=== PATIENT | female | born 1930 | race Caucasian/White ===

== ENCOUNTER 2016-06-11 10:33 | Inpatient (IN) | payer MEDICARE, BC ==
[2016-06-11] MEDS ORDERED: SODIUM CHLORIDE 0.9% 1,000 ML IV STA ×2 (10:57)
--- NOTE | 2016-06-11 11:00 | ED ---
Weakness HPI - General Chief complaint: Weakness Stated complaint: Vomiting Time Seen by Provider: 06/11/16 10:44 Source: patient, family, RN notes reviewed Mode of arrival: wheelchair Limitations: no limitations - History of Present Illness Initial comments: This is a 86-year-old female who presents with complaints of the onset of nausea vomiting yesterday morning he has persisted throughout the night though she was able to get some sleep until about 4 AM this morning but she still has persistent nausea vomiting she has generalized weakness she feels lightheaded and dizzy when she tries to walk. She's had some sweats but no fevers or chills some none description chest discomfort she relates to vomiting. She denies any at this time overt abdominal pain dysuria hematuria constipation diarrhea. MD Complaint: generalized weakness - Related Data Home Medications Medication Instructions Recorded Confirmed ALPRAZolam [Xanax] 0.5 mg PO TID PRN 06/11/16 06/11/16 Aspirin EC [Ecotrin Low Dose] 81 mg PO HS 06/11/16 06/11/16 Atorvastatin [Lipitor] 20 mg PO DAILY 06/11/16 06/11/16 Cetirizine HCl [Zyrtec] 10 mg PO DAILY 06/11/16 06/11/16 Famotidine [Pepcid] 20 mg PO BID 06/11/16 06/11/16 HYDROcodone/APAP 5-325MG [[place] 1 tab PO Q6HR PRN 06/11/16 06/11/16 5-325] Meclizine [Antivert] 25 mg PO TID 06/11/16 06/11/16 Metoprolol Tartrate [Lopressor] 25 mg PO BID 06/11/16 06/11/16 Promethazine [Phenergan] 12.5 mg PO BID@1200,2100 06/11/16 06/11/16 Allergies Allergy/AdvReac Type Severity Reaction Status Date / Time Penicillins Allergy Unknown Verified 06/11/16 11:58 Childhood Review of Systems ROS Statement: Those systems with pertinent positive or pertinent negative responses have been documented in the HPI. ROS Other: All systems not noted in ROS Statement are negative. Past Medical History Past Medical History: GERD/Reflux, Hyperlipidemia, Hypertension Additional Past Medical History / Comment(s): ulcers History of Any Multi-Drug Resistant Organisms: None Reported Past Surgical History: Orthopedic Surgery Past Psychological History: Anxiety Smoking Status: Current every day smoker Past Alcohol Use History: None Reported Past Drug Use History: None Reported General Exam - General Exam Comments Initial Comments: This is a well-developed well-nourished awake alert oriented 3 female Limitations: no limitations General appearance: alert, in no apparent distress Head exam: Present: atraumatic, normocephalic, normal inspection Eye exam: Present: normal appearance, PERRL, EOMI. Absent: scleral icterus, conjunctival injection, periorbital swelling ENT exam: Present: mucous membranes dry Neck exam: Present: normal inspection. Absent: tenderness, meningismus, lymphadenopathy Respiratory exam: Present: normal lung sounds bilaterally. Absent: respiratory distress, wheezes, rales, rhonchi, stridor Cardiovascular Exam: Present: regular rate, normal rhythm, normal heart sounds. Absent: systolic murmur, diastolic murmur, rubs, gallop, clicks GI/Abdominal exam: Present: soft, tenderness (Mild epigastric right upper quadrant tenderness palpation no guarding rebound masses or bruits), normal bowel sounds. Absent: distended, guarding, rebound, rigid Extremities exam: Present: normal inspection, full ROM, normal capillary refill. Absent: tenderness, pedal edema, joint swelling, calf tenderness Back exam: Present: normal inspection Neurological exam: Present: alert, oriented X3, CN II-XII intact Psychiatric exam: Present: normal affect, normal mood Skin exam: Present: warm, dry, intact, normal color. Absent: rash Course Vital Signs 06/11/16 06/11/16 06/11/16 10:35 11:04 11:49 Temperature 97.0 F L Pulse Rate 95 81 80 Respiratory 20 18 16 Rate Blood Pressure 137/73 149/83 168/80 O2 Sat by Pulse 97 94 L 98 Oximetry Medical Decision Making - Lab Data Result diagrams: 06/11/16 10:55 06/11/16 10:55 Lab Results 06/11/16 06/11/16 06/11/16 Range/Units 10:55 10:55 10:55 WBC 9.0 (3.8-10.6) k/uL RBC 4.92 (3.80-5.40) m/uL Hgb 15.9 (11.4-16.0) gm/dL Hct 46.5 H (34.0-46.0) % MCV 94.4 (80.0-100.0) fL MCH 32.3 (25.0-35.0) pg MCHC 34.2 (31.0-37.0) g/dL RDW 14.2 (11.5-15.5) % Plt Count 262 (150-450) k/uL Neutrophils % 80 % Lymphocytes % 12 % Monocytes % 4 % Eosinophils % 1 % Basophils % 1 % Neutrophils # 7.3 (1.3-7.7) k/uL Lymphocytes # 1.1 (1.0-4.8) k/uL Monocytes # 0.4 (0-1.0) k/uL Eosinophils # 0.1 (0-0.7) k/uL Basophils # 0.1 (0-0.2) k/uL Sodium 140 (137-145) mmol/L Potassium 4.1 (3.5-5.1) mmol/L Chloride 104 (98-107) mmol/L Carbon Dioxide 26 (22-30) mmol/L Anion Gap 10 mmol/L BUN 15 (7-17) mg/dL Creatinine 0.80 (0.52-1.04) mg/dL Est GFR (MDRD) Af Amer >60 (>60 ml/min/1.73 sqM) Est GFR (MDRD) Non-Af >60 (>60 ml/min/1.73 sqM) Glucose 115 H (74-99) mg/dL Calcium 9.9 (8.4-10.2) mg/dL Magnesium (1.6-2.3) mg/dL Total Bilirubin 1.1 (0.2-1.3) mg/dL AST 27 (14-36) U/L ALT 28 (9-52) U/L Alkaline Phosphatase 71 (38-126) U/L Total Creatine Kinase 48 (30-135) U/L CK-MB (CK-2) 1.3 (0.0-2.4) ng/mL CK-MB (CK-2) Rel Index 2.7 Troponin I <0.012 (0.000-0.034) ng/mL Total Protein 7.4 (6.3-8.2) g/dL Albumin 4.4 (3.5-5.0) g/dL Amylase 36 (30-110) U/L Lipase 63 (23-300) U/L Urine Color Urine Appearance (Clear) Urine pH (5.0-8.0) Ur Specific [place] (1.001-1.035) Urine Protein (Negative) Urine Glucose (UA) (Negative) Urine Ketones (Negative) Urine Blood (Negative) Urine Nitrite (Negative) Urine Bilirubin (Negative) Urine Urobilinogen (<2.0) mg/dL Ur Leukocyte Esterase (Negative) Urine RBC (0-5) /hpf Urine WBC (0-5) /hpf Ur Squamous Epith Cells (0-4) /hpf Urine Bacteria (None) /hpf Urine Mucus (None) /hpf 06/11/16 06/11/16 Range/Units 10:55 12:10 WBC (3.8-10.6) k/uL RBC (3.80-5.40) m/uL Hgb (11.4-16.0) gm/dL Hct (34.0-46.0) % MCV (80.0-100.0) fL MCH (25.0-35.0) pg MCHC (31.0-37.0) g/dL RDW (11.5-15.5) % Plt Count (150-450) k/uL Neutrophils % % Lymphocytes % % Monocytes % % Eosinophils % % Basophils % % Neutrophils # (1.3-7.7) k/uL Lymphocytes # (1.0-4.8) k/uL Monocytes # (0-1.0) k/uL Eosinophils # (0-0.7) k/uL Basophils # (0-0.2) k/uL Sodium (137-145) mmol/L Potassium (3.5-5.1) mmol/L Chloride (98-107) mmol/L Carbon Dioxide (22-30) mmol/L Anion Gap mmol/L BUN (7-17) mg/dL Creatinine (0.52-1.04) mg/dL Est GFR (MDRD) Af Amer (>60 ml/min/1.73 sqM) Est GFR (MDRD) Non-Af (>60 ml/min/1.73 sqM) Glucose (74-99) mg/dL Calcium (8.4-10.2) mg/dL Magnesium 2.0 (1.6-2.3) mg/dL Total Bilirubin (0.2-1.3) mg/dL AST (14-36) U/L ALT (9-52) U/L Alkaline Phosphatase (38-126) U/L Total Creatine Kinase (30-135) U/L CK-MB (CK-2) (0.0-2.4) ng/mL CK-MB (CK-2) Rel Index Troponin I (0.000-0.034) ng/mL Total Protein (6.3-8.2) g/dL Albumin (3.5-5.0) g/dL Amylase (30-110) U/L Lipase (23-300) U/L Urine Color Yellow Urine Appearance Cloudy H (Clear) Urine pH 8.0 (5.0-8.0) Ur Specific [place] 1.009 (1.001-1.035) Urine Protein Trace H (Negative) Urine Glucose (UA) Negative (Negative) Urine Ketones 1+ H (Negative) Urine Blood Negative (Negative) Urine Nitrite Negative (Negative) Urine Bilirubin Negative (Negative) Urine Urobilinogen <2.0 (<2.0) mg/dL Ur Leukocyte Esterase Large H (Negative) Urine RBC <1 (0-5) /hpf Urine WBC 2 (0-5) /hpf Ur Squamous Epith Cells <1 (0-4) /hpf Urine Bacteria Rare H (None) /hpf Urine Mucus Rare H (None) /hpf - EKG Data -: EKG Interpreted by Me (Sinus with sinus arrhythmia rate was 74. Interval 154 QRS duration 126 QT/) - Radiology Data Radiology results: report reviewed (I did review the imaging and reports no acute findings.), image reviewed Disposition Clinical Impression: Intermittent complete heart block, Acute gastritis, Dehydration, Weakness Disposition: ADMITTED IP TO THIS [facility] Condition: Stable
[2016-06-11 11:06] LABS: Basophils # (A) 0.1 k/uL (0-0.2); Basophils % (A) 1 %; CH 33.4; CHCM 35.5; Eosinophils # (A) 0.1 k/uL (0-0.7); Eosinophils % (A) 1 %; HCT 46.5 % (34.0-46.0); HDW 2.48; HGB 15.9 gm/dL (11.4-16.0); Luc # (Auto) 0.16; Luc % (Auto) 2; Lymphocytes # (A) 1.1 k/uL (1.0-4.8); Lymphocytes % (A) 12 %; MCH 32.3 pg (25.0-35.0); MCHC 34.2 g/dL (31.0-37.0); MCV 94.4 fL (80.0-100.0); Mean Platelet Volume 6.9; Monocytes # (A) 0.4 k/uL (0-1.0); Monocytes % (A) 4 %; Neutrophils # (A) 7.3 k/uL (1.3-7.7); Neutrophils % (A) 80 %; RBC 4.92 m/uL (3.80-5.40); RDW 14.2 % (11.5-15.5); WBC (Perox) 9.17
[2016-06-11 11:20] LABS: ALT 28 U/L (9-52); AST 27 U/L (14-36); Alkaline Phosphatase 71 U/L (38-126); Amylase 36 U/L (30-110); Anion Gap 10 mmol/L; Blood Urea Nitrogen 15 mg/dL (7-17); Calcium 9.9 mg/dL (8.4-10.2); Carbon Dioxide 26 mmol/L (22-30); Chloride 104 mmol/L (98-107); Glucose 115 mg/dL (74-99); Non-African American GFR(MDRD) >60 (>60 ml/min/1.73 sqM); Potassium 4.1 mmol/L (3.5-5.1); Sodium 140 mmol/L (137-145); Total Bilirubin 1.1 mg/dL (0.2-1.3); Total Protein 7.4 g/dL (6.3-8.2)
--- NOTE | 2016-06-11 11:26 | XR ---
EXAMINATION TYPE: XR chest 2V DATE OF EXAM: 06/11/2016 11:21 AM COMPARISON: 05/05/2012 INDICATION: Abdominal pain and nausea TECHNIQUE: Single frontal view of the chest is obtained. FINDINGS: The heart size is normal. The pulmonary vasculature is normal. There is blunting left costophrenic angle. Small pleural effusion and/or atelectasis may be present. Spondylosis is within the thoracic spine. IMPRESSION: 1. Minimal effusion or atelectasis within the lateral left costophrenic angle. 2. Acute pulmonary process is not otherwise identified.
--- NOTE | 2016-06-11 11:27 | XR ---
EXAMINATION TYPE: XR KUB DATE OF EXAM: 06/11/2016 11:21 AM COMPARISON: NONE INDICATION: Abdomen pain nausea vomiting TECHNIQUE: Single view abdomen upright view FINDINGS: There is a normal bowel gas pattern. Psoas margins are normal. No organomegaly is present. No free air is evident. No differential air-fluid levels are present. Stent is within the right iliac region. Degenerative changes are within the lumbar spine. IMPRESSION: 1. No acute abnormality
[2016-06-11 11:34] LABS: Creatine Kinase 48 U/L (30-135)
[2016-06-11 11:47] LABS: Creatine Kinase MB 1.3 ng/mL (0.0-2.4); Troponin I <0.012 ng/mL (0.000-0.034)
[2016-06-11 12:27] LABS: Appearance,Urine Cloudy (Clear); Bacteria,Urine Rare /hpf; Bilirubin,Urine Negative (Negative); Glucose,Urine (UA) Negative (Negative); Ketones,Urine 1+ (Negative); Leukocyte Esterase,Urine Large (Negative); Mucus,Urine Rare /hpf; Nitrite,Urine Negative (Negative); Particle Count 1115; Protein,Urine Trace (Negative); RBC,Urine <1 /hpf (0-5); Specific Gravity,Urine 1.009 (1.001-1.035); Squamous Epithelial Cell,Urine <1 /hpf (0-4); UA Billing (MACRO vs. MICRO) MICRO; Urobilinogen,Urine <2.0 mg/dL (<2.0); WBC,Urine 2 /hpf (0-5)
[2016-06-11] MEDS ORDERED: NALOXONE 0.4 MG/ML 1 ML VIAL IV PRN (13:18)
--- NOTE | 2016-06-11 13:23 | ED ---
Medical Decision Making - Lab Data Result diagrams: 06/11/16 10:55 06/11/16 10:55 Lab Results 06/11/16 06/11/16 06/11/16 Range/Units 10:55 10:55 10:55 WBC 9.0 (3.8-10.6) k/uL RBC 4.92 (3.80-5.40) m/uL Hgb 15.9 (11.4-16.0) gm/dL Hct 46.5 H (34.0-46.0) % MCV 94.4 (80.0-100.0) fL MCH 32.3 (25.0-35.0) pg MCHC 34.2 (31.0-37.0) g/dL RDW 14.2 (11.5-15.5) % Plt Count 262 (150-450) k/uL Neutrophils % 80 % Lymphocytes % 12 % Monocytes % 4 % Eosinophils % 1 % Basophils % 1 % Neutrophils # 7.3 (1.3-7.7) k/uL Lymphocytes # 1.1 (1.0-4.8) k/uL Monocytes # 0.4 (0-1.0) k/uL Eosinophils # 0.1 (0-0.7) k/uL Basophils # 0.1 (0-0.2) k/uL Sodium 140 (137-145) mmol/L Potassium 4.1 (3.5-5.1) mmol/L Chloride 104 (98-107) mmol/L Carbon Dioxide 26 (22-30) mmol/L Anion Gap 10 mmol/L BUN 15 (7-17) mg/dL Creatinine 0.80 (0.52-1.04) mg/dL Est GFR (MDRD) Af Amer >60 (>60 ml/min/1.73 sqM) Est GFR (MDRD) Non-Af >60 (>60 ml/min/1.73 sqM) Glucose 115 H (74-99) mg/dL Calcium 9.9 (8.4-10.2) mg/dL Magnesium (1.6-2.3) mg/dL Total Bilirubin 1.1 (0.2-1.3) mg/dL AST 27 (14-36) U/L ALT 28 (9-52) U/L Alkaline Phosphatase 71 (38-126) U/L Total Creatine Kinase 48 (30-135) U/L CK-MB (CK-2) 1.3 (0.0-2.4) ng/mL CK-MB (CK-2) Rel Index 2.7 Troponin I <0.012 (0.000-0.034) ng/mL Total Protein 7.4 (6.3-8.2) g/dL Albumin 4.4 (3.5-5.0) g/dL Amylase 36 (30-110) U/L Lipase 63 (23-300) U/L Urine Color Urine Appearance (Clear) Urine pH (5.0-8.0) Ur Specific [place] (1.001-1.035) Urine Protein (Negative) Urine Glucose (UA) (Negative) Urine Ketones (Negative) Urine Blood (Negative) Urine Nitrite (Negative) Urine Bilirubin (Negative) Urine Urobilinogen (<2.0) mg/dL Ur Leukocyte Esterase (Negative) Urine RBC (0-5) /hpf Urine WBC (0-5) /hpf Ur Squamous Epith Cells (0-4) /hpf Urine Bacteria (None) /hpf Urine Mucus (None) /hpf 06/11/16 06/11/16 Range/Units 10:55 12:10 WBC (3.8-10.6) k/uL RBC (3.80-5.40) m/uL Hgb (11.4-16.0) gm/dL Hct (34.0-46.0) % MCV (80.0-100.0) fL MCH (25.0-35.0) pg MCHC (31.0-37.0) g/dL RDW (11.5-15.5) % Plt Count (150-450) k/uL Neutrophils % % Lymphocytes % % Monocytes % % Eosinophils % % Basophils % % Neutrophils # (1.3-7.7) k/uL Lymphocytes # (1.0-4.8) k/uL Monocytes # (0-1.0) k/uL Eosinophils # (0-0.7) k/uL Basophils # (0-0.2) k/uL Sodium (137-145) mmol/L Potassium (3.5-5.1) mmol/L Chloride (98-107) mmol/L Carbon Dioxide (22-30) mmol/L Anion Gap mmol/L BUN (7-17) mg/dL Creatinine (0.52-1.04) mg/dL Est GFR (MDRD) Af Amer (>60 ml/min/1.73 sqM) Est GFR (MDRD) Non-Af (>60 ml/min/1.73 sqM) Glucose (74-99) mg/dL Calcium (8.4-10.2) mg/dL Magnesium 2.0 (1.6-2.3) mg/dL Total Bilirubin (0.2-1.3) mg/dL AST (14-36) U/L ALT (9-52) U/L Alkaline Phosphatase (38-126) U/L Total Creatine Kinase (30-135) U/L CK-MB (CK-2) (0.0-2.4) ng/mL CK-MB (CK-2) Rel Index Troponin I (0.000-0.034) ng/mL Total Protein (6.3-8.2) g/dL Albumin (3.5-5.0) g/dL Amylase (30-110) U/L Lipase (23-300) U/L Urine Color Yellow Urine Appearance Cloudy H (Clear) Urine pH 8.0 (5.0-8.0) Ur Specific [place] 1.009 (1.001-1.035) Urine Protein Trace H (Negative) Urine Glucose (UA) Negative (Negative) Urine Ketones 1+ H (Negative) Urine Blood Negative (Negative) Urine Nitrite Negative (Negative) Urine Bilirubin Negative (Negative) Urine Urobilinogen <2.0 (<2.0) mg/dL Ur Leukocyte Esterase Large H (Negative) Urine RBC <1 (0-5) /hpf Urine WBC 2 (0-5) /hpf Ur Squamous Epith Cells <1 (0-4) /hpf Urine Bacteria Rare H (None) /hpf Urine Mucus Rare H (None) /hpf Disposition Clinical Impression: Intermittent complete heart block, Acute gastritis, Dehydration, Weakness, Bradycardia Disposition: ADMITTED IP TO THIS [facility] Condition: Stable Referrals: Van Syed MD [Primary Care Provider] - 1-2 days
[2016-06-11] MEDS: SODIUM CHLORIDE 0.9% 1,000 ML IV SCH (15:19)
[2016-06-11 16:04] VITALS: BMI 29.5
[2016-06-11] MEDS ORDERED: HYDROmorphone 1 MG/ML 1 ML SYRINGE IVP PRN (16:43)
[2016-06-11] MEDS: MECLIZINE 25 MG TAB PO SCH ×2 (17:20→22:08)
[2016-06-11] MEDS: ONDANSETRON 4 MG/2 ML VIAL IVP PRN (17:21)
[2016-06-11] MEDS ORDERED: ENALAPRILAT 1.25 MG/ML 1 ML VIAL IVP STA (20:34)
[2016-06-11] MEDS ORDERED: ASPIRIN 81 MG CHEW PO SCH (21:00)
[2016-06-11] MEDS ORDERED: FAMOTIDINE 20 MG TAB PO SCH (21:00)
[2016-06-11] MEDS: PROMETHAZINE 25 MG TAB PO SCH (22:10)
[2016-06-12] MEDS: SODIUM CHLORIDE 0.9% 1,000 ML IV SCH ×2 (03:56→17:20)
[2016-06-12] MEDS: ONDANSETRON 4 MG/2 ML VIAL IVP PRN (04:01)
--- NOTE | 2016-06-12 08:02 | HP ---
DATE OF ADMISSION: 06/11/2016 CHIEF COMPLAINTS: Nausea, vomiting, dizziness, and general weakness. This is an 86-year-old white female who was brought to the emergency room because of severe nausea, vomiting, dizziness, and weakness. The patient's symptoms started yesterday and this was progressively getting worse and she became extremely weak and she also had some generalized pain in the abdomen and denied any chest pain and there was no cough. In the emergency room, CBC showed a WBC count of 9.0, hemoglobin 15.9, platelet count 262,000; sodium 140, potassium 4.1 and creatinine 0.8, BUN 15, platelet count 262,000. Liver enzymes within normal limits. Cardiac enzymes also within normal limits with troponin less than 0.012, CK-MB normal. Urinalysis negative, chest x-ray did not show any acute changes. EKG showed intermittent blocked beats. The patient was admitted to the hospital for further evaluation and treatment. Her past medical history reveals that she has history of: Gastroesophageal reflux disease, history of possibly perforated peptic ulcer disease several years ago and she also has hyperlipidemia and hypertensive cardiovascular disease and according to patient's [id number], she has had a stent placement in the past in the coronary artery. Her. Current medications include: 1. Metoprolol 25 mg p.o. b.i.d. 2. Antivert 25 mg t.i.d. 3. Famotidine 20 mg p.o. b.i.d. 4. Phenergan 12.5 mg b.i.d. p.r.n. 5. Zyrtec 10 mg p.o. daily. 6. Xanax 0.5 mg t.i.d. p.r.n. 7. Lipitor 20 mg p.o. daily. She has no known drug allergies. SOCIAL HISTORY: She does not smoke and she does not drink alcohol. FAMILY HISTORY: Noncontributory. History of heart disease and hypertension in the family. REVIEW OF SYSTEMS: Patient denies any headache. Appetite has been poor lately. She has severe nausea and vomiting and also some generalized abdominal pain and she has no chest pain. She has no cough. She has no polyuria or dysuria. She has no neurological symptoms. Physical examination reveals an 86-year-old white female extremely weak and still having severe dizziness and nausea and vomiting. She is alert and oriented. There is no jaundice. There is no generalized lymphadenopathy. There are no petechiae or bruises. She is afebrile. Temperature 97.6, pulse 78 per minute, respirations 20 per minute, blood pressure 168/80. Examination of the ENT negative. Neck is supple. There is no jugular venous distention. There is no goiter. There is no carotid bruit noted. Heart is in sinus rhythm with frequent missed beats. LUNGS: Clear to auscultation and percussion. Abdomen soft, but there is some tenderness in the upper abdomen. Examination of the lower extremities reveal no pitting edema. Neurologic examination does not reveal any localizing signs. IMPRESSION: 1. Severe nausea and vomiting and dizziness. 2. Intermittent bradycardia with blocked heart beats. 3. Hypertensive cardiovascular disease. 4. History of coronary artery disease. 5. Rule out acute labyrinthitis. 6. Hyperlipidemia. 7. Gastroesophageal reflux disease. 8. History of perforated peptic ulcer disease. PLAN: The patient we will be transferred to telemetry and we will get cardiology consultation. We will also get an ultrasound of the upper abdomen. Her nausea will be controlled with Zofran and given IV p.r.n. Prognosis is guarded. The diagnosis, prognosis, and therapeutic plans were discussed in detail with the patient and also with family. This patient's primary care physician is Dr. Syed and the patient was seen by me today for Dr. Syed as I am covering him for the weekend. Dr. Syed will resume care of this patient starting tomorrow morning.
[2016-06-12 09:33] LABS: Anion Gap 8 mmol/L; Blood Urea Nitrogen 13 mg/dL (7-17); Calcium 8.4 mg/dL (8.4-10.2); Carbon Dioxide 24 mmol/L (22-30); Chloride 109 mmol/L (98-107); Glucose 89 mg/dL (74-99); Non-African American GFR(MDRD) >60 (>60 ml/min/1.73 sqM); Potassium 3.9 mmol/L (3.5-5.1); Sodium 141 mmol/L (137-145)
--- NOTE | 2016-06-12 11:33 | P.CRDCN ---
History of Present Illness Consult date: 06/12/16 History of present illness: This is a 86-year-old female with history of ischemic heart disease with previous stent placement and episodes of dizziness. Came to the hospital with complaints of nausea vomiting, weakness, and also diarrhea. Patient apparently also had some abdominal discomfort. Upon admission patient was noted to have evidence of a high degree AV block with 3 to one conduction. This appears to be type II AV block. Patient also has underlying left bundle-branch block with a left occiput deviation. Patient also has history of intermittent dizziness in the past and had tilt table test done. She is also noted. Patient was conducting 221 with a sinus tachycardia. Given the high degree of AV block and history of a dizziness, patient would become a candidate for permanent pacemaker implantation. Patient is currently being treated and investigative for diarrhea. Once that is controlled, we'll consider permanent pacemaker implantation. However, the patient COMPLETE heart block, and did may become an emergency. Review of Systems REVIEW OF SYSTEMS: CONSTITUTIONAL:. Alert and oriented EYES: Denies diplopia, blurring of vision EARS, NOSE, MOUTH, THROAT: Denies headaches, denies sore throat. CARDIOVASCULAR: Denies chest pain, denies shortness of breath, denies palpitations RESPIRATORY: Denies shortness of breath, denies cough. GASTROINTESTINAL: Nausea vomiting and diarrhea GENITOURINARY: Denies hematuria, denies infections. MUSKULOSKELETAL: Denies pain, denies swelling. Denies any cramps or claudication INTEGUMENTARY: Denies rash, denies eczema. NEUROLOGICAL: Denies focal weakness, or visual disturbance. Denies any dizziness or syncope PSYCHIATRIC: Denies anxiety, denies depression. HEMATOLOGIC/LYMPHATIC: Denies any bleeding, denies enlarged lymph nodes. Past Medical History Past Medical History: Coronary Artery Disease (CAD), GERD/Reflux, Hyperlipidemia , Hypertension Additional Past Medical History / Comment(s): ulcers History of Any Multi-Drug Resistant Organisms: None Reported Past Surgical History: Heart Catheterization With Stent Additional Past Surgical History / Comment(s): sx for ruptered ulcer in 2012 Past Anesthesia/Blood Transfusion Reactions: No Reported Reaction Date of Last Stent Placement:: 1991 (?) Past Psychological History: Anxiety Smoking Status: Current every day smoker Past Alcohol Use History: None Reported Past Drug Use History: None Reported Medications and Allergies Home Medications Medication Instructions Recorded Confirmed Type ALPRAZolam [Xanax] 0.5 mg PO TID PRN 06/11/16 06/11/16 History Aspirin EC [Ecotrin Low Dose] 81 mg PO HS 06/11/16 06/11/16 History Atorvastatin [Lipitor] 20 mg PO DAILY 06/11/16 06/11/16 History Cetirizine HCl [Zyrtec] 10 mg PO DAILY 06/11/16 06/11/16 History Famotidine [Pepcid] 20 mg PO BID 06/11/16 06/11/16 History HYDROcodone/APAP 5-325MG [[place] 1 tab PO Q6HR PRN 06/11/16 06/11/16 History 5-325] Meclizine [Antivert] 25 mg PO TID 06/11/16 06/11/16 History Metoprolol Tartrate [Lopressor] 25 mg PO BID 06/11/16 06/11/16 History Promethazine [Phenergan] 12.5 mg PO BID@1200,2100 06/11/16 06/11/16 History Allergies Allergy/AdvReac Type Severity Reaction Status Date / Time Penicillins Allergy Unknown Verified 06/11/16 11:58 Childhood Physical Exam Vitals: Vital Signs Temp Pulse Pulse Pulse Resp BP BP 06/12/16 08:34 97.4 F L 68 75 16 146/68 06/12/16 04:00 75 16 172/73 06/12/16 00:00 98.0 F 45 L 16 144/65 06/11/16 20:00 97.8 F 46 L 16 200/78 06/11/16 16:00 98.3 F 49 L 16 139/79 06/11/16 14:55 98.7 F 54 L 18 186/89 06/11/16 14:12 98.5 F 71 18 148/79 Pulse Ox 06/12/16 08:34 94 L 06/12/16 04:00 93 L 06/12/16 00:00 96 06/11/16 20:00 95 06/11/16 16:00 97 06/11/16 14:55 95 06/11/16 14:12 95 Intake and Output 06/11/16 06/12/16 06/12/16 22:59 06:59 14:59 Intake Total 260 640 Output Total 2 4 Balance 258 636 Intake: Intake, IV Titration 160 640 Amount Sodium Chloride 0.9% 1, 160 640 000 ml @ 80 mls/hr IV . [id number] DANISHA Rx#:[id number] Oral 100 Output: Urine 2 4 Other: Voiding Method Toilet Toilet Toilet # Bowel Movements 2 1 Weight 73.4 kg 73.1 kg GENERAL EXAM: Patient is alert and oriented and doesn't appear to be in any acute distress HEENT: Normocephalic. Normal reaction of pupils, equal size, normal range of extraocular motion. No erythema or exudates in the throat. NECK: No masses, no nuchal rigidity. CHEST: No chest wall deformity. LUNGS: Equal air entry with no crackles or wheeze. HEART: S1 and S2 normal , short systolic murmur ABDOMEN: No hepatosplenomegaly, normal bowel sounds, no guarding or rigidity. SKIN: No rashes CENTRAL NERVOUS SYSTEM: No focal deficits. EXTREMITIES: No cyanosis, clubbing or edema. Results 06/11/16 10:55 06/12/16 08:49 Comprehensive Metabolic Panel 06/12/16 Range/Units 08:49 Sodium 141 (137-145) mmol/L Potassium 3.9 (3.5-5.1) mmol/L Chloride 109 H (98-107) mmol/L Carbon Dioxide 24 (22-30) mmol/L BUN 13 (7-17) mg/dL Creatinine 0.70 (0.52-1.04) mg/dL Glucose 89 (74-99) mg/dL Calcium 8.4 (8.4-10.2) mg/dL Current Medications Generic Name Dose Route Start Last Admin Trade Name Freq PRN Reason Stop Dose Admin Hydrocodone Bitart/Acetaminophen 1 each 06/11/16 13:21 [place] 5-325 PO Q6HR PRN Pain Alprazolam 0.5 mg 06/11/16 13:21 Xanax PO TID PRN Anxiety Atorvastatin Calcium 20 mg 06/12/16 09:00 Lipitor PO DAILY DANISHA Famotidine 20 mg 06/12/16 09:00 Pepcid IV DAILY DANISHA Hydromorphone HCl 1 mg 06/11/16 16:43 Dilaudid IVP Q6HR PRN Pain Sodium Chloride 1,000 mls @ 80 mls/hr 06/11/16 13:30 06/12/16 03:56 Saline 0.9% IV 80 mls/hr .[id number] DANISHA Administration Lisinopril 5 mg 06/12/16 09:00 Zestril PO DAILY DANISHA Loratadine 10 mg 06/12/16 09:00 Claritin PO DAILY DANISHA Meclizine HCl 25 mg 06/11/16 16:00 06/11/16 22:08 Antivert PO 25 mg TID DANISHA Administration Naloxone HCl 0.2 mg 06/11/16 13:18 Narcan IV Q2M PRN Opioid Reversal Ondansetron HCl 4 mg 06/11/16 16:43 06/12/16 04:01 Zofran IVP 4 mg Q6HR PRN Administration Nausea And Vomiting Promethazine HCl 12.5 mg 06/11/16 21:00 06/11/16 22:10 Phenergan PO 12.5 mg BID@1200,2100 DANISHA Administration Intake and Output 06/11/16 06/12/16 06/12/16 22:59 06:59 14:59 Intake Total 260 640 Output Total 2 4 Balance 258 636 Intake: Intake, IV Titration 160 640 Amount Sodium Chloride 0.9% 1, 160 640 000 ml @ 80 mls/hr IV . [id number] DANISHA Rx#:[id number] Oral 100 Output: Urine 2 4 Other: Voiding Method Toilet Toilet Toilet # Bowel Movements 2 1 Weight 73.4 kg 73.1 kg 06/12/16 08:49 EKG Interpretations (text) Sinus rhythm with a left bundle branch block pattern with intermittent high degree AV block with the periods of 2 to 1 conduction and 3 to 1 conduction Assessment and Plan (1) Acute gastroenteritis Status: Acute (2) Second degree AV block Status: Acute (3) Left bundle branch block Status: Acute (4) CAD (coronary artery disease) Status: Acute Plan: We will continue to monitor her. If she develops complete heart block, pacemaker insertion becomes an emergency. If not, we'll wait until patient recovers from acute gastroenteritis. We'll also get an echocardiogram with Doppler. Further recommendations depend upon the clinical course
[2016-06-12] MEDS: FAMOTIDINE 20 MG/2 ML VIAL IV SCH (11:45)
[2016-06-12] MEDS: LORATADINE 10 MG TAB PO SCH (11:45)
[2016-06-12] MEDS: MECLIZINE 25 MG TAB PO SCH ×3 (11:45→20:40)
[2016-06-12] MEDS: PROMETHAZINE 25 MG TAB PO SCH ×2 (11:45→20:39)
[2016-06-12] MEDS: ATORVASTATIN 20 MG TAB PO SCH (11:45)
[2016-06-12] MEDS: LISINOPRIL 5 MG TAB PO SCH (11:45)
[2016-06-12] MEDS: ALPRAZolam 0.5 MG TAB PO PRN (23:10)
[2016-06-13 07:43] LABS: Anion Gap 7 mmol/L; Blood Urea Nitrogen 8 mg/dL (7-17); Calcium 8.5 mg/dL (8.4-10.2); Carbon Dioxide 24 mmol/L (22-30); Chloride 110 mmol/L (98-107); Glucose 88 mg/dL (74-99); Non-African American GFR(MDRD) >60 (>60 ml/min/1.73 sqM); Potassium 3.9 mmol/L (3.5-5.1); Sodium 141 mmol/L (137-145)
[2016-06-13] MEDS: HYDROcodone/APAP 5-325MG 1 EACH TAB PO PRN ×2 (07:56→16:16)
[2016-06-13 08:12] LABS: CH 33.2; CHCM 35.6; HCT 38.3 % (34.0-46.0); HDW 2.68; HGB 13.5 gm/dL (11.4-16.0); MCH 33.1 pg (25.0-35.0); MCHC 35.3 g/dL (31.0-37.0); MCV 93.9 fL (80.0-100.0); Mean Platelet Volume 6.7; RBC 4.08 m/uL (3.80-5.40); RDW 13.7 % (11.5-15.5); WBC 7.9 k/uL (3.8-10.6)
--- NOTE | 2016-06-13 09:01 | P.PN ---
Subjective Principal diagnosis: Gastroenteritis, high degree AV block and episodes of dizziness This 86-year-old female was admitted to the hospital with complaints of nausea vomiting and dizziness. She was found to have episodes of high degree AV block with a 3 to 1 conduction, and also 2 to1 conduction. The patient also has underlying left bundle branch block pattern. Patient is recommended to have permanent pacemaker implantation. Patient is contemplating about it. Her nausea and diarrhea has improved. She is complaining of back pain. She wants to talk to the family before deciding about the pacemaker. If she decides to have it done, We'll scheduled for tomorrow. Otherwise, patient could be discharged home Objective - Vital Signs Vital signs: Vital Signs Temp 98.5 F 06/13/16 04:00 Pulse 67 06/13/16 08:00 Resp 16 06/13/16 08:00 BP 130/78 06/13/16 08:00 Pulse Ox 94 L 06/13/16 04:00 - Exam GENERAL EXAM: Patient is alert and oriented and appears to be in mild distress from her back pain HEENT: Normocephalic. Normal reaction of pupils, equal size, normal range of extraocular motion. No erythema or exudates in the throat. NECK: No masses, no nuchal rigidity. CHEST: No chest wall deformity. LUNGS: Equal air entry with no crackles or wheeze. HEART: S1 and S2 normal with no audible mumurs or gallops. Regular rhythm, femorals equal on both sides.. ABDOMEN: No hepatosplenomegaly, normal bowel sounds, no guarding or rigidity. SKIN: No rashes CENTRAL NERVOUS SYSTEM: No focal deficits. EXTREMITIES: No cyanosis, clubbing or edema. - Labs CBC & Chem 7: 06/13/16 06:48 06/13/16 06:48 Assessment and Plan (1) Acute gastroenteritis Status: Acute (2) Second degree AV block Status: Acute (3) Left bundle branch block Status: Acute (4) CAD (coronary artery disease) Status: Acute Plan: Patient has been stable since yesterday. Hasn't shown evidence of high degree AV block. Her nausea and diarrhea have improved. Patient is still thinking about the pacemaker. She wants to talk with the family before making a duration. If she decides to have the pacemaker, we'll schedule it for tomorrow. If she doesn't want to have it done, patient could be discharged home.
--- NOTE | 2016-06-13 09:36 | PN ---
CHIEF COMPLAINT: Nausea, vomiting. HISTORY OF PRESENT ILLNESS: This lady was admitted to the hospital after presenting to the emergency room with complaints of generalized weakness. The patient had been having significant nausea, vomiting over the past 24 hours prior to coming to the emergency room. At the time of evaluation this morning the patient complains of some lower abdominal cramping and subsequently has had episodes of diarrhea. Has had no further nausea, vomiting. The patient was noted to have a second degree AV block. The patient has been seen by Cardiology and recommending pacemaker; however, the patient at present has stable vital signs and thus until her gastroenteritis resolves the patient will not have a pacemaker. REVIEW OF SYSTEMS: NEURO: Denies any headaches, dizziness. PSYCH: Chronic dizziness. CARDIAC: No chest pain, angina, palpitation. RESPIRATORY: No shortness of breath, cough, hemoptysis. GI: Present complaint of some nausea. No vomiting. Some lower abdominal cramping and then diarrhea. No blood in the stool. : No symptoms of dysuria, hematuria. EXTREMITIES: Denies pain. Does complain of generalized weakness. CONSTITUTIONAL: No fever or chills. PHYSICAL EXAMINATION: A pleasant female in no distress at present. Vital signs reveal temperature 97.4, pulse 68, respirations 16, blood pressure 146/68, pulse 94%. Earlier patient's pulse rate was 49. HEENT: Normocephalic. NECK: No JVD. Chest is clear to auscultation with mild generalized decreased air flow. CARDIAC: Distant heart sounds. S1, S2 with no gallops. Systolic murmur left sternal border. Rhythm is regular with some irregular beats. ABDOMEN: Mildly tender lower abdomen without any rebound tenderness. Bowel sounds are active. EXTREMITIES: Reveal no edema. Good pulses upper extremities. Mild decreased pedal pulses. NEUROLOGIC: Awake, alert, oriented with well coordinated movements. Laboratory assessment was electrolytes which are pretty much normal. ASSESSMENT: 1. Gastroenteritis. 2. Second degree AV block. 3. Known coronary artery disease. 4. History of mild chronic obstructive pulmonary disease. 5. History of tobacco dependency. PLAN: Patient at present will be continued on IV hydration. Patient has been seen by Cardiology. As mentioned above recommending a pacemaker. Meanwhile patient's condition was discussed with the patient. Prognosis guarded.
[2016-06-13] MEDS: FAMOTIDINE 20 MG/2 ML VIAL IV SCH (09:40)
[2016-06-13] MEDS: LISINOPRIL 5 MG TAB PO SCH (09:40)
[2016-06-13] MEDS: LORATADINE 10 MG TAB PO SCH (09:40)
[2016-06-13] MEDS: ATORVASTATIN 20 MG TAB PO SCH (09:40)
[2016-06-13] MEDS: MECLIZINE 25 MG TAB PO SCH ×3 (09:41→21:48)
[2016-06-13] MEDS ORDERED: ceFAZolin 1,000 MG in SODIUM CHLORIDE 0.9% IRRIGATIO 250 ML IRRIGATION ONE (11:06)
[2016-06-13] MEDS ORDERED: ceFAZolin 2 GM in SODIUM CHLORIDE 0.9% 100 ML IVPB ONE (11:06)
[2016-06-13] MEDS: SODIUM CHLORIDE 0.9% 1,000 ML IV SCH ×3 (11:08→20:00)
[2016-06-13] MEDS: PROMETHAZINE 25 MG TAB PO SCH ×2 (13:34→21:48)
[2016-06-14] MEDS: SODIUM CHLORIDE 0.9% 1,000 ML IV SCH ×2 (03:29→19:23)
[2016-06-14] MEDS: LISINOPRIL 5 MG TAB PO SCH (06:23)
[2016-06-14] MEDS: MECLIZINE 25 MG TAB PO SCH ×3 (06:23→21:49)
[2016-06-14] MEDS: FAMOTIDINE 20 MG/2 ML VIAL IV SCH (06:23)
[2016-06-14] MEDS: LORATADINE 10 MG TAB PO SCH (06:23)
[2016-06-14] MEDS: ATORVASTATIN 20 MG TAB PO SCH (06:23)
[2016-06-14] MEDS: HYDROcodone/APAP 5-325MG 1 EACH TAB PO PRN ×2 (08:18→17:50)
[2016-06-14] MEDS ORDERED: IV FLUID CONTINUATION 1,000 ML IV ONE (09:48)
--- NOTE | 2016-06-14 10:01 | PN ---
DATE OF SERVICE: 06/13/2016 CHIEF COMPLAINT: Re-evaluation. HISTORY OF PRESENT ILLNESS: An 86-year-old female was admitted to the hospital with persistent nausea and vomiting at home. Subsequently, she has developed some diarrhea, which is better. The patient feels better today. She has a second degree AV block. The patient has been followed by cardiology. Discussions with the patient regarding a permanent pacemaker placement. She does have an underlying history of coronary artery disease, which is stable. REVIEW OF SYSTEMS: NEURO: Denies any headaches. Some dizziness. No double vision or blurred vision. No symptoms of TIA, syncope, seizures. PSYCH: No anxiety, depression. CARDIAC: No chest pain, angina, palpitation. RESPIRATORY: Denies shortness of breath, cough, hemoptysis. GI: No nausea, vomiting. Has been eating some full liquids, though appetite is not great. No nausea or vomiting. No abdominal pain. No diarrhea since yesterday. : No symptoms of dysuria or hematuria. EXTREMITIES: Denies pain or edema. MUSCULOSKELETAL: Back pain. CONSTITUTIONAL: No fevers or chills. Back pain is lower lumbar pain. PHYSICAL EXAMINATION: Pleasant female in no distress. Vital signs reveal temperature 98.5, pulse 70, respirations 18, blood pressure was 138/90. Repeat blood pressure 130/78, pulse 67, respirations 16. HEENT: Normocephalic. NECK: No JVD. CHEST: Clear to auscultation and percussion. CARDIAC: Normal S1, S2, no gallops. Systolic murmur 2/6 left sternal border. ABDOMEN: Soft. Bowel sounds present. Extremities reveal no edema. No tenderness. NEUROLOGIC: Awake, alert, oriented with well-coordinated movements. LABORATORY ASSESSMENT: CBC which is normal. Electrolytes are normal. BUN is 8, creatinine 0.66. ASSESSMENT: 1. Acute gastroenteritis resolving. 2. Second degree AV block. 3. Coronary artery disease, stable. 4. Chronic obstructive pulmonary disease. PLAN: The patient is stable. Continue present medical regimen. The patient's condition discussed with the patient. Prognosis guarded. Patient's diet will be advanced. The patient is being followed by cardiology. Pacemaker recommended. Reviewed with the patient reasoning for pacemaker explained to her including cardiac tracings. The patient does understand this. She is to decide whether she wants a pacemaker or not. Patient's condition otherwise stable.
[2016-06-14] MEDS ORDERED: CLINDAMYCIN 600 MG in DEXTROSE 5% IN WATER 50 ML IVPB STA ×2 (10:19)
[2016-06-14] MEDS ORDERED: fentaNYL (PF) 50 MCG/ML 2 ML AMP ONE (10:27)
[2016-06-14] MEDS ORDERED: fentaNYL (PF) 50 MCG/ML 2 ML AMP IV ONE (10:28)
[2016-06-14] MEDS ORDERED: CLINDAMYCIN 600 MG in SODIUM CHLORIDE 0.9% IRRIGATIO 250 ML IRRIGATION ONE (10:30)
[2016-06-14] MEDS ORDERED: LIDOCAINE 1% INJ 10MG/ML (20 ML MDV) SQ ONE ×2 (10:39→10:43)
[2016-06-14] MEDS ORDERED: IODIXANOL 320 MG/ML 100 ML IV ONE (11:24)
[2016-06-14] MEDS ORDERED: ACETAMINOPHEN TAB 325 MG TAB PO PRN (11:28)
--- NOTE | 2016-06-14 11:36 | P.CRDCN ---
History of Present Illness Consult date: 06/14/16 History of present illness: HISTORY: This is a 86-year-old female with a history of different bouts of dizziness and lightheadedness who was admitted to the hospital with nausea vomiting and also some diarrhea. Patient was found to have evidence of high degree AV block with a 3 to 1 conduction and also occasionally 2 to 1 conduction with heart rates of over 90. Patient also had underlying left bundle and left axis deviation. Patient is advised to have permanent pacemaker implantation. CONSENT:I have discussed the risks, benefits and alternative therapies for the above-mentioned procedure and for both sedation/analgesia as well as necessary blood product administration, if indicated, as they pertain to this patient. The patient has indicated understanding and acceptance of the risks and procedures discussed. PROCEDURE: Patient was brought to the lab in a fasting state. Patient was prepped and draped in the usual fashion. Patient was given IV sedation with fentanyl and Versed. The skin below the left clavicle was infiltrated with lidocaine. An incision was made parallel to deltopectoral groove was deepened until the pectoral fascia was exposed. A pocket was created by blunt dissection and cautery. Axillary venography was performed to delineate the course of the axillary vein. 2 sticks were performed into extrathoracic portion of the axillary vein and 2 sheaths were advanced over the guidewires and left in subclavian vein. LEADS: ATRIAL: This is manufactured by [email or web address]. Model number is 7741. Serial number is [id number]. VENTRICULAR: This is manufactured by [email or web address]. Model number is 7735. Serial number is [id number]. THE DEVICE: This is manufactured by [email or web address]. Model number is L301. Serial number is [id number]. The ventricular lead is maneuvered l with help of a straight and curved stylets into the left ventricle apical region. Satisfactory position was obtained and threshold measurements were made. The atrial lead was then maneuvered into the right atrial appendage. And thresholds were obtained. THRESHOLDS: ATRIUM: The minimum patient threshold was 0.7 V at pulse width of 0.4 ms with impedance of 582 ohms. The P-wave is 2.4 mV VENTRICLE: The minimum patient threshold was 0.4 at a pulse width of 0.4 ms. Impedance is 901 ohms. R-wave is 25 mV. The leads and pulse generator remained in the pocket after it was washed with antibiotics. Pocket was closed in the usual fashion. The fascia was closed with 2-0 Prolene ,the subcutaneous tissue was closed with 3-0 Prolene and the skin was closed with 4-0 Prolene. PROGRAMMING: MODE: DDD RATE: 60-120 OUTPUT: [facility] : 3.5 V at pulse width of 0.4 ms ventricle date: 3.5 V at a pulse width of 0.4 ms FINAL IMPRESSION: #1. Axillary venography #2. Dual-chamber pacemaker implantation COMPLICATIONS: none PLAN: Patient will be monitored on the telemetry unit for next 24 hours. Prophylactic antibiotics will be continued. The patient is stable she'll be discharged home after chest x-ray in the morning. Past Medical History Past Medical History: Coronary Artery Disease (CAD), GERD/Reflux, Hyperlipidemia , Hypertension Additional Past Medical History / Comment(s): ulcers History of Any Multi-Drug Resistant Organisms: None Reported Past Surgical History: Heart Catheterization With Stent Additional Past Surgical History / Comment(s): sx for ruptered ulcer in 2012 Past Anesthesia/Blood Transfusion Reactions: No Reported Reaction Date of Last Stent Placement:: 1991 (?) Past Psychological History: Anxiety Smoking Status: Current every day smoker Past Alcohol Use History: None Reported Past Drug Use History: None Reported Medications and Allergies Home Medications Medication Instructions Recorded Confirmed Type ALPRAZolam [Xanax] 0.5 mg PO TID PRN 06/11/16 06/11/16 History Aspirin EC [Ecotrin Low Dose] 81 mg PO HS 06/11/16 06/11/16 History Atorvastatin [Lipitor] 20 mg PO DAILY 06/11/16 06/11/16 History Cetirizine HCl [Zyrtec] 10 mg PO DAILY 06/11/16 06/11/16 History Famotidine [Pepcid] 20 mg PO BID 06/11/16 06/11/16 History HYDROcodone/APAP 5-325MG [[place] 1 tab PO Q6HR PRN 06/11/16 06/11/16 History 5-325] Meclizine [Antivert] 25 mg PO TID 06/11/16 06/11/16 History Metoprolol Tartrate [Lopressor] 25 mg PO BID 06/11/16 06/11/16 History Promethazine [Phenergan] 12.5 mg PO BID@1200,2100 06/11/16 06/11/16 History Allergies Allergy/AdvReac Type Severity Reaction Status Date / Time Penicillins Allergy Unknown Verified 06/11/16 11:58 Childhood Physical Exam Vitals: Vital Signs Temp Pulse Resp BP BP Pulse Ox 06/14/16 08:16 98.6 F 65 16 167/73 96 06/14/16 04:00 76 18 116/61 96 06/14/16 00:00 64 18 121/68 95 06/13/16 20:00 98.6 F 60 18 118/72 95 06/13/16 16:29 99.2 F 52 L 96 06/13/16 16:00 126/80 06/13/16 14:22 96.7 F L 63 16 06/13/16 12:00 122/62 Intake and Output 06/13/16 06/14/16 06/14/16 22:59 06:59 14:59 Intake Total 154 Balance 154 Intake: IV 154 Other: Voiding Method Toilet # Voids 1 Weight 73 kg Results 06/13/16 06:48 06/13/16 06:48 Current Medications Generic Name Dose Route Start Last Admin Trade Name Freq PRN Reason Stop Dose Admin Acetaminophen 650 mg 06/14/16 11:28 Tylenol Tab PO Q6HR PRN Mild Pain Hydrocodone Bitart/Acetaminophen 1 each 06/11/16 13:21 06/14/16 08:18 [place] 5-325 PO 1 each Q6HR PRN Administration Pain Alprazolam 0.5 mg 06/11/16 13:21 06/12/16 23:10 Xanax PO 0.5 mg TID PRN Administration Anxiety Atorvastatin Calcium 20 mg 06/12/16 09:00 06/14/16 06:23 Lipitor PO 20 mg DAILY DANISHA Administration Famotidine 20 mg 06/12/16 09:00 06/14/16 06:23 Pepcid IV 20 mg DAILY DANISHA Administration Hydromorphone HCl 1 mg 06/11/16 16:43 Dilaudid IVP Q6HR PRN Pain Sodium Chloride 1,000 mls @ 80 mls/hr 06/11/16 13:30 06/14/16 03:29 Saline 0.9% IV Not Given .[id number] DANISHA Sodium Chloride 1,000 mls @ 20 mls/hr 06/13/16 11:15 06/13/16 13:36 Saline 0.9% IV 20 mls/hr .Q24H DANISHA Administration Clindamycin Phosphate 900 mg/ 56 mls @ 100 mls/hr 06/14/16 11:30 Dextrose/Water IVPB 06/15/16 06:04 Q6H DANISHA Lisinopril 5 mg 06/12/16 09:00 06/14/16 06:23 Zestril PO 5 mg DAILY DANISHA Administration Loratadine 10 mg 06/12/16 09:00 06/14/16 06:23 Claritin PO 10 mg DAILY DANISHA Administration Meclizine HCl 25 mg 06/11/16 16:00 06/14/16 06:23 Antivert PO 25 mg TID DANISHA Administration Naloxone HCl 0.2 mg 06/11/16 13:18 Narcan IV Q2M PRN Opioid Reversal Ondansetron HCl 4 mg 06/11/16 16:43 06/12/16 04:01 Zofran IVP 4 mg Q6HR PRN Administration Nausea And Vomiting Promethazine HCl 12.5 mg 06/11/16 21:00 06/13/16 21:48 Phenergan PO 12.5 mg BID@1200,2100 DANISHA Administration Sodium Chloride 10 ml 06/14/16 21:00 Saline Flush IV Q12HR DANISHA Intake and Output 06/13/16 06/14/16 06/14/16 22:59 06:59 14:59 Intake Total 154 Balance 154 Intake: IV 154 Other: Voiding Method Toilet # Voids 1 Weight 73 kg Assessment and Plan (1) Acute gastroenteritis Status: Acute (2) Second degree AV block Status: Acute (3) Left bundle branch block Status: Acute (4) CAD (coronary artery disease) Status: Acute
[2016-06-14] MEDS: PROMETHAZINE 25 MG TAB PO SCH ×2 (13:17→21:29)
[2016-06-14] MEDS: CLINDAMYCIN 900 MG in DEXTROSE 5% IN WATER 50 ML IVPB SCH ×4 (18:02→21:49)
[2016-06-14 21:16] LABS: Glucose,Whole Blood 107 mg/dL (75-99)
--- NOTE | 2016-06-14 22:49 | PN ---
CHIEF COMPLAINT: Re-evaluation. HISTORY OF PRESENT ILLNESS: This 86-year-old female was admitted to the hospital with gastroenteritis resulting in nausea, vomiting, diarrhea with some dehydration. This was corrected. Patient was also noted to be in second-degree AV block. The patient had some dizziness associated. The patient was evaluated by Cardiology and subsequently recommended pacemaker. The patient this morning is agreeable to the pacemaker. Yesterday she was not so sure. REVIEW OF SYSTEMS: NEURO: Denies any headaches. Some dizziness. No double vision, blurred vision. No symptoms of TIA, syncope, seizures. PSYCH: No anxiety, depression. CARDIAC: No chest pain, angina, palpitation. RESPIRATORY: Denies shortness breath, cough, hemoptysis. GI: Mild nausea. No vomiting. No abdominal pain. No diarrhea. : No symptoms of dysuria, hematuria. EXTREMITIES: Denies pain, edema. MUSCULOSKELETAL: Some lower back pain. CONSTITUTIONAL: No fever or chills. PHYSICAL EXAMINATION: Pleasant female in no distress. Vital signs revealed temperature 98.6, pulse 65, respirations 16, blood pressure 167/73. HEENT: Normocephalic. NECK: No JVD. CHEST: Clear to auscultation and percussion. CARDIAC: Normal S1, S2 with no gallops. Systolic murmur 2/6, at the apex. ABDOMEN: Soft. Bowel sounds present. Extremities reveal no edema. No tenderness. NEUROLOGIC: Awake, alert, oriented with well-coordinated movements. LABORATORY ASSESSMENT: CBC yesterday was normal. Electrolytes yesterday were normal except for a chloride of 110. Blood sugar this morning is 107. Renal function yesterday was normal. ASSESSMENT: 1. Second-degree AV block. 2. Gastroenteritis, resolved. 3. Known coronary artery disease. 4. Chronic obstructive pulmonary disease. 5. Chronic dizziness. PLAN: The patient is stable. Continue present medical regimen. Patient is ready to undergo pacemaker placement. All of her questions have been answered to her satisfaction and she is now agreeable. The patient did undergo pacemaker placement. Dr. Balbuena called me regarding that. Patient tolerated the procedure well. PLAN: Possible discharge home tomorrow.
[2016-06-15] MEDS: CLINDAMYCIN 900 MG in DEXTROSE 5% IN WATER 50 ML IVPB SCH ×4 (03:57→10:14)
[2016-06-15] MEDS: ONDANSETRON 4 MG/2 ML VIAL IVP PRN ×3 (05:57→17:34)
[2016-06-15 06:47] LABS: Glucose,Whole Blood 106 mg/dL (75-99)
[2016-06-15] MEDS: MECLIZINE 25 MG TAB PO SCH ×3 (08:53→19:50)
[2016-06-15] MEDS: PANTOPRAZOLE 40 MG/10 ML VIAL IVP SCH ×2 (08:53→19:50)
[2016-06-15] MEDS: ATORVASTATIN 20 MG TAB PO SCH (08:54)
[2016-06-15] MEDS: LISINOPRIL 5 MG TAB PO SCH (08:54)
[2016-06-15] MEDS: LORATADINE 10 MG TAB PO SCH (08:54)
--- NOTE | 2016-06-15 10:05 | XR ---
EXAMINATION TYPE: XR chest 2V DATE OF EXAM: 06/15/2016 6:29 AM COMPARISON: 06/11/2016 TECHNIQUE: PA and lateral views submitted. HISTORY: Pain FINDINGS: Pacemaker is seen. Arthropathy of the shoulders. No pneumothorax. Subsegmental changes left lung base most typical of atelectasis or scar. No overt failure. Hypertrophic and degenerative change of the s [place]. IMPRESSION: 1. Basilar linear changes most typical atelectasis.
[2016-06-15] MEDS ORDERED: BISACODYL 10 MG SUPP RECTAL STA (11:03)
[2016-06-15 11:24] LABS: Glucose,Whole Blood 101 mg/dL (75-99)
[2016-06-15] MEDS: SODIUM CHLORIDE 0.9% 1,000 ML IV SCH (11:38)
--- NOTE | 2016-06-15 12:31 | P.PN ---
Subjective Principal diagnosis: Lightheadedness with associated nausea and vomiting HISTORY: This is a 86-year-old female with a history of different bouts of dizziness and lightheadedness who was admitted to the hospital with nausea vomiting and also some diarrhea. Patient was found to have evidence of high degree AV block with a 3 to 1 conduction and also occasionally 2 to 1 conduction with heart rates of over 90. Patient also had underlying left bundle and left axis deviation. Patient is advised to have permanent pacemaker implantation, this was performed yesterday by Dr. Balbuena. The device was interrogated this morning and is functioning appropriately. Chest x-ray revealed no evidence of a pneumothorax. Patient was quite nauseated this morning. Was initiated on Protonix by Dr. Syed Objective - Vital Signs Vital signs: Vital Signs Temp 97 F L 06/15/16 08:00 Pulse 62 06/15/16 12:00 Resp 18 06/15/16 12:00 BP 135/58 06/15/16 12:00 Pulse Ox 96 06/15/16 12:00 Intake & Output 06/14/16 06/15/16 06/15/16 18:59 06:59 18:59 Intake Total 354 118 50 Output Total 800 Balance -446 118 50 Weight 72.5 kg Intake: IV 154 50 ceFAZolin 2 gm In Sodium 50 Chloride 0.9% 100 ml @ 100 mls/hr IVPB ONCE ONE Rx#:[id number] Oral 200 118 Output: Urine 800 Other: Voiding Method Bedside Commode # Voids 1 - Exam PHYSICAL EXAMINATION: HEENT: Head is atraumatic, normocephalic. Pupils equal, round. Neck is supple. There is no elevated jugular venous pressure. HEART EXAMINATION: S1 S2 1 systolic murmur is heard. CHEST EXAMINATION: Lungs are clear to auscultation and precussion. No chest wall tenderness is noted on palpation or with deep breathing. Site of pacemaker implantation clean and dry. ABDOMEN: Soft, nontender. Bowel sounds are heard. No organomegaly noted. Positive nausea EXTREMITIES: 2+ peripheral pulses with no evidence of peripheral edema and no calf tenderness noted. NEUROLOGIC patient is awake, alert and oriented -3. . - Labs CBC & Chem 7: 06/13/16 06:48 06/13/16 06:48 Labs: Abnormal Lab Results - Last 24 Hours (Table) 06/14/16 06/15/16 06/15/16 Range/Units 21:15 06:46 11:23 POC Glucose (mg/dL) 107 H 106 H 101 H (75-99) mg/dL Assessment and Plan (1) Nausea Status: Acute (2) Pacemaker Status: Acute (3) Acute gastroenteritis Status: Acute (4) Bradycardia Status: Acute (5) CAD (coronary artery disease) Status: Acute (6) Intermittent complete heart block Status: Acute (7) Left bundle branch block Status: Acute (8) Second degree AV block Status: Acute Plan: Cardiology's perspective, we will continue the patient on her current medications. Plan for possible discharge home in the morning if stable. DNP note has been reviewed, I agree with a documented findings and plan of care. Patient was seen and examined.
[2016-06-16] MEDS: ALPRAZolam 0.5 MG TAB PO PRN (00:09)
[2016-06-16 05:47] VITALS: RESP 16
[2016-06-16] MEDS: HYDROcodone/APAP 5-325MG 1 EACH TAB PO PRN (05:49)
--- NOTE | 2016-06-16 08:20 | P.DS ---
Providers Date of admission: 06/13/16 08:11 Attending physician: Van Syed Primary care physician: Van Syed Hospital Course: hospital course: This 86-year-old female was admitted to the hospital after presenting to the emergency room with complaints of nausea and vomiting associated with significant weakness some dizziness. Patient is noted to be in second-degree AV block type II. She had been on beta susan which was discontinued. She has underlying history of coronary artery disease but denied any chest pain. The patient's nausea vomiting improved with medications. She next day had significant diarrhea. This was also controlled subsequently patient underwent a pacemaker placement. She does have intermittent nausea. Patient is feeling better today. She has a previous history of peptic ulcer disease. No suggestion of any abdominal pain. The patient also complains of back pain which was prior to coming to the hospital. She's been on [place] to help the pain. Patient is the time of transfer is in stable condition. She did have a pacemaker. Has restrictions with left upper extremity. She is not able to manipulate take care of herself. Patient to be sent to rehab. Final diagnosis to include 1. Gastroenteritis 2. Dehydration 3. Second-degree AV block type II 4. Coronary artery disease 5. COPD 6. Tobacco dependency numbers 7. Degenerative joint disease affecting lumbosacral spine Patient Condition at Discharge: Stable Plan - Discharge Summary New Discharge Prescriptions: ALPRAZolam [Xanax] 0.5 mg PO TID PRN #100 tab PRN Reason: Anxiety HYDROcodone/APAP 5-325MG [[place] 5-325] 1 each PO Q6HR PRN #100 tab PRN Reason: Pain Pantoprazole Sodium [Protonix] 40 mg PO AC-BID #30 tablet.dr Discharge Medication List Aspirin EC [Ecotrin Low Dose] 81 mg PO HS 06/11/16 [History] Atorvastatin [Lipitor] 20 mg PO DAILY 06/11/16 [History] Cetirizine HCl [Zyrtec] 10 mg PO DAILY 06/11/16 [History] Meclizine [Antivert] 25 mg PO TID 06/11/16 [History] Metoprolol Tartrate [Lopressor] 25 mg PO BID 06/11/16 [History] ALPRAZolam [Xanax] 0.5 mg PO TID PRN #100 tab 06/16/16 [Rx] Acetaminophen Tab [Tylenol] 650 mg PO Q6HR PRN #0 tab 06/16/16 [Rx] HYDROcodone/APAP 5-325MG [[place] 5-325] 1 each PO Q6HR PRN #100 tab 06/16/16 [Rx] Lisinopril [Zestril] 5 mg PO DAILY #0 tab 06/16/16 [Rx] Pantoprazole Sodium [Protonix] 40 mg PO AC-BID #30 tablet. 06/16/16 [Rx] Follow up Appointment(s)/Referral(s): Van Syed MD [Primary Care Provider] - 1-2 days Discharge Disposition: TRANSFER TO SNF/ECF
[2016-06-16] MEDS: PANTOPRAZOLE 40 MG/10 ML VIAL IVP SCH (08:50)
[2016-06-16] MEDS: LISINOPRIL 5 MG TAB PO SCH (08:50)
[2016-06-16] MEDS: ATORVASTATIN 20 MG TAB PO SCH (08:51)
[2016-06-16] MEDS: LORATADINE 10 MG TAB PO SCH (08:51)
[2016-06-16] MEDS: MECLIZINE 25 MG TAB PO SCH (08:51)
--- NOTE | 2016-06-16 11:05 | PN ---
DATE OF SERVICE: 06/15/2016 CHIEF COMPLAINT: Reevaluation. HISTORY OF PRESENT ILLNESS: This 86-year-old female was admitted to the hospital with complaints of nausea, vomiting, and subsequently diarrhea. The patient also was noted to be in second-degree AV block. No further vomiting or diarrhea. The patient underwent a pacemaker placement yesterday, however, today she says she feels bad again. She feels nauseous. Denies any abdominal pain. NO bowel movements. The patient has had no fever or chills. REVIEW OF SYSTEMS: NEURO: Denies any headaches. Some chronic dizziness. No double vision, blurred vision. PSYCH: Some apprehension. CARDIAC: No chest pain, angina, palpitations. PSYCH: Some apprehension regarding going home. CARDIAC: No chest pain, angina, palpitations. Minimal soreness at the left infraclavicular region CARDIAC: No angina or palpitations. RESPIRATORY: No shortness of breath, cough, hemoptysis. GI: Nausea. No vomiting or abdominal pain. No diarrhea. No bowel movement. : No symptoms of dysuria or hematuria. EXTREMITIES: Denies pain. CONSTITUTIONAL: No fever or chills. PHYSICAL EXAMINATION: Pleasant female, at present in no distress. Vital signs reveal temperature 97, pulse is 66, respirations 18, blood pressure is 153/61, pulse ox 97% on room air. HEENT: Normocephalic. NECK: No JVD. CHEST: Clear to auscultation. CARDIAC: Normal S1, S2 with no gallops. Systolic murmur 2/6 left sternal border. ABDOMEN: Soft. Bowel sounds are present. Extremities reveal no edema. No tenderness. NEUROLOGIC: Awake, alert, oriented with well-coordinated movements. LABORATORY ASSESSMENT: Accu-Cheks which are normal range. ASSESSMENT: 1. Nausea with no clear reason. 2. Status post pacemaker placement. 3. Nausea, vomiting, diarrhea, resolved. 4. History of chronic obstructive pulmonary disease. 5. History of coronary artery disease. PLAN: Patient at present is stable. Continue present medical regimen. The patient's has antiemetics on board. We will place the patient on Protonix. She has had a previous history of peptic ulcer. The patient has been on Pepcid, which will be discontinued. Patient's condition discussed with the patient. Prognosis remains guarded. We will hold the discharge today and see how she does. The patient cannot go home,. Would recommend that she consider going to a nursing facility for transient. The patient's condition was discussed with the patient. Prognosis guarded.
[2016-06-16 11:40] VITALS: TEMP 96.9
[2016-06-16 12:34] VITALS: BP 132/70; PULSE 72
--- NOTE | 2016-06-16 14:33 | P.PN ---
Subjective Principal diagnosis: Lightheadedness with associated nausea and vomiting HISTORY: This is a 86-year-old female with a history of different bouts of dizziness and lightheadedness who was admitted to the hospital with nausea vomiting and also some diarrhea. Patient was found to have evidence of high degree AV block with a 3 to 1 conduction and also occasionally 2 to 1 conduction with heart rates of over 90. Patient also had underlying left bundle and left axis deviation. Underwent implantation of a permanent pacemaker by Dr. Balbuena. She was seen and examined this morning, feeling much better today overall. She denies any nausea. Objective - Vital Signs Vital signs: Vital Signs Temp 96.9 F L 06/16/16 08:00 Pulse 72 06/16/16 12:00 Resp 16 06/16/16 12:00 BP 132/70 06/16/16 12:00 Pulse Ox 97 06/16/16 08:00 Intake & Output 06/15/16 06/16/16 06/16/16 18:59 06:59 18:59 Intake Total 500 800 416 Output Total 300 Balance 500 500 416 Weight 72.3 kg Intake: IV 50 ceFAZolin 2 gm In Sodium 50 Chloride 0.9% 100 ml @ 100 mls/hr IVPB ONCE ONE Rx#:[id number] Intake, IV Titration 210 120 Amount Clindamycin 900 mg In 50 Dextrose 5% in Water 50 ml @ 100 mls/hr IVPB Q6H [facility] Rx#:[id number] Sodium Chloride 0.9% 1, 160 120 000 ml @ 20 mls/hr IV . Q24H [facility] Rx#:[id number] Oral 240 680 416 Output: Urine 300 Other: Voiding Method Bedside Commode Bedside Commode # Voids 1 2 2 # Bowel Movements 1 - Exam PHYSICAL EXAMINATION: HEENT: Head is atraumatic, normocephalic. Pupils equal, round. Neck is supple. There is no elevated jugular venous pressure. HEART EXAMINATION: S1 S2 1 systolic murmur is heard. CHEST EXAMINATION: Lungs are clear to auscultation and precussion. No chest wall tenderness is noted on palpation or with deep breathing. Site of pacemaker implantation clean and dry. ABDOMEN: Soft, nontender. Bowel sounds are heard. No organomegaly noted. Positive nausea EXTREMITIES: 2+ peripheral pulses with no evidence of peripheral edema and no calf tenderness noted. NEUROLOGIC patient is awake, alert and oriented -3. . - Labs CBC & Chem 7: 06/13/16 06:48 06/13/16 06:48 Assessment and Plan (1) Nausea Status: Acute (2) Pacemaker Status: Acute (3) Acute gastroenteritis Status: Acute (4) Bradycardia Status: Acute (5) CAD (coronary artery disease) Status: Acute (6) Intermittent complete heart block Status: Acute (7) Left bundle branch block Status: Acute (8) Second degree AV block Status: Acute Plan: Cardiology's perspective, we will continue the patient on her current medications. Being transfered to [facility] today. We'll make her a follow-up appointment to see Dr. Balbuena in the office in one week. DNP note has been reviewed, I agree with a documented findings and plan of care. Patient was seen and examined.
== END 2016-06-16 16:44 | DRG 244 ==
LOC: EC 10:33 → 3OBS 13:18 → 6SEL 17:42 → 3OBS 06-12 20:33 → OBSVTOIN 06-13 08:11 → 6SEL 06-13 18:49
PROVIDERS: ADMIT Internal Medicine; ATTEND Internal Medicine
PROC: 0JH606Z Insertion of Pacemaker, Dual Chamber into Chest Subcutaneous Tissue and Fascia, Open Approach (ICD-10-PCS; principal; 2016-06-14 10:00)
PROC: 02H63JZ Insertion of Pacemaker Lead into Right Atrium, Percutaneous Approach (ICD-10-PCS; principal; 2016-06-14 10:00)
PROC: 02HL3JZ Insertion of Pacemaker Lead into Left Ventricle, Percutaneous Approach (ICD-10-PCS; principal; 2016-06-14 10:00)
DX: I44.2 Atrioventricular block, complete (principal); J44.9 Chronic obstructive pulmonary disease, unspecified; I11.9 Hypertensive heart disease without heart failure; E86.0 Dehydration; I44.7 Left bundle-branch block, unspecified; E78.5 Hyperlipidemia, unspecified; F17.200 Nicotine dependence, unspecified, uncomplicated; I25.10 Atherosclerotic heart disease of native coronary artery without angina pectoris; K21.9 Gastro-esophageal reflux disease without esophagitis; K52.9 Noninfective gastroenteritis and colitis, unspecified; M47.9 Spondylosis, unspecified; Z79.899 Other long term (current) drug therapy; Z82.49 Family history of ischemic heart disease and other diseases of the circulatory system; Z87.11 Personal history of peptic ulcer disease; Z95.5 Presence of coronary angioplasty implant and graft
CPT/HCPCS: 33208; 36415; 71020; 74000; 80048; 80053; 81001; 82150; 82550; 82553; 83690; 83735; 84439; 84443; 84484; 85025; 85027; 93005; 96360; 96361; 96374; 96375; 99285

== ENCOUNTER → 2016-08-31 | Outpatient (CLI) | payer MEDICARE, BC ==
--- NOTE | 2016-09-01 08:04 | XR ---
EXAMINATION TYPE: XR chest 2V DATE OF EXAM: 08/31/2016 COMPARISON: Prior chest x-ray 06/15/2016 HISTORY: Paroxysmal atrial fibrillation, I 48.0 TECHNIQUE: Frontal and lateral views of the chest are obtained. FINDINGS: Pacemaker leads are stable in the right atrium and ventricle. Generator in the left pector al region. Interstitium mildly prominent as on prior exam. No evident pneumothorax or pleural effusio n. Cardiomediastinal silhouette, pulmonary vascularity and bárbara are stable. Some minimal basilar scar ring suspected. IMPRESSION: No acute cardiopulmonary process.
--- NOTE | 2016-09-01 11:21 | P.PCN ---
Date of Procedure: 09/01/16 Preoperative Diagnosis: Pacemaker malfunction Postoperative Diagnosis: The same Procedure(s) Performed: Fluoroscopy of the pacemaker leads and the can. Implants: Indications for Procedure: Operative Findings: Description of Procedure: This patient was brought in as an outpatient for fluoroscopy evaluation of the pacemaker leads and the can and the pacemaker was malfunctioning with high thresholds and impedance in the atrial lead. Fluoroscopy is suggestive that the atrial lead may be pulled out of the can because of loose screw. Patient is being scheduled to have revision of the pacemaker on Sunday. Interrogation of the device showed that the views are about 5.3 mV in the bipolar mode and 4.6 mV in the unipolar mode. The impedance is more than 3000 in the bipolar mode and 6 and 88 in the unipolar mode. In the bipolar mode. The patient threshold was 3.4 V at pulse width of 1 ms. Today it is a 0.4 V at pulse width of 1 ms. Be at the ventricular threshold remains stable. The R waves are more than 25 with the patient threshold of 1.1 at pulse width of 0.4 ms. FINAL IMPRESSION #1. Pacemaker malfunction. 2. Possible mol connection of the atrial lead to the can #3. No evidence of lead fracture. PLAN: patient will be discharged home later today. Patient to be scheduled for revision of the pacemaker on Sunday
== END | disposition home or self-care (01) ==
LOC: RADXRMAIN 15:57
PROVIDERS: ATTEND Internal Medicine Cardiovascular Disease
DX: I48.0 Paroxysmal atrial fibrillation (principal); T82.118A Breakdown (mechanical) of other cardiac electronic device, initial encounter
CPT/HCPCS: 71020

== ENCOUNTER → 2016-09-01 | Day surgery (SDC) | payer MEDICARE, BC ==
[2016-09-01 11:04] VITALS: BP 169/73; PULSE 66; RESP 18; TEMP 98.2
--- NOTE | 2016-10-24 10:03 | P.PCN ---
Date of Procedure: 11/02/16 Preoperative Diagnosis: Lead malfunction Postoperative Diagnosis: Probable loose screw Procedure(s) Performed: Implants: Indications for Procedure: Operative Findings: Description of Procedure: This patient was brought in for fluoroscopy evaluation of the lead because of malfunction. There doesn't seem to be any lead fracture. It appears that there may be lose screw. Plan: Exploration and possible generator change
== END | disposition home or self-care (01) ==
LOC: CATHEP 10:42
PROVIDERS: ATTEND Internal Medicine Cardiovascular Disease
DX: T82.120A Displacement of cardiac electrode, initial encounter (principal)
CPT/HCPCS: 76000

== ENCOUNTER 2016-09-04 06:41 | Day surgery (SDC) | payer MEDICARE, BC ==
[~2016-09-04 06:41] MED LIST: SODIUM CHLORIDE 0.9% 1,000 ML IV SCH
[2016-09-04 07:03] VITALS: TEMP 98.1
[2016-09-04 07:16] LABS: Basophils # (A) 0.1 k/uL (0-0.2); Basophils % (A) 1 %; CHCM 34.9; Eosinophils # (A) 0.6 k/uL (0-0.7); Eosinophils % (A) 8 %; HCT 41.4 % (34.0-46.0); HDW 2.61; HGB 13.8 gm/dL (11.4-16.0); Luc # (Auto) 0.16; Luc % (Auto) 2; Lymphocytes # (A) 1.6 k/uL (1.0-4.8); Lymphocytes % (A) 20 %; MCH 31.8 pg (25.0-35.0); MCHC 33.5 g/dL (31.0-37.0); Mean Platelet Volume 7.1; Monocytes # (A) 0.5 k/uL (0-1.0); Monocytes % (A) 7 %; Neutrophils # (A) 4.8 k/uL (1.3-7.7); Neutrophils % (A) 62 %; RBC 4.35 m/uL (3.80-5.40); RDW 14.4 % (11.5-15.5); WBC 7.7 k/uL (3.8-10.6); WBC (Perox) 7.36
[2016-09-04 07:27] LABS: INR 1.2 (<1.2); Prothrombin Time 11.6 sec (9.0-12.0)
[2016-09-04 07:30] LABS: Anion Gap 7 mmol/L; Blood Urea Nitrogen 12 mg/dL (7-17); Calcium 8.9 mg/dL (8.4-10.2); Carbon Dioxide 26 mmol/L (22-30); Chloride 105 mmol/L (98-107); Glucose 100 mg/dL (74-99); Non-African American GFR(MDRD) >60 (>60 ml/min/1.73 sqM); Potassium 4.2 mmol/L (3.5-5.1); Sodium 138 mmol/L (137-145)
[2016-09-04] MEDS: CLINDAMYCIN 900 MG in DEXTROSE 5% IN WATER 50 ML IVPB ONE ×4 (07:59→08:00)
[2016-09-04] MEDS ORDERED: LIDOCAINE 1% INJ 10MG/ML (20 ML MDV) SQ ONE (08:05)
[2016-09-04] MEDS: CLINDAMYCIN 600 MG in SODIUM CHLORIDE 0.9% IRRIGATIO 250 ML IRRIGATION ONE ×2 (08:11→08:24)
[2016-09-04] MEDS ORDERED: ACETAMINOPHEN TAB 325 MG TAB PO PRN (08:45)
--- NOTE | 2016-09-04 08:57 | P.PCN ---
Date of Procedure: 09/04/16 Preoperative Diagnosis: Atrial lead malfunction Postoperative Diagnosis: Atrial lead malfunction related to possibly loose screw. Procedure(s) Performed: Revision of the atrial lead. Replacement of generator because of loose screw Implants: Indications for Procedure: Operative Findings: Description of Procedure: HISTORY: This 86-year-old female had a permanent pacemaker implantation in May. On recent evaluation it was found that there were issues with atrial lead with intermittent high thresholds and also impedance. Fluoroscopy and clinical evaluation was suggestive of possible loose screw. CONSENT: I have discussed the risks and benefits as related to the above mentioned procedure and both sedation/analgesia as well as necessary blood product administration. The patient has indicated understanding and acceptance of the risks of the procedure discussed. PROCEDURE: Patient was brought to the lab in a fasting state. Patient was given IV sedation by department of anesthesia. The skin over the existing pulse generator was infiltrated with lidocaine. An incision was made in the skin and was deepened until the pectoral fascia was exposed. Hemostasis was obtained. The existing pulse generator was pulled out of the pocket. The leads were disconnected and were checked for thresholds. There appeared to be loose screw involving the atrial lead, which appear to be defective. At this point we decided to replace the pulse generator. The leads were connected to a new pulse generator and repeat checking showed stable thresholds and impedance. THRESHOLDS: ATRIAL: . 0.7 V at pulse width of 0.4 ms. Impedance is 588 ohms. The intrinsic P-wave is 2.4 mV VENTRICULAR: The minimal patient threshold was 0.4 V at pulse width of 0.4 ms. Impedance is 911 ohms. The intrinsic R-wave is 25 mV. THE LEADS: ATRIAL: This is manufactured by [employer]. Model number is 7735. Serial number is [id number] VENTRICULAR: This is manufactured by [employer]. Model number is 7741. Serial number is [id number] THE EXPLANTED DEVICE: . This is manufactured by [employer]. Model number is L301. Serial number is [id number] THE NEW DEVICE: . This is manufactured by [employer]. Model name is sent. She'll. Model number is L101 and the serial number is [id number] . The leads were then connected to a new pulse generator . Pacemaker seems to function normally. The pocket was irrigated with antibiotics. The pocket was closed in the usual fashion. Pectoral fascia was closed with 2-0 Prolene, the subcutaneous tissue was closed with 3-0 Prolene and the skin was closed with 4-0 Prolene. Patient tolerated the procedure well . Patient will be monitored on the telemetry unit for 2-3 hours. If stable patient be discharged home later today. PLAN: Continue prophylactic antibiotics. Possible discharge later today in 4- 6 hours. FALLOW UP: In the office in one week.
[2016-09-04 09:18] VITALS: PULSE 60; RESP 16
--- NOTE | 2016-09-04 10:28 | XR ---
EXAMINATION TYPE: XR chest 1V portable DATE OF EXAM: 09/04/2016 HISTORY: Shortness of breath. COMPARISON: 08/31/2016 TECHNIQUE: Single view of the chest is submitted. FINDINGS: Pacer device is in place with distal leads within the right atrium and right ventricle respectively. No evidence for pneumothorax. Demonstrated are scattered senescent parenchymal change. There is no evidence for focal infiltrate. The heart is stable. Hilar and mediastinal structures are within normal limits. Degenerative changes are seen of the dorsal spine. IMPRESSION: 1. Chronic changes without evidence for acute pulmonary disease.
[2016-09-04 11:34] VITALS: BP 113/55
[2016-09-04] MEDS ORDERED: CLINDAMYCIN 900 MG in DEXTROSE 5% IN WATER 50 ML IVPB SCH ×2 (14:00)
== END 2016-09-04 12:55 | disposition home or self-care (01) ==
LOC: CATHEP 06:41
PROVIDERS: ATTEND Internal Medicine Cardiovascular Disease
DX: T82.191A Other mechanical complication of cardiac pulse generator (battery), initial encounter (principal); I48.0 Paroxysmal atrial fibrillation; I25.10 Atherosclerotic heart disease of native coronary artery without angina pectoris; E78.00 Pure hypercholesterolemia, unspecified; I10 Essential (primary) hypertension; I49.5 Sick sinus syndrome; E78.5 Hyperlipidemia, unspecified; I44.30 Unspecified atrioventricular block; K21.9 Gastro-esophageal reflux disease without esophagitis; Z95.5 Presence of coronary angioplasty implant and graft; F17.210 Nicotine dependence, cigarettes, uncomplicated; Z79.01 Long term (current) use of anticoagulants; Z79.899 Other long term (current) drug therapy; Z88.0 Allergy status to penicillin
CPT/HCPCS: 33215; 33228; 80048; 85025; 85610; 71010; C1785; J2001

== ENCOUNTER 2016-10-12 18:08 | Observation (INO) | payer MEDICARE, BC ==
[2016-10-12] MEDS ORDERED: SODIUM CHLORIDE 0.9% 1,000 ML IV STA (18:29)
--- NOTE | 2016-10-12 18:37 | ED ---
General Adult HPI - General Chief complaint: Chest Pain Stated complaint: NAUSEA, VOMITING, DIARRHEA Time Seen by Provider: 10/12/16 18:28 Source: patient, RN notes reviewed, old records reviewed Mode of arrival: wheelchair Limitations: no limitations - History of Present Illness Initial comments: This is an 86-year-old female here for evaluation of multiple complaints. Patient's complaints center around chest pain and shortness of breath heaviness on her chest, also similar symptoms she experienced while when she had a pacemaker placed. 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 Patient feels increasingly weak and shortness of breath. Denies fever. - Related Data Home Medications Medication Instructions Recorded Confirmed Aspirin EC [Ecotrin Low Dose] 81 mg PO HS 06/11/16 10/12/16 Atorvastatin [Lipitor] 20 mg PO HS 06/11/16 10/12/16 Meclizine [Antivert] 25 mg PO TID PRN 06/11/16 10/12/16 Metoprolol Tartrate [Lopressor] 25 mg PO BID 06/11/16 10/12/16 ALPRAZolam [Xanax] 0.5 mg PO BID PRN 09/01/16 10/12/16 Cetirizine HCl [Zyrtec] 10 mg PO DAILY 09/01/16 10/12/16 DULoxetine HCL [Cymbalta] 30 mg PO DAILY 09/01/16 10/12/16 Famotidine [Pepcid] 20 mg PO DAILY 09/01/16 10/12/16 Flecainide [Tambocor] 50 mg PO Q12HR 09/01/16 10/12/16 Nitroglycerin Sl Tabs [Nitrostat] 0.4 mg SUBLINGUAL Q5M PRN 09/01/16 10/12/16 Warfarin [Coumadin] 2.5 mg PO HS 09/01/16 10/12/16 HYDROcodone/APAP 5-325MG [Chrisman 1 tab PO Q6HR PRN 10/12/16 10/12/16 5-325] Multivit-Min/FA/Lycopen/Lutein 1 tab PO DAILY 10/12/16 10/12/16 [Centrum Silver Tablet] Promethazine HCl 12.5 - 25 mg PO Q8H PRN 10/12/16 10/12/16 Allergies Allergy/AdvReac Type Severity Reaction Status Date / Time Penicillins Allergy Unknown Verified 10/12/16 19:32 Childhood Review of Systems ROS Statement: Those systems with pertinent positive or pertinent negative responses have been documented in the HPI. ROS Other: All systems not noted in ROS Statement are negative. Past Medical History Past Medical History: Coronary Artery Disease (CAD), GERD/Reflux, Hyperlipidemia , Hypertension Additional Past Medical History / Comment(s): ulcers History of Any Multi-Drug Resistant Organisms: None Reported Past Surgical History: Heart Catheterization With Stent, Pacemaker Additional Past Surgical History / Comment(s): sx for ruptered ulcer in 2012 Past Anesthesia/Blood Transfusion Reactions: No Reported Reaction Date of Last Stent Placement:: 1991 (?) Past Psychological History: Anxiety Smoking Status: Current every day smoker Past Alcohol Use History: Occasional Past Drug Use History: None Reported General Exam Limitations: no limitations General appearance: alert, in no apparent distress Head exam: Present: atraumatic, normocephalic, normal inspection Eye exam: Present: normal appearance, PERRL, EOMI. Absent: scleral icterus, conjunctival injection, periorbital swelling ENT exam: Present: normal exam, mucous membranes moist Neck exam: Present: normal inspection. Absent: tenderness, meningismus, lymphadenopathy Respiratory exam: Present: normal lung sounds bilaterally. Absent: respiratory distress, wheezes, rales, rhonchi, stridor Cardiovascular Exam: Present: regular rate, normal rhythm, normal heart sounds. Absent: systolic murmur, diastolic murmur, rubs, gallop, clicks GI/Abdominal exam: Present: soft, normal bowel sounds. Absent: distended, tenderness, guarding, rebound, rigid Extremities exam: Present: normal inspection, full ROM, normal capillary refill. Absent: tenderness, pedal edema, joint swelling, calf tenderness Back exam: Present: normal inspection Neurological exam: Present: alert, oriented X3, CN II-XII intact Psychiatric exam: Present: normal affect, normal mood Skin exam: Present: warm, dry, intact, normal color. Absent: rash Course Vital Signs 10/12/16 10/12/16 10/12/16 18:18 19:13 21:10 Temperature 98.6 F Pulse Rate 71 70 70 Respiratory 18 22 17 Rate Blood Pressure 114/58 165/68 148/70 O2 Sat by Pulse 96 99 97 Oximetry - Reevaluation(s) Reevaluation #1: 10/12/16 21:42 Patient is adequately anticoagulated, we'll admit for cardiac observation EKG Findings - EKG Comments: EKG Findings:: EKG shows patient rate of 71, QRS 162, QTC 534 Medical Decision Making - Medical Decision Making 86 female with multiple medical issues and complaints. Nausea vomiting diarrhea prion symptom control. Patient also having chest pain and heaviness with shortness of breath, will admit for cardiac observation - Lab Data Result diagrams: 10/12/16 18:50 10/12/16 18:50 Lab Results 10/12/16 10/12/16 10/12/16 Range/Units 18:50 18:50 18:50 WBC 9.7 (3.8-10.6) k/uL RBC 4.36 (3.80-5.40) m/uL Hgb 14.1 (11.4-16.0) gm/dL Hct 41.3 (34.0-46.0) % MCV 94.8 (80.0-100.0) fL MCH 32.2 (25.0-35.0) pg MCHC 34.0 (31.0-37.0) g/dL RDW 15.0 (11.5-15.5) % Plt Count 309 (150-450) k/uL Neutrophils % 76 % Lymphocytes % 16 % Monocytes % 5 % Eosinophils % 1 % Basophils % 0 % Neutrophils # 7.4 (1.3-7.7) k/uL Lymphocytes # 1.6 (1.0-4.8) k/uL Monocytes # 0.5 (0-1.0) k/uL Eosinophils # 0.1 (0-0.7) k/uL Basophils # 0.0 (0-0.2) k/uL PT (9.0-12.0) sec INR (<1.2) APTT (22.0-30.0) sec Sodium 132 L (137-145) mmol/L Potassium 4.0 (3.5-5.1) mmol/L Chloride 100 (98-107) mmol/L Carbon Dioxide 23 (22-30) mmol/L Anion Gap 9 mmol/L BUN 12 (7-17) mg/dL Creatinine 0.66 (0.52-1.04) mg/dL Est GFR (MDRD) Af Amer >60 (>60 ml/min/1.73 sqM) Est GFR (MDRD) Non-Af >60 (>60 ml/min/1.73 sqM) Glucose 110 H (74-99) mg/dL Calcium 9.0 (8.4-10.2) mg/dL Phosphorus 2.3 L (2.5-4.5) mg/dL Magnesium 1.9 (1.6-2.3) mg/dL Total Bilirubin 0.8 (0.2-1.3) mg/dL AST 24 (14-36) U/L ALT 32 (9-52) U/L Alkaline Phosphatase 77 (38-126) U/L Total Creatine Kinase 52 (30-135) U/L CK-MB (CK-2) 1.5 (0.0-2.4) ng/mL CK-MB (CK-2) Rel Index 2.9 Troponin I <0.012 (0.000-0.034) ng/mL Total Protein 6.7 (6.3-8.2) g/dL Albumin 4.0 (3.5-5.0) g/dL Lipase 52 (23-300) U/L Urine Color Urine Appearance (Clear) Urine pH (5.0-8.0) Ur Specific Crosby (1.001-1.035) Urine Protein (Negative) Urine Glucose (UA) (Negative) Urine Ketones (Negative) Urine Blood (Negative) Urine Nitrite (Negative) Urine Bilirubin (Negative) Urine Urobilinogen (<2.0) mg/dL Ur Leukocyte Esterase (Negative) Urine RBC (0-5) /hpf Urine WBC (0-5) /hpf Ur Squamous Epith Cells (0-4) /hpf Amorphous Sediment (None) /hpf Urine Mucus (None) /hpf 10/12/16 10/12/16 Range/Units 18:50 20:34 WBC (3.8-10.6) k/uL RBC (3.80-5.40) m/uL Hgb (11.4-16.0) gm/dL Hct (34.0-46.0) % MCV (80.0-100.0) fL MCH (25.0-35.0) pg MCHC (31.0-37.0) g/dL RDW (11.5-15.5) % Plt Count (150-450) k/uL Neutrophils % % Lymphocytes % % Monocytes % % Eosinophils % % Basophils % % Neutrophils # (1.3-7.7) k/uL Lymphocytes # (1.0-4.8) k/uL Monocytes # (0-1.0) k/uL Eosinophils # (0-0.7) k/uL Basophils # (0-0.2) k/uL PT 21.7 H (9.0-12.0) sec INR 2.3 H (<1.2) APTT 32.0 H (22.0-30.0) sec Sodium (137-145) mmol/L Potassium (3.5-5.1) mmol/L Chloride (98-107) mmol/L Carbon Dioxide (22-30) mmol/L Anion Gap mmol/L BUN (7-17) mg/dL Creatinine (0.52-1.04) mg/dL Est GFR (MDRD) Af Amer (>60 ml/min/1.73 sqM) Est GFR (MDRD) Non-Af (>60 ml/min/1.73 sqM) Glucose (74-99) mg/dL Calcium (8.4-10.2) mg/dL Phosphorus (2.5-4.5) mg/dL Magnesium (1.6-2.3) mg/dL Total Bilirubin (0.2-1.3) mg/dL AST (14-36) U/L ALT (9-52) U/L Alkaline Phosphatase (38-126) U/L Total Creatine Kinase (30-135) U/L CK-MB (CK-2) (0.0-2.4) ng/mL CK-MB (CK-2) Rel Index Troponin I (0.000-0.034) ng/mL Total Protein (6.3-8.2) g/dL Albumin (3.5-5.0) g/dL Lipase (23-300) U/L Urine Color Yellow Urine Appearance Clear (Clear) Urine pH 7.0 (5.0-8.0) Ur Specific Crosby 1.009 (1.001-1.035) Urine Protein Negative (Negative) Urine Glucose (UA) Negative (Negative) Urine Ketones Trace H (Negative) Urine Blood Negative (Negative) Urine Nitrite Negative (Negative) Urine Bilirubin Negative (Negative) Urine Urobilinogen <2.0 (<2.0) mg/dL Ur Leukocyte Esterase Small H (Negative) Urine RBC 4 (0-5) /hpf Urine WBC 2 (0-5) /hpf Ur Squamous Epith Cells 1 (0-4) /hpf Amorphous Sediment Rare H (None) /hpf Urine Mucus Rare H (None) /hpf - Radiology Data Radiology results: report reviewed (Chest x-ray is negative for acute disease), image reviewed Critical Care Time Critical Care Time: Yes Total Critical Care Time: 31 Disposition Clinical Impression: Weakness, Chest pain, Acute gastritis, Nausea, Acute gastroenteritis Disposition: ADMITTED IP TO THIS [facility] Condition: Fair Referrals: Van Syed MD [Primary Care Provider] - 1-2 days
[2016-10-12 19:01] LABS: Basophils % (A) 0 %; CH 33.5; CHCM 35.6; Eosinophils # (A) 0.1 k/uL (0-0.7); Eosinophils % (A) 1 %; HCT 41.3 % (34.0-46.0); HDW 2.57; HGB 14.1 gm/dL (11.4-16.0); Luc # (Auto) 0.16; Luc % (Auto) 2; Lymphocytes # (A) 1.6 k/uL (1.0-4.8); Lymphocytes % (A) 16 %; MCH 32.2 pg (25.0-35.0); MCV 94.8 fL (80.0-100.0); Mean Platelet Volume 6.9; Monocytes # (A) 0.5 k/uL (0-1.0); Monocytes % (A) 5 %; Neutrophils # (A) 7.4 k/uL (1.3-7.7); Neutrophils % (A) 76 %; RBC 4.36 m/uL (3.80-5.40); WBC 9.7 k/uL (3.8-10.6); WBC (Perox) 8.86
[2016-10-12] MEDS ORDERED: ONDANSETRON 4 MG/2 ML VIAL IVP STA (19:15)
[2016-10-12 19:16] LABS: ALT 32 U/L (9-52); AST 24 U/L (14-36); Alkaline Phosphatase 77 U/L (38-126); Anion Gap 9 mmol/L; Blood Urea Nitrogen 12 mg/dL (7-17); Carbon Dioxide 23 mmol/L (22-30); Chloride 100 mmol/L (98-107); Glucose 110 mg/dL (74-99); Magnesium 1.9 mg/dL (1.6-2.3); Non-African American GFR(MDRD) >60 (>60 ml/min/1.73 sqM); Phosphorous 2.3 mg/dL (2.5-4.5); Sodium 132 mmol/L (137-145); Total Bilirubin 0.8 mg/dL (0.2-1.3); Total Protein 6.7 g/dL (6.3-8.2)
--- NOTE | 2016-10-12 19:20 | XR ---
EXAMINATION TYPE: XR chest 2V DATE OF EXAM: 10/12/2016 COMPARISON: 09/04/2016 HISTORY: Shortness of breath TECHNIQUE: Frontal and lateral views of the chest are obtained. FINDINGS: Scattered senescent parenchymal changes noted. Hyperinflation compatible with COPD. No evidence for infiltrate. No evidence for atelectasis. Heart size is stable. Mediastinal structures are stable and grossly unremarkable. No evidence for hilar prominence. Degenerative changes dorsal spine. IMPRESSION: 1. No evidence for acute pulmonary disease.
[2016-10-12 19:22] LABS: Creatine Kinase 52 U/L (30-135)
[2016-10-12 19:28] LABS: INR 2.3 (<1.2); Prothrombin Time 21.7 sec (9.0-12.0)
[2016-10-12 19:35] LABS: Creatine Kinase MB 1.5 ng/mL (0.0-2.4); Troponin I <0.012 ng/mL (0.000-0.034)
[2016-10-12 20:59] LABS: Amorphous Sediment,Urine Rare /hpf; Appearance,Urine Clear (Clear); Bilirubin,Urine Negative (Negative); Glucose,Urine (UA) Negative (Negative); Ketones,Urine Trace (Negative); Leukocyte Esterase,Urine Small (Negative); Mucus,Urine Rare /hpf; Nitrite,Urine Negative (Negative); Particle Count 1771; Protein,Urine Negative (Negative); RBC,Urine 4 /hpf (0-5); Specific Gravity,Urine 1.009 (1.001-1.035); Squamous Epithelial Cell,Urine 1 /hpf (0-4); UA Billing (MACRO vs. MICRO) MICRO; Urobilinogen,Urine <2.0 mg/dL (<2.0); WBC,Urine 2 /hpf (0-5)
[2016-10-12] MEDS ORDERED: ASPIRIN 81 MG PO STA (21:42)
[2016-10-12] MEDS ORDERED: MORPHINE SULFATE 4 MG/ML SYRINGE IV PRN (21:42)
[2016-10-12] MEDS ORDERED: NITROGLYCERIN SL TABS 0.4 MG TAB SUBLINGUAL PRN (21:42)
[2016-10-12] MEDS ORDERED: ALPRAZolam 0.5 MG TAB PO PRN (22:27)
[2016-10-12 22:44] VITALS: BMI 30.2
[2016-10-12] MEDS ORDERED: HYDROcodone/APAP 5-325MG 1 EACH TAB PO PRN (23:32)
[2016-10-13 01:59] LABS: Creatine Kinase 37 U/L (30-135)
[2016-10-13 02:12] LABS: Troponin I <0.012 ng/mL (0.000-0.034)
[2016-10-13 07:24] LABS: Cholesterol 97 mg/dL (<200); HDL Cholesterol 40 mg/dL (40-60)
[2016-10-13 07:28] LABS: Creatine Kinase 28 U/L (30-135)
[2016-10-13 07:41] LABS: Creatine Kinase MB 1.1 ng/mL (0.0-2.4); Troponin I <0.012 ng/mL (0.000-0.034)
[2016-10-13] MEDS: ASPIRIN 325 MG TAB PO SCH (08:07)
[2016-10-13] MEDS: PANTOPRAZOLE 40 MG/10 ML VIAL IVP SCH (08:11)
[2016-10-13] MEDS: DULoxetine HCL 30 MG CAPSULE.DR PO SCH (08:11)
[2016-10-13] MEDS: FLECAINIDE 50 MG TAB PO SCH ×2 (08:11→21:10)
[2016-10-13] MEDS ORDERED: MECLIZINE 25 MG TAB PO PRN (08:12)
[2016-10-13] MEDS: SODIUM CHLORIDE 0.9% 1,000 ML IV SCH (08:20)
[2016-10-13] MEDS: ONDANSETRON 4 MG/2 ML VIAL IVP PRN ×2 (08:32→15:14)
[2016-10-13] MEDS: METOPROLOL TARTRATE 25 MG TAB PO SCH ×2 (09:42→21:10)
[2016-10-13 17:00] LABS: Basophils % (A) 0 %; CH 32.2; Eosinophils # (A) 0.3 k/uL (0-0.7); Eosinophils % (A) 4 %; HCT 40.2 % (34.0-46.0); HDW 2.59; HGB 13.2 gm/dL (11.4-16.0); Luc % (Auto) 3; Lymphocytes # (A) 1.6 k/uL (1.0-4.8); Lymphocytes % (A) 21 %; MCH 32.3 pg (25.0-35.0); MCHC 32.8 g/dL (31.0-37.0); MCV 98.2 fL (80.0-100.0); Mean Platelet Volume 7.2; Monocytes # (A) 0.6 k/uL (0-1.0); Monocytes % (A) 8 %; Neutrophils # (A) 4.8 k/uL (1.3-7.7); Neutrophils % (A) 65 %; RBC 4.09 m/uL (3.80-5.40); RDW 14.7 % (11.5-15.5); WBC 7.4 k/uL (3.8-10.6)
[2016-10-13 17:16] LABS: ALT 25 U/L (9-52); AST 22 U/L (14-36); Alkaline Phosphatase 61 U/L (38-126); Anion Gap 6 mmol/L; Blood Urea Nitrogen 11 mg/dL (7-17); Calcium 8.4 mg/dL (8.4-10.2); Carbon Dioxide 26 mmol/L (22-30); Chloride 106 mmol/L (98-107); Glucose 100 mg/dL (74-99); Non-African American GFR(MDRD) >60 (>60 ml/min/1.73 sqM); Potassium 4.2 mmol/L (3.5-5.1); Sodium 138 mmol/L (137-145); Total Bilirubin 0.6 mg/dL (0.2-1.3); Total Protein 5.6 g/dL (6.3-8.2)
[2016-10-13 18:24] LABS: Manual Review Performed; RBC Morphology Normal
[2016-10-13] MEDS ORDERED: WARFARIN 2.5 MG TAB PO SCH (21:00)
[2016-10-13] MEDS ORDERED: NON-FORMULARY DRUG (Aspirin Ec 81 MG) PO SCH (21:00)
[2016-10-14] MEDS: SODIUM CHLORIDE 0.9% 1,000 ML IV SCH (05:54)
[2016-10-14] MEDS: ASPIRIN 325 MG TAB PO SCH (08:36)
[2016-10-14] MEDS: FLECAINIDE 50 MG TAB PO SCH (08:36)
[2016-10-14] MEDS: METOPROLOL TARTRATE 25 MG TAB PO SCH (08:36)
[2016-10-14] MEDS: PANTOPRAZOLE 40 MG/10 ML VIAL IVP SCH (08:36)
[2016-10-14] MEDS: DULoxetine HCL 30 MG CAPSULE.DR PO SCH (08:36)
[2016-10-14 08:42] VITALS: BP 144/59; PULSE 60; RESP 18; TEMP 97.4
--- NOTE | 2016-10-14 10:11 | HP ---
DATE OF ADMISSION: 10/12/16 CHIEF COMPLAINT: Nausea and vomiting and diarrhea. HISTORY OF PRESENT ILLNESS: This is an 86 year old female who presented to the emergency room with vomiting and diarrhea. She says this is exactly what happened when she had the pacemaker placed. In view of this, she presented to the hospital emergency room. Historically she was vague in the emergency room. At times, she said she had chest pain, at times she said she was short of breath. However, this morning, she is fairly clear and she tells me that she had this vomiting and diarrhea, multiple episodes but she felt this is how she felt when she had the pacemaker placed and thus she presented to the hospital. The patient probably has some vasovagal symptoms and that is why she correlated with the previous bradycardia and present symptoms of feeling weak and poor with this vomiting and diarrhea. She denied any chest pain. No change in the breathing. The patient has not had any fever or chills. She does not recall having eaten any bad food or left over food or any recent exposure to anybody else with similar symptoms. The patient has had no fever. 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 Does have history of degenerative arthritis, chronic dizziness. PAST SURGICAL HISTORY: Exploratory laparotomy and correction of perforated peptic ulcer. She also has had a pacemaker placement. PERSONAL HISTORY: The patient is a current smoker. Alcohol none. ALLERGIES: PENICILLIN. Medications include: 1. Xanax 0.5 mg b.i.d. 2. Celexa 30 mg daily. 3. Pepcid 20 mg b.i.d. 4. Meclizine prn. 5. Atorvastatin 20 mg daily. 6. Metoprolol tartrate 25 mg b.i.d. 7. [place] 5/325 q.i.d. 8. ( ) eye drops. 9. Flonase nasal spray. 10. Restasis eye drops. 11. Aspirin 81 mg daily. SOCIAL HISTORY: The patient is . Lives alone. FAMILY MEDICAL HISTORY: History of hypertension in the family. REVIEW OF SYSTEMS: NEURO: Denies any headaches. Has some chronic dizziness. No double vision, blurred vision, symptoms of TIA/syncope or seizures. PSYCH: Some mild chronic anxiety. CARDIAC: Denies chest pain, angina or palpitations. RESPIRATORY: Denies shortness of breath, cough. No hemoptysis. GI: Present complaint of nausea, vomiting, diarrhea. : No symptoms of dysuria or hematuria, urgency, frequency. EXTREMITIES: Denies pain or edema. CONSTITUTIONAL: No fever or chills. HEMATOLOGICAL: No anemia or bleeding disorder. ENDOCRINE: No history of diabetes mellitus, hypothyroidism. SKIN: No rashes. ENT: Adequate vision and hearing. PHYSICAL EXAMINATION: Pleasant female at present in no distress. Vital signs revealed temperature 98.3, pulse 61, respirations 16, blood pressure 149/ 61. Pulse ox 95% on room air. HEENT: Normocephalic. NECK: Supple. Pupils are reactive. Nostrils clear. Oral cavity is moist. Ears reveal no drainage. Neck reveals no JVD, carotid bruit or thyromegaly. CHEST: Clear to auscultation and percussion with mild generalized decreased air flow. CARDIAC: Distant heart sounds S1, S2 with no gallops. Systolic murmur 2/6 left sterna border. Abdomen is soft. No palpable masses. Bowel sounds normal. Neurologically awake, alert and oriented with well coordinated movements. Laboratory assessment: EKG reveals pacemaker rhythm. Underlying possible atrial fib flutter pattern. CBC normal. INR 2.3. Sodium 132. Electrolytes normal. BUN and creatinine normal. Troponins are negative. ASSESSMENT: 1. Nausea and vomiting, diarrhea suspect gastroenteritis. 2. Vague symptoms of shortness of breath, chest pain, and symptoms similar to when she needed pacemaker. Rule out coronary insufficiency. 3. History of coronary artery disease. 4. Pacemaker status. 5. Chronic dizziness. PLAN: The patient will be admitted to the hospital. The patient will be on IV hydration. At the time of my evaluation this morning, she has not had any further nausea and vomiting or diarrhea. We will start the patient on some oral feedings. So far the pacemaker seems to be working appropriately. We will continue to monitor the patient today. If remains stable, will be discharged home tomorrow. The patients condition discussed with the patient and reassured. Prognosis remains guarded. The patients serial enzymes are negative so far. In view of that, aspirin will be held today. She will be continued on IV Protonix. Prognosis remains guarded. MTDD
--- NOTE | 2016-11-04 13:45 | P.DS ---
Providers Date of admission: 10/12/16 21:45 Attending physician: Van Syed Primary care physician: Van Syed [facility] Course: This 86-year-old female presented to the emergency room with feeling poorly. The patient said her symptoms were similar to when she had a pacemaker requirement. The patient had some vague discomforts of the chest abdomen. She does associated nausea vomiting and diarrhea. Patient also had some increased dizziness. It is felt the patient was having gastroenteritis with some associated dehydration. There was no clear evidence of any coronary insufficiency on the initial EKG. Cardiac enzymes remain negative. The patient following admission was hydrated. Her symptoms did improve she was able to eat. She had no further diarrhea. She was stable enough to be discharged home. Patient has a previous spontaneous peptic ulcer perforation. She is on prophylactic medications for the same. She might have some gastroesophageal hesitation causing some of her chest discomfort when she presented. Patient does have a history of chronic dizziness. The patient was able to ambulate in the room without any difficulty. At this point the patient is discharged home. On telemetry was noted patient's pacemaker is working fairly well with no evidence of any malfunction Final diagnoses include : 1. Acute gastroenteritis 2 dehydration 3. Gastroesophageal reflux 4. Stable coronary artery disease 5. Pacemaker status functioning adequately 6. Chronic dizziness 7. COPD 8. Hypertension essential controlled Patient Condition at Discharge: Fair Plan - Discharge Summary New Discharge Prescriptions: Continue Atorvastatin [Lipitor] 20 mg PO HS Metoprolol Tartrate [Lopressor] 25 mg PO BID Meclizine [Antivert] 25 mg PO TID PRN PRN Reason: DIZZINESS Aspirin EC [Ecotrin Low Dose] 81 mg PO HS Warfarin [Coumadin] 2.5 mg PO HS Cetirizine HCl [Zyrtec] 10 mg PO DAILY Famotidine [Pepcid] 20 mg PO DAILY Nitroglycerin Sl Tabs [Nitrostat] 0.4 mg SUBLINGUAL Q5M PRN PRN Reason: Chest Pain Flecainide [Tambocor] 50 mg PO Q12HR DULoxetine HCL [Cymbalta] 30 mg PO DAILY ALPRAZolam [Xanax] 0.5 mg PO BID PRN PRN Reason: Anxiety HYDROcodone/APAP 5-325MG [[place] 5-325] 1 tab PO Q6HR PRN PRN Reason: Pain Multivit-Min/FA/Lycopen/Lutein [Centrum Silver Tablet] 1 tab PO DAILY Promethazine HCl 12.5 - 25 mg PO Q8H PRN PRN Reason: Nausea Discharge Medication List Aspirin EC [Ecotrin Low Dose] 81 mg PO HS 06/11/16 [History] Atorvastatin [Lipitor] 20 mg PO HS 06/11/16 [History] Meclizine [Antivert] 25 mg PO TID PRN 06/11/16 [History] Metoprolol Tartrate [Lopressor] 25 mg PO BID 06/11/16 [History] ALPRAZolam [Xanax] 0.5 mg PO BID PRN 09/01/16 [History] Cetirizine HCl [Zyrtec] 10 mg PO DAILY 09/01/16 [History] DULoxetine HCL [Cymbalta] 30 mg PO DAILY 09/01/16 [History] Famotidine [Pepcid] 20 mg PO DAILY 09/01/16 [History] Flecainide [Tambocor] 50 mg PO Q12HR 09/01/16 [History] Nitroglycerin Sl Tabs [Nitrostat] 0.4 mg SUBLINGUAL Q5M PRN 09/01/16 [History] Warfarin [Coumadin] 2.5 mg PO HS 09/01/16 [History] HYDROcodone/APAP 5-325MG [[place] 5-325] 1 tab PO Q6HR PRN 10/12/16 [History] Multivit-Min/FA/Lycopen/Lutein [Centrum Silver Tablet] 1 tab PO DAILY 10/12/16 [ History] Promethazine HCl 12.5 - 25 mg PO Q8H PRN 10/12/16 [History] Follow up Appointment(s)/Referral(s): Van Syed MD [Primary Care Provider] - 1-2 days (Please call during normal business hours to make an appointment) Patient Instructions/Handouts: Chest Pain (DC), Acute Nausea and Vomiting (DC) Discharge Disposition: HOME SELF-CARE
== END 2016-10-14 11:55 | disposition home or self-care (01) ==
LOC: EC 18:08 → 6SEL 21:45
PROVIDERS: ADMIT Internal Medicine; ATTEND Internal Medicine
DX: K52.9 Noninfective gastroenteritis and colitis, unspecified (principal); K21.9 Gastro-esophageal reflux disease without esophagitis; J44.9 Chronic obstructive pulmonary disease, unspecified; K29.00 Acute gastritis without bleeding; I25.10 Atherosclerotic heart disease of native coronary artery without angina pectoris; I10 Essential (primary) hypertension; E78.5 Hyperlipidemia, unspecified; F41.9 Anxiety disorder, unspecified; F17.200 Nicotine dependence, unspecified, uncomplicated; E86.0 Dehydration; M19.90 Unspecified osteoarthritis, unspecified site; Z79.899 Other long term (current) drug therapy; Z95.0 Presence of cardiac pacemaker; Z79.82 Long term (current) use of aspirin; Z79.01 Long term (current) use of anticoagulants; Z88.0 Allergy status to penicillin; Z95.5 Presence of coronary angioplasty implant and graft; Z87.11 Personal history of peptic ulcer disease; Z82.49 Family history of ischemic heart disease and other diseases of the circulatory system
CPT/HCPCS: 96376 ×2; 96361 ×3; 96375; 96374; 99291; 36415; 93005; 80061; 80053 ×2; 82550 ×2; 82553 ×2; 83690; 83735; 84100; 84484 ×2; 85025 ×2; 85610; 85730; 81001; 87086; 71020; G0378 ×3; J2405 ×2; C9113 ×2

== ENCOUNTER → 2017-05-15 | Outpatient (CLI) | payer MEDICARE, BC ==
[2017-05-15 10:48] LABS: INR 3.4 (<1.2); Prothrombin Time 30.5 sec (9.0-12.0)
== END | disposition home or self-care (01) ==
LOC: LABWHC1 10:20
PROVIDERS: ATTEND Dentist Oral and Maxillofacial Surgery
DX: D68.9 Coagulation defect, unspecified (principal)
CPT/HCPCS: 36415; 85610

== ENCOUNTER → 2017-05-29 | Outpatient (CLI) | payer MEDICARE, BC ==
[2017-05-29 13:45] LABS: INR 1.4 (<1.2); Prothrombin Time 12.9 sec (9.0-12.0)
== END | disposition home or self-care (01) ==
LOC: LABWHC1 13:22
PROVIDERS: ATTEND Dentist Oral and Maxillofacial Surgery
DX: D68.9 Coagulation defect, unspecified (principal)
CPT/HCPCS: 36415; 85610

== ENCOUNTER 2017-06-13 17:05 | Emergency (ER) | payer MEDICARE, BC ==
[2017-06-13 17:30] VITALS: RESP 18
[2017-06-13] MEDS ORDERED: KETOROLAC 60 MG/2 ML VIAL IM STA (18:52)
--- NOTE | 2017-06-13 18:52 | ED ---
General Adult HPI - General Chief complaint: Fall Stated complaint: Fell injury shoulder/poss dislocated Time Seen by Provider: 06/13/17 18:00 Source: patient, RN notes reviewed Mode of arrival: wheelchair Limitations: no limitations - History of Present Illness Initial comments: This is an 87-year-old female presents emergency Department complaining of left shoulder pain. Patient states she was going outside to dispose of a bird nest when she missed a step and fell onto her left shoulder hitting the side of the house on her way down. Patient complains of left shoulder and left clavicle pain. Patient denies any elbow wrist pain. Patient denies any chest pain. Patient denies any neck or head injury. Patient did not hit her head in any way. Patient denies any lower extremity pain at all. Patient denies any sites of bleeding or abrasions. - Related Data Home Medications Medication Instructions Recorded Confirmed Aspirin EC [Ecotrin Low Dose] 81 mg PO HS 06/11/16 06/13/17 Atorvastatin [Lipitor] 20 mg PO HS 06/11/16 06/13/17 Meclizine [Antivert] 25 mg PO TID PRN 06/11/16 06/13/17 Metoprolol Tartrate [Lopressor] 25 mg PO BID 06/11/16 06/13/17 ALPRAZolam [Xanax] 0.5 mg PO BID PRN 09/01/16 06/13/17 Cetirizine HCl [Zyrtec] 10 mg PO DAILY 09/01/16 06/13/17 DULoxetine HCL [Cymbalta] 30 mg PO DAILY 09/01/16 06/13/17 Famotidine [Pepcid] 20 mg PO DAILY 09/01/16 06/13/17 Flecainide [Tambocor] 50 mg PO Q12HR 09/01/16 06/13/17 Warfarin [Coumadin] 2.5 mg PO HS 09/01/16 06/13/17 HYDROcodone/APAP 5-325MG [[place] 1 tab PO Q6HR PRN 10/12/16 06/13/17 5-325] Multivit-Min/FA/Lycopen/Lutein 1 tab PO DAILY 10/12/16 06/13/17 [Centrum Silver Tablet] Promethazine HCl 12.5 - 25 mg PO Q8H PRN 10/12/16 06/13/17 Allergies Allergy/AdvReac Type Severity Reaction Status Date / Time Penicillins Allergy Rash/Hives Verified 06/13/17 18:19 Review of Systems ROS Statement: Those systems with pertinent positive or pertinent negative responses have been documented in the HPI. ROS Other: All systems not noted in ROS Statement are negative. Past Medical History Past Medical History: Coronary Artery Disease (CAD), GERD/Reflux, Hyperlipidemia , Hypertension Additional Past Medical History / Comment(s): ulcers, pt stated she had hx of diverticulitis. History of Any Multi-Drug Resistant Organisms: None Reported Past Surgical History: Heart Catheterization With Stent, Pacemaker Additional Past Surgical History / Comment(s): sx for ruptered ulcer in 2012, pacer maker placement in May 2016 and changed generator on 09-04-16. Past Anesthesia/Blood Transfusion Reactions: No Reported Reaction Date of Last Stent Placement:: 1991 (?) Type of Cardiac Device: Permanent Pacemaker Device Placement Date:: Past Psychological History: Anxiety Smoking Status: Current every day smoker Past Alcohol Use History: Occasional Past Drug Use History: None Reported - Past Family History Father Family Medical History: No Reported History Mother Family Medical History: No Reported History General Exam - General Exam Comments Initial Comments: GENERAL: Patient is well-developed and well-nourished. Patient is nontoxic and well- hydrated and is in mild distress. ENT: Neck is soft and supple. EYES: The sclera were anicteric and conjunctiva were pink and moist. Extraocular movements were intact and pupils were equal round and reactive to light. Eyelids were unremarkable. PULMONARY: Unlabored respirations. Good breath sounds bilaterally. No audible rales rhonchi or wheezing was noted. CARDIOVASCULAR: There is a regular rate and rhythm ABDOMEN: Soft and nontender with normal bowel sounds. SKIN: Skin is clear with no lesions or rashes and otherwise unremarkable. NEUROLOGIC: Patient is alert and oriented x3. Cranial nerves II through XII are grossly intact. Motor and sensory are also intact. Normal speech, volume and content. Symmetrical smile. MUSCULOSKELETAL: Lateral aspect of the left shoulder is tender to palpation left clavicle is tender to palpation as well. LYMPHATICS: No significant lymphadenopathy is noted PSYCHIATRIC: Normal psychiatric evaluation. Limitations: no limitations Course Vital Signs 06/13/17 17:27 Temperature 97.7 F Pulse Rate 70 Respiratory 18 Rate Blood Pressure 96/51 O2 Sat by Pulse 95 Oximetry Medical Decision Making - Medical Decision Making Proximal left humeral neck impacted fracture Disposition Clinical Impression: Humerus fracture Disposition: HOME SELF-CARE Condition: Good Instructions: Fall Prevention for Older Adults (ED), Arm Fracture in Adults (ED ) Is patient prescribed a controlled substance at d/c from ED?: No Referrals: Van Syed MD [Primary Care Provider] - 1-2 days Parviz Velasquez MD [STAFF PHYSICIAN] - 1-2 days Time of Disposition: 19:48
--- NOTE | 2017-06-13 19:24 | XR ---
EXAMINATION TYPE: XR clavicle LT DATE OF EXAM: 06/13/2017 COMPARISON: NONE HISTORY: Pain TECHNIQUE: 2 views FINDINGS: The clavicle is intact. I see no fracture of the clavicle. There is impacted humeral neck f racture with comminution. IMPRESSION: No clavicle fracture seen.
--- NOTE | 2017-06-13 19:25 | XR ---
EXAMINATION TYPE: XR shoulder complete LT DATE OF EXAM: 06/13/2017 COMPARISON: NONE HISTORY: Fall and shoulder pain TECHNIQUE: 4 views FINDINGS: There is impacted comminuted humeral neck fracture. There is a large fragment of the greate r tuberosity of the humerus. There is no dislocation. There is narrowing of the shoulder joint space. There is some atelectasis at the left lung base. IMPRESSION: Impacted comminuted humeral neck fracture.
[2017-06-13 20:26] VITALS: BP 134/60; PULSE 71; TEMP 97.9
== END 2017-06-13 20:34 | disposition home or self-care (01) ==
LOC: EC 17:05
DX: S42.292A Other displaced fracture of upper end of left humerus, initial encounter for closed fracture (principal); I25.10 Atherosclerotic heart disease of native coronary artery without angina pectoris; K21.9 Gastro-esophageal reflux disease without esophagitis; E78.5 Hyperlipidemia, unspecified; I10 Essential (primary) hypertension; F41.9 Anxiety disorder, unspecified; F17.200 Nicotine dependence, unspecified, uncomplicated; Z95.0 Presence of cardiac pacemaker; Z88.0 Allergy status to penicillin; Z79.01 Long term (current) use of anticoagulants; Z79.82 Long term (current) use of aspirin; Z79.899 Other long term (current) drug therapy; W10.9XXA Fall (on) (from) unspecified stairs and steps, initial encounter; Y92.008 Other place in unspecified non-institutional (private) residence as the place of occurrence of the external cause
CPT/HCPCS: 99283; 96372; 73030; 73000; J1885

== ENCOUNTER → 2017-07-11 | Outpatient (CLI) | payer MEDICARE, BC ==
--- NOTE | 2017-07-11 19:06 | CT ---
EXAMINATION TYPE: CT shoulder LT wo con DATE OF EXAM: 07/11/2017 COMPARISON: NONE HISTORY: Left shoulder fx CT DLP: 377 mGycm Automated exposure control for dose reduction was used. FINDINGS: Multiple axial sections were obtained from the top of the shoulder joint to the mid shaft of the francia micaela with no contrast. There is impacted comminuted fracture of the humeral neck. There is up to 14 mm lateral displacement of the humeral head. There is no dislocation. There is left axillary pacemaker. The acromioclavicular joint is intact. Scapula appears intact. There is some callus formation at the fracture site. IMPRESSION: IMPACTED DISPLACED COMMINUTED HUMERAL NECK FRACTURE. THERE IS SOME HEALING. NO CHANGE IN POSITION TO ANY EXTENT COMPARED TO THE SHOULDER X-RAY OF 06/13/2017.
== END | disposition home or self-care (01) ==
LOC: RADCTMAIN 16:42
PROVIDERS: ATTEND Orthopaedic Surgery
DX: S42.292A Other displaced fracture of upper end of left humerus, initial encounter for closed fracture (principal)

== ENCOUNTER 2017-08-23 12:50 | Inpatient (IN) | payer MEDICARE, BC ==
[2017-08-23] MEDS ORDERED: SODIUM CHLORIDE 0.9% 1,000 ML IV STA (13:17)
[2017-08-23 13:51] LABS: Albumin 3.2 g/dL (3.5-5.0); Calcium 8.4 mg/dL (8.4-10.2); Magnesium 1.9 mg/dL (1.6-2.3); Potassium 4.9 mmol/L (3.5-5.1); Total Bilirubin 0.9 mg/dL (0.2-1.3); Total Protein 5.6 g/dL (6.3-8.2)
--- NOTE | 2017-08-23 13:51 | ED ---
General Adult HPI - General Source: patient, family, RN notes reviewed Mode of arrival: wheelchair Limitations: altered mental status <Dimitrios Singh - Last Filed: 08/23/17 16:15> <Edgar Vernon - Last Filed: 08/23/17 16:24> - General Chief complaint: Dizziness Stated complaint: altered mental status Time Seen by Provider: 08/23/17 13:10 - History of Present Illness Initial comments: This is an 87-year-old female presents emergency department with family for concerns of confusion, dizziness. Patient has had progressive confusion last 2 weeks recent saw primary care physician who changed her [place] dose to twice a day. Patient states that she has not fallen recently though there was reports that she fell approximately one week ago and she does have some noted bruising her right scapular region and chin region. Patient denies headache, neck pain, back pain, chest pain, shortness breath, nausea vomiting. Patient does when she has a cough which is nonproductive. No reported fever. Patient has had no complaints of ear pain or sore throat. (Dimitrios Singh) - Related Data Home Medications Medication Instructions Recorded Confirmed Atorvastatin [Lipitor] 20 mg PO HS 06/11/16 08/23/17 Meclizine [Antivert] 12.5 mg PO TID PRN 06/11/16 08/23/17 Metoprolol Tartrate [Lopressor] 25 mg PO BID 06/11/16 08/23/17 ALPRAZolam [Xanax] 0.5 mg PO BID 09/01/16 08/23/17 DULoxetine HCL [Cymbalta] 30 mg PO DAILY 09/01/16 08/23/17 Famotidine [Pepcid] 20 mg PO DAILY 09/01/16 08/23/17 Flecainide [Tambocor] 50 mg PO Q12HR 09/01/16 08/23/17 HYDROcodone/APAP 5-325MG [[place] 1 tab PO Q6HR PRN 10/12/16 08/23/17 5-325] Multivit-Min/FA/Lycopen/Lutein 1 tab PO DAILY 10/12/16 08/23/17 [Centrum Silver Tablet] Promethazine HCl 12.5 - 25 mg PO Q8H PRN 10/12/16 08/23/17 Cholecalciferol [Vitamin D3] 1,000 unit PO DAILY 08/23/17 08/23/17 Allergies Allergy/AdvReac Type Severity Reaction Status Date / Time Penicillins Allergy Rash/Hives Verified 08/23/17 14:05 Review of Systems ROS Other: All systems not noted in ROS Statement are negative. <Dimitrios Singh - Last Filed: 08/23/17 16:15> ROS Other: All systems not noted in ROS Statement are negative. <Edgar Vernon - Last Filed: 08/23/17 16:24> ROS Statement: Those systems with pertinent positive or pertinent negative responses have been documented in the HPI. Past Medical History Past Medical History: Coronary Artery Disease (CAD), GERD/Reflux, Hyperlipidemia , Hypertension Additional Past Medical History / Comment(s): ulcers, pt stated she had hx of diverticulitis. History of Any Multi-Drug Resistant Organisms: None Reported Past Surgical History: Heart Catheterization With Stent, Pacemaker Additional Past Surgical History / Comment(s): sx for ruptered ulcer in 2012, pacer maker placement in May 2016 and changed generator on 09-04-16. Past Anesthesia/Blood Transfusion Reactions: No Reported Reaction Date of Last Stent Placement:: 1991 (?) Type of Cardiac Device: Permanent Pacemaker Device Placement Date:: Past Psychological History: Anxiety Smoking Status: Current every day smoker Past Alcohol Use History: Occasional Past Drug Use History: None Reported - Past Family History Father Family Medical History: No Reported History Mother Family Medical History: No Reported History <Dimitrios Singh - Last Filed: 08/23/17 16:15> General Exam Limitations: altered mental status General appearance: alert, in no apparent distress Head exam: Present: atraumatic, normocephalic, normal inspection Eye exam: Present: normal appearance, PERRL, EOMI. Absent: scleral icterus, conjunctival injection, periorbital swelling ENT exam: Present: mucous membranes dry, TM's normal bilaterally, normal external ear exam Neck exam: Present: normal inspection, full ROM. Absent: tenderness, meningismus, lymphadenopathy Respiratory exam: Present: normal lung sounds bilaterally. Absent: respiratory distress, wheezes, rales, rhonchi, stridor, chest wall tenderness Cardiovascular Exam: Present: regular rate, normal rhythm, normal heart sounds. Absent: systolic murmur, diastolic murmur, rubs, gallop, clicks GI/Abdominal exam: Present: soft, normal bowel sounds. Absent: distended, tenderness, guarding, rebound, rigid Extremities exam: Present: other (Ecchymosis noted in the right scapular region) Neurological exam: Present: alert, CN II-XII intact, reflexes normal. Absent: oriented X3, motor sensory deficit Skin exam: Present: warm, dry, intact, normal color. Absent: rash <Dimitrios Singh - Last Filed: 08/23/17 16:15> Course <Dimitrios Singh - Last Filed: 08/23/17 16:15> <Edgar Vernon - Last Filed: 08/23/17 16:24> Vital Signs 08/23/17 13:05 Temperature 98.0 F Pulse Rate 70 Respiratory 20 Rate Blood Pressure 111/66 O2 Sat by Pulse 97 Oximetry - Reevaluation(s) Reevaluation #1: 08/23/17 16:23 I personally saw the patient examine the patient. She did demonstrate evidence of decreased breath sounds with rales bilaterally. Reviewed and agree with the PA findings including about diagnostic interpretations and treatment plans. This is homeless otherwise stated that. I did discuss case Dr. Syed. Patient will be admitted with diuresis and fluid restrictions. (Edgar Vernon) EKG Findings - EKG Comments: EKG Findings:: EKG performed at 13:55 ventricular paced rate of 78 QRS 216 QT/ QTC 536/478 <Dimitrios Singh - Last Filed: 08/23/17 16:15> Medical Decision Making - Lab Data Result diagrams: 08/23/17 13:25 08/23/17 13:25 <Dimitrios Singh - Last Filed: 08/23/17 16:15> - Lab Data Result diagrams: 08/23/17 13:25 08/23/17 13:25 <Edgar Vernon - Last Filed: 08/23/17 16:24> - Lab Data Lab Results 08/23/17 08/23/17 08/23/17 Range/Units 13:25 13:25 13:25 WBC 9.1 (3.8-10.6) k/uL RBC 3.72 L (3.80-5.40) m/uL Hgb 11.2 L (11.4-16.0) gm/dL Hct 35.1 (34.0-46.0) % MCV 94.3 (80.0-100.0) fL MCH 30.0 (25.0-35.0) pg MCHC 31.8 (31.0-37.0) g/dL RDW 16.6 H (11.5-15.5) % Plt Count 358 (150-450) k/uL Neutrophils % 81 % Lymphocytes % 11 % Monocytes % 6 % Eosinophils % 1 % Basophils % 0 % Neutrophils # 7.3 (1.3-7.7) k/uL Lymphocytes # 1.0 (1.0-4.8) k/uL Monocytes # 0.6 (0-1.0) k/uL Eosinophils # 0.1 (0-0.7) k/uL Basophils # 0.0 (0-0.2) k/uL Hypochromasia Slight Poikilocytosis Slight Anisocytosis Slight PT (9.0-12.0) sec INR (<1.2) Sodium 125 L (137-145) mmol/L Potassium 4.9 (3.5-5.1) mmol/L Chloride 87 L (98-107) mmol/L Carbon Dioxide 29 (22-30) mmol/L Anion Gap 9 mmol/L BUN 22 H (7-17) mg/dL Creatinine 0.73 (0.52-1.04) mg/dL Est GFR (CKD-EPI)AfAm 85 (>60 ml/min/1.73 sqM) Est GFR (CKD-EPI)NonAf 74 (>60 ml/min/1.73 sqM) Glucose 97 (74-99) mg/dL Plasma Lactic Acid [place] 1.2 (0.7-2.0) mmol/L Calcium 8.4 (8.4-10.2) mg/dL Magnesium 1.9 (1.6-2.3) mg/dL Total Bilirubin 0.9 (0.2-1.3) mg/dL AST 24 (14-36) U/L ALT 33 (9-52) U/L Alkaline Phosphatase 85 (38-126) U/L Troponin I (0.000-0.034) ng/mL NT-Pro-B Natriuret Pep pg/mL Total Protein 5.6 L (6.3-8.2) g/dL Albumin 3.2 L (3.5-5.0) g/dL TSH 1.430 (0.465-4.680) mIU/L 08/23/17 08/23/17 08/23/17 Range/Units 13:25 13:25 13:35 WBC (3.8-10.6) k/uL RBC (3.80-5.40) m/uL Hgb (11.4-16.0) gm/dL Hct (34.0-46.0) % MCV (80.0-100.0) fL MCH (25.0-35.0) pg MCHC (31.0-37.0) g/dL RDW (11.5-15.5) % Plt Count (150-450) k/uL Neutrophils % % Lymphocytes % % Monocytes % % Eosinophils % % Basophils % % Neutrophils # (1.3-7.7) k/uL Lymphocytes # (1.0-4.8) k/uL Monocytes # (0-1.0) k/uL Eosinophils # (0-0.7) k/uL Basophils # (0-0.2) k/uL Hypochromasia Poikilocytosis Anisocytosis PT 38.2 H (9.0-12.0) sec INR 4.2 H (<1.2) Sodium (137-145) mmol/L Potassium (3.5-5.1) mmol/L Chloride (98-107) mmol/L Carbon Dioxide (22-30) mmol/L Anion Gap mmol/L BUN (7-17) mg/dL Creatinine (0.52-1.04) mg/dL Est GFR (CKD-EPI)AfAm (>60 ml/min/1.73 sqM) Est GFR (CKD-EPI)NonAf (>60 ml/min/1.73 sqM) Glucose (74-99) mg/dL Plasma Lactic Acid [place] (0.7-2.0) mmol/L Calcium (8.4-10.2) mg/dL Magnesium (1.6-2.3) mg/dL Total Bilirubin (0.2-1.3) mg/dL AST (14-36) U/L ALT (9-52) U/L Alkaline Phosphatase (38-126) U/L Troponin I <0.012 (0.000-0.034) ng/mL NT-Pro-B Natriuret Pep 9340 pg/mL Total Protein (6.3-8.2) g/dL Albumin (3.5-5.0) g/dL TSH (0.465-4.680) mIU/L Disposition <Dimitrios Singh - Last Filed: 08/23/17 16:15> <Edgar Vernon - Last Filed: 08/23/17 16:24> Clinical Impression: Acute CHF (congestive heart failure), Weakness Disposition: ADMITTED IP TO THIS HOSP Condition: Stable Referrals: Van Syed MD [Primary Care Provider] - 1-2 days
[2017-08-23 14:04] LABS: INR 4.2 (<1.2); Prothrombin Time 38.2 sec (9.0-12.0)
[2017-08-23 14:05] LABS: Anisocytosis Slight; Basophils % (A) 0 %; Eosinophils # (A) 0.1 k/uL (0-0.7); Eosinophils % (A) 1 %; HCT 35.1 % (34.0-46.0); HGB 11.2 gm/dL (11.4-16.0); Hypochromasia Slight; Lymphocytes % (A) 11 %; MCHC 31.8 g/dL (31.0-37.0); MCV 94.3 fL (80.0-100.0); Mean Platelet Volume 7.2; Monocytes # (A) 0.6 k/uL (0-1.0); Monocytes % (A) 6 %; Neutrophils # (A) 7.3 k/uL (1.3-7.7); Neutrophils % (A) 81 %; Platelet Count 358 k/uL (150-450); Poikilocytosis Slight; RBC 3.72 m/uL (3.80-5.40); RDW 16.6 % (11.5-15.5); WBC 9.1 k/uL (3.8-10.6)
--- NOTE | 2017-08-23 14:46 | CT ---
EXAMINATION TYPE: CT brain wo con DATE OF EXAM: 08/23/2017 COMPARISON: 02/02/2012 HISTORY: Weakness, altered mental status CT DLP: 1100 mGycm Automated exposure control for dose reduction was used. TECHNIQUE: CT scan of the head is performed without contrast. FINDINGS: There is no acute intracranial hemorrhage or midline shift identified. There is diffuse v entricular and sulcal prominence consistent with diffuse age-related cerebral atrophy. There is low- attenuation in the periventricular white matter consistent with chronic small vessel ischemic change. Minimal mucosal thickening within the ethmoid sinuses otherwise the visualized paranasal sinuses and mastoid air cells are well aerated. Globes are unremarkable. IMPRESSION: No acute intracranial process. Diffuse age-related cerebral atrophy and chronic small ve ssel ischemic change, similar in degree to the prior 2011.
--- NOTE | 2017-08-23 14:52 | XR ---
EXAMINATION TYPE: XR chest 2V DATE OF EXAM: 08/23/2017 COMPARISON: Prior chest 10/12/2016 HISTORY: Cough, altered mental status TECHNIQUE: Frontal and lateral views of the chest are obtained. FINDINGS: The heart is enlarged. Interstitium is increased. Bibasilar increased density is present. No evident pneumothorax. Pacemaker is stable. Prominent lung volume may be indicative of underlying C OPD. There are overlying cardiac leads. IMPRESSION: Correlate for congestive heart failure, there are likely basilar effusions and associate d atelectasis, pneumonia is not excluded.
[2017-08-23] MEDS ORDERED: FUROSEMIDE 10 MG/ML 4 ML VIAL IV STA (16:19)
[2017-08-23 16:56] LABS: Appearance,Urine Clear (Clear); Bilirubin,Urine Negative (Negative); Blood,Urine Negative (Negative); Color,Urine Yellow; Glucose,Urine (UA) Negative (Negative); Hyaline Casts,Urine 3 /lpf (0-2); Ketones,Urine Negative (Negative); Leukocyte Esterase,Urine Negative (Negative); Mucus,Urine Rare /hpf; Nitrite,Urine Negative (Negative); Protein,Urine 1+ (Negative); RBC,Urine 7 /hpf (0-5); Specific Gravity,Urine 1.021 (1.001-1.035); WBC,Urine <1 /hpf (0-5)
[2017-08-23] MEDS: METOPROLOL TARTRATE 25 MG TAB PO SCH (22:12)
[2017-08-23] MEDS: FLECAINIDE 50 MG TAB PO SCH (22:48)
[2017-08-24] MEDS: HYDROcodone/APAP 5-325MG 1 EACH TAB PO PRN (04:36)
[2017-08-24 06:17] LABS: Anion Gap 11 mmol/L; Blood Urea Nitrogen 19 mg/dL (7-17); Calcium 8.3 mg/dL (8.4-10.2); Carbon Dioxide 25 mmol/L (22-30); Chloride 90 mmol/L (98-107); Glucose 107 mg/dL (74-99); Potassium 4.6 mmol/L (3.5-5.1); Sodium 126 mmol/L (137-145)
[2017-08-24] MEDS: FUROSEMIDE 10 MG/ML 4 ML VIAL IV SCH ×2 (08:07→18:24)
[2017-08-24] MEDS ORDERED: ASPIRIN 325 MG TAB PO SCH (09:00)
[2017-08-24] MEDS: METOPROLOL TARTRATE 25 MG TAB PO SCH ×2 (11:56→20:39)
[2017-08-24] MEDS: DULoxetine HCL 30 MG CAPSULE.DR PO SCH (11:57)
[2017-08-24] MEDS: FLECAINIDE 50 MG TAB PO SCH ×2 (11:57→20:39)
[2017-08-24] MEDS: FAMOTIDINE 20 MG TAB PO SCH (11:57)
[2017-08-24] MEDS: MULTIVITAMINS, THERA 1 EACH TAB PO SCH (11:57)
--- NOTE | 2017-08-24 12:46 | ECHOF ---
Referral Reason:chf MEASUREMENTS -------- HEIGHT: 152.4 cm WEIGHT: 74.8 kg BP: IVSd: 1.3 cm (0.6 - 1.1) LVIDd: 4.5 cm (3.9 - 5.3) LVPWd: 1.2 cm (0.6 - 1.1) IVSs: 1.7 cm LVIDs: 3.1 cm LVPWs: 1.3 cm LA Diam: 5.1 cm (2.7 - 3.8) LAESV Index (A-L): 61.35 ml/m Ao Diam: 3.0 cm (2.0 - 3.7) AV Cusp: 1.9 cm (1.5 - 2.6) LA Diam: 3.9 cm (2.7 - 3.8) MV EXCURSION: 17.007 mm (> 18.000) MV EF SLOPE: 98 mm/s (70 - 150) EPSS: 0.0 cm MV E Narendra: 1.29 m/s MV DecT: 159 ms MV A Narendra: 0.75 m/s MV E/A Ratio: 1.71 RAP: 5.00 mmHg RVSP: 64.39 mmHg FINDINGS -------- Paced rhythm. This was a technically adequate study. The left ventricular size is normal. There is mild concentric left ventricular hypertrophy. Overa ll left ventricular systolic function is mildly impaired with, an EF between 45 - 50 %. The right ventricle is normal in size. The left atrium is markedly dilated. LA is severely dilated >40 ml/m2 The right atrial size is normal. There is mild aortic valve sclerosis. There is no evidence of aortic regurgitation. Mild mitral annular calcification present. Pvakgsrq-of-prrdat mitral regurgitation is present. Mild tricuspid regurgitation present. There is moderate pulmonary hypertension. The right ventric ular systolic pressure, as measured by Doppler, is 64.39mmHg. Trace/mild (physiologic) pulmonic regurgitation. The aortic root size is normal. There is no pericardial effusion. CONCLUSIONS -------- 1. The left ventricular size is normal. 2. There is mild concentric left ventricular hypertrophy. 3. Overall left ventricular systolic function is mildly impaired with, an EF between 45 - 50 %. 4. The right ventricle is normal in size. 5. The left atrium is markedly dilated. 6. LA is severely dilated >40 ml/m2 7. The right atrial size is normal. 8. There is mild aortic valve sclerosis. 9. Mild mitral annular calcification present. 10. Hbtjqeby-oi-onadxj mitral regurgitation is present. 11. Mild tricuspid regurgitation present. 12. There is moderate pulmonary hypertension. 13. The right ventricular systolic pressure, as measured by Doppler, is 64.39mmHg. 14. Trace/mild (physiologic) pulmonic regurgitation. 15. The aortic root size is normal. 16. There is no pericardial effusion. FILM EDITOR SUPERVISOR: Kellie Banuelos RDCS
[2017-08-24] MEDS: ONDANSETRON 4 MG/2 ML VIAL IVP PRN (22:13)
--- NOTE | 2017-08-24 23:33 | HP ---
HISTORY AND PHYSICAL ATTENDING PHYSICIAN: Dr. Avi Syed. DATE OF SERVICE: 08/23/2017 CHIEF COMPLAINT: Weakness. HISTORY OF PRESENT ILLNESS: This is an 88-year-old female who was admitted to the hospital after being brought into the emergency room with complaints of weakness. The patient was seen by the emergency room and referred for admission. The patient recently has had a couple of falls. The patient noted to have a sodium of 125. She does have some myoclonic jerking. The patient, though awake, alert, oriented, seems to be forgetful at times. For example, she mentioned to the nurse that she lives with her . Her has been for about 8 years. The patient denied any fever, chills, but the appetite has been fair. The patient's has been monitoring her medications. She does take some tranquilizers and narcotics; however, the patient's medications have been adequately controlled all along. The patient denies any other symptoms of chest pain. Some shortness of breath and increased edema of the lower extremities. She does have a history of hypertensive cardiovascular disease and has a pacemaker. She also has had a previous history of coronary artery disease and peripheral arterial disease. The patient denies any symptoms of orthopnea, PND. She had a pacemaker placed because of significant bradycardia. 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 She does have a history of chronic dizziness of unclear etiology, history of degenerative arthritis, especially affecting the lumbosacral spine. She recently had a fracture of the, I believe, left shoulder. Ever since then, the patient's general condition has been downhill. PAST SURGICAL HISTORY: Significant for perforated peptic ulcer repair, pacemaker placement. PERSONAL HISTORY: The patient is a smoker. Alcohol: None. ALLERGIES: Include PENICILLIN. MEDICATIONS: Include: 1. Xanax 0.25 b.i.d. 2. Cymbalta 30 mg daily. 3. Pepcid 20 mg daily. 4. Flecainide 50 mg q.12 hours. 5. [place]omb 5/325 b.i.d. 6. Antivert p.r.n. 7. Metoprolol tartrate 25 mg b.i.d. 8. Multivitamin daily. 9. Phenergan 12.5-25 mg q.8h p.r.n. 10.Vitamin D 3000 units daily. 11.Lipitor 20 mg daily. SOCIAL HISTORY: Patient lives alone. FAMILY MEDICAL HISTORY: 2 sons, 1 with history of hypertension. REVIEW OF SYSTEMS: NEURO: Denies any headaches, some dizziness. No double vision or blurred vision. No symptoms of TIA, syncope or seizures. She has had a couple of falls. Some bruising, right scapular area, lower chin. Myoclonic jerking. PSYCH: No anxiety, depression. CARDIAC: Denies chest pain, angina, palpitation. RESPIRATORY: Denies shortness of breath. Some cough. No hemoptysis. GI: Occasional nausea, vomiting. No abdominal pain, diarrhea, constipation, hematochezia, melena. : No symptoms of dysuria, hematuria. Does have urgency and frequency. EXTREMITIES: Some pain and noticed increased edema lower legs. CONSTITUTIONAL: No fever, chills. HEMATOLOGICAL: No anemia or bleeding disorders. ENDOCRINE: No history of diabetes mellitus, hypothyroidism. SKIN: No rashes. ENT: Adequate vision, hearing. PHYSICAL EXAMINATION: Pleasant female at present in no distress. Vital signs reveal temperature 98, pulse 70, respirations 18, blood pressure 155/63, pulse ox of 93% on 2L. HEENT: Normocephalic. NECK: Supple. 1+ JVD. No thyromegaly. No supraclavicular lymphadenopathy. Chest is clear to percussion. A few crackles at the right base and left base. CARDIAC: Distant heart sounds. S1, S2 with no gallop. Systolic murmur 2/6 left sternal border. ABDOMEN: Soft. No palpable masses. Bowel sounds normal. No organomegaly. No abdominal bruits. Extremities reveal 1 to 2+ edema, both lower extremities. Neurologically, awake, alert, oriented, but appears mildly lethargic and has reported occasionally mild confusion. Has equal strength bilateral arms and legs. Station is unsteady. LABORATORY ASSESSMENT: CBC which revealed a hemoglobin of 11.2, INR 4.2. Sodium 125, potassium 4.9, chloride 87, BUN 22, creatinine 0.73. Normal hepatic. Troponins negative. BNP 9340. TSH 1.43. Albumin 5.6. Urinalysis unremarkable. Specific gravity probe 1.021. Brain CT did not reveal any evidence of intracranial hemorrhage. Chest x-ray suggests congestive cardiac failure. ASSESSMENT: 1. Acute congestive cardiac failure secondary to systolic dysfunction and mitral regurgitation. 2. Mitral regurgitation. 3. Sick sinus syndrome. 4. Anticoagulated status. 5. Fall with ecchymosis, right scapula. 6. Myoclonic jerking. 7. Hyponatremia. PLAN: The patient will continue on diuresis and fluid restriction. The patient's condition is discussed with the patient. Prognosis guarded. Patient is going to require placement for rehab and then subsequently will have to move out of the house and live in some semi assisted living place. The patient's condition discussed with the patient, was discussed with the son. Prognosis guarded. MMODL / IJN: [id number] /
--- NOTE | 2017-08-24 23:57 | PN ---
PROGRESS NOTE DATE OF SERVICE: 08/24/2017. ATTENDING PHYSICIAN: Dr. Pablito Syed. CHIEF COMPLAINT: Re-evaluation. HISTORY OF PRESENT ILLNESS: This 87-year-old female was admitted to the hospital with some complaints of fatigue, evidence of congestive cardiac failure, hyponatremia and some myoclonic chest pain. The patient is feeling some better today. She has been on IV diuresis. The patient also has been on fluid restriction. Sodium is up to 126 from 125. The patient otherwise denies any other associated symptoms. REVIEW OF SYSTEMS: NEURO: Denies any headaches or dizziness. PSYCH: No anxiety. CARDIAC: No chest pain, angina, or palpitation. RESPIRATORY: Denies shortness of breath. Does have some cough. No hemoptysis. GI: No nausea or vomiting or abdominal pain. The patient did have small emesis yesterday but no further nausea or vomiting today. No abdominal pain. No diarrhea or constipation. No hematochezia or melena. : No symptoms of dysuria or hematuria. Does have some frequency. EXTREMITIES: Denies pain. Does have edema. CONSTITUTIONAL: No fevers or chills. PHYSICAL EXAMINATION: Elderly female at present in no distress. Vital signs reveals temperature 96.7, pulse 70, respirations 16, blood pressure 133/65, pulse ox 97% on 2 L. HEENT: Normocephalic. NECK: No JVD. CHEST: Clear to auscultation with few crackles at the right base. CARDIAC: S1, S2 with no gallop. Systolic murmur at the apex and right second intercostal space, 2/6. ABDOMEN: Soft, bowel sounds normal. No organomegaly. No abdominal bruits. EXTREMITIES: 1+ edema. NEUROLOGIC: Awake, alert, oriented, well-coordinated movements. The patient does have significant myoclonic tonic jerking still. LAB ASSESSMENT: Sodium 126, potassium 4.6, chloride 90, CO2 content 25, BUN 19, creatinine 0.65. Calcium of 8.3. ASSESSMENT: 1. Acute congestive cardiac failure secondary to systolic dysfunction. 2. Mitral regurgitation. 3. Sick sinus syndrome. 4. Anticoagulated status. 5. Myoclonic jerking. 6. Hyponatremia. PLAN: The patient is stable continue present medical regimen. Patient's condition discussed with the patient and her best friend with the patient's permission. The patient's condition is expected to improve with subsequent transfer to nursing facility for rehab. MMWYATT / CHELEN: [id number] /
[2017-08-25 06:40] LABS: INR 2.4 (<1.2); Prothrombin Time 21.9 sec (9.0-12.0)
[2017-08-25 06:43] LABS: Anion Gap 10 mmol/L; Blood Urea Nitrogen 20 mg/dL (7-17); Calcium 8.2 mg/dL (8.4-10.2); Carbon Dioxide 32 mmol/L (22-30); Chloride 87 mmol/L (98-107); Glucose 96 mg/dL (74-99); Potassium 4.6 mmol/L (3.5-5.1); Sodium 129 mmol/L (137-145)
[2017-08-25] MEDS: FUROSEMIDE 10 MG/ML 4 ML VIAL IV SCH ×2 (06:43→17:15)
[2017-08-25] MEDS: MULTIVITAMINS, THERA 1 EACH TAB PO SCH (08:03)
[2017-08-25] MEDS: FAMOTIDINE 20 MG TAB PO SCH (08:03)
[2017-08-25] MEDS: DULoxetine HCL 30 MG CAPSULE.DR PO SCH (08:03)
[2017-08-25] MEDS: METOPROLOL TARTRATE 25 MG TAB PO SCH ×2 (08:03→20:48)
[2017-08-25] MEDS: FLECAINIDE 50 MG TAB PO SCH ×2 (08:03→20:48)
[2017-08-25 10:59] VITALS: BMI 31.1
[2017-08-25] MEDS: ONDANSETRON 4 MG/2 ML VIAL IVP PRN (15:55)
--- NOTE | 2017-08-25 21:04 | PN ---
PROGRESS NOTE ATTENDING PHYSICIAN: Dr. Pablito Syed. CHIEF COMPLAINT: Re-evaluation. HISTORY OF PRESENT ILLNESS: 87-year-old male was admitted to the hospital with some increasing confusion, weakness. The patient is noted to have evidence of congestive cardiac failure secondary to left ventricular systolic dysfunction and valvular heart disease. The patient also had a sodium of 129. She has had some myoclonic jerking, which seems to have improve today. The patient appears better, the edema in the lower extremities is practically resolved. REVIEW OF SYSTEMS: Neuro: Denies any headaches or dizziness. Psych no anxiety. Some forgetfulness. Cardiac: No chest pain, angina or palpitations. Respiratory: Mild cough. GI no nausea, vomiting, abdominal pain, diarrhea. no symptoms of dysuria or hematuria. Some frequency and some urge incontinence. EXTREMITIES: Edema minimal, trace left. Neurologically awake, alert, oriented, to place and person. Moves upper and lower extremities fairly well. Occasional myoclonic jerking, but much improved. LABORATORY DATA: Sodium up to 129, INR 2.4, if pain continued wound off the bed. ASSESSMENT: 1. Acute congestive cardiac failure secondary to systolic dysfunction improved. 2. Mitral regurgitation. 3. Sick sinus syndrome. 4. Hyponatremia. 5. Myoclonic jerking secondary to hyponatremia. PLAN: Continue present medical regimen. Patient is awaiting placement for rehab. MMODL / CHELEN: [id number] /
[2017-08-26] MEDS: HYDROcodone/APAP 5-325MG 1 EACH TAB PO PRN (03:16)
[2017-08-26] MEDS: FUROSEMIDE 10 MG/ML 4 ML VIAL IV SCH ×2 (06:10→17:52)
[2017-08-26] MEDS: FAMOTIDINE 20 MG TAB PO SCH (09:11)
[2017-08-26] MEDS: FLECAINIDE 50 MG TAB PO SCH ×2 (09:12→21:04)
[2017-08-26] MEDS: DULoxetine HCL 30 MG CAPSULE.DR PO SCH (09:13)
[2017-08-26] MEDS: METOPROLOL TARTRATE 25 MG TAB PO SCH ×2 (09:13→21:04)
[2017-08-26] MEDS: MULTIVITAMINS, THERA 1 EACH TAB PO SCH (09:13)
[2017-08-26 11:02] LABS: Calcium 8.4 mg/dL (8.4-10.2); Potassium 3.5 mmol/L (3.5-5.1)
[2017-08-26] MEDS ORDERED: WARFARIN 2.5 MG TAB PO SCH (18:00)
--- NOTE | 2017-08-26 20:32 | PN ---
PROGRESS NOTE ATTENDING PHYSICIAN: Dr. Pablito Syed. CHIEF COMPLAINT: Re-evaluation. HISTORY OF PRESENT ILLNESS: This 87-year-old female was admitted to the hospital for generalized weakness. She is noted to have evidence of congestive cardiac failure secondary to systolic dysfunction as well as hyponatremia. The patient has had a couple of falls at home. She is somewhat weak. Unfortunately, she has not still been walked here. The patient feels stronger. Her myoclonic jerking has subsided. The patient herself feels that she is feeling better. The sodium is up to 130 from 125. REVIEW OF SYSTEMS: Neuro: Denies any headaches or dizziness. Psych: No anxiety. Cardiac: No chest pain, angina, palpitations. Respiratory: Denies shortness of breath, cough, hemoptysis. GI no nausea, vomiting, abdominal pain, diarrhea. no symptoms of dysuria, hematuria. Extremities: No pain. Constitutional: No fever or chills. PHYSICAL EXAMINATION: Pleasant female in no distress. Vital signs reveals temperature 97, pulse 70, respirations 16, blood pressure was 89/54, repeat was 109/51. HEENT: Normocephalic. Neck no JVD. CHEST: Clear to auscultation. Cardiac normal S1, S2 with no gallop. Systolic murmur 2/6 left sternal border and apex. ABDOMEN: Soft. Bowel sounds present. Extremities reveal trace edema. Neurological: Awake, alert, oriented with well-coordinated movements. LABORATORY ASSESSMENT: Sodium 130, potassium 3.5, CO2 content 39, BUN 20, creatinine 0.80. ASSESSMENT: 1. Acute congestive cardiac failure secondary to systolic dysfunction. 2. Mitral regurgitation. 3. Sick sinus syndrome. 4. Anticoagulated status. 5. Myoclonic jerking, improved. PLAN: The patient is stable. Continue present medical regimen. Patient's condition discussed with the patient. Prognosis remains guarded. Potential discharge home tomorrow. Patient's condition is stable at present. MMODL / IJN: [id number] /
--- NOTE | 2017-08-26 23:08 | DS ---
DISCHARGE SUMMARY DATE OF ADMISSION: 08/23/2017. DATE OF TRANSFER: 08/27/2017. PRINCIPLE DIAGNOSES: 1. Acute congestive cardiac failure secondary to systolic dysfunction. 2. Moderate to severe mitral regurgitation. 3. Sick sinus syndrome. 4. Paroxysmal atrial fibrillation. 5. Coronary artery disease. 6. Multiple falls at home. 7. Anticoagulated status. 8. Hyponatremia. 9. Debility. HOSPITAL COURSE: The patient at present was admitted to the hospital because of generalized weakness and multiple falls at home. The patient had no evidence of any internal injury. She was hyperanticoagulated status, which is improved with holding back on Coumadin. Patient has no evidence of acute bleeding. The patient has evidence of congestive cardiac failure, for which she was treated. Echocardiogram does reveal a mildly decreased left ventricular function. She does have underlying history of coronary artery disease, paroxysmal atrial fibrillation and sick sinus syndrome. Patient has a pacemaker. The patient's general condition is improved at this time. She did have significant myoclonic jerking secondary to hyponatremia with sodium 125. Sodium is up to 130. However, the CO2 is up with diuresis. Diuretics will be held back. The patient will be discharged to nursing facility for rehabilitation. She does exhibit mild confusion at times, which is somewhat new and expected to improve. DISCHARGE MEDICATIONS: 1. Losartan 25 mg daily. 2. Lasix 20 mg daily. 3. Aldactone 12.5 mg daily. 4. Cymbalta 30 mg daily. 5. Pepcid 20 mg daily. 6. Tambocor 50 mg every 12 hours. 7. [place] 5/32 every 12 hours. 8. Metoprolol tartrate 25 mg b.i.d. 9. Multivitamins 1 daily. 10.Zofran 4 mg p.r.n. every 8 hours. 11.Coumadin 2.5 mg daily. Protimes to be checked Sunday and . ACTIVITIES: As tolerated with physical therapy. DIET: Fluid restriction of 2 L. Diet will be cardiac. MMODL / IJN: [id number] /
[2017-08-27 04:04] VITALS: RESP 17
[2017-08-27 06:28] LABS: INR 1.5 (<1.2); Prothrombin Time 13.6 sec (9.0-12.0)
[2017-08-27 06:32] LABS: Anion Gap 9 mmol/L; Blood Urea Nitrogen 18 mg/dL (7-17); Calcium 8.2 mg/dL (8.4-10.2); Carbon Dioxide 37 mmol/L (22-30); Chloride 84 mmol/L (98-107); Glucose 137 mg/dL (74-99); Potassium 3.5 mmol/L (3.5-5.1); Sodium 130 mmol/L (137-145)
[2017-08-27] MEDS: FLECAINIDE 50 MG TAB PO SCH (08:45)
[2017-08-27] MEDS: MULTIVITAMINS, THERA 1 EACH TAB PO SCH (08:46)
[2017-08-27] MEDS: METOPROLOL TARTRATE 25 MG TAB PO SCH (08:46)
[2017-08-27] MEDS: FAMOTIDINE 20 MG TAB PO SCH (08:46)
[2017-08-27] MEDS: DULoxetine HCL 30 MG CAPSULE.DR PO SCH (08:46)
[2017-08-27 08:57] VITALS: TEMP 97.6
[2017-08-27] MEDS ORDERED: FUROSEMIDE 20 MG TAB PO SCH (09:00)
[2017-08-27] MEDS ORDERED: LOSARTAN 25 MG TAB PO SCH (09:00)
[2017-08-27] MEDS ORDERED: SPIRONOLACTONE 25 MG TAB PO SCH (09:00)
[2017-08-27 12:25] VITALS: BP 122/65; PULSE 83
== END 2017-08-27 15:07 | DRG 292 ==
LOC: EC 12:50 → 6SEL 16:18
PROVIDERS: ADMIT Internal Medicine; ATTEND Internal Medicine
DX: I11.0 Hypertensive heart disease with heart failure (principal); E87.1 Hypo-osmolality and hyponatremia; E78.5 Hyperlipidemia, unspecified; F17.200 Nicotine dependence, unspecified, uncomplicated; G25.3 Myoclonus; I25.10 Atherosclerotic heart disease of native coronary artery without angina pectoris; I34.0 Nonrheumatic mitral (valve) insufficiency; I48.0 Paroxysmal atrial fibrillation; I50.23 Acute on chronic systolic (congestive) heart failure; I73.9 Peripheral vascular disease, unspecified; K21.9 Gastro-esophageal reflux disease without esophagitis; R29.6 Repeated falls; Z79.01 Long term (current) use of anticoagulants; Z82.49 Family history of ischemic heart disease and other diseases of the circulatory system; Z87.11 Personal history of peptic ulcer disease; Z95.0 Presence of cardiac pacemaker; Z79.899 Other long term (current) drug therapy; Z79.891 Long term (current) use of opiate analgesic; Z88.0 Allergy status to penicillin; Z87.81 Personal history of (healed) traumatic fracture; Z60.2 Problems related to living alone; S40.011A Contusion of right shoulder, initial encounter; S00.83XA Contusion of other part of head, initial encounter
CPT/HCPCS: 36415; 70450; 71046; 80048; 80053; 81001; 83605; 83735; 83880; 84443; 84484; 85025; 85610; 87040; 93005; 93306; 94760; 96360; 96361; 99285

== ENCOUNTER 2017-10-19 00:33 | Emergency (ER) | payer MEDICARE, BC ==
[2017-10-19 01:12] LABS: Anisocytosis Slight; Basophils % (A) 0 %; Eosinophils # (A) 0.2 k/uL (0-0.7); Eosinophils % (A) 2 %; HCT 35.3 % (34.0-46.0); HGB 11.5 gm/dL (11.4-16.0); Lymphocytes # (A) 2.1 k/uL (1.0-4.8); Lymphocytes % (A) 22 %; MCH 29.6 pg (25.0-35.0); MCHC 32.5 g/dL (31.0-37.0); MCV 91.3 fL (80.0-100.0); Mean Platelet Volume 6.9; Monocytes # (A) 0.3 k/uL (0-1.0); Monocytes % (A) 4 %; Neutrophils # (A) 6.8 k/uL (1.3-7.7); Neutrophils % (A) 70 %; Platelet Count 217 k/uL (150-450); RBC 3.87 m/uL (3.80-5.40); RDW 18.9 % (11.5-15.5); WBC 9.7 k/uL (3.8-10.6)
[2017-10-19 01:21] LABS: INR 1.1 (<1.2); Partial Thromboplastin Time 23.2 sec (22.0-30.0)
[2017-10-19 01:23] LABS: Albumin 3.6 g/dL (3.5-5.0); Potassium 4.4 mmol/L (3.5-5.1); Total Bilirubin 1.1 mg/dL (0.2-1.3); Total Protein 6.1 g/dL (6.3-8.2)
[2017-10-19 01:35] LABS: Creatine Kinase <20 U/L (30-135)
[2017-10-19 01:47] LABS: Troponin I <0.012 ng/mL (0.000-0.034)
--- NOTE | 2017-10-19 02:18 | XR ---
EXAMINATION TYPE: XR chest 1V portable DATE OF EXAM: 10/19/2017 COMPARISON: 08/23/2017 HISTORY: Short of breath TECHNIQUE: Single frontal view of the chest is obtained. FINDINGS: There is no heart failure. There is mild blunting of the costophrenic angles. There is lef t axillary pacemaker with the lead tips in the right ventricle. There are chest leads. IMPRESSION: Small pleural effusions are improved compared to last exam. There is clearing of pulmona ry vascular congestion. There is no gross heart failure. Old left humerus fracture noted.
[2017-10-19] MEDS ORDERED: FUROSEMIDE 10 MG/ML 4 ML VIAL IV STA (02:26)
--- NOTE | 2017-10-19 05:39 | ED ---
SOB HPI - General Chief Complaint: Shortness of Breath Stated Complaint: SOB Time Seen by Provider: 10/19/17 00:49 Source: patient Mode of arrival: EMS Limitations: no limitations - History of Present Illness Initial Comments: This patient is an 87-year-old woman who presents to be evaluated for shortness of breath. The patient states that she had noted tonight she was sitting watching television. She also had noticed that there was a little bit of swelling at her ankles bilaterally. She denied fever or chills, cough, chest pain, change in urination or bowel movements. MD Complaint: shortness of breath -: hour(s) Consistency: constant Improves With: upright position Worsens With: lying flat Known History Of: congestive heart failure Associated Symptoms: denies other symptoms Treatments Prior to Arrival: none - Related Data Home Medications Medication Instructions Recorded Confirmed Atorvastatin [Lipitor] 20 mg PO HS 06/11/16 10/19/17 Metoprolol Tartrate [Lopressor] 25 mg PO BID 06/11/16 10/19/17 DULoxetine HCL [Cymbalta] 30 mg PO DAILY 09/01/16 10/19/17 Famotidine [Pepcid] 20 mg PO DAILY 09/01/16 10/19/17 Flecainide [Tambocor] 50 mg PO Q12HR 09/01/16 10/19/17 Multivit-Min/FA/Lycopen/Lutein 1 tab PO DAILY 10/12/16 10/19/17 [Centrum Silver Tablet] Cholecalciferol [Vitamin D3] 1,000 unit PO DAILY 08/23/17 10/19/17 Previous Rx's Medication Instructions Recorded ALPRAZolam [Xanax] 0.25 mg PO BID #60 tab 08/27/17 Furosemide [Lasix] 20 mg PO DAILY tab 08/27/17 HYDROcodone/APAP 5-325MG [[place] 1 tab PO Q12HR PRN #60 tab 08/27/17 5-325] Losartan [Cozaar] 25 mg PO DAILY tab 08/27/17 Ondansetron [Zofran] 4 mg PO Q12HR PRN #20 tab 08/27/17 Spironolactone [Aldactone] 12.5 mg PO DAILY tab 08/27/17 Warfarin [Coumadin] 2.5 mg PO DAILY@1800 tab 08/27/17 Allergies Allergy/AdvReac Type Severity Reaction Status Date / Time Penicillins Allergy Rash/Hives Verified 08/23/17 14:05 Review of Systems ROS Statement: Those systems with pertinent positive or pertinent negative responses have been documented in the HPI. ROS Other: All systems not noted in ROS Statement are negative. Constitutional: Denies: fever, chills, weakness Respiratory: Reports: dyspnea. Denies: cough, wheezes, hemoptysis Cardiovascular: Reports: orthopnea, edema. Denies: chest pain, palpitations, syncope Gastrointestinal: Denies: abdominal pain, vomiting, diarrhea Genitourinary: Denies: dysuria Musculoskeletal: Denies: back pain Skin: Denies: rash Neurological: Denies: headache, weakness, numbness Past Medical History Past Medical History: Coronary Artery Disease (CAD), GERD/Reflux, Hyperlipidemia , Hypertension Additional Past Medical History / Comment(s): ulcers, pt stated she had hx of diverticulitis. History of Any Multi-Drug Resistant Organisms: None Reported Past Surgical History: Heart Catheterization With Stent, Pacemaker Additional Past Surgical History / Comment(s): sx for ruptered ulcer in 2012, pacer maker placement in May 2016 and changed generator on 09-04-16. Past Anesthesia/Blood Transfusion Reactions: No Reported Reaction Date of Last Stent Placement:: 1991 (?) Type of Cardiac Device: Permanent Pacemaker Device Placement Date:: Past Psychological History: Anxiety Smoking Status: Current every day smoker Past Alcohol Use History: Occasional Past Drug Use History: None Reported - Past Family History Father Family Medical History: No Reported History Mother Family Medical History: No Reported History General Exam Limitations: no limitations General appearance: alert, in no apparent distress Head exam: Present: atraumatic, normocephalic Eye exam: Present: normal appearance ENT exam: Present: normal oropharynx Respiratory exam: Present: rales. Absent: respiratory distress, wheezes ( Bilateral bases), rhonchi, stridor, accessory muscle use, decreased breath sounds, prolonged expiratory Cardiovascular Exam: Present: regular rate, normal rhythm, normal heart sounds. Absent: systolic murmur, diastolic murmur, rubs, gallop GI/Abdominal exam: Present: soft. Absent: distended, tenderness, guarding, rebound, rigid Extremities exam: Present: normal inspection, normal capillary refill. Absent: pedal edema, calf tenderness Back exam: Present: normal inspection. Absent: CVA tenderness (R), CVA tenderness (L) Neurological exam: Present: alert Skin exam: Present: warm, dry, intact, normal color. Absent: rash Course Vital Signs 10/19/17 10/19/17 10/19/17 00:37 02:14 02:19 Temperature 97.8 F Pulse Rate 67 78 Respiratory 24 24 22 Rate Blood Pressure 144/63 133/61 O2 Sat by Pulse 95 95 Oximetry 10/19/17 05:49 Temperature 98.4 F Pulse Rate 76 Respiratory 19 Rate Blood Pressure 112/56 O2 Sat by Pulse 99 Oximetry Medical Decision Making - Medical Decision Making Patient is an 87-year-old woman presenting with dyspnea. The history and physical exam as well as workup show some mild congestive heart failure, and the patient is given additional Lasix here. Case discussed with her physician Dr. Syed, and he states that as long as she is feeling touch better he would like to see her in clinic this morning. He states that he man up admitting her from there but would like to see her in clinic. The patient is given additional Lasix and is feeling a bit better. - Lab Data Result diagrams: 10/19/17 01:00 10/19/17 01:00 Lab Results 10/19/17 10/19/17 10/19/17 Range/Units 01:00 01:00 01:00 WBC 9.7 (3.8-10.6) k/uL RBC 3.87 (3.80-5.40) m/uL Hgb 11.5 (11.4-16.0) gm/dL Hct 35.3 (34.0-46.0) % MCV 91.3 (80.0-100.0) fL MCH 29.6 (25.0-35.0) pg MCHC 32.5 (31.0-37.0) g/dL RDW 18.9 H (11.5-15.5) % Plt Count 217 (150-450) k/uL Neutrophils % 70 % Lymphocytes % 22 % Monocytes % 4 % Eosinophils % 2 % Basophils % 0 % Neutrophils # 6.8 (1.3-7.7) k/uL Lymphocytes # 2.1 (1.0-4.8) k/uL Monocytes # 0.3 (0-1.0) k/uL Eosinophils # 0.2 (0-0.7) k/uL Basophils # 0.0 (0-0.2) k/uL Anisocytosis Slight PT (9.0-12.0) sec INR (<1.2) APTT (22.0-30.0) sec Sodium 132 L (137-145) mmol/L Potassium 4.4 (3.5-5.1) mmol/L Chloride 100 (98-107) mmol/L Carbon Dioxide 23 (22-30) mmol/L Anion Gap 9 mmol/L BUN 19 H (7-17) mg/dL Creatinine 0.70 (0.52-1.04) mg/dL Est GFR (CKD-EPI)AfAm 89 (>60 ml/min/1.73 sqM) Est GFR (CKD-EPI)NonAf 78 (>60 ml/min/1.73 sqM) Glucose 136 H (74-99) mg/dL Calcium 9.0 (8.4-10.2) mg/dL Total Bilirubin 1.1 (0.2-1.3) mg/dL AST 21 (14-36) U/L ALT 30 (9-52) U/L Alkaline Phosphatase 64 (38-126) U/L Total Creatine Kinase <20 L (30-135) U/L CK-MB (CK-2) 1.0 (0.0-2.4) ng/mL CK-MB (CK-2) Rel Index Troponin I <0.012 (0.000-0.034) ng/mL NT-Pro-B Natriuret Pep pg/mL Total Protein 6.1 L (6.3-8.2) g/dL Albumin 3.6 (3.5-5.0) g/dL 10/19/17 10/19/17 Range/Units 01:00 01:00 WBC (3.8-10.6) k/uL RBC (3.80-5.40) m/uL Hgb (11.4-16.0) gm/dL Hct (34.0-46.0) % MCV (80.0-100.0) fL MCH (25.0-35.0) pg MCHC (31.0-37.0) g/dL RDW (11.5-15.5) % Plt Count (150-450) k/uL Neutrophils % % Lymphocytes % % Monocytes % % Eosinophils % % Basophils % % Neutrophils # (1.3-7.7) k/uL Lymphocytes # (1.0-4.8) k/uL Monocytes # (0-1.0) k/uL Eosinophils # (0-0.7) k/uL Basophils # (0-0.2) k/uL Anisocytosis PT 11.0 (9.0-12.0) sec INR 1.1 (<1.2) APTT 23.2 (22.0-30.0) sec Sodium (137-145) mmol/L Potassium (3.5-5.1) mmol/L Chloride (98-107) mmol/L Carbon Dioxide (22-30) mmol/L Anion Gap mmol/L BUN (7-17) mg/dL Creatinine (0.52-1.04) mg/dL Est GFR (CKD-EPI)AfAm (>60 ml/min/1.73 sqM) Est GFR (CKD-EPI)NonAf (>60 ml/min/1.73 sqM) Glucose (74-99) mg/dL Calcium (8.4-10.2) mg/dL Total Bilirubin (0.2-1.3) mg/dL AST (14-36) U/L ALT (9-52) U/L Alkaline Phosphatase (38-126) U/L Total Creatine Kinase (30-135) U/L CK-MB (CK-2) (0.0-2.4) ng/mL CK-MB (CK-2) Rel Index Troponin I (0.000-0.034) ng/mL NT-Pro-B Natriuret Pep 3150 pg/mL Total Protein (6.3-8.2) g/dL Albumin (3.5-5.0) g/dL - EKG Data -: EKG Interpreted by Me Interpretation: other (Twelve-lead ECG does show a paced rhythm with a rate of 88 bpm.) Disposition Clinical Impression: Congestive heart failure, Dyspnea Disposition: HOME SELF-CARE Condition: Fair Instructions: Heart Failure (DC) Is patient prescribed a controlled substance at d/c from ED?: No Referrals: Van Syed MD [Primary Care Provider] - 1-2 days
[2017-10-19 05:49] VITALS: BP 112/56; PULSE 76; RESP 19; TEMP 98.4
== END 2017-10-19 06:20 | disposition home or self-care (01) ==
LOC: EC 00:33
DX: I50.9 Heart failure, unspecified (principal); I11.0 Hypertensive heart disease with heart failure; E78.5 Hyperlipidemia, unspecified; I25.10 Atherosclerotic heart disease of native coronary artery without angina pectoris; K21.9 Gastro-esophageal reflux disease without esophagitis; F17.200 Nicotine dependence, unspecified, uncomplicated; Z79.899 Other long term (current) drug therapy; Z88.0 Allergy status to penicillin; Z95.0 Presence of cardiac pacemaker
CPT/HCPCS: 36415; 93005; 83880; 80053; 82550; 82553; 84484; 85025; 85610; 85730; 71045; 99285; 96374; J1940

== ENCOUNTER 2018-07-01 04:41 | Inpatient (IN) | payer MEDICARE, BC ==
--- NOTE | 2018-07-01 04:44 | ED ---
General Adult HPI - General Stated complaint: Vertigo, Weakness Time Seen by Provider: 07/01/18 04:44 - History of Present Illness Initial comments: Head he is an 88-year-old female with extensive past medical history most significant for congestive heart failure. She presents the emergency department this morning with the complaint that she can't sleep she is restless and her legs are swollen. Patient states that for the past 2 nights she's been unable to sleep because she gets very short of breath when she lays down. She reports that she's tried to lay down she becomes very short of breath becomes very restless and has to get up and walk around. She reports that she's been doing this for 2 nights without more the next couple minutes of sleep at a time. She states that she is also noted that her legs feel very swollen. Patient states he's been compliant with all of her home medications including her water pill for her legs persistent the have become more and more swollen. Patient reports that this morning after being up all night she began to feel very fatigued very lightheaded and short of breath which prompted her come to the ER. Patient denies any recent fevers, chills, chest pain, nausea or vomiting. She does state that she hasn't been eating or drinking well but she's been trying to make herself eat. - Related Data Home Medications Medication Instructions Recorded Confirmed Atorvastatin [Lipitor] 20 mg PO HS 06/11/16 10/19/17 Metoprolol Tartrate [Lopressor] 25 mg PO BID 06/11/16 10/19/17 DULoxetine HCL [Cymbalta] 30 mg PO DAILY 09/01/16 10/19/17 Famotidine [Pepcid] 20 mg PO DAILY 09/01/16 10/19/17 Flecainide [Tambocor] 50 mg PO Q12HR 09/01/16 10/19/17 Multivit-Min/FA/Lycopen/Lutein 1 tab PO DAILY 10/12/16 10/19/17 [Centrum Silver Tablet] Cholecalciferol [Vitamin D3 (25 1,000 unit PO DAILY 08/23/17 10/19/17 Mcg = 1000 Iu)] Previous Rx's Medication Instructions Recorded ALPRAZolam [Xanax] 0.25 mg PO BID #60 tab 08/27/17 Furosemide [Lasix] 20 mg PO DAILY tab 08/27/17 HYDROcodone/APAP 5-325MG [[place] 1 tab PO Q12HR PRN #60 tab 08/27/17 5-325] Losartan [Cozaar] 25 mg PO DAILY tab 08/27/17 Ondansetron [Zofran] 4 mg PO Q12HR PRN #20 tab 08/27/17 Spironolactone [Aldactone] 12.5 mg PO DAILY tab 08/27/17 Warfarin [Coumadin] 2.5 mg PO DAILY@1800 tab 08/27/17 Allergies Allergy/AdvReac Type Severity Reaction Status Date / Time Penicillins Allergy Rash/Hives Verified 08/23/17 14:05 Review of Systems ROS Statement: Those systems with pertinent positive or pertinent negative responses have been documented in the HPI. ROS Other: All systems not noted in ROS Statement are negative. Constitutional: Reports: weight change (Weight gain). Denies: fever, chills Eyes: Denies: vision change ENT: Denies: ear pain, throat pain Respiratory: Reports: dyspnea (With exertion). Denies: cough Cardiovascular: Reports: orthopnea, edema, paroxysmal nocturnal dyspnea. Denies: chest pain, palpitations Endocrine: Reports: fatigue Gastrointestinal: Denies: abdominal pain, nausea, vomiting Genitourinary: Reports: frequency (When using Lasix). Denies: urgency, dysuria Skin: Reports: rash (Discoloration of left lower extremity) Neurological: Reports: weakness (Generalized) Past Medical History Past Medical History: Coronary Artery Disease (CAD), GERD/Reflux, Hyperlipidemia, Hypertension Additional Past Medical History / Comment(s): ulcers, pt stated she had hx of diverticulitis. History of Any Multi-Drug Resistant Organisms: None Reported Past Surgical History: Heart Catheterization With Stent, Pacemaker Additional Past Surgical History / Comment(s): sx for ruptered ulcer in 2012, pacer maker placement in May 2016 and changed generator on 09-04-16. Past Anesthesia/Blood Transfusion Reactions: No Reported Reaction Date of Last Stent Placement:: 1991 (?) Type of Cardiac Device: Permanent Pacemaker Device Placement Date:: Past Psychological History: Anxiety Smoking Status: Current every day smoker Past Alcohol Use History: Occasional Past Drug Use History: None Reported - Past Family History Father Family Medical History: No Reported History Mother Family Medical History: No Reported History General Exam - General Exam Comments Initial Comments: Physical Exam GENERAL: Chronically ill-appearing elderly female HENT: Normocephalic, Atraumatic. EYES: PERRL, EOMI PULMONARY: Crackles at bilateral bases CARDIOVASCULAR: Heart rate is 70, regular Systolic murmur 2+ pitting edema to the knees bilaterally ABDOMEN: Soft and nontender with normal bowel sounds. No pulsatile masses SKIN: Darkening of the skin on the left leg, no erythema : Deferred NEUROLOGIC: Patient is alert and oriented x3. Moving all extremities spontaneously MUSCULOSKELETAL: Normal extremities with adequate strength and full range of motion. No lower extremity swelling or edema. No calf tenderness. PSYCHIATRIC: Normal psychiatric evaluation. Course Vital Signs 07/01/18 07/01/18 04:46 06:39 Temperature 98.1 F Pulse Rate 70 70 Respiratory 20 20 Rate Blood Pressure 106/59 97/62 O2 Sat by Pulse 98 Oximetry EKG Findings - EKG Comments: EKG Findings:: EKG was obtained at 5:08 AM, rate is 80 rhythm is ventricularly paced there is QRS of 200 QTC is 550 there are no acute ST elevations or depressions no evidence of acute ischemia or infarction. Medical Decision Making - Medical Decision Making Patient was seen and evaluated upon arrival Patient reports she hasn't been able to sleep for 2 days due to shortness of breath, physical exam is consistent with a CHF exacerbation patient has not had any shortness of breath she does believe she's been compliant with her home medications though she does have a Post-it note that it is not dated the states she should take 2 Lasix a day for one week and then only take half a Lasix a day uncertain what her doses been recently labs consistent with CHF exacerbation with a significantly elevated BNP and also elevation of the creatinine likely cardiorenal syndrome Patient care was discussed with Dr. Morfin who accepts admission for CHF exacerbation. - Lab Data Result diagrams: 07/01/18 05:05 07/01/18 05:05 Lab Results 07/01/18 07/01/18 07/01/18 Range/Units 05:05 05:05 05:05 WBC 8.7 (3.8-10.6) k/uL RBC 3.61 L (3.80-5.40) m/uL Hgb 12.1 (11.4-16.0) gm/dL Hct 36.8 (34.0-46.0) % MCV 102.0 H (80.0-100.0) fL MCH 33.6 (25.0-35.0) pg MCHC 33.0 (31.0-37.0) g/dL RDW 22.1 H (11.5-15.5) % Plt Count 231 (150-450) k/uL Neutrophils % 69 % Lymphocytes % 20 % Monocytes % 5 % Eosinophils % 5 % Basophils % 1 % Neutrophils # 6.0 (1.3-7.7) k/uL Lymphocytes # 1.7 (1.0-4.8) k/uL Monocytes # 0.4 (0-1.0) k/uL Eosinophils # 0.4 (0-0.7) k/uL Basophils # 0.1 (0-0.2) k/uL Hypochromasia Slight Poikilocytosis Slight Anisocytosis Moderate Macrocytosis Moderate PT (9.0-12.0) sec INR (<1.2) APTT (22.0-30.0) sec Sodium 136 L (137-145) mmol/L Potassium 4.9 (3.5-5.1) mmol/L Chloride 101 (98-107) mmol/L Carbon Dioxide 26 (22-30) mmol/L Anion Gap 9 mmol/L BUN 34 H (7-17) mg/dL Creatinine 1.51 H (0.52-1.04) mg/dL Est GFR (CKD-EPI)AfAm 35 (>60 ml/min/1.73 sqM) Est GFR (CKD-EPI)NonAf 31 (>60 ml/min/1.73 sqM) Glucose 146 H (74-99) mg/dL Calcium 8.9 (8.4-10.2) mg/dL Magnesium 1.9 (1.6-2.3) mg/dL Total Bilirubin 1.3 (0.2-1.3) mg/dL AST 27 (14-36) U/L ALT 29 (9-52) U/L Alkaline Phosphatase 82 (38-126) U/L Troponin I (0.000-0.034) ng/mL NT-Pro-B Natriuret Pep 7000 pg/mL Total Protein 5.9 L (6.3-8.2) g/dL Albumin 3.3 L (3.5-5.0) g/dL 07/01/18 07/01/18 Range/Units 05:05 05:05 WBC (3.8-10.6) k/uL RBC (3.80-5.40) m/uL Hgb (11.4-16.0) gm/dL Hct (34.0-46.0) % MCV (80.0-100.0) fL MCH (25.0-35.0) pg MCHC (31.0-37.0) g/dL RDW (11.5-15.5) % Plt Count (150-450) k/uL Neutrophils % % Lymphocytes % % Monocytes % % Eosinophils % % Basophils % % Neutrophils # (1.3-7.7) k/uL Lymphocytes # (1.0-4.8) k/uL Monocytes # (0-1.0) k/uL Eosinophils # (0-0.7) k/uL Basophils # (0-0.2) k/uL Hypochromasia Poikilocytosis Anisocytosis Macrocytosis PT 17.0 H (9.0-12.0) sec INR 1.7 H (<1.2) APTT 25.6 (22.0-30.0) sec Sodium (137-145) mmol/L Potassium (3.5-5.1) mmol/L Chloride (98-107) mmol/L Carbon Dioxide (22-30) mmol/L Anion Gap mmol/L BUN (7-17) mg/dL Creatinine (0.52-1.04) mg/dL Est GFR (CKD-EPI)AfAm (>60 ml/min/1.73 sqM) Est GFR (CKD-EPI)NonAf (>60 ml/min/1.73 sqM) Glucose (74-99) mg/dL Calcium (8.4-10.2) mg/dL Magnesium (1.6-2.3) mg/dL Total Bilirubin (0.2-1.3) mg/dL AST (14-36) U/L ALT (9-52) U/L Alkaline Phosphatase (38-126) U/L Troponin I <0.012 (0.000-0.034) ng/mL NT-Pro-B Natriuret Pep pg/mL Total Protein (6.3-8.2) g/dL Albumin (3.5-5.0) g/dL Disposition Clinical Impression: Acute CHF (congestive heart failure), Weakness, Acute kidney injury Disposition: ADMITTED IP TO THIS [facility] Condition: Stable Is patient prescribed a controlled substance at d/c from ED?: No Referrals: Van Syed MD [Primary Care Provider] - 1-2 days
[2018-07-01 05:33] LABS: Albumin 3.3 g/dL (3.5-5.0); Calcium 8.9 mg/dL (8.4-10.2); Magnesium 1.9 mg/dL (1.6-2.3); Potassium 4.9 mmol/L (3.5-5.1); Total Bilirubin 1.3 mg/dL (0.2-1.3); Total Protein 5.9 g/dL (6.3-8.2)
[2018-07-01 05:35] LABS: INR 1.7 (<1.2); Partial Thromboplastin Time 25.6 sec (22.0-30.0)
[2018-07-01 05:38] LABS: Anisocytosis Moderate; Basophils # (A) 0.1 k/uL (0-0.2); Basophils % (A) 1 %; Eosinophils # (A) 0.4 k/uL (0-0.7); Eosinophils % (A) 5 %; HCT 36.8 % (34.0-46.0); HGB 12.1 gm/dL (11.4-16.0); Hypochromasia Slight; Lymphocytes # (A) 1.7 k/uL (1.0-4.8); Lymphocytes % (A) 20 %; MCH 33.6 pg (25.0-35.0); Macrocytosis Moderate; Mean Platelet Volume 7.8; Monocytes # (A) 0.4 k/uL (0-1.0); Monocytes % (A) 5 %; Neutrophils % (A) 69 %; Platelet Count 231 k/uL (150-450); Poikilocytosis Slight; RBC 3.61 m/uL (3.80-5.40); RDW 22.1 % (11.5-15.5); WBC 8.7 k/uL (3.8-10.6)
--- NOTE | 2018-07-01 05:41 | XR ---
EXAM: XR Chest, 2 Views CLINICAL HISTORY: ITS.REASON XR Reason: SOB, CHF TECHNIQUE: Frontal and lateral views of the chest. COMPARISON: 10/19/17 x-ray IMPRESSION: Cardiomegaly. Mild vascular congestion. Left greater than right pleural effusions. Compressive atelectasis.
[2018-07-01] MEDS ORDERED: FUROSEMIDE 10 MG/ML 4 ML VIAL IV ONE (07:00)
[2018-07-01] MEDS ORDERED: ALPRAZolam 0.5 MG TAB PO PRN (09:28)
[2018-07-01] MEDS ORDERED: HYDROcodone/APAP 5-325MG 1 EACH TAB PO PRN (09:28)
[2018-07-01] MEDS ORDERED: FLECAINIDE 50 MG TAB PO SCH (09:30)
[2018-07-01] MEDS ORDERED: SODIUM CHLORIDE 0.9% 500 ML 500 ML IV ONE (09:34)
[2018-07-01] MEDS ORDERED: ACETAMINOPHEN TAB 325 MG TAB PO PRN (10:42)
[2018-07-01] MEDS ORDERED: NALOXONE 0.4 MG/ML 1 ML VIAL IV PRN (10:42)
[2018-07-01 14:27] VITALS: BMI 29.2
--- NOTE | 2018-07-01 15:21 | P.CRDCN ---
History of Present Illness History of present illness: This is a pleasant 88-year-old female history of atrial fibrillation, hypertension, dyslipidemia, coronary artery disease status post stent placement to the mid LAD in 2004 and permanent pacemaker implantation secondary to symptomatic bradycardia with a [employer] Accolade device. She follows in the office with Dr. Balbuena. We have been assisting her in consultation secondary to exacerbation of CHF. She presented to the hospital around 5:00 this morning with complaints of lower extremity edema, shortness of breath, orthopnea, nausea, dizziness and generalized fatigue. This morning in the emergency department after receiving one dose of IV Lasix she became hypotensive in the 70s systolic. She was then given a 500 mL normal saline bolus. EKG reveals ventricular paced rhythm with a heart rate of 70. Currently her blood pressure is 100/60. She is seen and examined sitting up on the bedside commode in no acute distress. She seems somewhat forgetful at baseline. Her son however is present. He states that she has been more short of breath, seems forgetful and overall weak. She apparently suffered a fall at some point last week striking her right leg. He states she cannot remember if she passed out or not. She currently denies symptoms of chest discomfort, shortness of breath, dizziness or palpitations. Chest x-ray reveals mild vascular congestion, left greater than right pleural effusions and compressive atelectasis. Laboratory data reviewed, WBC 8.7, hemoglobin 12.1, platelets 231, INR 1.7, sodium 136, potassium 4.9, creatinine 1.51 with a GFR of 31, magnesium 1.9, cardiac enzymes negative 1 and NT proBNP 7000. Current cardiac medications include Lasix 20 mg daily, Aldactone 12.5 mg daily, Coumadin 2 mg daily, atorvastatin 20 mg daily, losartan 25 mg daily, Lopressor 25 mg twice a day and flecainide 50 mg twice a day. Most recent echocardiogram obtained in the office November 2017 reveals preserved LV systolic function with ejection fraction 55%, mild concentric left ventricular hypertrophy, grade 3 diastolic dysfunction, severely dilated left atrium,, slightly dilated right atrium, moderate to severe mitral regurgitation, mitral valve calcified, moderate tricuspid regurgitation and moderate pulmonary hypertension with an RVSP of 46 mmHg. At the time of my exam: CONSTITUTIONAL: Denies fever. Denies chills. EYES: Denies blurred vision. Denies vision changes. Denies eye pain. EARS, NOSE, MOUTH & THROAT: Denies headache. Denies sore throat. Denies ear pain. CARDIOVASCULAR: Denies chest pain. Denies shortness of breath. Denies orthopnea. Denies PND. Denies palpitations. RESPIRATORY: Denies cough. GASTROINTESTINAL: Denies abdominal pain. Denies diarrhea. Denies constipation. Denies nausea. Denies vomiting. MUSCULOSKELETAL: Denies myalgias. INTEGUMENTARY: Denies pruitis. Denies rash. NEUROLOGIC: Denies numbness. Denies tingling. Denies weakness. PSYCHIATRIC: Denies anxiety. Denies depression. ENDOCRINE: Denies fatigue. Denies weight change. Denies polydipsia. Denies polyurina. GENITOURINARY: Denies burning, hematuria or urgency with micturation. HEMATOLOGIC: Denies history of anemia. Denies bleeding. Blood pressure 100/60 heart rate 66 afebrile maintaining oxygen saturation on room air GENERAL: This is a 88-year-old female in no apparent distress at the time of my examination. HEENT: Head is atraumatic, normocephalic. Pupils are equal, round. Sclerae anicteric. Conjunctivae are clear. Mucous membranes of the mouth are moist. Neck is supple. There is no jugular venous distention. No carotid bruit is heard. LUNGS: Clear to auscultation no wheezes, rales or rhonchi. No chest wall tenderness is noted on palpation or with deep breathing. HEART: IRegular rate and rhythm without murmurs, rubs or gallops. S1 and S2 heard. ABDOMEN: Soft, nontender. Bowel sounds are heard. No organomegaly noted. EXTREMITIES: 2-3+ bilateral lower extremity edema. Left lower extremity erythema. No calf tenderness noted. VASCULAR: Radial and dorsalis pedis pulses palpated, no evidence of clubbing. NEUROLOGIC: Patient is awake, alert and oriented x3. Episodes of confusion about current events. ASSESSMENT Acute on chronic diastolic heart failure Acute kidney injury, possibly secondary to dehydration. Hypertension Dyslipidemia Coronary artery disease status post stent placement to the mid LAD in 2004 Paroxysmal atrial fibrillation on long-term anticoagulation with Coumadin. Maintained on flecainide. 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 PLAN Echocardiogram has been ordered and will be reviewed. Resume flecanide 50 mg BID. Interrogate pacemaker. Check for orthostatic changes. Document accurate intake and output along with daily weights. Repeat electrolytes and kidney function in the morning. Obtain left lower extremity venous doppler. Continue with IV lasix as her blood pressure tolerates, hold for systolic pressure less than 100. We will continue to follow and make recommendations accordingly. Thank you kindly for this consultation. Nurse Practitioner note has been reviewed, I agree with a documented findings and plan of care. Patient was seen and examined. Past Medical History Past Medical History: Atrial Fibrillation, Coronary Artery Disease (CAD), Cancer, Chest Pain / Angina, Heart Failure, GERD/Reflux, Hyperlipidemia, Hypertension, Memory Impairment, Osteoarthritis (OA), Vascular Disorder Additional Past Medical History / Comment(s): Moderate to severe mitral valve regurgitation, SSS with pacemaker, bleeding duodenal ulcer with surgery in 2012, diverticular disease, paroxysmal Afib, hyponatremia, allergic rhinitis, skin cancer removed. History of Any Multi-Drug Resistant Organisms: None Reported Past Surgical History: Breast Surgery, Heart Catheterization With Stent, Pacemaker Additional Past Surgical History / Comment(s): PCI with stents, 05/2016 pacema ker, 09/04/16 pacer gen change and lead revision, aortagram, R leg stent, tear duct surgery d/t blockage, bilateral cataract removals, colonoscopy, L breast bx, bilateral breast cystectomies, skin cancer removed from face. Past Anesthesia/Blood Transfusion Reactions: No Reported Reaction Date of Last Stent Placement:: 08/29/04 Type of Cardiac Device: Permanent Pacemaker Device Placement Date:: Smoking Status: Current every day smoker - Past Family History Father Family Medical History: Myocardial Infarction ([place]) Mother Family Medical History: No Reported History Medications and Allergies Home Medications Medication Instructions Recorded Confirmed Type Atorvastatin [Lipitor] 20 mg PO HS 06/11/16 07/01/18 History Metoprolol Tartrate [Lopressor] 25 mg PO BID 06/11/16 07/01/18 History DULoxetine HCL [Cymbalta] 30 mg PO DAILY 09/01/16 07/01/18 History Famotidine [Pepcid] 20 mg PO BID 09/01/16 07/01/18 History Flecainide [Tambocor] 50 mg PO Q12HR 09/01/16 07/01/18 History Cholecalciferol [Vitamin D3 (25 1,000 unit PO DAILY 08/23/17 07/01/18 History Mcg = 1000 Iu)] Furosemide [Lasix] 20 mg PO DAILY tab 08/27/17 07/01/18 Rx Losartan [Cozaar] 25 mg PO DAILY tab 08/27/17 07/01/18 Rx Spironolactone [Aldactone] 12.5 mg PO DAILY tab 08/27/17 07/01/18 Rx ALPRAZolam [Xanax] 0.25 mg PO BID PRN 07/01/18 07/01/18 History HYDROcodone/APAP 5-325MG [Walker 1 tab PO TID PRN 07/01/18 07/01/18 History 5-325] Meclizine [Antivert] 12.5 mg PO TID PRN 07/01/18 07/01/18 History Promethazine HCl 12.5 mg PO TID PRN 07/01/18 07/01/18 History Warfarin [Coumadin] 2 mg PO HS 07/01/18 07/01/18 History Allergies Allergy/AdvReac Type Severity Reaction Status Date / Time Penicillins Allergy Rash/Hives Verified 07/01/18 09:13 Physical Exam Vitals: Vital Signs Temp Pulse Pulse Resp BP BP BP 07/01/18 12:06 100/60 07/01/18 12:03 66 07/01/18 12:02 70 83/58 07/01/18 10:32 71 07/01/18 09:30 07/01/18 09:25 97.5 F L 71 20 07/01/18 08:55 70 18 100/51 07/01/18 08:01 97.5 F L 70 18 103/57 07/01/18 07:30 70 12 98/49 07/01/18 06:39 70 20 97/62 07/01/18 04:53 106/59 07/01/18 04:46 98.1 F 70 20 106/59 BP Pulse Ox 07/01/18 12:06 07/01/18 12:03 78/53 07/01/18 12:02 07/01/18 10:32 110/77 97 07/01/18 09:30 70/50 07/01/18 09:25 78/60 97 07/01/18 08:55 96 07/01/18 08:01 97 07/01/18 07:30 97 07/01/18 06:39 98 07/01/18 04:53 84 L 07/01/18 04:46 Intake and Output 06/30/18 07/01/18 07/01/18 22:59 06:59 14:59 Output Total 740 Balance -740 Output: Urine 740 Other: # Voids 1 Weight 72.575 kg Results 07/01/18 05:05 07/01/18 05:05 Cardiac Enzymes 07/01/18 07/01/18 Range/Units 05:05 05:05 AST 27 (14-36) U/L Troponin I <0.012 (0.000-0.034) ng/mL Coagulation 07/01/18 Range/Units 05:05 PT 17.0 H (9.0-12.0) sec APTT 25.6 (22.0-30.0) sec CBC 07/01/18 Range/Units 05:05 WBC 8.7 (3.8-10.6) k/uL RBC 3.61 L (3.80-5.40) m/uL Hgb 12.1 (11.4-16.0) gm/dL Hct 36.8 (34.0-46.0) % Plt Count 231 (150-450) k/uL Comprehensive Metabolic Panel 07/01/18 Range/Units 05:05 Sodium 136 L (137-145) mmol/L Potassium 4.9 (3.5-5.1) mmol/L Chloride 101 (98-107) mmol/L Carbon Dioxide 26 (22-30) mmol/L BUN 34 H (7-17) mg/dL Creatinine 1.51 H (0.52-1.04) mg/dL Glucose 146 H (74-99) mg/dL Calcium 8.9 (8.4-10.2) mg/dL AST 27 (14-36) U/L ALT 29 (9-52) U/L Alkaline Phosphatase 82 (38-126) U/L Total Protein 5.9 L (6.3-8.2) g/dL Albumin 3.3 L (3.5-5.0) g/dL Current Medications Generic Name Dose Route Start Last Admin Trade Name Freq PRN Reason Stop Dose Admin Acetaminophen 650 mg 07/01/18 10:42 Tylenol Tab PO Q6HR PRN Mild Pain or Fever > 100.5 Hydrocodone Bitart/Acetaminophen 1 each 07/01/18 09:28 Walker 5-325 PO TID PRN Pain Alprazolam 0.25 mg 07/01/18 09:28 Xanax PO BID PRN Anxiety Atorvastatin Calcium 20 mg 07/01/18 21:00 Lipitor PO HS [facility] Duloxetine HCl 30 mg 07/02/18 09:00 Cymbalta PO DAILY [facility] Famotidine 20 mg 07/02/18 09:00 Pepcid PO DAILY [facility] Furosemide 40 mg 07/01/18 18:00 Lasix IV Q12H [facility] Miscellaneous Information 0 each 07/01/18 09:42 Coumadin Per Pharmacy MISCELLANE DIRECTED PRN . Naloxone HCl 0.2 mg 07/01/18 10:42 Narcan IV Q2M PRN Opioid Reversal Warfarin Sodium 2 mg 07/01/18 21:00 Coumadin PO HS [facility] Intake and Output 06/30/18 07/01/18 07/01/18 22:59 06:59 14:59 Output Total 740 Balance -740 Output: Urine 740 Other: # Voids 1 Weight 72.575 kg 07/01/18 05:05 07/01/18 05:05
--- NOTE | 2018-07-01 17:12 | US ---
EXAMINATION TYPE: US venous doppler duplex LE LT DATE OF EXAM: 07/01/2018 4:32 PM COMPARISON: NONE CLINICAL HISTORY: swelling and redness. swelling, no h.o dvt SIDE PERFORMED: Left TECHNIQUE: The lower extremity deep venous system is examined utilizing real time linear array sonog nick with graded compression, doppler sonography and color-flow sonography. VESSELS IMAGED: External Iliac Vein (EIV) Common Femoral Vein Deep Femoral Vein Greater Saphenous Vein * Femoral Vein Popliteal Vein Small Saphenous Vein * Proximal Calf Veins (* superficial vessels) Left Leg: Appears negative for DVT IMPRESSION: No evidence of deep venous thrombosis in the left leg.
[2018-07-01] MEDS: FUROSEMIDE 10 MG/ML 4 ML VIAL IV SCH (17:53)
--- NOTE | 2018-07-01 19:52 | P.HPIM ---
History of Present Illness H&P Date: 07/01/18 Chief Complaint: Dizziness, Shortness of breath 88 year old female with PMH of atrial fibrillation, COPD, hypertension, hyperlipidemia, systolic heart failure presents to the ED for shortness of breath and dizziness. Patient appears sleepy, states that she has not slept in the last few days, responding to questions with one or 2 word answers. Majority of history is taken from chart. Patient reports swelling and redness in her lower extremities has been getting worse for the past couple of days. Patient reports that she is unable to sleep over the last couple of days she gets short of breath while laying flat. Patient reports that she had felt very fatigued and dizzy this morning, described as lightheadedness which prompted her to come to the ED. As per ED report, patient has not been eating or drinking well. In the ED, she was found to have an O2 saturation of 84%. CBC showed a macrocytosis. Coagulation panel showed a subtherapeutic INR 1.7. CMP showed a creatinine of 1.51, glucose of 146. Troponin was less than 0.012, with EKG showing ventricular paced rhythm. BNP was 7000, chest x-ray showed mild vascular congestion with left greater than right pleural effusion. Patient is admitted for CHF exacerbation, cardiology consulted. Review of Systems Pertinent positives and negatives as discussed in HPI, a complete review of systems was performed and all other systems are negative. Past Medical History Past Medical History: Coronary Artery Disease (CAD), GERD/Reflux, Hyperlipidemia, Hypertension Additional Past Medical History / Comment(s): ulcers, pt stated she had hx of diverticulitis. History of Any Multi-Drug Resistant Organisms: None Reported Past Surgical History: Heart Catheterization With Stent, Pacemaker Additional Past Surgical History / Comment(s): sx for ruptered ulcer in 2012, pacer maker placement in May 2016 and changed generator on 09-04-16. Past Anesthesia/Blood Transfusion Reactions: No Reported Reaction Date of Last Stent Placement:: 1991 (?) Type of Cardiac Device: Permanent Pacemaker Device Placement Date:: Past Psychological History: Anxiety Smoking Status: Current every day smoker Past Alcohol Use History: Occasional Past Drug Use History: None Reported - Past Family History Father Family Medical History: No Reported History Mother Family Medical History: No Reported History Medications and Allergies Home Medications Medication Instructions Recorded Confirmed Type Atorvastatin [Lipitor] 20 mg PO HS 06/11/16 07/01/18 History Metoprolol Tartrate [Lopressor] 25 mg PO BID 06/11/16 07/01/18 History DULoxetine HCL [Cymbalta] 30 mg PO DAILY 09/01/16 07/01/18 History Famotidine [Pepcid] 20 mg PO BID 09/01/16 07/01/18 History Flecainide [Tambocor] 50 mg PO Q12HR 09/01/16 07/01/18 History Cholecalciferol [Vitamin D3 (25 1,000 unit PO DAILY 08/23/17 07/01/18 History Mcg = 1000 Iu)] Furosemide [Lasix] 20 mg PO DAILY tab 08/27/17 07/01/18 Rx Losartan [Cozaar] 25 mg PO DAILY tab 08/27/17 07/01/18 Rx Spironolactone [Aldactone] 12.5 mg PO DAILY tab 08/27/17 07/01/18 Rx ALPRAZolam [Xanax] 0.25 mg PO BID PRN 07/01/18 07/01/18 History HYDROcodone/APAP 5-325MG [[place] 1 tab PO TID PRN 07/01/18 07/01/18 History 5-325] Meclizine [Antivert] 12.5 mg PO TID PRN 07/01/18 07/01/18 History Promethazine HCl 12.5 mg PO TID PRN 07/01/18 07/01/18 History Warfarin [Coumadin] 2 mg PO HS 07/01/18 07/01/18 History Allergies Allergy/AdvReac Type Severity Reaction Status Date / Time Penicillins Allergy Rash/Hives Verified 07/01/18 09:13 Physical Exam Vitals: Vital Signs Temp Pulse Pulse Resp BP BP Pulse Ox 07/01/18 09:30 70/50 07/01/18 09:25 97.5 F L 71 20 78/60 97 07/01/18 08:55 70 18 100/51 96 07/01/18 08:01 97.5 F L 70 18 103/57 97 07/01/18 07:30 70 12 98/49 97 07/01/18 06:39 70 20 97/62 98 07/01/18 04:53 106/59 84 L 07/01/18 04:46 98.1 F 70 20 106/59 Intake and Output 06/30/18 07/01/18 07/01/18 22:59 06:59 14:59 Other: Weight 72.575 kg General: [non toxic], [no distress, appears sleepy], [appears at stated age] Derm: [warm], [dry] Head: [atraumatic], [normocephalic], [symmetric] Eyes: [EOMI], [no lid lag], [anicteric sclera] Mouth: [no lip lesion], [mucus membranes moist] Cardiovascular: [S1S2 reg], [no murmur], [positive DP pulse bilateral] Lungs: [Decreased breath sounds bilateral], [crackles at the bases] , [no accessory muscle use] Abdominal: [soft], [ nontender to palpation], [no guarding], [no appreciable organomegaly] Ext: [no gross muscle atrophy], [2+ pitting edema bilaterally with erythema], [no contractures] Neuro: [no focal neuro deficits] Psych: [Alert], [oriented], [appropriate affect] Results CBC & Chem 7: 07/01/18 05:05 07/01/18 05:05 Labs: Abnormal Lab Results - Last 24 Hours (Table) 07/01/18 07/01/18 07/01/18 Range/Units 05:05 05:05 05:05 RBC 3.61 L (3.80-5.40) m/uL MCV 102.0 H (80.0-100.0) fL RDW 22.1 H (11.5-15.5) % PT 17.0 H (9.0-12.0) sec INR 1.7 H (<1.2) Sodium 136 L (137-145) mmol/L BUN 34 H (7-17) mg/dL Creatinine 1.51 H (0.52-1.04) mg/dL Glucose 146 H (74-99) mg/dL Total Protein 5.9 L (6.3-8.2) g/dL Albumin 3.3 L (3.5-5.0) g/dL Thrombosis Risk Factor Assmnt - Choose All That Apply Any of the Below Risk Factors Present?: Yes Each Factor Represents 1 point: Obesity (BMI >25) Each Risk Factor Represents 3 Points: Age 75 years or older Thrombosis Risk Factor Assessment Total Risk Factor Score: 4 Thrombosis Risk Factor Assessment Level: Moderate Risk Assessment and Plan Assessment: Assessment and Plan Hypotension CHF exacerbation Acute kidney injury Hyperlipidemia Atrial fibrillation, paroxysmal CAD with stent placement and pacemaker Obesity BP 70/50. Possible cellulitis of the LE. Given 1 dose of Lasix in the ED. Patient is afebrile with no leukocytosis. Chest X ray shows cardiomegaly, mild vascular congesion, L > R pleural effusion, atelectasis. Plan: Plans for 500 ml bolus and BP re-check. Discontinue all antihypertensives and Flecanide at this time. Follow lactic acid. Follow blood cultures. Plans for MICU if no improvement. Fall precautions. BNP 7000, August 2017 echocardiogram shows EF 45-50% with mild LVH. Plan: Start Lasix 40 mg IV twice daily. Strict intake and output. Daily weights. Telemetry monitoring. K >4 and Mg >2. Follow cardiology consultation. Creatinine 1.51. Likely dehydration from Lasix. Plan: Given 500 mL bolus of normal saline. Avoid nephrotoxins. Daily BMP. Lipid panel from September 2016 shows total cholesterol of 97, LDL 41. Plan: Continue Lipitor. Stable. Subtherapeutic INR 1.7. Plan: DC metoprolol and flecainide due to hypotension. Coumadin for anticoagulation, pharmacy to dose. Daily INR. Follow cardiology consultation. Stable. Plan: Continue Lipitor. Hold beta susan. Will need to discus with Cardiology about starting aspirin. Follow Cardiology consultation. BMI 29.3. Plan: Structured weight loss program. Patient admitted for CHF exacerbation. Cardiology consulted. Found to be hypotensive with BP 70/50, responding to fluid bolus. Follow septic workup, though unlikely. Patient states that she would like to be a NO CODE. DVT prophylaxis: [Coumadin] Discussed with: [Patient and nurse] Anticipated discharge: [1-2 days] Anticipated discharge place: [Home with home health] A total of [45] minutes was spent on the care of this complex patient more than 50% of the time was spent in counseling and care coordination.
[2018-07-01] MEDS: ATORVASTATIN 20 MG TAB PO SCH (20:34)
[2018-07-01] MEDS: FLECAINIDE 50 MG TAB PO SCH (20:34)
[2018-07-01] MEDS ORDERED: WARFARIN 2 MG TAB PO SCH (21:00)
[2018-07-01] MEDS ORDERED: METOPROLOL TARTRATE 25 MG TAB PO SCH (21:00)
[2018-07-01] MEDS ORDERED: FAMOTIDINE 20 MG TAB PO SCH (21:00)
[2018-07-02] MEDS: FUROSEMIDE 10 MG/ML 4 ML VIAL IV SCH ×3 (05:19→18:05)
[2018-07-02 08:24] LABS: Albumin 3.5 g/dL (3.5-5.0); Total Bilirubin 1.7 mg/dL (0.2-1.3); Total Protein 6.4 g/dL (6.3-8.2)
[2018-07-02 08:26] LABS: Potassium 4.3 mmol/L (3.5-5.1)
[2018-07-02] MEDS ORDERED: LOSARTAN 25 MG TAB PO SCH (09:00)
[2018-07-02] MEDS ORDERED: SPIRONOLACTONE 25 MG TAB PO SCH (09:00)
[2018-07-02 09:05] LABS: Anisocytosis Moderate; Basophils % (A) 0 %; Eosinophils # (A) 0.3 k/uL (0-0.7); Eosinophils % (A) 4 %; HCT 40.3 % (34.0-46.0); HGB 12.7 gm/dL (11.4-16.0); Hypochromasia Slight; Lymphocytes # (A) 1.2 k/uL (1.0-4.8); Lymphocytes % (A) 14 %; MCH 32.7 pg (25.0-35.0); MCHC 31.5 g/dL (31.0-37.0); MCV 103.8 fL (80.0-100.0); Macrocytosis Marked; Mean Platelet Volume 8.1; Monocytes # (A) 0.4 k/uL (0-1.0); Monocytes % (A) 5 %; Neutrophils # (A) 6.2 k/uL (1.3-7.7); Neutrophils % (A) 75 %; Platelet Count 208 k/uL (150-450); Poikilocytosis Slight; RBC 3.88 m/uL (3.80-5.40); RDW 20.4 % (11.5-15.5); WBC 8.3 k/uL (3.8-10.6)
[2018-07-02 09:46] LABS: INR 1.2 (<1.2); Prothrombin Time 12.8 sec (9.0-12.0)
[2018-07-02] MEDS: FLECAINIDE 50 MG TAB PO SCH ×2 (10:15→20:27)
[2018-07-02] MEDS: FAMOTIDINE 20 MG TAB PO SCH (10:15)
[2018-07-02] MEDS: DULoxetine HCL 30 MG CAPSULE.DR PO SCH (10:15)
--- NOTE | 2018-07-02 11:43 | ECHOF ---
Referral Reason:SOB MEASUREMENTS -------- HEIGHT: 157.5 cm WEIGHT: 72.6 kg BP: RVIDd: 2.4 cm (< 3.3) IVSd: 1.1 cm (0.6 - 1.1) LVIDd: 5.1 cm (3.9 - 5.3) LVPWd: 1.3 cm (0.6 - 1.1) IVSs: 1.7 cm LVIDs: 2.2 cm LVPWs: 2.0 cm LAESV Index (A-L): 56.29 ml/m Ao Diam: 3.1 cm (2.0 - 3.7) AV Cusp: 1.7 cm (1.5 - 2.6) LA Diam: 4.2 cm (2.7 - 3.8) MV E Narendra: 1.50 m/s MV DecT: 333 ms MV A Narendra: 0.37 m/s MV E/A Ratio: 4.10 RAP: 5.00 mmHg RVSP: 58.60 mmHg FINDINGS -------- Sinus rhythm. This was a technically difficult study with suboptimal views. The left ventricular size is normal. There is mild concentric left ventricular hypertrophy. Overa ll left ventricular systolic function is normal with, an EF between 55 - 60 %. Heart appears dyskin etic. The right ventricle is normal in size. LA is severely dilated >40 ml/m2 The right atrial size is normal. xx ml of Lumason was utilized for enhancement of images. Interatrial and interventricular septum intact. Aortic valve is trileaflet and is mildly thickened. The mitral valve leaflets are moderately thickened. Moderate mitral annular calcification present. Severe mitral regurgitation is present. The peak and mean MV gradients are 14.76mmHg 5.31mmHg as measured by doppler. [id number] mitral stenosis. Moderate tricuspid regurgitation present. There is moderate pulmonary hypertension. The right zoe tricular systolic pressure, as measured by Doppler, is 58.60mmHg. There is no pulmonic regurgitation present. The aortic root size is normal. IVC Not well visulized. There is no pericardial effusion. CONCLUSIONS -------- 1. Sinus rhythm. 2. This was a technically difficult study with suboptimal views. 3. The left ventricular size is normal. 4. There is mild concentric left ventricular hypertrophy. 5. Overall left ventricular systolic function is normal with, an EF between 55 - 60 %. 6. Heart appears dyskinetic. 7. The right ventricle is normal in size. 8. LA is severely dilated >40 ml/m2 9. The right atrial size is normal. 10. xx ml of Lumason was utilized for enhancement of images. 11. Interatrial and interventricular septum intact. 12. Aortic valve is trileaflet and is mildly thickened. 13. The mitral valve leaflets are moderately thickened. 14. Moderate mitral annular calcification present. 15. Severe mitral regurgitation is present. 16. The peak and mean MV gradients are 14.76mmHg 5.31mmHg as measured by doppler. 17. [id number] mitral stenosis. 18. Moderate tricuspid regurgitation present. 19. There is moderate pulmonary hypertension. 20. The right ventricular systolic pressure, as measured by Doppler, is 58.60mmHg. 21. There is no pulmonic regurgitation present. 22. The aortic root size is normal. 23. IVC Not well visulized. 24. There is no pericardial effusion. TEXTILE COLORIST FORMULATOR: Jeanette Pedersen RDCS
--- NOTE | 2018-07-02 14:33 | P.PN ---
Subjective This is a pleasant 88-year-old female history of atrial fibrillation, hypertension, dyslipidemia, coronary artery disease status post stent placement to the mid LAD in 2004 and permanent pacemaker implantation secondary to symptomatic bradycardia with a [employer] Accolade device. She follows in the office with Dr. Balbuena. We have been assisting her in consultation secondary to exacerbation of CHF. She presented to the hospital around 5:00 this morning with complaints of lower extremity edema, shortness of breath, ort hopnea, nausea, dizziness and generalized fatigue. This morning in the emergency department after receiving one dose of IV Lasix she became hypotensive in the 70s systolic. She was then given a 500 mL normal saline bolus. EKG reveals ventricular paced rhythm with a heart rate of 70. Currently her blood pressure is 100/60. She is seen and examined sitting up on the bedside commode in no acute distress. She seems somewhat forgetful at baseline. Her son however is present. He states that she has been more short of breath, seems forgetful and overall weak. She apparently suffered a fall at some point last week striking her right leg. He states she cannot remember if she passed out or not. She currently denies symptoms of chest discomfort, shortness of breath, dizziness or palpitations. 07/02/2018 Blood pressure 106/62 standing, no significant orthostatic changes noted. Laboratory data reviewed, WBC 8.3, hemoglobin 12.7, platelets 208, INR 1.2, sodium 139, potassium 4.3, creatinine 1.43. Aldactone has been discontinued by the primary care team. Ongoing lower extremity edema with little improvement appreciated. Venous doppler of left lower extremity is negative for DVT. Echoc ardiogram obtained reveals preserved left ventricular systolic function with ejection fraction 55-60%, overall dyskinesia noted, severely dilated left atrium, severe mitral regurgitation with a mean gradient of 5 mmHg, mild to moderate mitral stenosis, moderate tricuspid regurgitation and moderate p ulmonary hypertension with an RVSP of 58 mmHg. GENERAL: This is a 88-year-old female in no apparent distress at the time of my examination. HEENT: Head is atraumatic, normocephalic. Pupils are equal, round. Sclerae anicteric. Conjunctivae are clear. Mucous membranes of the mouth are moist. Neck is supple. There is no jugular venous distention. No carotid bruit is heard. LUNGS: Clear to auscultation no wheezes, rales or rhonchi. No chest wall tenderness is noted on palpation or with deep breathing. HEART: IRegular rate and rhythm with systolic ejection murmur at the left sternal border, no rubs or gallops. S1 and S2 heard. EXTREMITIES: 2-3+ bilateral lower extremity edema. Left lower extremity erythema. No calf tenderness noted. ASSESSMENT Acute on chronic diastolic heart failure Acute kidney injury, possibly secondary to dehydration. Hypertension Dyslipidemia Coronary artery disease status post stent placement to the mid LAD in 2004 Paroxysmal atrial fibrillation on long-term anticoagulation with Coumadin. Maintained on flecainide. 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 PLAN Resume aldactone 12.5 mg daily, this has been communicated to the primary care team. Document accurate intake and output along with daily weights. Repeat electrolytes and kidney function in the morning. Continue with IV lasix as her blood pressure tolerates, hold for systolic pressure less than 100. If her blood pressure tolerates we will resume her losartan tomorrow. We will continue to follow and make recommendations accordingly. Nurse Practitioner note has been reviewed, I agree with a documented findings and plan of care. Patient was seen and examined. Objective - Vital Signs Vital signs: Vital Signs Temp 98.1 F 07/02/18 07:00 Pulse 61 07/02/18 07:00 Resp 20 07/02/18 07:00 BP 99/53 07/02/18 10:11 Pulse Ox 91 L 07/02/18 07:00 Intake & Output 07/01/18 07/02/18 07/02/18 18:59 06:59 18:59 Output Total 1080 Balance -1080 Weight 72.575 kg Output: Urine 1080 Other: # Voids 1 - Labs CBC & Chem 7: 07/02/18 06:30 07/02/18 06:30 Labs: Abnormal Lab Results - Last 24 Hours (Table) 07/02/18 07/02/18 07/02/18 Range/Units 06:30 06:30 08:30 MCV 103.8 H (80.0-100.0) fL RDW 20.4 H (11.5-15.5) % Macrocytosis Marked A PT 12.8 H (9.0-12.0) sec INR 1.2 H (<1.2) BUN 33 H (7-17) mg/dL Creatinine 1.43 H (0.52-1.04) mg/dL Glucose 105 H (74-99) mg/dL Total Bilirubin 1.7 H (0.2-1.3) mg/dL Microbiology - Last 24 Hours (Table) 07/01/18 10:18 Blood Culture - Preliminary Blood No Growth after 24 hours
[2018-07-02] MEDS: SPIRONOLACTONE 25 MG TAB PO SCH (15:04)
--- NOTE | 2018-07-02 17:56 | P.PN ---
Subjective Progress Note Date: 07/02/18 Principal diagnosis: Lower extremity swelling Patient was seen and examined. No acute events overnight. Patient reports significant improvement in her lower extremity swelling since admission. She denies any shortness of breath, chest pain or palpitations. She is requesting to go home. No nausea or vomiting. No fever or chills. No joint dinner at this time. Her weight is remain the same since admission. Urine output has not increased. Objective - Vital Signs Vital signs: Vital Signs Temp 98.4 F 07/02/18 15:00 Pulse 74 07/02/18 15:00 Resp 20 07/02/18 07:00 BP 130/97 07/02/18 15:06 Pulse Ox 94 L 07/02/18 15:00 Intake & Output 07/01/18 07/02/18 07/02/18 18:59 06:59 18:59 Output Total 1080 Balance -1080 Weight 72.575 kg Output: Urine 1080 Other: # Voids 1 - Exam General: [non toxic], [no distress, appears sleepy], [appears at stated age] Derm: [warm], [dry] Head: [atraumatic], [normocephalic], [symmetric] Eyes: [EOMI], [no lid lag], [anicteric sclera] Mouth: [no lip lesion], [mucus membranes moist] Cardiovascular: [S1S2 reg], [no murmur], [positive DP pulse bilateral] Lungs: [Decreased breath sounds bilateral], [crackles at the bases] , [no accessory muscle use] Abdominal: [soft], [ nontender to palpation], [no guarding], [no appreciable organomegaly] Ext: [no gross muscle atrophy], [2+ pitting edema bilaterally with erythema], [no contractures] Neuro: [no focal neuro deficits] Psych: [Alert], [oriented], [appropriate affect] - Labs CBC & Chem 7: 07/02/18 06:30 07/02/18 06:30 Labs: Abnormal Lab Results - Last 24 Hours (Table) 07/02/18 07/02/18 07/02/18 Range/Units 06:30 06:30 08:30 MCV 103.8 H (80.0-100.0) fL RDW 20.4 H (11.5-15.5) % Macrocytosis Marked A PT 12.8 H (9.0-12.0) sec INR 1.2 H (<1.2) BUN 33 H (7-17) mg/dL Creatinine 1.43 H (0.52-1.04) mg/dL Glucose 105 H (74-99) mg/dL Total Bilirubin 1.7 H (0.2-1.3) mg/dL Microbiology - Last 24 Hours (Table) 07/01/18 10:18 Blood Culture - Preliminary Blood No Growth after 24 hours Assessment and Plan Assessment: Assessment and Plan Hypotension CHF exacerbation Acute kidney injury Hyperlipidemia Atrial fibrillation, paroxysmal CAD with stent placement and pacemaker Obesity Resolved. BP 130/97. Possible cellulitis of the LE, Patient is afebrile with no leukocytosis, lactic acid negative with low concerns for sepsis. Chest X ray shows cardiomegaly, mild vascular congesion, L > R pleural effusion, atelectasis. Plan: Stepwise addition of antihypertensives. Fall precautions. BNP 7000, August 2017 echocardiogram shows EF 45-50% with mild LVH. Plan: Continue Lasix 40 mg IV twice daily. Aldactone added to medication regimen. Strict intake and output. Daily weights. Telemetry monitoring. K >4 and Mg >2. Follow cardiology consultation. Creatinine 1.51 to 1.43. Likely dehydration from Lasix. Plan: Encourage hydration by mouth. Avoid nephrotoxins. Daily BMP. Lipid panel from September 2016 shows total cholesterol of 97, LDL 41. Plan: Continue Lipitor. Stable. Subtherapeutic INR 1.2. Plan: Restart flecainide acetate 50 mg by mouth twice a day. DC metoprolol due to hypotensive nature. Coumadin for anticoagulation, pharmacy to dose. Daily INR. Follow cardiology consultation. Stable. Plan: Continue Lipitor. Hold beta susan. Will need to discus with Cardiology about starting aspirin. Follow Cardiology consultation. BMI 29.3. Plan: Structured weight loss program. Patient admitted for CHF exacerbation. Blood pressure improved. Continuing IV di uresis as per Cardiology recommendations and step ferguson addition of antihypertensive medications. Likely DC in 1-2 days. Patient states that she would like to be a NO CODE.
[2018-07-02] MEDS ORDERED: WARFARIN 5 MG TAB PO ONE (18:00)
[2018-07-02] MEDS: ATORVASTATIN 20 MG TAB PO SCH (20:27)
[2018-07-03] MEDS: FUROSEMIDE 10 MG/ML 4 ML VIAL IV SCH ×2 (05:45→17:19)
[2018-07-03 08:53] LABS: INR 1.3 (<1.2); Prothrombin Time 13.4 sec (9.0-12.0)
[2018-07-03 09:06] LABS: Calcium 8.9 mg/dL (8.4-10.2); Potassium 3.8 mmol/L (3.5-5.1)
[2018-07-03] MEDS: FLECAINIDE 50 MG TAB PO SCH ×2 (09:14→21:04)
[2018-07-03] MEDS: DULoxetine HCL 30 MG CAPSULE.DR PO SCH (09:14)
[2018-07-03] MEDS: FAMOTIDINE 20 MG TAB PO SCH (09:14)
[2018-07-03] MEDS: SPIRONOLACTONE 25 MG TAB PO SCH (09:14)
--- NOTE | 2018-07-03 14:39 | P.PN ---
Subjective This is a pleasant 88-year-old female history of atrial fibrillation, hypertension, dyslipidemia, coronary artery disease status post stent placement to the mid LAD in 2004 and permanent pacemaker implantation secondary to symptomatic bradycardia with a [employer] Accolade device. She follows in the office with Dr. Balbuena. We have been assisting her in consultation secondary to exacerbation of CHF. She presented to the hospital around 5:00 this morning with complaints of lower extremity edema, shortness of breath, ort hopnea, nausea, dizziness and generalized fatigue. This morning in the emergency department after receiving one dose of IV Lasix she became hypotensive in the 70s systolic. She was then given a 500 mL normal saline bolus. EKG reveals ventricular paced rhythm with a heart rate of 70. Currently her blood pressure is 100/60. She is seen and examined sitting up on the bedside commode in no acute distress. She seems somewhat forgetful at baseline. Her son however is present. He states that she has been more short of breath, seems forgetful and overall weak. She apparently suffered a fall at some point last week striking her right leg. He states she cannot remember if she passed out or not. She currently denies symptoms of chest discomfort, shortness of breath, dizziness or palpitations. 07/02/2018 Blood pressure 106/62 standing, no significant orthostatic changes noted. Laboratory data reviewed, WBC 8.3, hemoglobin 12.7, platelets 208, INR 1.2, sodium 139, potassium 4.3, creatinine 1.43. Aldactone has been discontinued by the primary care team. Ongoing lower extremity edema with little improvement appreciated. Venous doppler of left lower extremity is negative for DVT. Echoc ardiogram obtained reveals preserved left ventricular systolic function with ejection fraction 55-60%, overall dyskinesia noted, severely dilated left atrium, severe mitral regurgitation with a mean gradient of 5 mmHg, mild to moderate mitral stenosis, moderate tricuspid regurgitation and moderate p ulmonary hypertension with an RVSP of 58 mmHg. 07/03/2108 Pt seen and examined sitting up on the edge of the bed. She continues to have some mild shortness of breath even at rest. Ongoing lower extremity swelling that seems to be slightly improved. She denies chest pain, dizziness or palpitations. Inaccurate intake and output documented, pt states she is getting up to the bathroom very frequently. Pacemaker interrogation reveals she converted to atrial fibrillation with controlled ventricular response on 07/02. No rapid ventricular responses. Blood pressure 112/80 heart rate 70 afebrile maintaining oxygen saturation on nasal cannula. GENERAL: This is a 88-year-old female in no apparent distress at the time of my examination. HEENT: Head is atraumatic, normocephalic. Pupils are equal, round. Sclerae anicteric. Conjunctivae are clear. Mucous membranes of the mouth are moist. Neck is supple. There is no jugular venous distention. No carotid bruit is heard. LUNGS: Clear to auscultation no wheezes, rales or rhonchi. No chest wall tenderness is noted on palpation or with deep breathing. HEART: IRegular rate and rhythm with systolic ejection murmur at the left sternal border, no rubs or gallops. S1 and S2 heard. EXTREMITIES: 2+ pitting bilateral lower extremity edema. Left lower extremity erythema ongoing. No calf tenderness noted. ASSESSMENT Acute on chronic diastolic heart failure Acute kidney injury, possibly secondary to dehydration. Hypertension Dyslipidemia Coronary artery disease status post stent placement to the mid LAD in 2004 Paroxysmal atrial fibrillation on long-term anticoagulation with Coumadin. Maintained on flecainide. 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 Pulmonary hypertension Mitral regurgitations with stenosis PLAN Continue with IV lasix as her blood pressure tolerates, hold for systolic pressure less than 100. Repeat chest xray in the morning. Repeat EKG. Document accurate intake and output along with daily weights. Repeat electrolytes and kidney function in the morning. Resume losartan 25 mg daily. Further recommendations to follow. Nurse Practitioner note has been reviewed, I agree with a documented findings and plan of care. Patient was seen and examined. Objective - Vital Signs Vital signs: Vital Signs Temp 97.8 F 07/03/18 07:00 Pulse 70 07/03/18 07:00 Resp 20 07/03/18 07:00 BP 112/80 07/03/18 07:00 Pulse Ox 93 L 07/03/18 07:00 - Labs CBC & Chem 7: 07/02/18 06:30 07/03/18 07:10 Labs: Abnormal Lab Results - Last 24 Hours (Table) 07/03/18 07/03/18 Range/Units 07:10 07:10 PT 13.4 H (9.0-12.0) sec INR 1.3 H (<1.2) Chloride 97 L (98-107) mmol/L Carbon Dioxide 31 H (22-30) mmol/L BUN 32 H (7-17) mg/dL Creatinine 1.39 H (0.52-1.04) mg/dL Glucose 114 H (74-99) mg/dL Microbiology - Last 24 Hours (Table) 07/01/18 10:18 Blood Culture - Preliminary Blood No Growth after 48 hours
[2018-07-03] MEDS: LOSARTAN 25 MG TAB PO SCH (15:37)
--- NOTE | 2018-07-03 16:04 | P.PN ---
Subjective Progress Note Date: 07/03/18 Principal diagnosis: Lower extremity swelling Patient was seen and examined. No acute events overnight. Patient reports improvement in her breathing and lower extremity swelling since admission. Patient does request some shortness of breath with ambulation. She denies any chest pain or palpitations. Patient is requesting to go home. Agreeable for rehab. She denies any nausea or vomiting. No fever or chills. Objective - Vital Signs Vital signs: Vital Signs Temp 97.9 F 07/03/18 14:35 Pulse 72 07/03/18 14:35 Resp 18 07/03/18 14:35 BP 112/68 07/03/18 15:38 Pulse Ox 94 L 07/03/18 14:35 - Exam General: [non toxic], [no distress, sitting up in bed], [appears at stated age] Derm: [warm], [dry] Head: [atraumatic], [normocephalic], [symmetric] Eyes: [EOMI], [no lid lag], [anicteric sclera] Mouth: [no lip lesion], [mucus membranes moist] Cardiovascular: [S1S2 reg], [no murmur], [positive DP pulse bilateral] Lungs: [Decreased breath sounds bilateral], [no rales or rhonchi] , [no accessory muscle use] Abdominal: [soft], [ nontender to palpation], [no guarding], [no appreciable organomegaly] Ext: [no gross muscle atrophy], [2+ pitting edema bilaterally with erythema, slightly improved], [no contractures] Neuro: [no focal neuro deficits] Psych: [Alert], [oriented], [appropriate affect] - Labs CBC & Chem 7: 07/02/18 06:30 07/03/18 07:10 Labs: Abnormal Lab Results - Last 24 Hours (Table) 07/03/18 07/03/18 Range/Units 07:10 07:10 PT 13.4 H (9.0-12.0) sec INR 1.3 H (<1.2) Chloride 97 L (98-107) mmol/L Carbon Dioxide 31 H (22-30) mmol/L BUN 32 H (7-17) mg/dL Creatinine 1.39 H (0.52-1.04) mg/dL Glucose 114 H (74-99) mg/dL Microbiology - Last 24 Hours (Table) 07/01/18 10:18 Blood Culture - Preliminary Blood No Growth after 48 hours Assessment and Plan Assessment: Assessment and Plan Acute diastolic CHF exacerbation Acute kidney injury Hyperlipidemia Atrial fibrillation, paroxysmal CAD with stent placement and pacemaker Obesity Hypotension, resolved BNP 7000, August 2017 echocardiogram shows EF 45-50% with mild LVH. Repeat echocardiogram shows EF 55-60% with mild concentric LVH. Plan: Continue Lasix 40 mg IV twice daily. Aldactone and losartan added to medication regimen. Strict intake and output. Daily weights. Telemetry monitoring. K >4 and Mg >2. Follow cardiology consultation. Creatinine 1.51 to 1.43 to 1.39. Likely dehydration from Lasix. Plan: Encourage hydration by mouth. Avoid nephrotoxins. Daily BMP. Lipid panel from September 2016 shows total cholesterol of 97, LDL 41. Plan: Continue Lipitor. Stable. Subtherapeutic INR 1.3. Plan: Restart flecainide acetate 50 mg by mouth twice a day. DC metoprolol due to hypotensive nature. Coumadin for anticoagulation, pharmacy to dose. Daily INR. Follow cardiology consultation. Stable. Plan: Continue Lipitor. Hold beta susan. Will need to discus with Cardiology about starting aspirin. Follow Cardiology consultation. BMI 29.3. Plan: Structured weight loss program. Resolved. BP 112/68. Possible cellulitis of the LE, Patient is afebrile with no leukocytosis, lactic acid negative with low concerns for sepsis. Chest X ray shows cardiomegaly, mild vascular congesion, L > R pleural effusion, atelectasis. Plan: Stepwise addition of antihypertensives. Fall precautions. Plans for rehab. Patient admitted for CHF exacerbation. Blood pressure improved. Continuing IV diuresis as per Cardiology recommendations and step ferguson addition of antihypertensive medications. Patient states that she would like to be a NO CODE. Agreeable for rehab.
[2018-07-03] MEDS ORDERED: WARFARIN 5 MG TAB PO ONE (18:00)
[2018-07-03] MEDS: ATORVASTATIN 20 MG TAB PO SCH (21:04)
[2018-07-03] MEDS ORDERED: ACETAMINOPHEN TAB 325 MG TAB ONE (23:26)
[2018-07-04] MEDS: FUROSEMIDE 10 MG/ML 4 ML VIAL IV SCH (05:01)
[2018-07-04 07:16] LABS: INR 2.6 (<1.2); Prothrombin Time 24.9 sec (9.0-12.0)
[2018-07-04 08:07] VITALS: RESP 16
[2018-07-04] MEDS: SPIRONOLACTONE 25 MG TAB PO SCH (08:10)
[2018-07-04] MEDS: FAMOTIDINE 20 MG TAB PO SCH (08:11)
[2018-07-04] MEDS: LOSARTAN 25 MG TAB PO SCH (08:11)
[2018-07-04] MEDS: DULoxetine HCL 30 MG CAPSULE.DR PO SCH (08:11)
[2018-07-04] MEDS: FLECAINIDE 50 MG TAB PO SCH (08:11)
--- NOTE | 2018-07-04 09:27 | XR ---
EXAMINATION TYPE: XR chest 2V DATE OF EXAM: 07/04/2018 COMPARISON: Prior chest x-ray 07/01/2018 HISTORY: Follow-up, congestive heart failure, abnormal chest x-ray TECHNIQUE: Frontal and lateral views of the chest are obtained. FINDINGS: 5 basilar increased density, blunting the costophrenic angles persists. Heart is enlarged. Patient is rotated. Pacemaker is stable. No evident pneumothorax. Interstitium is possibly improved. Central vascularity shows a similar appearance. Prominent lung volumes suggest underlying COPD. Ther e are overlying cardiac leads. IMPRESSION: Bibasilar effusions and associated atelectasis. Suspect improvement in patient's volume status.
[2018-07-04] MEDS ORDERED: CLINDAMYCIN 150 MG CAP PO SCH (11:00)
--- NOTE | 2018-07-04 11:02 | P.PN ---
Subjective Progress Note Date: 07/04/18 Principal diagnosis: CHF exacerbation Patient seen and examined. No acute events overnight. Patient reports slight to no improvement in her lower extremity swelling. Still looks erythematous. She denies any shortness of breath, chest pain or palpitations. No nausea or vomiting. No fever or chills. Son is at bedside. Agreeable to [facility]. Objective - Vital Signs Vital signs: Vital Signs Temp 98.6 F 07/04/18 08:05 Pulse 70 07/04/18 08:05 Resp 16 07/04/18 08:05 BP 106/57 07/04/18 08:05 Pulse Ox 98 07/04/18 08:05 Intake & Output 07/03/18 07/04/18 07/04/18 18:59 06:59 18:59 Weight 74.8 kg Other: Voiding Method Toilet Bedside Commode # Voids 1 - Exam General: [non toxic], [no distress, sitting up in bed], [appears at stated age] Derm: [warm], [dry] Head: [atraumatic], [normocephalic], [symmetric] Eyes: [EOMI], [no lid lag], [anicteric sclera] Mouth: [no lip lesion], [mucus membranes moist] Cardiovascular: [S1S2 reg], [no murmur], [positive DP pulse bilateral] Lungs: [Clear to auscultation bilateral], [no rales or rhonchi] , [no accessory muscle use] Abdominal: [soft], [ nontender to palpation], [no guarding], [no appreciable organomegaly] Ext: [no gross muscle atrophy], [2+ pitting edema bilaterally with erythema, slightly improved], [no contractures] Neuro: [no focal neuro deficits] Psych: [Alert], [oriented], [appropriate affect] - Labs CBC & Chem 7: 07/02/18 06:30 07/04/18 06:29 Labs: Abnormal Lab Results - Last 24 Hours (Table) 07/04/18 07/04/18 Range/Units 06:29 06:29 PT 24.9 H (9.0-12.0) sec INR 2.6 H (<1.2) Sodium 136 L (137-145) mmol/L Chloride 95 L (98-107) mmol/L Carbon Dioxide 33 H (22-30) mmol/L BUN 27 H (7-17) mg/dL Creatinine 1.33 H (0.52-1.04) mg/dL Glucose 112 H (74-99) mg/dL Microbiology - Last 24 Hours (Table) 07/01/18 10:18 Blood Culture - Preliminary Blood No Growth after 48 hours Assessment and Plan Assessment: Assessment and Plan Cellulitis Acute diastolic CHF exacerbation Acute kidney injury Hyperlipidemia Atrial fibrillation, paroxysmal CAD with stent placement and pacemaker Obesity Hypotension, resolved Of the lower extremity as per physical exam. Patient is afebrile with no leukocytosis. Duplex ruled out DVT. Plan: Clindamycin by mouth for a total 7 days. BNP 7000, August 2017 echocardiogram shows EF 45-50% with mild LVH. Repeat echocardiogram shows EF 55-60% with mild concentric LVH. Plan: Continue Lasix 40 mg IV twice daily. Aldactone and losartan added to medication regimen. Add metoprolol as per cardiology recommendations. Strict intake and output. Daily weights. Telemetry monitoring. K >4 and Mg >2. Follow cardiology consultation. Creatinine 1.51 to 1.43 to 1.39 to 1.33. Likely dehydration from Lasix. Plan: Encourage hydration by mouth. Avoid nephrotoxins. Daily BMP. Lipid panel from September 2016 shows total cholesterol of 97, LDL 41. Plan: Continue Lipitor. Stable. Therapeutic INR of 2.6. Plan: Restart flecainide acetate 50 mg by mouth twice a day. Restart metoprolol when appropriate as per cardiology. Coumadin for anticoagulation, pharmacy to dose. Daily INR. Follow cardiology consultation. Stable. Plan: Continue Lipitor. Restart beta susan when appropriate. Follow Cardiology consultation. BMI 30.2. Plan: Structured weight loss program. Resolved. BP 106/57. Possible cellulitis of the LE, Patient is afebrile with no leukocytosis, lactic acid negative with low concerns for sepsis. Chest X ray shows cardiomegaly, mild vascular congesion, L > R pleural effusion, atelectasis. Plan: Stepwise addition of antihypertensives. Fall precautions. Plans for rehab. Patient admitted for CHF exacerbation. Blood pressure improved. Continuing IV diuresis as per Cardiology recommendations and step ferguson addition of antihypertensive medications. Patient states that she would like to be a NO CODE. Agreeable for rehab. DC planning as per cardiology recommendations.
--- NOTE | 2018-07-04 14:06 | CDI ---
Documentation Clarification Form Date: 07/04/2018 CDS: aCitlin Trotter, CCS, CCDS Admit Date: 07/01/2018 Patient Name: Nicolette Mendiola Discharge Date: ATTENTION: The Clinical Documentation Specialists (CDI) and [facility] Coding Staff appreciate your assistance in clarifying documentation. Please respond to the clarification below the line at the bottom and electronically sign. The CDI & [facility] Coding staff will review the response and follow-up if needed. Please note: Queries are made part of the Legal Health Record. If you have any questions, please contact the author of this message via ITS. Dear Dr. Austin: Per the ED note on 07/01: "labs consistent with CHF exacerbation with a significantly elevated BNP and also elevation of the creatinine likely cardiorenal syndrome." History/Risk Factors: Atrial fibrillation, COPD, Hypertension, Hyperlipidemia, systolic heart failure, CAD, GERD, LHC w/stent, Pacemaker. Clinical Indicators: Presented with dizziness, SOB, swelling & redness in lower extremities, not eating or drinking. Admitted with acute on chronic systolic CHF with hypertension possible cardiorenal syndrome & dehydration. Current BUN: 34 - 33 - 32 - 27 Current Creatinine: 1.51^, 1.43^, 1.39^, 1.33^ Current GFR: 31 - 33 - 34 - 35 Patients Baseline BUN/CR/GFR: Unknown or not documented Treatment: IV Lasix x2 07/01, IV fluid bolus 07/01, po Coumadin, Lopressor, Aldactone, Cozaar. I&O, daily weights, monitoring kidney function. Cardiology consult. Pacemaker interrogated, converted. In order to capture the severity of condition, please clarify if the condition signifies: CKD Stage 1 (GFR > 90) CKD Stage 2 (GFR 60-89) CKD Stage 3 (GFR 30-59) CKD Stage 4 (GFR 15-29) CKD ruled out Cardiorenal syndrome ruled out Other, please specify Unable to determine (Last Revision: May 2017) stage 3 MTDD
--- NOTE | 2018-07-04 14:07 | P.PN ---
Subjective This is a pleasant 88-year-old female history of atrial fibrillation, hypertension, dyslipidemia, coronary artery disease status post stent placement to the mid LAD in 2004 and permanent pacemaker implantation secondary to symptomatic bradycardia with a [employer] Accolade device. She follows in the office with Dr. Balbuena. We have been assisting her in consultation secondary to exacerbation of CHF. She presented to the hospital around 5:00 this morning with complaints of lower extremity edema, shortness of breath, ort hopnea, nausea, dizziness and generalized fatigue. This morning in the emergency department after receiving one dose of IV Lasix she became hypotensive in the 70s systolic. She was then given a 500 mL normal saline bolus. EKG reveals ventricular paced rhythm with a heart rate of 70. Currently her blood pressure is 100/60. She is seen and examined sitting up on the bedside commode in no acute distress. She seems somewhat forgetful at baseline. Her son however is present. He states that she has been more short of breath, seems forgetful and overall weak. She apparently suffered a fall at some point last week striking her right leg. He states she cannot remember if she passed out or not. She currently denies symptoms of chest discomfort, shortness of breath, dizziness or palpitations. 07/02/2018 Blood pressure 106/62 standing, no significant orthostatic changes noted. Laboratory data reviewed, WBC 8.3, hemoglobin 12.7, platelets 208, INR 1.2, sodium 139, potassium 4.3, creatinine 1.43. Aldactone has been discontinued by the primary care team. Ongoing lower extremity edema with little improvement appreciated. Venous doppler of left lower extremity is negative for DVT. Echoc ardiogram obtained reveals preserved left ventricular systolic function with ejection fraction 55-60%, overall dyskinesia noted, severely dilated left atrium, severe mitral regurgitation with a mean gradient of 5 mmHg, mild to moderate mitral stenosis, moderate tricuspid regurgitation and moderate p ulmonary hypertension with an RVSP of 58 mmHg. 07/03/2108 Pt seen and examined sitting up on the edge of the bed. She continues to have some mild shortness of breath even at rest. Ongoing lower extremity swelling that seems to be slightly improved. She denies chest pain, dizziness or palpitations. Inaccurate intake and output documented, pt states she is getting up to the bathroom very frequently. Pacemaker interrogation reveals she converted to atrial fibrillation with controlled ventricular response on 07/02. No rapid ventricular responses. Blood pressure 112/80 heart rate 70 afebrile maintaining oxygen saturation on nasal cannula. 07/04/2018 Pt seen and examined laying flat in bed in no acute distress. She states she continues to feel overall tired, but her shortness of breath has improved. She denies chest pain, dizziness, nausea, vomiting or palpitations. Blood pressure 106/57 heart rate 70 afebrile maintaining oxygen saturation on room air. Laboratory data reviewed, INR 2.6, sodium 136, potassium 4.0, creatinine 1.33 with a GFR of 35, magnesium 1.7. Lower extremity edema slightly improved from yesterday's exam. Ongoing erythema of the left lower extremity. Repeat chest x-ray shows ongoing bibasilar effusions with improvement in volume status. GENERAL: This is a 88-year-old female in no apparent distress at the time of my examination. HEENT: Head is atraumatic, normocephalic. Pupils are equal, round. Sclerae anicteric. Conjunctivae are clear. Mucous membranes of the mouth are moist. Neck is supple. There is no jugular venous distention. No carotid bruit is heard. LUNGS: Clear to auscultation no wheezes, rales or rhonchi. No chest wall tenderness is noted on palpation or with deep breathing. HEART: IRegular rate and rhythm with systolic ejection murmur at the left sternal border, no rubs or gallops. S1 and S2 heard. EXTREMITIES: 1+ pitting bilateral lower extremity edema. Left lower extremity erythema ongoing. No calf tenderness noted. ASSESSMENT Acute on chronic diastolic heart failure Acute kidney injury, possibly secondary to dehydration. Hypertension Dyslipidemia Coronary artery disease status post stent placement to the mid LAD in 2004 Paroxysmal atrial fibrillation on long-term anticoagulation with Coumadin. Maintained on flecainide. 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 Pulmonary hypertension Mitral regurgitations with stenosis PLAN Resume Lopressor 12.5 mg twice a day. Transition to oral diuretics, Lasix 20 mg twice a day. Continue coumadin, aldactone, losartan, flecanide and atorvastatin as previously ordered. Follow up in the office with Dr. Balbuena upon discharge. Nurse Practitioner note has been reviewed, I agree with a documented findings and plan of care. Patient was seen and examined. Objective - Vital Signs Vital signs: Vital Signs Temp 98.6 F 07/04/18 08:05 Pulse 70 07/04/18 08:05 Resp 16 07/04/18 08:05 BP 106/57 07/04/18 08:05 Pulse Ox 95 07/04/18 12:52 Intake & Output 07/03/18 07/04/18 07/04/18 18:59 06:59 18:59 Weight 74.8 kg Other: Voiding Method Toilet Bedside Commode # Voids 1 - Labs CBC & Chem 7: 07/02/18 06:30 07/04/18 06:29 Labs: Abnormal Lab Results - Last 24 Hours (Table) 07/04/18 07/04/18 Range/Units 06:29 06:29 PT 24.9 H (9.0-12.0) sec INR 2.6 H (<1.2) Sodium 136 L (137-145) mmol/L Chloride 95 L (98-107) mmol/L Carbon Dioxide 33 H (22-30) mmol/L BUN 27 H (7-17) mg/dL Creatinine 1.33 H (0.52-1.04) mg/dL Glucose 112 H (74-99) mg/dL Microbiology - Last 24 Hours (Table) 07/01/18 10:18 Blood Culture - Preliminary Blood No Growth after 72 hours
[2018-07-04 15:14] VITALS: BP 82/44; PULSE 69; TEMP 98.5
[2018-07-04] MEDS ORDERED: FUROSEMIDE 40 MG TAB PO SCH (16:00)
[2018-07-04] MEDS ORDERED: WARFARIN 3 MG TAB PO ONE (18:00)
[2018-07-04] MEDS ORDERED: METOPROLOL TARTRATE 12.5 MG TAB PO SCH (21:00)
--- NOTE | 2018-07-08 21:12 | P.DS ---
Providers Date of admission: 07/01/18 06:33 Expected date of discharge: 07/04/18 Attending physician: Alek Morfin MD Consults: 07/01/18 06:32 Consult Physician Routine Consulting Provider: [facility] Consult Reason/Comments: CHF exacerbation Do you want consulting provider notified?: Yes, Notify in am Primary care physician: [facility] Course: 88 year old female with PMH of atrial fibrillation, COPD, hypertension, hyperlipidemia, systolic heart failure presents to the ED for shortness of breath and dizziness. Patient appears sleepy, states that she has not slept in the last few days, responding to questions with one or 2 word answers. Majority of history is taken from chart. Patient reports swelling and redness in her lower extremities has been getting worse for the past couple of days. Patient reports that she is unable to sleep over the last couple of days she gets short of breath while laying flat. Patient reports that she had felt very fatigued and dizzy this morning, described as lightheadedness which prompted her to come to the ED. As per ED report, patient has not been eating or drinking well. In the ED, she was found to have an O2 saturation of 84%. CBC showed a macrocytosis. Coagulation panel showed a subtherapeutic INR 1.7. CMP showed a creatinine of 1.51, glucose of 146. Troponin was less than 0.012, with EKG showing ventricular paced rhythm. BNP was 7000, chest x-ray showed mild vascular congestion with left greater than right pleural effusion. Patient is admitted for CHF exacerbation, cardiology consulted. Her shortness of breath was thought to be secondary to CHF exacerbation. Echocardiogram August 2017 shows 45-50% with mild LVH. Echocardiogram was repeated which showed EF 55-60% with mild concentric LVH. Patient started on diuresis with Lasix 40 mg IV twice a day. Dr. rodriguez was added to her medication regimen. Patient initially had a creatinine of 1.51 on admission. This is likely secondary to dehydration and 60s. She was encourage hydration by mouth. Her creatinine on discharge was 1.23. Her home medication of flecanide and metoprolol was restarted the treatment of atrial fibrillation. Her Coumadin dosing was restarted to maintain an INR between 2 and 3. Patient was noted to have redness of the bilateral lower extremities, possible cellulitis. Patient was afebrile with a leukocytosis. Lactic acid was negative. There is no concerns sepsis. Patient was given clindamycin for a total of 7 days. Assessment and Plan Cellulitis Acute diastolic CHF exacerbation Acute kidney injury Hyperlipidemia Atrial fibrillation, paroxysmal CAD with stent placement and pacemaker Obesity Hypotension, resolved This complex discharge took greater than 30 minutes. Pertinent Studies: Chest x-ray, venous duplex, echocardiogram Patient Condition at Discharge: Stable Plan - Discharge Summary Discharge Rx Participant: No New Discharge Prescriptions: New Spironolactone [Aldactone] 12.5 mg PO DAILY tab Clindamycin [Cleocin] 300 mg PO TID #30 cap Losartan [Cozaar] 25 mg PO DAILY tab Metoprolol Tartrate [Lopressor] 12.5 mg PO BID #60 tab Flecainide [Tambocor] 50 mg PO Q12HR tab Continue Atorvastatin [Lipitor] 20 mg PO HS Famotidine [Pepcid] 20 mg PO BID Flecainide [Tambocor] 50 mg PO Q12HR DULoxetine HCL [Cymbalta] 30 mg PO DAILY Cholecalciferol [Vitamin D3 (25 Mcg = 1000 Iu)] 1,000 unit PO DAILY Losartan [Cozaar] 25 mg PO DAILY tab Spironolactone [Aldactone] 12.5 mg PO DAILY tab Warfarin [Coumadin] 2 mg PO HS ALPRAZolam [Xanax] 0.25 mg PO BID PRN PRN Reason: Anxiety Meclizine [Antivert] 12.5 mg PO TID PRN PRN Reason: Vertigo HYDROcodone/APAP 5-325MG [[place] 5-325] 1 tab PO TID PRN PRN Reason: Pain Furosemide [Lasix] 20 mg PO DAILY #30 tab Discontinued Metoprolol Tartrate [Lopressor] 25 mg PO BID Promethazine HCl 12.5 mg PO TID PRN PRN Reason: Nausea Discharge Medication List Atorvastatin [Lipitor] 20 mg PO HS 06/11/16 [History] DULoxetine HCL [Cymbalta] 30 mg PO DAILY 09/01/16 [History] Famotidine [Pepcid] 20 mg PO BID 09/01/16 [History] Flecainide [Tambocor] 50 mg PO Q12HR 09/01/16 [History] Cholecalciferol [Vitamin D3 (25 Mcg = 1000 Iu)] 1,000 unit PO DAILY 08/23/17 [History] Losartan [Cozaar] 25 mg PO DAILY tab 08/27/17 [Rx] Spironolactone [Aldactone] 12.5 mg PO DAILY tab 08/27/17 [Rx] ALPRAZolam [Xanax] 0.25 mg PO BID PRN 07/01/18 [History] HYDROcodone/APAP 5-325MG [[place] 5-325] 1 tab PO TID PRN 07/01/18 [History] Meclizine [Antivert] 12.5 mg PO TID PRN 07/01/18 [History] Warfarin [Coumadin] 2 mg PO HS 07/01/18 [History] Clindamycin [Cleocin] 300 mg PO TID #30 cap 07/04/18 [Rx] Flecainide [Tambocor] 50 mg PO Q12HR tab 07/04/18 [Rx] Furosemide [Lasix] 20 mg PO DAILY #30 tab 07/04/18 [Rx] Losartan [Cozaar] 25 mg PO DAILY tab 07/04/18 [Rx] Metoprolol Tartrate [Lopressor] 12.5 mg PO BID #60 tab 07/04/18 [Rx] Spironolactone [Aldactone] 12.5 mg PO DAILY tab 07/04/18 [Rx] Follow up Appointment(s)/Referral(s): Van Syed MD [Primary Care Provider] - 1-2 days Rachel Balbuena MD [STAFF PHYSICIAN] - 07/22/18 8:45 am Ambulatory/Diagnostic Orders: Basic Metabolic Panel [LAB.AMB] Time Frame: 3 Days, Location: None Selected Patient Instructions/Handouts: Heart Failure (DC) Activity/Diet/Wound Care/Special Instructions: Diet: Heart healthy Follow-up with PCP within 1-2 days of discharge. Follow-up with cardiology within 1 week of discharge. Take all medications as advised. Discharge Disposition: TRANSFER TO SNF/ECF
== END 2018-07-04 16:46 | DRG 291 ==
LOC: EC 04:41 → 4SSUR 06:33
PROVIDERS: ADMIT Internal Medicine; ATTEND Internal Medicine
DX: I13.0 Hypertensive heart and chronic kidney disease with heart failure and stage 1 through stage 4 chronic kidney disease, or unspecified chronic kidney disease (principal); I50.43 Acute on chronic combined systolic (congestive) and diastolic (congestive) heart failure; N17.9 Acute kidney failure, unspecified; L03.116 Cellulitis of left lower limb; K21.9 Gastro-esophageal reflux disease without esophagitis; N18.3 Chronic kidney disease, stage 3 (moderate); I25.10 Atherosclerotic heart disease of native coronary artery without angina pectoris; E86.0 Dehydration; R00.1 Bradycardia, unspecified; N18.9 Chronic kidney disease, unspecified; E78.5 Hyperlipidemia, unspecified; I48.0 Paroxysmal atrial fibrillation; I95.9 Hypotension, unspecified; J44.9 Chronic obstructive pulmonary disease, unspecified; I27.20 Pulmonary hypertension, unspecified; T50.1X5A Adverse effect of loop [high-ceiling] diuretics, initial encounter; E66.9 Obesity, unspecified; F17.200 Nicotine dependence, unspecified, uncomplicated; G24.9 Dystonia, unspecified; I44.7 Left bundle-branch block, unspecified; I05.2 Rheumatic mitral stenosis with insufficiency; R79.1 Abnormal coagulation profile; F41.9 Anxiety disorder, unspecified; F17.210 Nicotine dependence, cigarettes, uncomplicated; Z68.30 Body mass index [BMI] 30.0-30.9, adult; Z95.5 Presence of coronary angioplasty implant and graft; Z95.0 Presence of cardiac pacemaker; Z79.899 Other long term (current) drug therapy; Z79.01 Long term (current) use of anticoagulants; Z82.49 Family history of ischemic heart disease and other diseases of the circulatory system; Z87.11 Personal history of peptic ulcer disease; Z85.828 Personal history of other malignant neoplasm of skin; Z91.81 History of falling; Z88.0 Allergy status to penicillin
CPT/HCPCS: 36415; 71046; 80048; 80053; 83605; 83735; 83880; 84484; 85025; 85610; 85730; 87040; 93005; 93306; 96374; 99285

== ENCOUNTER 2018-07-13 01:34 | Observation (INO) | payer MEDICARE, BC ==
--- NOTE | 2018-07-13 02:10 | XR ---
EXAM: XR Chest, 2 Views CLINICAL HISTORY: ITS.REASON XR Reason: difficulty breathing TECHNIQUE: Frontal and lateral views of the chest. COMPARISON: Chest x-ray 07/04/18 IMPRESSION: Cardiomegaly. Trace bilateral pleural effusions. Mild vascular congestion.
[2018-07-13 02:14] LABS: Albumin 3.7 g/dL (3.5-5.0); Calcium 9.2 mg/dL (8.4-10.2); Magnesium 2.4 mg/dL (1.6-2.3); Total Bilirubin 2.1 mg/dL (0.2-1.3); Total Protein 6.4 g/dL (6.3-8.2)
[2018-07-13 02:17] LABS: Partial Thromboplastin Time 36.7 sec (22.0-30.0); Prothrombin Time 68.7 sec (9.0-12.0)
[2018-07-13 02:28] LABS: Anisocytosis Moderate; Basophils % (A) 0 %; Eosinophils # (A) 0.2 k/uL (0-0.7); Eosinophils % (A) 3 %; HCT 39.3 % (34.0-46.0); HGB 12.4 gm/dL (11.4-16.0); Lymphocytes # (A) 1.2 k/uL (1.0-4.8); Lymphocytes % (A) 13 %; MCH 32.1 pg (25.0-35.0); MCHC 31.6 g/dL (31.0-37.0); MCV 101.4 fL (80.0-100.0); Macrocytosis Moderate; Mean Platelet Volume 8.5; Monocytes # (A) 0.5 k/uL (0-1.0); Monocytes % (A) 5 %; Neutrophils # (A) 6.8 k/uL (1.3-7.7); Neutrophils % (A) 77 %; Platelet Count 266 k/uL (150-450); Poikilocytosis Slight; RBC 3.87 m/uL (3.80-5.40); RDW 20.4 % (11.5-15.5); WBC 8.9 k/uL (3.8-10.6)
[2018-07-13 02:37] LABS: INR 7.1 (<1.2)
[2018-07-13 03:11] LABS: Appearance,Urine Clear (Clear); Bilirubin,Urine Negative (Negative); Blood,Urine Negative (Negative); Color,Urine Yellow; Glucose,Urine (UA) Negative (Negative); Ketones,Urine Negative (Negative); Leukocyte Esterase,Urine Negative (Negative); Nitrite,Urine Negative (Negative); Protein,Urine Negative (Negative); Specific Gravity,Urine 1.019 (1.001-1.035); Urobilinogen,Urine <2.0 mg/dL (<2.0)
[2018-07-13] MEDS ORDERED: SODIUM CHLORIDE 0.9% 1,000 ML IV ONE (04:32)
--- NOTE | 2018-07-13 05:00 | ED ---
SOB HPI - General Chief Complaint: Shortness of Breath Stated Complaint: weakness Time Seen by Provider: 07/13/18 01:41 Source: EMS Mode of arrival: EMS Limitations: altered mental status (Hard of hearing) - History of Present Illness Initial Comments: This patient is an 88-year-old woman sent from longterm to have evaluation for reportedly having respiratory distress and low pulse oximetry readings. It is reported that over the course of tonight, the patient appeared to be having more difficulty with breathing than is her baseline. At the longterm her pulse oximetry readings were checked and they were found to be in the 70s despite being on cannula oxygen. The patient on arrival here does state that she is short of breath. She is denying pains. History is somewhat limited however due to what appears to be underlying dementia and hard of hearing. MD Complaint: shortness of breath -: hour(s) Consistency: constant Improves With: oxygen Worsens With: lying flat Known History Of: congestive heart failure - Related Data Home Medications Medication Instructions Recorded Confirmed Atorvastatin [Lipitor] 20 mg PO HS 06/11/16 07/13/18 DULoxetine HCL [Cymbalta] 30 mg PO DAILY 09/01/16 07/13/18 Famotidine [Pepcid] 20 mg PO BID 09/01/16 07/13/18 Cholecalciferol [Vitamin D3 (25 1,000 unit PO DAILY 08/23/17 07/13/18 Mcg = 1000 Iu)] ALPRAZolam [Xanax] 0.25 mg PO BID PRN 07/01/18 07/13/18 Previous Rx's Medication Instructions Recorded Flecainide [Tambocor] 50 mg PO Q12HR tab 07/04/18 Furosemide [Lasix] 40 mg PO BID@0900,1600 tab 07/16/18 Potassium Chloride ER [K-Dur 10] 10 meq PO DAILY #10 tab 07/16/18 Warfarin [Coumadin] 1 mg PO HS #10 tablet 07/16/18 Allergies Allergy/AdvReac Type Severity Reaction Status Date / Time Penicillins Allergy Rash/Hives Verified 07/13/18 07:19 Review of Systems ROS Statement: Those systems with pertinent positive or pertinent negative responses have been documented in the HPI. ROS Other: All systems not noted in ROS Statement are negative. Limitations: ROS unobtainable due to patients medical condition Constitutional: Denies: fever Respiratory: Reports: dyspnea Cardiovascular: Denies: chest pain Gastrointestinal: Denies: abdominal pain, vomiting Neurological: Denies: headache Past Medical History Past Medical History: Coronary Artery Disease (CAD), GERD/Reflux, Hyperlipidemia, Hypertension Additional Past Medical History / Comment(s): ulcers, pt stated she had hx of diverticulitis. History of Any Multi-Drug Resistant Organisms: None Reported Past Surgical History: Heart Catheterization With Stent, Pacemaker Additional Past Surgical History / Comment(s): sx for ruptered ulcer in 2012, pacer maker placement in May 2016 and changed generator on 09-04-16. Past Anesthesia/Blood Transfusion Reactions: No Reported Reaction Date of Last Stent Placement:: 1991 (?) Type of Cardiac Device: Permanent Pacemaker Device Placement Date:: Past Psychological History: Anxiety Smoking Status: Current every day smoker Past Alcohol Use History: Occasional Past Drug Use History: None Reported - Past Family History Father Family Medical History: No Reported History Mother Family Medical History: No Reported History General Exam Limitations: no limitations General appearance: alert, in no apparent distress Head exam: Present: atraumatic, normocephalic Eye exam: Present: normal appearance. Absent: scleral icterus, conjunctival injection ENT exam: Present: normal oropharynx Respiratory exam: Present: normal lung sounds bilaterally, rales (Bilateral bases). Absent: respiratory distress, wheezes, rhonchi, stridor, accessory muscle use, decreased breath sounds Cardiovascular Exam: Present: regular rate, normal rhythm, normal heart sounds. Absent: systolic murmur, diastolic murmur, rubs, gallop GI/Abdominal exam: Present: soft. Absent: distended, tenderness, guarding, rebound, rigid, mass Extremities exam: Present: normal capillary refill, pedal edema (Mild edema at the ankles bilaterally). Absent: calf tenderness Neurological exam: Present: alert. Absent: motor sensory deficit Skin exam: Present: warm, dry, intact, normal color. Absent: rash Course Vital Signs 07/13/18 07/13/18 07/13/18 01:35 02:30 03:00 Temperature 97.9 F Pulse Rate 64 70 70 Respiratory 20 25 H 24 Rate Blood Pressure 92/42 99/52 101/57 O2 Sat by Pulse 98 97 94 L Oximetry 07/13/18 07/13/18 07/13/18 03:31 04:00 04:30 Temperature Pulse Rate 70 70 70 Respiratory 18 16 18 Rate Blood Pressure 104/62 99/62 97/53 O2 Sat by Pulse 97 98 98 Oximetry Medical Decision Making - Medical Decision Making Patient is an 88-year-old woman sent from her long-term care facility to be evaluated for dyspnea. The patient here does have a degree of vascular congestion on the chest x-ray. In addition the BNP is elevated in comparison with previous labs. - Lab Data Result diagrams: 07/15/18 05:42 07/15/18 05:42 Lab Results 07/13/18 07/13/18 07/13/18 Range/Units 01:47 01:47 01:47 WBC 8.9 (3.8-10.6) k/uL RBC 3.87 (3.80-5.40) m/uL Hgb 12.4 (11.4-16.0) gm/dL Hct 39.3 (34.0-46.0) % MCV 101.4 H (80.0-100.0) fL MCH 32.1 (25.0-35.0) pg MCHC 31.6 (31.0-37.0) g/dL RDW 20.4 H (11.5-15.5) % Plt Count 266 (150-450) k/uL Neutrophils % 77 % Lymphocytes % 13 % Monocytes % 5 % Eosinophils % 3 % Basophils % 0 % Neutrophils # 6.8 (1.3-7.7) k/uL Lymphocytes # 1.2 (1.0-4.8) k/uL Monocytes # 0.5 (0-1.0) k/uL Eosinophils # 0.2 (0-0.7) k/uL Basophils # 0.0 (0-0.2) k/uL Poikilocytosis Slight Anisocytosis Moderate Macrocytosis Moderate PT (9.0-12.0) sec INR (<1.2) APTT (22.0-30.0) sec Sodium 129 L (137-145) mmol/L Potassium 5.0 (3.5-5.1) mmol/L Chloride 93 L (98-107) mmol/L Carbon Dioxide 26 (22-30) mmol/L Anion Gap 10 mmol/L BUN 55 H (7-17) mg/dL Creatinine 1.66 H (0.52-1.04) mg/dL Est GFR (CKD-EPI)AfAm 31 (>60 ml/min/1.73 sqM) Est GFR (CKD-EPI)NonAf 27 (>60 ml/min/1.73 sqM) Glucose 93 (74-99) mg/dL Calcium 9.2 (8.4-10.2) mg/dL Magnesium 2.4 H (1.6-2.3) mg/dL Total Bilirubin 2.1 H (0.2-1.3) mg/dL AST 72 H (14-36) U/L ALT 66 H (9-52) U/L Alkaline Phosphatase 86 (38-126) U/L Troponin I (0.000-0.034) ng/mL NT-Pro-B Natriuret Pep 26622 pg/mL Total Protein 6.4 (6.3-8.2) g/dL Albumin 3.7 (3.5-5.0) g/dL Urine Color Urine Appearance (Clear) Urine pH (5.0-8.0) Ur Specific [place] (1.001-1.035) Urine Protein (Negative) Urine Glucose (UA) (Negative) Urine Ketones (Negative) Urine Blood (Negative) Urine Nitrite (Negative) Urine Bilirubin (Negative) Urine Urobilinogen (<2.0) mg/dL Ur Leukocyte Esterase (Negative) 07/13/18 07/13/18 07/13/18 Range/Units 01:47 01:47 03:06 WBC (3.8-10.6) k/uL RBC (3.80-5.40) m/uL Hgb (11.4-16.0) gm/dL Hct (34.0-46.0) % MCV (80.0-100.0) fL MCH (25.0-35.0) pg MCHC (31.0-37.0) g/dL RDW (11.5-15.5) % Plt Count (150-450) k/uL Neutrophils % % Lymphocytes % % Monocytes % % Eosinophils % % Basophils % % Neutrophils # (1.3-7.7) k/uL Lymphocytes # (1.0-4.8) k/uL Monocytes # (0-1.0) k/uL Eosinophils # (0-0.7) k/uL Basophils # (0-0.2) k/uL Poikilocytosis Anisocytosis Macrocytosis PT 68.7 H (9.0-12.0) sec INR 7.1 H* (<1.2) APTT 36.7 H (22.0-30.0) sec Sodium (137-145) mmol/L Potassium (3.5-5.1) mmol/L Chloride (98-107) mmol/L Carbon Dioxide (22-30) mmol/L Anion Gap mmol/L BUN (7-17) mg/dL Creatinine (0.52-1.04) mg/dL Est GFR (CKD-EPI)AfAm (>60 ml/min/1.73 sqM) Est GFR (CKD-EPI)NonAf (>60 ml/min/1.73 sqM) Glucose (74-99) mg/dL Calcium (8.4-10.2) mg/dL Magnesium (1.6-2.3) mg/dL Total Bilirubin (0.2-1.3) mg/dL AST (14-36) U/L ALT (9-52) U/L Alkaline Phosphatase (38-126) U/L Troponin I <0.012 (0.000-0.034) ng/mL NT-Pro-B Natriuret Pep pg/mL Total Protein (6.3-8.2) g/dL Albumin (3.5-5.0) g/dL Urine Color Yellow Urine Appearance Clear (Clear) Urine pH 5.0 (5.0-8.0) Ur Specific [place] 1.019 (1.001-1.035) Urine Protein Negative (Negative) Urine Glucose (UA) Negative (Negative) Urine Ketones Negative (Negative) Urine Blood Negative (Negative) Urine Nitrite Negative (Negative) Urine Bilirubin Negative (Negative) Urine Urobilinogen <2.0 (<2.0) mg/dL Ur Leukocyte Esterase Negative (Negative) - EKG Data -: EKG Interpreted by Me When compared to previous EKG there are: no significant change Interpretation: other (Rhythm appears paced at 70 bpm.) Disposition Clinical Impression: Acute CHF (congestive heart failure), Hyponatremia Disposition: ADMITTED IP TO THIS [facility] Condition: Stable Is patient prescribed a controlled substance at d/c from ED?: No
[2018-07-13] MEDS ORDERED: NITROGLYCERIN OINT 1 INCH/GM PACKET TOPICAL STA (05:01)
--- NOTE | 2018-07-13 07:08 | P.HPIM ---
History of Present Illness H&P Date: 07/13/18 Chief Complaint: Hypoxemia 88-year-old female with history of paroxysmal A. fib, CAD, diastolic CHF. [facility] was [facility] due to hypoxemia and difficulty breathing. Patient unable to provide any meaningful history at this time due to advanced dementia. History was obtained by reviewing medical records. Seems like patient was sent into the hospital due to hypoxemia recorded in the low 70s percent despite oxygen through nasal cannula, patient was in labored breathing for which she was sent to the hospital for further management. Patient was also noted to have swollen legs worse than her baseline. Patient was hospitalized and discharged less than a week ago for cellulitis and diastolic CHF. Her most recent echocardiogram showed left ventricular ejection fraction of 5560 percent with severely dilated left atrium due to mitral valve disease. Patient has history of paroxysmal A. fib on Coumadin she was found to be and supratherapeutic INR no reports of bleeding. Medications could not be verified at this time Upon interviewing the patient she seems to be comfortable calm breathing through nasal cannula 2 L, pulse ox is stable and then mid to high 90s. Patient received IV Lasix in the ER. Per [facility] records patient is DO NOT RESUSCITATE. Blood work in the ER showed acute kidney injury and hyponatremia along with elevated proBNP and slightly elevated liver enzymes. EKG showed paced rhythm. Chest x-ray suggested trace bilateral pleural effusion Review of Systems Unable to obtain appropriate review of systems due to patient's advanced dementia Past Medical History Past Medical History: Atrial Fibrillation, Coronary Artery Disease (CAD), GERD/Reflux, Hyperlipidemia, Hypertension, Memory Impairment Additional Past Medical History / Comment(s): ulcers, pt stated she had hx of diverticulitis. History of Any Multi-Drug Resistant Organisms: None Reported Past Surgical History: Heart Catheterization With Stent, Pacemaker Additional Past Surgical History / Comment(s): sx for ruptered ulcer in 2012, pacer maker placement in May 2016 and changed generator on 09-04-16. Past Anesthesia/Blood Transfusion Reactions: No Reported Reaction Date of Last Stent Placement:: 1991 (?) Type of Cardiac Device: Permanent Pacemaker Device Placement Date:: Past Psychological History: Anxiety Additional Psychological History / Comment(s): Pt resides at [facility] Smoking Status: Current every day smoker Past Alcohol Use History: Occasional Additional Past Alcohol Use History / Comment(s): Pt started smoking in 1953. Past Drug Use History: None Reported - Past Family History Father Family Medical History: Unable to Obtain Mother Family Medical History: Unable to Obtain Medications and Allergies Home Medications Medication Instructions Recorded Confirmed Type Atorvastatin [Lipitor] 20 mg PO HS 06/11/16 07/01/18 History DULoxetine HCL [Cymbalta] 30 mg PO DAILY 09/01/16 07/01/18 History Famotidine [Pepcid] 20 mg PO BID 09/01/16 07/01/18 History Flecainide [Tambocor] 50 mg PO Q12HR 09/01/16 07/01/18 History Cholecalciferol [Vitamin D3 (25 1,000 unit PO DAILY 08/23/17 07/01/18 History Mcg = 1000 Iu)] Losartan [Cozaar] 25 mg PO DAILY tab 08/27/17 07/01/18 Rx Spironolactone [Aldactone] 12.5 mg PO DAILY tab 08/27/17 07/01/18 Rx ALPRAZolam [Xanax] 0.25 mg PO BID PRN 07/01/18 07/01/18 History HYDROcodone/APAP 5-325MG [[place] 1 tab PO TID PRN 07/01/18 07/01/18 History 5-325] Meclizine [Antivert] 12.5 mg PO TID PRN 07/01/18 07/01/18 History Warfarin [Coumadin] 2 mg PO HS 07/01/18 07/01/18 History Clindamycin [Cleocin] 300 mg PO TID #30 cap 07/04/18 Rx Flecainide [Tambocor] 50 mg PO Q12HR tab 07/04/18 Rx Furosemide [Lasix] 20 mg PO DAILY #30 tab 07/04/18 Rx Losartan [Cozaar] 25 mg PO DAILY tab 07/04/18 Rx Metoprolol Tartrate [Lopressor] 12.5 mg PO BID #60 tab 07/04/18 Rx Spironolactone [Aldactone] 12.5 mg PO DAILY tab 07/04/18 Rx Allergies Allergy/AdvReac Type Severity Reaction Status Date / Time Penicillins Allergy Rash/Hives Verified 07/13/18 01:42 Physical Exam Vitals: Vital Signs Temp Pulse Pulse Resp BP BP Pulse Ox 07/13/18 05:30 97.8 F 72 16 96/52 98 07/13/18 04:30 70 18 97/53 98 07/13/18 04:00 70 16 99/62 98 07/13/18 03:31 70 18 104/62 97 07/13/18 03:00 70 24 101/57 94 L 07/13/18 02:30 70 25 H 99/52 97 07/13/18 01:35 97.9 F 64 20 92/42 98 Intake and Output 07/12/18 07/12/18 07/13/18 14:59 22:59 06:59 Other: Weight 73.6 kg Constitutional: No acute distress, patient is alert and awake but she doesn't say much she only applies with no when asked Eyes: Anicteric sclerae, moist conjunctiva, no lid-lag Pupils equal round reactive to light ENMT: NC/AT Oropharynx clear, no erythema, exudates Neck: Supple, FROM, no masses, or JVD No carotid bruits No thyromegaly Lungs: Clear to auscultation Clear to percussion Normal respiratory effort, no accessory muscle use Cardiovascular: Heart regular in rate and rhythm, Systolic murmur , no gallops, or rubs +2 peripheral edema over bilateral legs Abdominal: Soft Nontender, no guarding, rebound or rigidity Abdomen moving with respiration Normoactive bowel sounds No hepatomegaly, No splenomegaly No palpable mass No abdominal wall hernia noted Skin: Intertriginous rash under the belly pannus Normal temperature, tone, texture, turgor No induration No subcutaneous nodules No rash, lesions No ulcers Extremities: Cold extremities No digital cyanosis No clubbing Pedal pulses intact and symmetrical Radial pulses intact and symmetrical No calf tenderness Psychiatric: Alert and oriented to self only Neuro Muscles Strength 3-4/5 in all 4 extremities , overall poor effort. The patient moving purposefully spontaneously Sensation to light touch grossly present throughout Limited exam of cranial nerve patient did not cooperate No focal sensory deficits Lymphatics: no palpable cervical or supraclavicular , or inguinal lymph nodes Results CBC & Chem 7: 07/13/18 01:47 07/13/18 01:47 Labs: Abnormal Lab Results - Last 24 Hours (Table) 07/13/18 07/13/18 07/13/18 Range/Units 01:47 01:47 01:47 MCV 101.4 H (80.0-100.0) fL RDW 20.4 H (11.5-15.5) % PT 68.7 H (9.0-12.0) sec INR 7.1 H* (<1.2) APTT 36.7 H (22.0-30.0) sec Sodium 129 L (137-145) mmol/L Chloride 93 L (98-107) mmol/L BUN 55 H (7-17) mg/dL Creatinine 1.66 H (0.52-1.04) mg/dL Magnesium 2.4 H (1.6-2.3) mg/dL Total Bilirubin 2.1 H (0.2-1.3) mg/dL AST 72 H (14-36) U/L ALT 66 H (9-52) U/L Thrombosis Risk Factor Assmnt - Choose All That Apply Any of the Below Risk Factors Present?: Yes Each Factor Represents 1 point: Heart failure (<1month), Swollen legs (current) Other Risk Factors: Yes Each Risk Factor Represents 3 Points: Age 75 years or older Thrombosis Risk Factor Assessment Total Risk Factor Score: 5 Thrombosis Risk Factor Assessment Level: High Risk Assessment and Plan Assessment: 88-year-old female [facility] resident with history of diastolic CHF admitted as inpatient with anticipated length of stay more than 48 hours due to acute hypoxic respiratory failure secondary to underlying acute diastolic CHF exacerbation, patient was also found to have a care and mild increase in liver enzymes. Patient only gives limited history due to advanced dementia Plan: Acute hypoxic respiratory failure secondary to underlying CHF exacerbation Acute diastolic CHF exacerbation Continue his monitoring of pulse ox IV diuresis Cardiology consult Verify home medications Monitor blood pressure closely due to history of hypotension with IV Lasix Acute kidney injury secondary to cardiorenal syndrome Hold nephrotoxic meds Continue IV Lasix Monitor urine output and renal function Hold spironolactone and losartan Mild elevation of liver enzymes most likely secondary to hepatic congestion Continue to monitor liver function Hyponatremia mostly secondary to underlying CHF Continue to follow up sodium level Continue with IV diuresis Supratherapeutic INR Coumadin on hold No evidence of bleeding Chronic conditions Paroxysmal A. fib status post pacemaker on Coumadin Hyperlipidemia GERD History of CAD status post stents in 2004 Hypertension with episodes of hypotension when receiving IV Lasix DVT prophylaxis currently INR is supratherapeutic patient on Coumadin Fall precautions Verify home medications Discontinue Nitropaste, patient breathing better with good oxygenation at this time. Patient is known to have hypotension with IV Lasix from prior admissions Preformed a thorough record review from recent hospitalization for CHF exacerbation and cellulitis patient was discharged less than a week ago Surrogate decision-maker: Patient's son CODE STATUS: No code per [facility] records Discussed with: Patient, ER, RN Anticipated discharge: 48-[address]: longterm A total of 60 minutes was spent on the care of this complex patient more than 50% of the time was spent in counseling and care coordination.
--- NOTE | 2018-07-13 08:29 | P.CRDCN ---
History of Present Illness Consult date: 07/13/18 Requesting physician: Mckay Mendoza Consult reason: congestive heart failure Chief complaint: Short of breath, hypoxia History of present illness: This is a pleasant 88-year-old female with known history of persistent atrial fibrillation, hypertension, hyperlipidemia, coronary artery disease with prior stenting of the LAD in 2004, prior pacemaker implantation secondary to symptomatic bradycardia with a [employer]'s device. She follows with Dr. Balbuena in the office. She had a recent admission to the hospital earlier this month with congestive heart failure. She resides in an extended care facility, according to the notes, patient was having some difficulty in breath ing with associated low pulse ox reading. For this reason she was admitted back to the hospital. At the time of my examination this morning she is sitting comfortably in bed, he is unsure exactly of why she is here. She appears quite comfortable with no severe shortness of breath noted. Chest x-ray shows cardiomegaly with trace bilateral pleural effusions and mild vascular congestion. Her EKG shows a ventricular paced rhythm. Blood pressure 92/40 on admission with a heart rate in the 60s, 98% on room air. I pressure this morning 96/50 with a heart rate in the 70s, 98% on 2 L of oxygen. White blood cell count 8.9, hemoglobin 12.4, platelet count 260. Sodium 129, potassium 5.0, BUN 55 and creatinine 1.6. Her INR at admission was 7.1. Magnesium 2.4, AST 72 and ALT 66, troponin 0.012 with a BNP level 13,500. Patient was initiated on IV Lasix in the emergency room. Past Medical History Past Medical History: Atrial Fibrillation, Coronary Artery Disease (CAD), GERD/Reflux, Hyperlipidemia, Hypertension, Memory Impairment Additional Past Medical History / Comment(s): ulcers, pt stated she had hx of diverticulitis. History of Any Multi-Drug Resistant Organisms: None Reported Past Surgical History: Heart Catheterization With Stent, Pacemaker Additional Past Surgical History / Comment(s): sx for ruptered ulcer in 2012, pacer maker placement in May 2016 and changed generator on 09-04-16. Past Anesthesia/Blood Transfusion Reactions: No Reported Reaction Date of Last Stent Placement:: 1991 (?) Type of Cardiac Device: Permanent Pacemaker Device Placement Date:: Past Psychological History: Anxiety Additional Psychological History / Comment(s): Pt resides at [facility] Smoking Status: Current every day smoker Past Alcohol Use History: Occasional Additional Past Alcohol Use History / Comment(s): Pt started smoking in 3. Past Drug Use History: None Reported - Past Family History Father Family Medical History: Unable to Obtain Mother Family Medical History: Unable to Obtain Medications and Allergies Home Medications Medication Instructions Recorded Confirmed Type Atorvastatin [Lipitor] 20 mg PO HS 06/11/16 07/13/18 History DULoxetine HCL [Cymbalta] 30 mg PO DAILY 09/01/16 07/13/18 History Famotidine [Pepcid] 20 mg PO BID 09/01/16 07/13/18 History Cholecalciferol [Vitamin D3 (25 1,000 unit PO DAILY 08/23/17 07/13/18 History Mcg = 1000 Iu)] ALPRAZolam [Xanax] 0.25 mg PO BID PRN 07/01/18 07/13/18 History HYDROcodone/APAP 5-325MG [[place] 1 tab PO TID PRN 07/01/18 07/13/18 History 5-325] Meclizine [Antivert] 12.5 mg PO TID PRN 07/01/18 07/13/18 History Warfarin [Coumadin] 2 mg PO HS 07/01/18 07/13/18 History Flecainide [Tambocor] 50 mg PO Q12HR tab 07/04/18 07/13/18 Rx Furosemide [Lasix] 20 mg PO DAILY #30 tab 07/04/18 07/13/18 Rx Losartan [Cozaar] 25 mg PO DAILY tab 07/04/18 07/13/18 Rx Metoprolol Tartrate [Lopressor] 12.5 mg PO BID #60 tab 07/04/18 07/13/18 Rx Spironolactone [Aldactone] 12.5 mg PO DAILY tab 07/04/18 07/13/18 Rx Allergies Allergy/AdvReac Type Severity Reaction Status Date / Time Penicillins Allergy Rash/Hives Verified 07/13/18 07:19 Physical Exam Vitals: Vital Signs Temp Pulse Pulse Resp BP BP Pulse Ox 07/13/18 06:37 16 07/13/18 05:30 97.8 F 72 16 96/52 98 05/25/19 04:30 70 18 97/53 98 07/13/18 04:00 70 16 99/62 98 07/13/18 03:31 70 18 104/62 97 07/13/18 03:00 70 24 101/57 94 L 07/13/18 02:30 70 25 H 99/52 97 07/13/18 01:35 97.9 F 64 20 92/42 98 Intake and Output 07/12/18 07/13/18 07/13/18 22:59 06:59 14:59 Output Total 0 0 Balance 0 0 Output: Urine 0 0 Other: Voiding Method Bedpan Incontinent Weight 73.6 kg GENERAL: This is a 88-year-old female in no apparent distress at the time of my examination. HEENT: Head is atraumatic, normocephalic. Pupils are equal, round. Sclerae anicteric. Conjunctivae are clear. Mucous membranes of the mouth are moist. Neck is supple. There is no jugular venous distention. No carotid bruit is heard. LUNGS: Clear to auscultation no wheezes, rales or rhonchi. No chest wall tenderness is noted on palpation or with deep breathing. HEART: S1 and S2 irregularly IRegular rate and rhythm systolic murmur is heard . ABDOMEN: Soft, nontender. Bowel sounds are heard. No organomegaly noted. EXTREMITIES: 1+ bilateral lower extremity edema. Left lower extremity erythema. No calf tenderness noted. VASCULAR: Radial and dorsalis pedis pulses palpated, no evidence of clubbing. NEUROLOGIC: Patient is awake, alert and oriented x2. Episodes of confusion about current events. Results 07/13/18 01:47 07/13/18 01:47 Cardiac Enzymes 07/13/18 07/13/18 Range/Units 01:47 01:47 AST 72 H (14-36) U/L Troponin I <0.012 (0.000-0.034) ng/mL Coagulation 07/13/18 Range/Units 01:47 PT 68.7 H (9.0-12.0) sec APTT 36.7 H (22.0-30.0) sec CBC 07/13/18 Range/Units 01:47 WBC 8.9 (3.8-10.6) k/uL RBC 3.87 (3.80-5.40) m/uL Hgb 12.4 (11.4-16.0) gm/dL Hct 39.3 (34.0-46.0) % Plt Count 266 (150-450) k/uL Comprehensive Metabolic Panel 07/13/18 Range/Units 01:47 Sodium 129 L (137-145) mmol/L Potassium 5.0 (3.5-5.1) mmol/L Chloride 93 L (98-107) mmol/L Carbon Dioxide 26 (22-30) mmol/L BUN 55 H (7-17) mg/dL Creatinine 1.66 H (0.52-1.04) mg/dL Glucose 93 (74-99) mg/dL Calcium 9.2 (8.4-10.2) mg/dL AST 72 H (14-36) U/L ALT 66 H (9-52) U/L Alkaline Phosphatase 86 (38-126) U/L Total Protein 6.4 (6.3-8.2) g/dL Albumin 3.7 (3.5-5.0) g/dL Current Medications Generic Name Dose Route Start Last Admin Trade Name Freq PRN Reason Stop Dose Admin Atorvastatin Calcium 20 mg 07/13/18 21:00 Lipitor PO HS DANISHA Famotidine 20 mg 07/13/18 09:00 Pepcid PO DAILY DANISHA Furosemide 40 mg 07/13/18 09:00 Lasix IV DAILY [facility] Miscellaneous Information 1 each 07/13/18 07:08 Coumadin Per Pharmacy MISCELLANE DIRECTED PRN Per Protocol Sodium Chloride 10 ml 07/13/18 09:00 Saline Flush IV BID [facility] Warfarin Sodium 0 mg 07/13/18 18:00 Coumadin PO 07/13/18 18:01 ONCE ONE Intake and Output 07/12/18 07/13/18 07/13/18 22:59 06:59 14:59 Output Total 0 0 Balance 0 0 Output: Urine 0 0 Other: Voiding Method Bedpan Incontinent Weight 73.6 kg 07/13/18 01:47 07/13/18 01:47 EKG Interpretations (text) EKG shows a ventricular paced rhythm. Assessment and Plan Plan: Assessment and plan #1 Acute on chronic diastolic heart failure #2 Acute on chronic kidney injury #3 Hypertension #4 Dyslipidemia #5 Coronary artery disease status post stent placement to the mid LAD in 2004 #6 Paroxysmal atrial fibrillation on long-term anticoagulation with Coumadin. INR 7.1 on admission. Maintained on flecainide. #7 Permanent pacemaker implantation secondary to symptomatically bradycardia with evidence of high degree AV block and underlying left bundle-branch block with left axis deviation. #8 mild dementia #9 hyponatremia #10 severe mitral regurg with moderate mitral stenosis Plan Patient just had an echocardiogram with Doppler study performed on the 13 of this month which revealed a normal ejection fraction, severe mitral regurgitation mild to moderate nature stenosis with moderate tricuspid regurgitation so we will not repeat an echo on this admission. We will continue her Lasix for 24 hours watching her BUN and creatinine closely, consider changing over to oral diuretics in the morning. Hold her Coumadin and monitor daily INRs. Further recommendations to follow. DNP note has been reviewed, I agree with a documented findings and plan of care. Patient was seen and examined.
[2018-07-13] MEDS ORDERED: FAMOTIDINE 20 MG TAB PO SCH (09:00)
[2018-07-13] MEDS: FUROSEMIDE 10 MG/ML 4 ML VIAL IV SCH (09:29)
[2018-07-13 10:58] VITALS: BMI 30.7
[2018-07-13] MEDS ORDERED: HYDROcodone/APAP 5-325MG 1 EACH TAB PO PRN (14:38)
[2018-07-13] MEDS ORDERED: ALPRAZolam 0.25 MG TAB PO PRN (14:38)
[2018-07-13] MEDS ORDERED: NALOXONE 0.4 MG/ML 1 ML VIAL IV PRN (14:40)
[2018-07-13] MEDS ORDERED: ACETAMINOPHEN TAB 325 MG TAB PO PRN (14:46)
[2018-07-13] MEDS ORDERED: WARFARIN 0.5 MG TAB PO ONE (18:00)
[2018-07-13] MEDS: ATORVASTATIN 20 MG TAB PO SCH (20:36)
[2018-07-13] MEDS ORDERED: WARFARIN 2 MG TAB PO SCH (21:00)
[2018-07-14] MEDS: MAG HYDROX/AL HYDROX/SIMETH 30 ML CUP PO PRN ×2 (00:31→11:31)
[2018-07-14] MEDS: PANTOPRAZOLE 40 MG TABLET PO SCH ×3 (00:31→16:10)
[2018-07-14 06:24] LABS: Calcium 8.7 mg/dL (8.4-10.2); Potassium 4.1 mmol/L (3.5-5.1)
[2018-07-14 06:30] LABS: INR 3.1 (<1.2); Prothrombin Time 29.5 sec (9.0-12.0)
[2018-07-14] MEDS: DULoxetine HCL 30 MG CAPSULE.DR PO SCH (08:53)
[2018-07-14] MEDS: FUROSEMIDE 10 MG/ML 4 ML VIAL IV SCH (08:53)
--- NOTE | 2018-07-14 13:23 | P.PN ---
Subjective Progress Note Date: 07/14/18 Principal diagnosis: CHF secondary to diastolic dysfunction This is an 88-year-old female patient with known chronic atrial fibrillation, chronic diastolic congestive heart failure, hypertension, dyslipidemia, CAD and prior coronary revascularization, who was admitted to the hospital with difficulty in breathing associated was lower extremities edema and was diagnosed was congestive heart failure exacerbation secondary to diastole dysfunction. On follow-up with the patient today, 07/14/2018, she seems to be slightly confused. She still have bilateral lower extremities pitting edema. She continues to be on Lasix IV. The creatinine is 1.3 which is slightly down from yesterday. Objective - Vital Signs Vital signs: Vital Signs Temp 97.7 F 07/14/18 11:14 Pulse 70 07/14/18 11:14 Resp 20 07/14/18 11:14 BP 107/56 07/14/18 11:14 Pulse Ox 99 07/14/18 11:14 Intake & Output 07/13/18 07/14/18 07/14/18 18:59 06:59 18:59 Intake Total 440 100 Output Total 0 0 Balance 440 100 Weight 73.6 kg 72.1 kg Intake: Oral 440 100 Output: Urine 0 0 Other: Voiding Method Toilet Toilet Toilet Incontinent Incontinent Incontinent # Voids 1 1 1 - Constitutional General appearance: Present: no acute distress - Respiratory Respiratory: bilateral: diminished - Cardiovascular Rhythm: regular Heart sounds: normal: S2 - Labs CBC & Chem 7: 07/13/18 01:47 07/14/18 05:36 Labs: Abnormal Lab Results - Last 24 Hours (Table) 07/14/18 07/14/18 Range/Units 05:36 05:36 PT 29.5 H (9.0-12.0) sec INR 3.1 H (<1.2) Sodium 133 L (137-145) mmol/L Chloride 97 L (98-107) mmol/L BUN 45 H (7-17) mg/dL Creatinine 1.31 H (0.52-1.04) mg/dL Glucose 110 H (74-99) mg/dL Assessment and Plan Assessment: Assessment #1 congestive heart failure exacerbation secondary to diastolic dysfunction, acute on chronic #2 chronic kidney disease seems to be stable #3 coronary artery disease and status post revascularization #4 chronic atrial fibrillation #5 status post permanent pacemaker implantation Plan #1 I recommended continued IV Lasix for additional 24 hours #2 continue monitor the kidney function and electrolytes #3 follow-up with the patient
--- NOTE | 2018-07-14 13:26 | P.PN ---
Subjective Progress Note Date: 07/14/18 Principal diagnosis: shortness of breath patient was seen and examined. No acute events overnight. Patient denies any complaints today. She denies any chest pain, shortness of breath or palpitations. Patient is unsure of the events that led her to be here. Apparently she was sent here for hypoxemia into the low 70s despite nasal cannula with labored breathing. Objective - Vital Signs Vital signs: Vital Signs Temp 97.7 F 07/14/18 11:14 Pulse 70 07/14/18 11:14 Resp 20 07/14/18 11:14 BP 107/56 07/14/18 11:14 Pulse Ox 99 07/14/18 11:14 Intake & Output 07/13/18 07/14/18 07/14/18 18:59 06:59 18:59 Intake Total 440 100 Output Total 0 0 Balance 440 100 Weight 73.6 kg 72.1 kg Intake: Oral 440 100 Output: Urine 0 0 Other: Voiding Method Toilet Toilet Toilet Incontinent Incontinent Incontinent # Voids 1 1 1 - Exam General: [non toxic], [no distress], [appears at stated age] Derm: [warm], [dry] Head: [atraumatic], [normocephalic], [symmetric] Eyes: [EOMI], [no lid lag], [anicteric sclera] Mouth: [no lip lesion], [mucus membranes moist] Cardiovascular: [S1S2 reg], [no murmur], [positive DP pulse bilateral] Lungs: [CTA bilateral], [no rhonchi, no rales] , [no accessory muscle use] Abdominal: [soft], [ nontender to palpation], [no guarding], [no appreciable organomegaly] Ext: [no gross muscle atrophy], [2+ lower extremity edema], [no contractures] Neuro: [no focal neuro deficits] Psych: [Alert], [oriented], [appropriate affect] - Labs CBC & Chem 7: 07/13/18 01:47 07/14/18 05:36 Labs: Abnormal Lab Results - Last 24 Hours (Table) 07/14/18 07/14/18 Range/Units 05:36 05:36 PT 29.5 H (9.0-12.0) sec INR 3.1 H (<1.2) Sodium 133 L (137-145) mmol/L Chloride 97 L (98-107) mmol/L BUN 45 H (7-17) mg/dL Creatinine 1.31 H (0.52-1.04) mg/dL Glucose 110 H (74-99) mg/dL Assessment and Plan Assessment: Assessment and Plan Acute diastolic CHF exacerbation Acute kidney injury Hyponatremia Hyperlipidemia Atrial fibrillation, paroxysmal CAD was stent placement and pacemaker Obesity BNP [id number], Echocardiogram last admission shows EF 55-60% with mild concentric LVH. Plans: Continue Lasix 40 mg IV daily. Holding Aldactone, losartan and metoprolol due to hypotension. Reintroduce antihypertensive medications in a stepwise fashion per cardiology recommendations. Strict intake and output. Daily weights. Telemetry monitoring. K greater than 4 and magnesium greater than 2. Follow cardiology recommendations. Creatinine 1.66 to 1.31. Likely dehydration from Lasix. Plan: Encourage hydration by mouth. Avoid nephrotoxins. Daily BMP. Hold Losartan and Aldactone. Sodium 129-133. 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 Slowly improving. Plan: Fluid restriction. Daily BMP. Lipid panel from September 2016 shows total cholesterol of 97, LDL 41. Plan: Continue Lipitor. Stable. INR 7.1-3.1, supratherapeutic. Plan: Restart flecainide 50 mg by mouth twice a day. Restart metoprolol as per cardiology recommendations. Coumadin for anticoagulation, pharmacy to dose. Daily INR. Follow cardiology consultation. Stable. Plan: Continue Lipitor. Restart beta susan when appropriate. Follow Cardiology consultation. BMI 30. Plan: Structured weight loss program. DVT prophylaxis: [Coumadin] Discussed with: [patient] Anticipated discharge: [ 1-2 days] Anticipated discharge place: [skilled nursing] A total of [30] minutes was spent on the care of this complex patient more than 50% of the time was spent in counseling and care coordination. Patient admitted for CHF exacerbation, IV diuresis, cardiology on board. She is pending clinical improvement.
[2018-07-14] MEDS ORDERED: WARFARIN 2 MG TAB PO ONE (18:00)
[2018-07-14] MEDS: ATORVASTATIN 20 MG TAB PO SCH (19:57)
[2018-07-14] MEDS: FLECAINIDE 50 MG TAB PO SCH (19:57)
[2018-07-15] MEDS: PANTOPRAZOLE 40 MG TABLET PO SCH ×2 (06:27→16:57)
[2018-07-15 07:04] LABS: INR 3.2 (<1.2); Prothrombin Time 30.4 sec (9.0-12.0)
[2018-07-15 07:12] LABS: Calcium 9.1 mg/dL (8.4-10.2); Potassium 4.8 mmol/L (3.5-5.1)
[2018-07-15 07:19] LABS: Anisocytosis Slight; Basophils % (A) 0 %; Eosinophils # (A) 0.2 k/uL (0-0.7); Eosinophils % (A) 2 %; HCT 41.9 % (34.0-46.0); HGB 13.2 gm/dL (11.4-16.0); Hypochromasia Slight; Lymphocytes % (A) 12 %; MCH 32.7 pg (25.0-35.0); MCHC 31.5 g/dL (31.0-37.0); MCV 103.7 fL (80.0-100.0); Macrocytosis Moderate; Mean Platelet Volume 8.2; Monocytes # (A) 0.6 k/uL (0-1.0); Monocytes % (A) 7 %; Neutrophils # (A) 6.6 k/uL (1.3-7.7); Neutrophils % (A) 77 %; Platelet Count 252 k/uL (150-450); Poikilocytosis Slight; RBC 4.04 m/uL (3.80-5.40); WBC 8.5 k/uL (3.8-10.6)
[2018-07-15] MEDS: FUROSEMIDE 10 MG/ML 4 ML VIAL IV SCH (08:24)
[2018-07-15] MEDS: FLECAINIDE 50 MG TAB PO SCH ×2 (08:24→19:51)
[2018-07-15] MEDS: DULoxetine HCL 30 MG CAPSULE.DR PO SCH (08:24)
--- NOTE | 2018-07-15 12:41 | P.PN ---
Subjective Progress Note Date: 07/15/18 Principal diagnosis: CHF secondary to diastolic dysfunction This is an 88-year-old female patient with known chronic atrial fibrillation, chronic diastolic congestive heart failure, hypertension, dyslipidemia, CAD and prior coronary revascularization, who was admitted to the hospital with difficulty in breathing associated was lower extremities edema and was diagnosed was congestive heart failure exacerbation secondary to diastole dysfunction. On follow-up with the patient today, 07/15/2018, the patient seems to be asymptomatic and she is a stable clinically. She denies any chest pain or discomfort or shortness of breath. The creatinine continues to be stable. I did recommend the patient to stay on IV Lasix today and change her to by mouth Lasix tomorrow for possible discharge to extended care facility. Objective - Vital Signs Vital signs: Vital Signs Temp 97.5 F L 07/15/18 08:20 Pulse 73 07/15/18 08:20 Resp 18 07/15/18 08:20 BP 128/61 07/15/18 08:20 Pulse Ox 99 07/15/18 08:20 Intake & Output 07/14/18 07/15/18 07/15/18 18:59 06:59 18:59 Intake Total 300 810 480 Output Total 0 400 Balance 300 410 480 Weight 71.4 kg Intake: IV 10 Invasive Line 2 10 Oral 300 800 480 Output: Urine 0 400 Other: Voiding Method Toilet Toilet Toilet Incontinent Incontinent Incontinent # Voids 2 1 - Constitutional General appearance: Present: no acute distress - Respiratory Respiratory: bilateral: CTA - Cardiovascular Rhythm: irregularly irregular Heart sounds: normal: S1, S2 - Labs CBC & Chem 7: 07/15/18 05:42 07/15/18 05:42 Labs: Abnormal Lab Results - Last 24 Hours (Table) 07/15/18 07/15/18 07/15/18 Range/Units 05:42 05:42 05:42 MCV 103.7 H (80.0-100.0) fL RDW 20.0 H (11.5-15.5) % PT 30.4 H (9.0-12.0) sec INR 3.2 H (<1.2) Sodium 135 L (137-145) mmol/L Chloride 95 L (98-107) mmol/L Carbon Dioxide 33 H (22-30) mmol/L BUN 37 H (7-17) mg/dL Creatinine 1.09 H (0.52-1.04) mg/dL Glucose 121 H (74-99) mg/dL Assessment and Plan Assessment: Assessment #1 congestive heart failure exacerbation secondary to diastolic dysfunction, acute on chronic #2 chronic kidney disease seems to be stable #3 coronary artery disease and status post revascularization #4 chronic atrial fibrillation #5 status post permanent pacemaker implantation Plan #1 I recommended continued IV Lasix for additional 24 hours and switch her to by mouth Lasix tomorrow #2 continue monitor the kidney function and electrolytes #3 follow-up with the patient
--- NOTE | 2018-07-15 15:07 | P.PN ---
Subjective Progress Note Date: 07/15/18 (delayed charting seen at 0915) Principal diagnosis: low oxygen levels Patient's 88-year-old female past medical history of diastolic congestive heart failure, coronary artery disease, and paroxysmal A. fib along with advanced dementia who presented to the ER from [facility] for hypoxia and difficulty in breathing. Patient was hospitalized here from 07/01/18 through for acute exacerbation of CHF. She was discharged to [facility]. On arrival to the ER here she was found to be satting 98% on room air but her blood pressure was slightly low at 92/42. Initial laboratory analysis showed an elevated INR at 7.1, hyponatremia with a sodium of 129, acute kidney injury with creatinine 1.66, and mildly elevated liver enzymes. Her BNP was found to be 13,500. Initial chest x-ray showed trace bilateral pleural effusions with vascular congestion. She was started on IV Lasix. Cardiology was consulted. Her Coumadin was held. Cardiology suggested continuing her IV Lasix. Her renal function and sodium improved with diuresis. Her INR improved with holding her Coumadin. Patient seen and examined at bedside. She is pleasantly confused. She knows she is at [facility]. She denies any chest pain or shortness of breath, nausea, vomiting, or constipation. Son arrived when I was in room. Discussed plan of care back to medical [place] tomorrow with Lasix and close follow-up. Objective - Vital Signs Vital signs: Vital Signs Temp 98 F 07/15/18 12:20 Pulse 70 07/15/18 12:20 Resp 18 07/15/18 12:20 BP 130/76 07/15/18 12:20 Pulse Ox 94 L 07/15/18 12:20 Intake & Output 07/14/18 07/15/18 07/15/18 18:59 06:59 18:59 Intake Total 300 810 960 Output Total 0 400 200 Balance 300 410 760 Weight 71.4 kg Intake: IV 10 Invasive Line 2 10 Oral 300 800 960 Output: Urine 0 400 200 Other: Voiding Method Toilet Toilet Toilet Incontinent Incontinent Incontinent # Voids 2 1 - Exam General: non toxic, no distress, appears at stated age Derm: warm, dry Head: atraumatic, normocephalic, symmetric Eyes: EOMI, no lid lag, anicteric sclera, [place] Mouth: no lip lesion, mucus membranes moist Cardiovascular: S1S2 reg, no murmur, positive posterior tibial pulse bilateral, Lungs:decreased bs b/l , no rhonchi, no rales , no accessory muscle use Abdominal: soft, nontender to palpation, no guarding, no appreciable organomegaly Ext: no gross muscle atrophy, 1+ edema, no contractures Neuro: CN II-XI grossly intact, no focal neuro deficits Psych: Alert, oriented to place, pleasant - Labs CBC & Chem 7: 07/15/18 05:42 07/15/18 05:42 Labs: Abnormal Lab Results - Last 24 Hours (Table) 07/15/18 07/15/18 07/15/18 Range/Units 05:42 05:42 05:42 MCV 103.7 H (80.0-100.0) fL RDW 20.0 H (11.5-15.5) % PT 30.4 H (9.0-12.0) sec INR 3.2 H (<1.2) Sodium 135 L (137-145) mmol/L Chloride 95 L (98-107) mmol/L Carbon Dioxide 33 H (22-30) mmol/L BUN 37 H (7-17) mg/dL Creatinine 1.09 H (0.52-1.04) mg/dL Glucose 121 H (74-99) mg/dL Assessment and Plan Assessment: Acute exacerbation of diastolic congestive heart failure with ejection fraction 55-60%, moderate pulmonary hypertension, severe mitral regurg -IV Lasix times additional 24 hours, then will change to oral Lasix -Resume home metoprolol 12.5 mg twice a day, continue to hold Cozaar secondary to marginal blood pressures, resume once blood pressure stabilized - aldactone on hold YEVGENIY due to cardio renal syndrome on CKD III baseline Cr 1.2 - improving - hold cozaar, aldactone Hyponatremia, due to CHF - Improving - continue diuresis - repeat in AM P. A fib with supratherapeutic INR - Flecanide, resume metoprolol - tele - Coumadin on hold, wll need to decrease to 0.5 mg daily on D/C with daily PT/INR for 3 days GERD - PPI HLD - Lipitor HX: CAD DVT prophylaxis:Coumadin Discussed with: Patient, cardio Anticipated discharge: in AM Anticipated discharge place: Return to [facility].. Son René to coordinate ride A total of 35 minutes was spent on the care of this complex patient more than 50% of the time was spent in counseling and care coordination.
[2018-07-15] MEDS ORDERED: WARFARIN 0.5 MG TAB PO ONE (18:00)
[2018-07-15 19:14] VITALS: RESP 18
[2018-07-15] MEDS: ATORVASTATIN 20 MG TAB PO SCH (19:51)
[2018-07-16 02:58] LABS: Total Bilirubin 1.7 mg/dL (0.2-1.3)
[2018-07-16 07:22] VITALS: TEMP 97.5
[2018-07-16 08:20] LABS: INR 2.6 (<1.2); Prothrombin Time 24.9 sec (9.0-12.0)
--- NOTE | 2018-07-16 08:23 | P.PN ---
Subjective Progress Note Date: 07/16/18 Principal diagnosis: CHF secondary to diastolic dysfunction This is an 88-year-old female patient with known chronic atrial fibrillation, chronic diastolic congestive heart failure, hypertension, dyslipidemia, CAD and prior coronary revascularization, who was admitted to the hospital with difficulty in breathing associated was lower extremities edema and was diagnosed was congestive heart failure exacerbation secondary to diastole dysfunction. On follow-up with the patient today, 07/16/2018, the patient seems to be asymptomatic and she is a stable clinically. She denies any chest pain or discomfort or shortness of breath. The creatinine continues to be stable. I am going to DC the Lasix IV and start the patient on Lasix by mouth. From the cardiovascular standpoint of view, the patient can be discharged home. Objective - Vital Signs Vital signs: Vital Signs Temp 97.5 F L 07/16/18 07:00 Pulse 70 07/16/18 07:49 Resp 18 07/16/18 07:49 BP 130/75 07/16/18 07:00 Pulse Ox 94 L 07/16/18 07:00 Intake & Output 07/15/18 07/16/18 07/16/18 18:59 06:59 18:59 Intake Total 960 420 Output Total 200 200 Balance 760 -200 420 Intake: Oral 960 420 Output: Urine 200 200 Other: Voiding Method Toilet Toilet Toilet Incontinent Incontinent Incontinent # Voids 1 - Constitutional General appearance: Present: no acute distress - Respiratory Respiratory: bilateral: CTA - Cardiovascular Rhythm: irregularly irregular Heart sounds: normal: S1, S2 - Labs CBC & Chem 7: 07/15/18 05:42 07/15/18 05:42 Labs: Abnormal Lab Results - Last 24 Hours (Table) 07/15/18 07/16/18 Range/Units 05:42 07:29 PT 24.9 H (9.0-12.0) sec INR 2.6 H (<1.2) Sodium 135 L (137-145) mmol/L Chloride 95 L (98-107) mmol/L Carbon Dioxide 33 H (22-30) mmol/L BUN 37 H (7-17) mg/dL Creatinine 1.09 H (0.52-1.04) mg/dL Glucose 121 H (74-99) mg/dL Total Bilirubin 1.7 H (0.2-1.3) mg/dL ALT 57 H (9-52) U/L Assessment and Plan Assessment: Assessment #1 congestive heart failure exacerbation secondary to diastolic dysfunction, acute on chronic #2 chronic kidney disease seems to be stable #3 coronary artery disease and status post revascularization #4 chronic atrial fibrillation #5 status post permanent pacemaker implantation Plan #1 DC Lasix IV and start the patient on Lasix by mouth #2 the patient can be discharged
[2018-07-16] MEDS: FLECAINIDE 50 MG TAB PO SCH (08:41)
[2018-07-16] MEDS: PANTOPRAZOLE 40 MG TABLET PO SCH (08:41)
[2018-07-16] MEDS: DULoxetine HCL 30 MG CAPSULE.DR PO SCH (08:41)
[2018-07-16] MEDS ORDERED: FUROSEMIDE 40 MG TAB PO SCH (09:00)
[2018-07-16 11:12] VITALS: BP 126/85; PULSE 71
--- NOTE | 2018-07-16 15:22 | P.DS ---
Providers Date of admission: 07/13/18 04:35 Expected date of discharge: 07/16/18 Attending physician: Alek Morfin MD Consults: 07/13/18 07:09 Consult Physician Routine Consulting Provider: Rommel Jarrett Consult Reason/Comments: CHF Do you want consulting provider notified?: Yes Primary care physician: [facility] Hospital Course: Discharge Diagnosis: Acute exacerbation of diastolic congestive heart failure with ejection fraction 55-60% Moderate pulmonary hypertension Severe mitral regurgitation Acute kidney injury due to cardiorenal syndrome with chronic kidney disease stage III Hyponatremia due to congestive heart failure Paroxysmal A. fib Supratherapeutic INR on arrival GERD Dyslipidemia Coronary artery disease Hospital Course: Patient is an 88-year-old female past medical history of diastolic congestive heart failure, coronary artery disease, and paroxysmal A. fib along with advanced dementia who presented to the ER from [facility] for hypoxia and difficulty in breathing. Patient was hospitalized here from 07/01/18 through 07/04/18 for acute exacerbation of CHF. She was discharged to [facility]. On arrival to the ER here she was found to be satting 98% on room air but her blood pressure was slightly low at 92/42. Initial laboratory analysis showed an elevated INR at 7.1, hyponatremia with a sodium of 129, acute kidney injury with creatinine 1.66, and mildly elevated liver enzymes. Her BNP was found to be 13,500. Initial chest x-ray showed trace bilateral pleural effusions with vascular congestion. She was started on IV Lasix. Cardiology was consulted. Her Coumadin was held. Cardiology suggested continuing her IV Lasix. Her renal function and sodium improved with diuresis. Her INR improved with holding her Coumadin. She continued to progress well and was determined stable for discharge. Her Coumadin was held multiple days during her admission. On discharge she'll continue on Lasix 40 mg twice daily as well as have the addition of potassium 10 equivalent daily. Her metoprolol, Cozaar, and Aldactone have been held secondary to marginal blood pressures. Her blood pressure improved and was remaining in the 120s prior to discharge. She will need close follow-up of her basic metabolic profile and I suggested a repeat one in 3 days. I suggest monitoring her PT/INR daily. Coumadin 1 mg tonight with repeat INR tomorrow. Patient seen and examined at bedside. States she is feeling fine. Denies any chest pain, shortness breath, nausea, vomiting, or significant lower extremity edema. Vital signs reviewed and stable. General: non toxic, no distress, appears at stated age Derm: warm, dry Head: atraumatic, normocephalic, symmetric Eyes: EOMI, no lid lag, anicteric sclera Mouth: no lip lesion, mucus membranes moist Cardiovascular: S1S2 reg, no murmur, positive posterior tibial pulse bilateral, Lungs: CTA bilateral, no rhonchi, no rales , no accessory muscle use Abdominal: soft, nontender to palpation, no guarding, no appreciable organomegaly Ext: no gross muscle atrophy, 1+ edema, no contractures Neuro: CN II-XI grossly intact, no focal neuro deficits Psych: Alert, oriented, appropriate affect A total of 25 minutes of time were spent preparing this complex discharge summary . Pertinent Studies: CXR- mild vascular congestion Patient Condition at Discharge: Stable Plan - Discharge Summary Discharge Rx Participant: No New Discharge Prescriptions: New Warfarin [Coumadin] 1 mg PO HS #10 tablet Potassium Chloride ER [K-Dur 10] 10 meq PO DAILY #10 tab Furosemide [Lasix] 40 mg PO BID@0900,1600 tab Continue Atorvastatin [Lipitor] 20 mg PO HS Famotidine [Pepcid] 20 mg PO BID DULoxetine HCL [Cymbalta] 30 mg PO DAILY Cholecalciferol [Vitamin D3 (25 Mcg = 1000 Iu)] 1,000 unit PO DAILY ALPRAZolam [Xanax] 0.25 mg PO BID PRN PRN Reason: Anxiety Flecainide [Tambocor] 50 mg PO Q12HR tab Discontinued Warfarin [Coumadin] 2 mg PO HS Meclizine [Antivert] 12.5 mg PO TID PRN PRN Reason: Vertigo HYDROcodone/APAP 5-325MG [[place] 5-325] 1 tab PO TID PRN PRN Reason: Pain Spironolactone [Aldactone] 12.5 mg PO DAILY tab Losartan [Cozaar] 25 mg PO DAILY tab Metoprolol Tartrate [Lopressor] 12.5 mg PO BID #60 tab Furosemide [Lasix] 20 mg PO DAILY #30 tab Discharge Medication List Atorvastatin [Lipitor] 20 mg PO HS 06/11/16 [History] DULoxetine HCL [Cymbalta] 30 mg PO DAILY 09/01/16 [History] Famotidine [Pepcid] 20 mg PO BID 09/01/16 [History] Cholecalciferol [Vitamin D3 (25 Mcg = 1000 Iu)] 1,000 unit PO DAILY 08/23/17 [History] ALPRAZolam [Xanax] 0.25 mg PO BID PRN 07/01/18 [History] Flecainide [Tambocor] 50 mg PO Q12HR tab 07/04/18 [Rx] Furosemide [Lasix] 40 mg PO BID@0900,1600 tab 07/16/18 [Rx] Potassium Chloride ER [K-Dur 10] 10 meq PO DAILY #10 tab 07/16/18 [Rx] Warfarin [Coumadin] 1 mg PO HS #10 tablet 07/16/18 [Rx] Follow up Appointment(s)/Referral(s): Rachel Balbuena MD [STAFF PHYSICIAN] - 2 Weeks Walter Welch MD [STAFF PHYSICIAN] - 1-2 days Activity/Diet/Wound Care/Special Instructions: Diet: Sodium 2 gram, 1500 cc fluid restriction Activty: as tolerated Fall Precautions PT/INR in AM, coumadin 1mg 07/16. INR 7 on arrival and coumadin has been on hold in 3 days BMP DX: CKD COzaar, Metoprolol, and aldactone all discontinued due to low blood pressures. May need to be restarted if blood pressure continues to increase. Has been in 120s here off medications.
[2018-07-16] MEDS ORDERED: WARFARIN 2 MG TAB PO ONE (18:00)
== END 2018-07-16 15:35 ==
LOC: EC 01:34 → 3SCARD 04:35 → UNDOADMIN 04:35 → EC 05:06 → 1SOBS 07-15 15:13
PROVIDERS: ADMIT Internal Medicine; ATTEND Internal Medicine
DX: I13.0 Hypertensive heart and chronic kidney disease with heart failure and stage 1 through stage 4 chronic kidney disease, or unspecified chronic kidney disease (principal); E66.9 Obesity, unspecified; Z68.30 Body mass index [BMI] 30.0-30.9, adult; E78.5 Hyperlipidemia, unspecified; I50.33 Acute on chronic diastolic (congestive) heart failure; N18.3 Chronic kidney disease, stage 3 (moderate); I48.2 Chronic atrial fibrillation; J96.01 Acute respiratory failure with hypoxia; N17.9 Acute kidney failure, unspecified; K21.9 Gastro-esophageal reflux disease without esophagitis; F03.90 Unspecified dementia, unspecified severity, without behavioral disturbance, psychotic disturbance, mood disturbance, and anxiety; F17.200 Nicotine dependence, unspecified, uncomplicated; E87.1 Hypo-osmolality and hyponatremia; I27.20 Pulmonary hypertension, unspecified; I25.10 Atherosclerotic heart disease of native coronary artery without angina pectoris; Z95.5 Presence of coronary angioplasty implant and graft; F41.9 Anxiety disorder, unspecified; H91.90 Unspecified hearing loss, unspecified ear; I05.2 Rheumatic mitral stenosis with insufficiency; I44.30 Unspecified atrioventricular block; K76.1 Chronic passive congestion of liver; R79.1 Abnormal coagulation profile; Z66 Do not resuscitate; Z79.01 Long term (current) use of anticoagulants; Z79.899 Other long term (current) drug therapy; Z95.0 Presence of cardiac pacemaker; Z71.3 Dietary counseling and surveillance
CPT/HCPCS: 96374; 96375 ×2; 99285; 36415; 93005; 97161; 83880; 80053; 80048 ×2; 82247; 83735; 84450; 84460; 84484 ×2; 85025 ×2; 85610 ×4; 85730; 81003; 71046; G0378 ×5; J1940 ×3

== ENCOUNTER 2018-08-14 01:54 | Inpatient (IN) | payer MEDICARE, BC ==
[2018-08-14 06:54] LABS: Appearance,Urine Clear (Clear); Bilirubin,Urine Negative (Negative); Blood,Urine Negative (Negative); Color,Urine Yellow; Glucose,Urine (UA) Negative (Negative); Ketones,Urine Negative (Negative); Leukocyte Esterase,Urine Negative (Negative); Nitrite,Urine Negative (Negative); Protein,Urine Negative (Negative); Specific Gravity,Urine 1.036 (1.001-1.035); Urobilinogen,Urine <2.0 mg/dL (<2.0)
[2018-08-14 07:10] LABS: Creatine Kinase 39 U/L (30-135); Troponin I <0.012 ng/mL (0.000-0.034)
[2018-08-14 07:11] LABS: Albumin 3.5 g/dL (3.5-5.0); Calcium 8.6 mg/dL (8.4-10.2); Potassium 4.7 mmol/L (3.5-5.1); Total Protein 6.4 g/dL (6.3-8.2)
[2018-08-14 07:16] LABS: Anisocytosis Slight; Basophils % (A) 0 %; Eosinophils # (A) 0.1 k/uL (0-0.7); Eosinophils % (A) 1 %; HCT 30.5 % (34.0-46.0); Hypochromasia Slight; Lymphocytes # (A) 1.1 k/uL (1.0-4.8); Lymphocytes % (A) 11 %; MCH 31.9 pg (25.0-35.0); MCHC 30.9 g/dL (31.0-37.0); MCV 103.2 fL (80.0-100.0); Macrocytosis Moderate; Mean Platelet Volume 7.9; Monocytes # (A) 0.5 k/uL (0-1.0); Monocytes % (A) 5 %; Neutrophils # (A) 8.1 k/uL (1.3-7.7); Neutrophils % (A) 81 %; Platelet Count 205 k/uL (150-450); RBC 2.95 m/uL (3.80-5.40); RDW 18.7 % (11.5-15.5); WBC 9.9 k/uL (3.8-10.6)
[2018-08-14 07:18] LABS: HGB 9.4 gm/dL (11.4-16.0); INR 1.7 (<1.2); Prothrombin Time 16.9 sec (9.0-12.0)
[2018-08-14 07:19] LABS: Partial Thromboplastin Time 20.7 sec (22.0-30.0)
[2018-08-14] MEDS ORDERED: ACETAMINOPHEN TAB 325 MG TAB PO PRN (09:57)
[2018-08-14] MEDS ORDERED: NALOXONE 0.4 MG/ML 1 ML VIAL IV PRN (09:57)
[2018-08-14] MEDS ORDERED: MORPHINE SULFATE 4 MG/ML SYRINGE IV PRN (09:57)
[2018-08-14] MEDS ORDERED: ALPRAZolam 0.25 MG TAB PO PRN (10:02)
--- NOTE | 2018-08-14 10:22 | XR ---
EXAM: XR Abdomen, 1 View CLINICAL HISTORY: vomiting, blood in stool TECHNIQUE: Frontal supine view of the abdomen/pelvis. COMPARISON: None FINDINGS: Hardware: None. Abdomen: Nonobstructive bowel gas pattern. Overall paucity of bowel gas. No definite free air. Bones: Scoliosis. Degenerative changes of the spine. Mild degenerative changes of the hips. Osteopenia. Soft tissues: Stent in the region of the right iliac artery. Lower chest: Small bilateral pleural effusions and associated atelectasis. IMPRESSION: Nonobstructive bowel gas pattern. Overall paucity of bowel gas. Small bilateral pleural effusions and associated atelectasis.
--- NOTE | 2018-08-14 10:23 | XR ---
EXAM: XR Chest, 2 Views CLINICAL HISTORY: chest pain TECHNIQUE: Frontal and lateral views of the chest. COMPARISON: None FINDINGS: Hardware: None. Lungs/pleura: Bibasilar opacities likely represent combination of pleural effusions and atelectasis. Pulmonary edema. Component of infectious/inflammatory process is not excluded. Heart/mediastinum: Enlargement of the cardiomediastinal silhouette. Left-sided pacemaker. Soft tissues: Unremarkable. Bones: No acute fracture. Degenerative changes of the acromioclavicular joints and spine. Upper abdomen: Normal. IMPRESSION: Bibasilar opacities likely represent combination of pleural effusions and atelectasis. Pulmonary edema. Component of infectious/inflammatory process is not excluded.
--- NOTE | 2018-08-14 10:23 | CT ---
EXAM: CT Angiography Chest Abdomen Without And With Intravenous Contrast CLINICAL HISTORY: Evaluate Mesenteric arteries, Aorta Pain. Bloody bowel movements TECHNIQUE: Axial computed tomographic angiography images of the Chest and abdomen without and with intravenous contrast. DLP is 1384.80 mGy-cm. This CT exam was performed using one or more of the following dose reduction techniques: automated exposure control, adjustment of the mA and/or kV according to patient size, and/or use of iterative reconstruction technique. MIP reconstructed images were created and reviewed. COMPARISON: Plain film examinations from same date without reports. No other priors. FINDINGS: There is artifact limiting evaluation. Atherosclerotic changes. The aorta nonaneurysmal. Right external iliac artery stenting. No intramural hematoma seen on noncontrast imaging. Motion limits evaluation of the ascending aorta. Areas of decreased attenuation have the appearance of artifact with areas of similar decreased attenuation in the adjacent pulmonary arteries. No dissection of the abdominal aorta. There is atherosclerotic changes of the visceral branches of the aorta. There is no occlusion of the proximal portions of the visceral branches including the mesenteric arteries. Cannot exclude occlusion/thrombosis of portions of more distal branches of visceral branches of the aorta which are not well opacified, though this could be related to technique. There is good perfusion of the imaged common iliac arteries and imaged external iliac arteries including the stented right external iliac artery. Branches of the internal iliac arteries with are within the resolution of this exam also appear perfused. No pneumatosis or portal venous gas. Cardiomegaly. Pacer. Moderate pleural effusions bilaterally. Bilateral lung opacity which is suspect represent combination of edema and atelectasis. Correlate clinically. Caliber central pulmonary arteries prominent which may reflect pulmonary arterial hypertension. No large central PE. Artifact does limit evaluation for peripheral PE. Diverticulosis. Colon is underdistended evaluation for mural thickening. Artifact also limits evaluation. Suspect some areas of pericolonic infiltration adjacent to the colon more convincing on the left with artifact limiting evaluation. Findings may represent diverticulitis or colitis. No evidence for appendicitis. Reflux contrast and IVC and hepatic veins can be seen with increased right heart pressure. Suspected cholelithiasis. Although artifact limits evaluation, no CT evidence for cholecystitis appreciated. Adrenal thickening/questionable nodularity on the left. Right renal cyst. Nonobstructive upper pole left renal calcification may represent nonobstructing stone. Osseous degenerative changes and spinal curvature. Transitional lumbosacral vertebra. Suspect endplate deformities chronic, possibly degenerative. IMPRESSION: Motion limits evaluation of the ascending aorta. Areas of decreased attenuation have the appearance of artifact with areas of similar decreased attenuation in the adjacent pulmonary arteries, no aortic dissection suspected though artifact does limit evaluation. There is atherosclerotic changes of the visceral branches of the aorta. There is no occlusion of the proximal portions of the visceral branches of the aorta including the mesenteric arteries. Cannot exclude occlusion/thrombosis of portions of more distal branches of visceral branches of the aorta which are not well opacified, though this could be related to technique. Findings suspicious for pulmonary edema with cardiomegaly pleural effusions, septal thickening and groundglass lung opacity. Correlate clinically. Diverticulosis. Colon is underdistended evaluation for mural thickening. Artifact also limits evaluation. Suspect some areas of pericolonic infiltration adjacent to the colon more convincing on the left with artifact limiting evaluation. Findings may represent diverticulitis or colitis. A component of ischemic colitis is not definitively excluded. No pneumatosis or portal venous gas. Additional incidental findings, as above.
[2018-08-14 12:04] LABS: Anisocytosis Slight; HCT 42.1 % (34.0-46.0); Hypochromasia Moderate; MCH 32.2 pg (25.0-35.0); MCHC 30.9 g/dL (31.0-37.0); MCV 104.2 fL (80.0-100.0); Macrocytosis Moderate; Mean Platelet Volume 8.4; Platelet Count 294 k/uL (150-450); RBC 4.04 m/uL (3.80-5.40); RDW 19.5 % (11.5-15.5); WBC 19.1 k/uL (3.8-10.6)
[2018-08-14] MEDS: METOPROLOL TARTRATE 25 MG TAB PO SCH ×2 (13:34→21:37)
[2018-08-14] MEDS: SPIRONOLACTONE 25 MG TAB PO SCH (13:34)
[2018-08-14] MEDS: LOSARTAN 25 MG TAB PO SCH (13:34)
[2018-08-14] MEDS: FLECAINIDE 50 MG TAB PO SCH ×2 (13:34→21:37)
[2018-08-14] MEDS: PANTOPRAZOLE 40 MG/10 ML VIAL IVP SCH (13:39)
[2018-08-14] MEDS: FUROSEMIDE 10 MG/ML 4 ML VIAL IV SCH (13:42)
--- NOTE | 2018-08-14 15:35 | P.HPIM ---
History of Present Illness H&P Date: 08/14/18 Chief Complaint: abdomainal pain Patient is an 88-year-old female with a past medical history of diastolic congestive heart failure with ejection fraction 55-60%, GERD, chronic kidney disease stage III, dyslipidemia, atrial fibrillation on chronic Coumadin, and dementia who presented to the emergency department with severe abdominal pain. Patient was seen and examined in the ER. On arrival she was found have dark blood in her diaper. Her fecal occult blood was positive. She was found to be anemic with hemoglobin of 9.4. She underwent a CT of the aorta which showed no evidence of dissection, she was also found to have pulmonary edema, cardiomegaly, pleural effusions, and groundglass lung opacities. There was also diverticulosis noted with some areas of pericolonic inflammation possibly representing diverticulitis, colitis, or ischemic colitis. KUB-nonobstructing bowel gas pattern. Chest a-[id number] edema. Her INR was slightly subtherapeutic at 1.7, creatinine 1.29 (about baseline), an elevated lactic acid at 2.9. She was started on IV fluids. Arrangements were made for admission. Patient seen and examined at bedside. She received morphine 2 hours earlier and she is minimally responsive. She does awake to sternal rub. She does not answer questions. Son present at bedside. He states that she is now living out [facility]. They're providing her with 3 meals a day and housekeeping services. He is doing her medications. He states she was doing well up until last night. She was unable to have bowel movements that on the toilet for 2 hours. He believes she might have had a syncopal event at that time. He reported dark stools. She had not been complaining of shortness of breath but did complain of abdominal pain and seemed extremely uncomfortable until receiving morphine. Review of Systems Unable to obtain due to advanced dementia ROS unobtainable: due to mental status Past Medical History Past Medical History: Coronary Artery Disease (CAD), Heart Failure, GERD/Reflux, Hyperlipidemia, Hypertension Additional Past Medical History / Comment(s): ulcers, diverticulitis, CKD III, A. fib, Pulm HTN, dementia History of Any Multi-Drug Resistant Organisms: None Reported Past Surgical History: Heart Catheterization With Stent, Pacemaker Additional Past Surgical History / Comment(s): sx for ruptered ulcer in 2012, pacer maker placement in May 2016 and changed generator on 09-04-16. Past Anesthesia/Blood Transfusion Reactions: No Reported Reaction Date of Last Stent Placement:: 1991 (?) Type of Cardiac Device: Permanent Pacemaker Device Placement Date:: Past Psychological History: Anxiety Smoking Status: Current every day smoker Past Alcohol Use History: Occasional Past Drug Use History: None Reported Additional History: Was at [employer], uses a walker, is provided with 3 me als a day, has someone who does laundry and cleans apartment, Son brings medication daily. - Past Family History Father Family Medical History: Unable to Obtain Mother Family Medical History: Unable to Obtain Medications and Allergies Home Medications Medication Instructions Recorded Confirmed Type Atorvastatin [Lipitor] 20 mg PO HS 06/11/16 08/14/18 History DULoxetine HCL [Cymbalta] 30 mg PO DAILY 09/01/16 08/14/18 History Cholecalciferol [Vitamin D3 (25 1,000 unit PO DAILY 08/23/17 08/14/18 History Mcg = 1000 Iu)] ALPRAZolam [Xanax] 0.25 mg PO BID PRN 07/01/18 08/14/18 History Flecainide [Tambocor] 50 mg PO Q12HR tab 07/04/18 08/14/18 Rx Furosemide [Lasix] 40 mg PO BID@0900,1600 tab 07/16/18 08/14/18 Rx Potassium Chloride ER [K-Dur 10] 10 meq PO DAILY #10 tab 07/16/18 08/14/18 Rx Collagenase [Santyl] 1 applic TOPICAL DAILY 08/14/18 08/14/18 History HYDROcodone/APAP 5-325MG [[place] 1 tab PO TID PRN 08/14/18 08/14/18 History 5-325] Losartan Potassium [Cozaar] 25 mg PO DAILY 08/14/18 08/14/18 History Metoprolol Tartrate [Lopressor] 25 mg PO BID 08/14/18 08/14/18 History Spironolactone [Aldactone] 25 mg PO DAILY 08/14/18 08/14/18 History Warfarin [Coumadin] 1 mg PO SUMOTUTHFRSA 08/14/18 08/14/18 History Warfarin [Coumadin] 2 mg PO WE 08/14/18 08/14/18 History Allergies Allergy/AdvReac Type Severity Reaction Status Date / Time Penicillins Allergy Rash/Hives Verified 07/13/18 07:19 Physical Exam Osteopathic Statement: *. No significant issues noted on an osteopathic structural exam other than those noted in the History and Physical/Consult. General: ill appearing , no distress, appears at stated age, normal weight Derm: no unusual rashes/lesions no unusual ecchymoses, warm, dry Head: atraumatic, normocephalic, symmetric Eyes: EOMI, no lid lag, anicteric sclera, pupils equal round reactive to light ENT: Nose and ears atraumatic, no thrush, no pharyngeal erythema Neck: No thyromegaly, no cervical lymphadenopathy, trachea midline, supple Mouth: no lip lesion, mucus membranes dry Cardiovascular: S1S2 reg, no murmur, no edema, capillary refill less than 2 seconds Lungs: Coarse breath sounds bilateral, no rhonchi, no rales , no accessory muscle use Abdominal: soft, nontender to palpation, no guarding, no appreciable organomegaly, normal bowel sounds Ext: no gross muscle atrophy, no tremors, no contractures, positive posterior tibial pulse/DP bilateral via doppler both feet dorsal aspect og toes 1-3 with dusky appearance legs cool to touch Neuro: CN II-XI grossly intact, moving all 4 extremities independently, unable to follow instructions for finger to nose within normal limits, Psych: Somnolent arouses to sternal rub or loud yell Results CBC & Chem 7: 08/14/18 10:20 08/14/18 02:46 Labs: Abnormal Lab Results - Last 24 Hours (Table) 08/14/18 08/14/18 08/14/18 Range/Units 02:46 02:46 02:46 RBC 2.95 L (3.80-5.40) m/uL Hgb 9.4 L D (11.4-16.0) gm/dL Hct 30.5 L (34.0-46.0) % MCV 103.2 H (80.0-100.0) fL MCHC 30.9 L (31.0-37.0) g/dL RDW 18.7 H (11.5-15.5) % Neutrophils # 8.1 H (1.3-7.7) k/uL PT 16.9 H (9.0-12.0) sec INR 1.7 H (<1.2) APTT 20.7 L (22.0-30.0) sec Sodium 135 L (137-145) mmol/L BUN 32 H (7-17) mg/dL Creatinine 1.29 H (0.52-1.04) mg/dL Glucose 169 H (74-99) mg/dL Plasma Lactic Acid Fermin (0.7-2.0) mmol/L Total Bilirubin 2.0 H (0.2-1.3) mg/dL AST 39 H (14-36) U/L Ur Specific [place] (1.001-1.035) Stool Occult Blood (Negative) 08/14/18 08/14/18 08/14/18 Range/Units 02:46 02:46 06:21 RBC (3.80-5.40) m/uL Hgb (11.4-16.0) gm/dL Hct (34.0-46.0) % MCV (80.0-100.0) fL MCHC (31.0-37.0) g/dL RDW (11.5-15.5) % Neutrophils # (1.3-7.7) k/uL PT (9.0-12.0) sec INR (<1.2) APTT (22.0-30.0) sec Sodium (137-145) mmol/L BUN (7-17) mg/dL Creatinine (0.52-1.04) mg/dL Glucose (74-99) mg/dL Plasma Lactic Acid Fermin 2.9 H* (0.7-2.0) mmol/L Total Bilirubin (0.2-1.3) mg/dL AST (14-36) U/L Ur Specific [place] 1.036 H (1.001-1.035) Stool Occult Blood Positive H (Negative) Chest x-ray: report reviewed CT scan - abdomen: report reviewed Thrombosis Risk Factor Assmnt - DVT/VTE Prophylaxis DVT/VTE Prophylaxis: Mechanical Prophylaxis ordered Assessment and Plan Assessment: GI bleed - suspect diverticular vs ischemic colitis - serial CBC - Consult GI - NPO - Rocephin and flagyl - pain control and antiemetics Anemia, secondary to acute blood loss -CBC every 6 hours -Check iron studies -Transfuse as needed Elevated lactic acid -Secondary to GI bleed -Limit IV fluids secondary to acute exacerbation as diastolic congestive heart failure -No signs of sepsis Acute exacerbation of diastolic congestive heart failure with ejection fraction 55-60%, pulmonary hypertension, and moderate mitral regurgitation -Lasix 40 mg IV daily, Aldactone -Cozaar, Lopressor -Strict I's and O's, daily weight A fib - flecanide, lopressor - hold coumadin due to GI bleed - Tele Toxic encephalopathy on top of dementia - safe and supportive care HLD - statin HTN, controlled - resume home medications - follow BP The patient is admitted with an anticipated greater than 2 midnight stay for evaluation of GI bleed. Surrogate decision-maker: Luis Eduardo Joaquín CODE STATUS:Full DVT prophylaxis: SCDs Discussed with: Son, nursing Anticipated discharge date: 2-[address]: SNF vs A total of 65 minutes was spent on the care of this complex patient more than 50% of the time was spent in counseling and care coordination.
[2018-08-14 16:35] LABS: Anisocytosis Slight; HGB 12.6 gm/dL (11.4-16.0); Hypochromasia Slight; MCH 32.2 pg (25.0-35.0); MCHC 31.6 g/dL (31.0-37.0); MCV 101.9 fL (80.0-100.0); Macrocytosis Moderate; Mean Platelet Volume 8.3; Platelet Count 257 k/uL (150-450); Poikilocytosis Slight; RBC 3.93 m/uL (3.80-5.40); RDW 19.7 % (11.5-15.5); WBC 20.6 k/uL (3.8-10.6)
[2018-08-14] MEDS: ATORVASTATIN 20 MG TAB PO SCH (21:37)
[2018-08-14] MEDS: metroNIDAZOLE 500 MG TAB PO SCH (21:37)
[2018-08-14 22:43] LABS: Anisocytosis Slight; HCT 36.2 % (34.0-46.0); HGB 11.6 gm/dL (11.4-16.0); Hypochromasia Slight; MCH 32.9 pg (25.0-35.0); MCHC 31.9 g/dL (31.0-37.0); MCV 102.9 fL (80.0-100.0); Macrocytosis Moderate; Mean Platelet Volume 7.6; Platelet Count 211 k/uL (150-450); RBC 3.52 m/uL (3.80-5.40); RDW 18.4 % (11.5-15.5); WBC 15.3 k/uL (3.8-10.6)
[2018-08-15] MEDS ORDERED: SODIUM CHLORIDE 0.9% 500 ML 250 ML IV ONE (00:01)
--- NOTE | 2018-08-15 04:19 | CT ---
INDICATION: Fall TECHNIQUE: CT acquisition is performed through the brain. Coronal and sagittal reformatted images are provided. No IV contrast is administered. DOSE INFORMATION: DLP 1099.4 mGy-cm. This CT exam was performed using one or more of the following dose reduction techniques: automated exposure control, adjustment of the mA and/or kV according to patient size, and/or use of iterative reconstruction technique. COMPARISON: CT head 08/23/17. FINDINGS: There is a stable 11 mm calcified extra-axial lesion along the midline posterior parieto-occipital convexity, most likely a calcified meningioma. There is generalized parenchymal volume loss with symmetric prominence of the sulci, ventricles, and basal cisterns. Patchy white matter hypoattenuation likely represents chronic small vessel ischemic disease. The rizvi-white matter differentiation is preserved. There is no evidence of acute intracranial hemorrhage or abnormal extra- axial fluid collection. There is no mass effect or midline shift. The visualized paranasal sinuses and mastoid air cells are clear. The calvarium is intact. IMPRESSION: 1. No CT evidence of acute intracranial process.
[2018-08-15 07:30] LABS: Anisocytosis Slight; HCT 34.4 % (34.0-46.0); HGB 10.7 gm/dL (11.4-16.0); Hypochromasia Slight; MCH 32.1 pg (25.0-35.0); MCV 103.4 fL (80.0-100.0); Macrocytosis Moderate; Mean Platelet Volume 7.8; Platelet Count 226 k/uL (150-450); RBC 3.33 m/uL (3.80-5.40); RDW 18.6 % (11.5-15.5); WBC 16.1 k/uL (3.8-10.6)
[2018-08-15 07:39] LABS: Prothrombin Time 19.7 sec (9.0-12.0)
[2018-08-15 07:42] LABS: Albumin 2.5 g/dL (3.5-5.0); Calcium 8.1 mg/dL (8.4-10.2); Magnesium 2.1 mg/dL (1.6-2.3); Phosphorus 5.7 mg/dL (2.5-4.5); Potassium 4.4 mmol/L (3.5-5.1); Total Bilirubin 1.1 mg/dL (0.2-1.3)
[2018-08-15] MEDS: FUROSEMIDE 10 MG/ML 4 ML VIAL IV SCH (08:51)
[2018-08-15] MEDS: PANTOPRAZOLE 40 MG/10 ML VIAL IVP SCH (08:51)
[2018-08-15] MEDS: METOPROLOL TARTRATE 25 MG TAB PO SCH ×2 (08:52→20:53)
[2018-08-15] MEDS: metroNIDAZOLE 500 MG TAB PO SCH ×2 (08:52→21:03)
[2018-08-15] MEDS: LOSARTAN 25 MG TAB PO SCH (08:52)
[2018-08-15] MEDS: SPIRONOLACTONE 25 MG TAB PO SCH (08:52)
[2018-08-15] MEDS: CHOLECALCIFEROL 1,000 UNIT TAB PO SCH (08:52)
[2018-08-15] MEDS: FLECAINIDE 50 MG TAB PO SCH ×2 (08:52→21:03)
[2018-08-15] MEDS: DULoxetine HCL 30 MG CAPSULE.DR PO SCH (08:52)
[2018-08-15] MEDS: COLLAGENASE 250 UNIT/GM OINTMENT 30 GM TUBE TOPICAL SCH (08:57)
--- NOTE | 2018-08-15 09:45 | XR ---
EXAMINATION TYPE: XR chest 1V DATE OF EXAM: 08/15/2018 COMPARISON: Prior chest x-ray 08/14/2018 HISTORY: Congestive heart failure TECHNIQUE: Single frontal view of the chest is obtained. FINDINGS: Prominence of the pulmonary arteries centrally, the interstitium similar to prior. Bibasil ar increased density is present, this blunting the costophrenic angles. No pneumothorax. Heart remain s enlarged. Pacemaker is stable. Distortion of proximal left humerus is again seen and likely due to remote trauma. IMPRESSION: Correlate for congestive heart failure. Follow-up recommended. There may be associated e ffusions. Pneumonia not excluded.
[2018-08-15 11:28] LABS: Iron Saturation 3.32 (12.00-45.00)
[2018-08-15 11:39] VITALS: BMI 30.1
--- NOTE | 2018-08-15 11:54 | P.CONS ---
History of Present Illness - Reason for Consult Consult date: 08/15/18 GI bleed Requesting physician: Karrie Riley - Chief Complaint Abdominal pain - History of Present Illness 88-year-old female history of multiple medical comorbidities such as diastolic congestive heart failure CKD GERD dyslipidemia atrial fibrillation maintained on warfarin dementia admitted with severe abdominal pain with maroon burgundy- colored bowel movements. CT abdomen and pelvis ruled out dissection. Features of pulmonary edema cardia megaly and pleural effusions. Colonic diverticulosis noted as well as pericolonic inflammation possibly representing diverticulitis colitis or ischemic colitis. Unsure as patient has had previous colonoscopy or EGD. Admission hemoglobin 9.4 MCV 103. Platelet 205. no blood transfusions current hemoglobin 10.7. White count 9.9 increased to 20.6 presently 16.1. INR on admission 1.7 presently 2.0. Warfarin on hold. FOBT positive. Lactic acid 2.9 with hydration 1.4. Nursing reports one small bowel movement last night that was burgundy-colored. No episodes of gross hematemesis or coffee-ground emesis. No melena. Review of Systems Obtained from medical records Constitutional: Denies fever, chills, sweats, weight gain, or loss. Dementia. HEENT: Negative for migraines, blurred vision or loss, earaches, drainage, tinnitus, oral mucosal lesions, dysphagia, or odynophagia. CARDIAC: Negative for chest pain, arrhythmias, or palpitation. RESPIRATORY: Negative for shortness of breath, hemoptysis, cough, or sputum production. GI: See HPI for pertinent findings. : Negative for hematuria, urgency, frequency, polyuria, or dysuria. GYNc: Denies possibility of . Negative vaginal discharge. MUSCULOSKELETAL: Negative for muscle aches, swelling, arthritis, and arthralgias. NEUROLOGIC: Negative for stroke or TIA. ENDOCRINE: Negative for thyroid problems. SKIN: Negative for rash or itching. PSYCHIATRIC: Negative history for depression and anxiety Past Medical History Past Medical History: Coronary Artery Disease (CAD), Heart Failure, GERD/Reflux, Hyperlipidemia, Hypertension Additional Past Medical History / Comment(s): ulcers, diverticulitis, CKD III, A. fib, Pulm HTN, dementia History of Any Multi-Drug Resistant Organisms: None Reported Past Surgical History: Heart Catheterization With Stent, Pacemaker Additional Past Surgical History / Comment(s): sx for ruptered ulcer in 2012, pacer maker placement in May 2016 and changed generator on 09-04-16. Past Anesthesia/Blood Transfusion Reactions: No Reported Reaction Date of Last Stent Placement:: 1991 (?) Type of Cardiac Device: Permanent Pacemaker Device Placement Date:: Past Psychological History: Anxiety Smoking Status: Current every day smoker Past Alcohol Use History: Occasional Past Drug Use History: None Reported - Past Family History Father History Unknown: Yes Family Medical History: Unable to Obtain Mother History Unknown: Yes Family Medical History: Unable to Obtain Medications and Allergies Home Medications Medication Instructions Recorded Confirmed Type Atorvastatin [Lipitor] 20 mg PO HS 06/11/16 08/14/18 History DULoxetine HCL [Cymbalta] 30 mg PO DAILY 09/01/16 08/14/18 History Cholecalciferol [Vitamin D3 (25 1,000 unit PO DAILY 08/23/17 08/14/18 History Mcg = 1000 Iu)] ALPRAZolam [Xanax] 0.25 mg PO BID PRN 07/01/18 08/14/18 History Flecainide [Tambocor] 50 mg PO Q12HR tab 07/04/18 08/14/18 Rx Furosemide [Lasix] 40 mg PO BID@0900,1600 tab 07/16/18 08/14/18 Rx Potassium Chloride ER [K-Dur 10] 10 meq PO DAILY #10 tab 07/16/18 08/14/18 Rx Collagenase [Santyl] 1 applic TOPICAL DAILY 08/14/18 08/14/18 History HYDROcodone/APAP 5-325MG [[place] 1 tab PO TID PRN 08/14/18 08/14/18 History 5-325] Losartan Potassium [Cozaar] 25 mg PO DAILY 08/14/18 08/14/18 History Metoprolol Tartrate [Lopressor] 25 mg PO BID 08/14/18 08/14/18 History Spironolactone [Aldactone] 25 mg PO DAILY 08/14/18 08/14/18 History Warfarin [Coumadin] 1 mg PO SUMOTUTHFRSA 08/14/18 08/14/18 History Warfarin [Coumadin] 2 mg PO WE 08/14/18 08/14/18 History Allergies Allergy/AdvReac Type Severity Reaction Status Date / Time Penicillins Allergy Rash/Hives Verified 07/13/18 07:19 Physical Exam Vitals: Vital Signs Temp Pulse Pulse Resp BP BP BP 08/15/18 08:00 97.5 F L 72 16 99/63 08/15/18 03:11 72 18 87/57 08/15/18 03:08 72 08/15/18 01:10 69 18 116/59 08/15/18 00:20 71 17 77/50 08/15/18 00:06 70 18 87/55 08/15/18 00:00 70 08/14/18 23:28 70 14 76/41 78/49 08/14/18 20:00 97.9 F 70 18 96/52 121/76 08/14/18 16:00 98.3 F 72 20 112/53 08/14/18 14:15 98.7 F 70 20 133/72 08/14/18 13:00 70 18 141/71 Pulse Ox 08/15/18 08:00 94 L 08/15/18 03:11 97 08/15/18 03:08 08/15/18 01:10 97 08/15/18 00:20 98 08/15/18 00:06 97 08/15/18 00:00 08/14/18 23:28 96 08/14/18 20:00 94 L 08/14/18 16:00 93 L 08/14/18 14:15 96 08/14/18 13:00 99 Intake and Output 08/14/18 08/15/18 08/15/18 22:59 06:59 14:59 Output Total 200 800 0 Balance -200 -800 0 Output: Urine 200 800 Stool 0 Other: Voiding Method Bedside Commode Bedside Commode Bedside Commode Incontinent Incontinent Incontinent # Voids 1 1 # Bowel Movements 1 1 Weight 72.3 kg 72.3 kg General appearance: The patient is alert, oriented, in no acute distress. HET: Head is normocephalic and atraumatic. Pupils are equal and reactive. Oropharynx is clear without lesions. Neck: Supple without lymphadenopathy. Trachea midline. Heart: S1 S2. Regular rate and rhythm. Lungs: No crackles or wheezes are heard. Abdomen: Soft, nontender, nondistended with bowel sounds. No peritoneal signs. No palpable organomegaly or masses. Extremities: Normal skin color and turgor. No cyanosis, rash, ulceration, clubbing, or edema. Radial and pedal pulses are 2/4 bilaterally. Neurological: Dementia moves all extremities. Results CBC & Chem 7: 08/15/18 06:51 08/15/18 06:51 Labs: Abnormal Lab Results - Last 24 Hours (Table) 08/14/18 08/14/18 08/14/18 Range/Units 10:20 13:27 16:20 WBC 19.1 H 20.6 H (3.8-10.6) k/uL RBC (3.80-5.40) m/uL Hgb (11.4-16.0) gm/dL MCV 104.2 H 101.9 H (80.0-100.0) fL MCHC 30.9 L (31.0-37.0) g/dL RDW 19.5 H 19.7 H (11.5-15.5) % PT (9.0-12.0) sec INR (<1.2) BUN (7-17) mg/dL Creatinine (0.52-1.04) mg/dL Plasma Lactic Acid Fermin 2.3 H* (0.7-2.0) mmol/L Calcium (8.4-10.2) mg/dL Phosphorus (2.5-4.5) mg/dL Iron (50-170) ug/dL Iron Saturation (12.00-45.00) Total Protein (6.3-8.2) g/dL Albumin (3.5-5.0) g/dL 08/14/18 08/15/18 08/15/18 Range/Units 22:25 06:51 06:51 WBC 15.3 H (3.8-10.6) k/uL RBC 3.52 L (3.80-5.40) m/uL Hgb (11.4-16.0) gm/dL MCV 102.9 H (80.0-100.0) fL MCHC (31.0-37.0) g/dL RDW 18.4 H (11.5-15.5) % PT 19.7 H (9.0-12.0) sec INR 2.0 H (<1.2) BUN (7-17) mg/dL Creatinine (0.52-1.04) mg/dL Plasma Lactic Acid Fermin (0.7-2.0) mmol/L Calcium (8.4-10.2) mg/dL Phosphorus (2.5-4.5) mg/dL Iron 10 L (50-170) ug/dL Iron Saturation 3.32 L (12.00-45.00) Total Protein (6.3-8.2) g/dL Albumin (3.5-5.0) g/dL 08/15/18 08/15/18 Range/Units 06:51 06:51 WBC 16.1 H (3.8-10.6) k/uL RBC 3.33 L (3.80-5.40) m/uL Hgb 10.7 L (11.4-16.0) gm/dL MCV 103.4 H (80.0-100.0) fL MCHC (31.0-37.0) g/dL RDW 18.6 H (11.5-15.5) % PT (9.0-12.0) sec INR (<1.2) BUN 42 H (7-17) mg/dL Creatinine 1.50 H (0.52-1.04) mg/dL Plasma Lactic Acid Fermin (0.7-2.0) mmol/L Calcium 8.1 L (8.4-10.2) mg/dL Phosphorus 5.7 H (2.5-4.5) mg/dL Iron (50-170) ug/dL Iron Saturation (12.00-45.00) Total Protein 5.0 L (6.3-8.2) g/dL Albumin 2.5 L (3.5-5.0) g/dL CT scan - abdomen: report reviewed (Dr. Clinton) Assessment and Plan (1) Acute GI bleeding Narrative/Plan: 88-year-old female presents with severe abdominal pain burgundy-colored rectal bleeding suspect ischemic colitis with a superimposed colonic diverticulitis. CT reported colonic diverticulosis underlying focal area of suspected colonic diverticulitis. Current Visit: Yes Status: Acute Code(s): K92.2 - GASTROINTESTINAL HEMORRHAGE, UNSPECIFIED SNOMED Code(s): 05898113 (2) Abdominal pain Current Visit: Yes Status: Acute Code(s): R10.9 - UNSPECIFIED ABDOMINAL PAIN SNOMED Code(s): 89573981 (3) Colon, diverticulosis Current Visit: Yes Status: Acute Code(s): K57.30 - DVRTCLOS OF LG INT W/O PERFORATION OR ABSCESS W/O BLEEDING SNOMED Code(s): 179627303 (4) Warfarin-induced coagulopathy Current Visit: Yes Status: Acute Code(s): D68.32 - HEMORRHAGIC DISORD D/T EXTRINSIC CIRCULATING ANTICOAGULANTS; T45.515A - ADVERSE EFFECT OF ANTICOAGULANTS, INITIAL ENCOUNTER SNOMED Code(s): 35032715 (5) Elevated lactic acid level Current Visit: Yes Status: Acute Code(s): R79.89 - OTHER SPECIFIED ABNORMAL FINDINGS OF BLOOD CHEMISTRY SNOMED Code(s): 7121008 (6) Macrocytosis Current Visit: Yes Status: Acute Code(s): D75.89 - OTHER SPECIFIED DISEASES OF BLOOD AND BLOOD-FORMING ORGANS SNOMED Code(s): 673557770 Plan: 1. Warfarin on hold. Daily monitoring of CBC BMP PT/INR. IV antibiotics. Light diet as tolerated. Inpatient endoscopic exams not planned at this time. We'll follow closely with you. Conservative measures recommended at this time. Thank you for this kind referral and the opportunity to participate in the care of your patient. This consultation was discussed with Dr. Clinton. The impression and plan of care have been directed as dictated.
--- NOTE | 2018-08-15 14:36 | P.PN ---
Subjective Progress Note Date: 08/15/18 Principal diagnosis: jacek is an 88-year-old female with a past medical history of diastolic congestive heart failure with ejection fraction 55-60%, GERD, chronic kidney disease stage III, dyslipidemia, atrial fibrillation on chronic Coumadin, and dementia who presented to the emergency department with severe abdominal pain. Patient was seen and examined in the ER. On arrival she was found have dark blood in her diaper. Her fecal occult blood was positive. She was found to be anemic with hemoglobin of 9.4. She underwent a CT of the aorta which showed no evidence of dissection, she was also found to have pulmonary edema, cardiomegaly, pleural effusions, and groundglass lung opacities. There was also diverticulosis noted with some areas of pericolonic inflammation possibly representing diverticulitis, colitis, or ischemic colitis. KUB-nonobstructing bowel gas pattern. Chest [id number] edema. Her INR was slightly subtherapeutic at 1.7, creatinine 1.29 (about baseline), an elevated lactic acid at 2.9. She was started on IV fluids. Arrangements were made for admission. Patient is seen and examined at bedside, reports being pretty weak and lightheaded at times and had difficulty ambulating on her own with a walker to the bed after using the bathroom, she had bright red blood clots in her diaper. Patient afebrile, white count up to 16.1. Hemoglobin 10.7. Creatinine 1.5. Objective - Vital Signs Vital signs: Vital Signs Temp 97.5 F L 08/15/18 08:00 Pulse 72 08/15/18 08:00 Resp 16 08/15/18 08:00 BP 99/63 08/15/18 08:00 Pulse Ox 94 L 08/15/18 08:00 Intake & Output 08/14/18 08/15/18 08/15/18 18:59 06:59 18:59 Intake Total 0 240 Output Total 200 800 0 Balance -200 -800 240 Weight 73.5 kg 72.3 kg 72.3 kg Intake: Oral 0 240 Output: Urine 200 800 Stool 0 Other: Voiding Method Bedside Commode Bedside Commode Bedside Commode Incontinent Incontinent Incontinent # Voids 1 1 1 # Bowel Movements 1 1 - Exam Constitutional: No acute distress, conversant, pleasant Eyes: Anicteric sclerae, moist conjunctiva, no lid-lag, PERRLA ENMT: NC/AT,Oropharynx clear, no erythema, exudates Neck:Supple, FROM, no masses, or JVD, No carotid bruits; No thyromegaly Lungs: Clear to auscultation, Clear to percussion, Normal respiratory effort, no accessory muscle use Cardiovascular: Heart regular in rate and rhythm, No murmurs, gallops, or rubs no peripheral edema Abdominal: Soft Nontender, nom distended, no guarding, no rebound or rigidity, Normoactive bowel sounds No hepatomegaly, No splenomegaly, No palpable mass No abdominal wall hernia noted Skin: Normal temperature, tone, texture, turgor, No induration No subcutaneous nodules, No rash, lesions, No ulcers Extremities:No digital cyanosis No clubbing, Pedal pulses intact and symmetrical Radial pulses intact and symmetrical Normal gait and station, No calf tenderness Psychiatric: Alert and oriented to person, place and time, Appropriate affect Intact judgement Neuro: Muscles Strength 5/5 in all 4 extremities, Sensation to light touch grossly present throughout, Cranial nerves II-XII grossly intact. No focal sensory deficits - Labs CBC & Chem 7: 08/15/18 06:51 08/15/18 06:51 Labs: Abnormal Lab Results - Last 24 Hours (Table) 08/14/18 08/14/18 08/15/18 Range/Units 16:20 22:25 06:51 WBC 20.6 H 15.3 H (3.8-10.6) k/uL RBC 3.52 L (3.80-5.40) m/uL Hgb (11.4-16.0) gm/dL MCV 101.9 H 102.9 H (80.0-100.0) fL RDW 19.7 H 18.4 H (11.5-15.5) % PT (9.0-12.0) sec INR (<1.2) BUN (7-17) mg/dL Creatinine (0.52-1.04) mg/dL Calcium (8.4-10.2) mg/dL Phosphorus (2.5-4.5) mg/dL Iron 10 L (50-170) ug/dL Iron Saturation 3.32 L (12.00-45.00) Total Protein (6.3-8.2) g/dL Albumin (3.5-5.0) g/dL 08/15/18 08/15/18 08/15/18 Range/Units 06:51 06:51 06:51 WBC 16.1 H (3.8-10.6) k/uL RBC 3.33 L (3.80-5.40) m/uL Hgb 10.7 L (11.4-16.0) gm/dL MCV 103.4 H (80.0-100.0) fL RDW 18.6 H (11.5-15.5) % PT 19.7 H (9.0-12.0) sec INR 2.0 H (<1.2) BUN 42 H (7-17) mg/dL Creatinine 1.50 H (0.52-1.04) mg/dL Calcium 8.1 L (8.4-10.2) mg/dL Phosphorus 5.7 H (2.5-4.5) mg/dL Iron (50-170) ug/dL Iron Saturation (12.00-45.00) Total Protein 5.0 L (6.3-8.2) g/dL Albumin 2.5 L (3.5-5.0) g/dL Assessment and Plan (1) Lower GI bleed Narrative/Plan: * Secondary to diverticular bleed due to possible diverticulitis versus ischemic colitis * Hemoglobin at 10.7 * GI recommendations appreciated * Continue to trend CBC every 8 hours Current Visit: Yes Status: Acute Code(s): K92.2 - GASTROINTESTINAL HEMORRHAGE, UNSPECIFIED SNOMED Code(s): 38044722 (2) Diverticular hemorrhage Current Visit: Yes Status: Acute Code(s): K57.31 - DVRTCLOS OF LG INT W/O PERFORATION OR ABSCESS W BLEEDING SNOMED Code(s): 483715126 (3) Chronic kidney disease, stage IV (severe) Current Visit: Yes Status: Acute Code(s): N18.4 - CHRONIC KIDNEY DISEASE, STAGE 4 (SEVERE) SNOMED Code(s): 446853994 (4) Paroxysmal A-fib Narrative/Plan: * INR 2.0, continue to hold Coumadin * We'll consult cardiology for further recommendations regarding anticoagulation Current Visit: Yes Status: Acute Code(s): I48.0 - PAROXYSMAL ATRIAL FIBRILLATION SNOMED Code(s): 781744010 (5) Diastolic CHF Narrative/Plan: * Stable without any acute exacerbation at this time * Continue Lasix, Cozaar, metoprolol Current Visit: Yes Status: Acute Code(s): I50.30 - UNSPECIFIED DIASTOLIC (CONGESTIVE) HEART FAILURE SNOMED Code(s): 001438569
[2018-08-15 17:33] LABS: Anisocytosis Slight; HCT 34.7 % (34.0-46.0); HGB 11.1 gm/dL (11.4-16.0); Hypochromasia Moderate; MCH 32.7 pg (25.0-35.0); MCHC 32.1 g/dL (31.0-37.0); MCV 101.9 fL (80.0-100.0); Macrocytosis Moderate; Mean Platelet Volume 8.5; Platelet Count 247 k/uL (150-450); Poikilocytosis Slight; RBC 3.41 m/uL (3.80-5.40); WBC 17.5 k/uL (3.8-10.6)
[2018-08-15] MEDS: ATORVASTATIN 20 MG TAB PO SCH (21:03)
[2018-08-16 01:04] LABS: Anisocytosis Slight; HCT 35.8 % (34.0-46.0); HGB 11.2 gm/dL (11.4-16.0); Hypochromasia Slight; MCH 32.1 pg (25.0-35.0); MCHC 31.2 g/dL (31.0-37.0); MCV 102.9 fL (80.0-100.0); Macrocytosis Moderate; Mean Platelet Volume 7.9; Platelet Count 232 k/uL (150-450); RBC 3.48 m/uL (3.80-5.40); RDW 18.4 % (11.5-15.5); WBC 14.6 k/uL (3.8-10.6)
[2018-08-16 06:42] LABS: Anisocytosis Slight; HCT 36.5 % (34.0-46.0); HGB 11.7 gm/dL (11.4-16.0); Hypochromasia Slight; MCH 32.3 pg (25.0-35.0); MCHC 32.1 g/dL (31.0-37.0); MCV 100.6 fL (80.0-100.0); Macrocytosis Moderate; Mean Platelet Volume 8.4; Platelet Count 212 k/uL (150-450); Poikilocytosis Slight; RBC 3.63 m/uL (3.80-5.40); RDW 19.4 % (11.5-15.5); WBC 13.9 k/uL (3.8-10.6)
[2018-08-16] MEDS: FUROSEMIDE 10 MG/ML 4 ML VIAL IV SCH (09:02)
[2018-08-16] MEDS: DULoxetine HCL 30 MG CAPSULE.DR PO SCH (09:02)
[2018-08-16] MEDS: metroNIDAZOLE 500 MG TAB PO SCH (09:02)
[2018-08-16] MEDS: CHOLECALCIFEROL 1,000 UNIT TAB PO SCH (09:02)
[2018-08-16] MEDS: PANTOPRAZOLE 40 MG/10 ML VIAL IVP SCH (09:02)
[2018-08-16] MEDS: METOPROLOL TARTRATE 25 MG TAB PO SCH (09:03)
[2018-08-16] MEDS: FLECAINIDE 50 MG TAB PO SCH (09:03)
[2018-08-16] MEDS: COLLAGENASE 250 UNIT/GM OINTMENT 30 GM TUBE TOPICAL SCH (09:12)
[2018-08-16] MEDS: LOSARTAN 25 MG TAB PO SCH (09:45)
[2018-08-16] MEDS: SPIRONOLACTONE 25 MG TAB PO SCH (09:46)
--- NOTE | 2018-08-16 10:07 | P.PN ---
Subjective Progress Note Date: 08/16/18 Principal diagnosis: Rectal bleeding 88-year-old female admitted with abdominal pain and rectal bleeding ischemic colitis versus colonic diverticular bleed. No further bloody bowel movements. Hemoglobin stable increased to 11.7 today. Afebrile. Objective - Vital Signs Vital signs: Vital Signs Temp 97.6 F 08/16/18 08:00 Pulse 70 08/16/18 08:00 Resp 14 08/16/18 08:00 BP 79/51 08/16/18 08:00 Pulse Ox 96 08/16/18 08:00 Intake & Output 08/15/18 08/16/18 08/16/18 18:59 06:59 18:59 Intake Total 360 240 Output Total 0 0 Balance 360 240 Weight 72.3 kg 72.8 kg Intake: Oral 360 240 Output: Stool 0 0 Other: Voiding Method Bedside Commode Bedside Commode Bedside Commode Incontinent Incontinent Incontinent # Voids 1 1 # Bowel Movements 1 1 - Exam General appearance: The patient is alert, dementia no acute distress. HET: Head is normocephalic and atraumatic. Pupils are equal and reactive. Oropharynx is clear without lesions. Neck: Supple without lymphadenopathy. Trachea midline. Heart: S1 S2. Regular rate and rhythm. Lungs: No crackles or wheezes are heard. Abdomen: Soft, nontender, nondistended with bowel sounds. No peritoneal signs. No palpable organomegaly or masses. Extremities: Normal skin color and turgor. No cyanosis, rash, ulceration, clubbing, or edema. Radial and pedal pulses are 2/4 bilaterally. Neurological: No focal deficits. Strength and sensation are grossly intact. - Labs CBC & Chem 7: 08/16/18 06:10 08/15/18 06:51 Labs: Abnormal Lab Results - Last 24 Hours (Table) 08/15/18 08/15/18 08/16/18 Range/Units 06:51 17:21 00:52 WBC 17.5 H 14.6 H (3.8-10.6) k/uL RBC 3.41 L 3.48 L (3.80-5.40) m/uL Hgb 11.1 L 11.2 L (11.4-16.0) gm/dL MCV 101.9 H 102.9 H (80.0-100.0) fL RDW 19.0 H 18.4 H (11.5-15.5) % Iron 10 L (50-170) ug/dL Iron Saturation 3.32 L (12.00-45.00) 08/16/18 Range/Units 06:10 WBC 13.9 H (3.8-10.6) k/uL RBC 3.63 L (3.80-5.40) m/uL Hgb (11.4-16.0) gm/dL MCV 100.6 H (80.0-100.0) fL RDW 19.4 H (11.5-15.5) % Iron (50-170) ug/dL Iron Saturation (12.00-45.00) Assessment and Plan (1) Acute GI bleeding Narrative/Plan: 88-year-old female presents with severe abdominal pain burgundy-colored rectal bleeding suspect ischemic colitis with a superimposed colonic diverticulitis. CT reported colonic diverticulosis underlying focal area of suspected colonic diverticulitis. Current Visit: Yes Status: Acute Code(s): K92.2 - GASTROINTESTINAL HEMORRHAGE, UNSPECIFIED SNOMED Code(s): 37774992 (2) Abdominal pain Current Visit: Yes Status: Acute Code(s): R10.9 - UNSPECIFIED ABDOMINAL PAIN SNOMED Code(s): 99423958 (3) Colon, diverticulosis Current Visit: Yes Status: Acute Code(s): K57.30 - DVRTCLOS OF LG INT W/O PERFORATION OR ABSCESS W/O BLEEDING SNOMED Code(s): 206491997 (4) Warfarin-induced coagulopathy Current Visit: Yes Status: Acute Code(s): D68.32 - HEMORRHAGIC DISORD D/T EXTRINSIC CIRCULATING ANTICOAGULANTS; T45.515A - ADVERSE EFFECT OF ANTICOAGULANTS, INITIAL ENCOUNTER SNOMED Code(s): 34255035 (5) Elevated lactic acid level Current Visit: Yes Status: Acute Code(s): R79.89 - OTHER SPECIFIED ABNORMAL FINDINGS OF BLOOD CHEMISTRY SNOMED Code(s): 3677845 (6) Macrocytosis Current Visit: Yes Status: Acute Code(s): D75.89 - OTHER SPECIFIED DISEASES OF BLOOD AND BLOOD-FORMING ORGANS SNOMED Code(s): 884768046 Plan: 1. Warfarin on hold. Daily monitoring of CBC BMP PT/INR. IV antibiotics. Light diet as tolerated. Inpatient endoscopic exams not planned at this time. We'll follow closely with you. Conservative measures recommended at this time. Assessment and plan care discussed with Dr. Trevino
[2018-08-16 11:10] VITALS: BP 90/45; PULSE 69; RESP 16; TEMP 97.7
--- NOTE | 2018-08-16 14:36 | P.DS ---
Providers Date of admission: 08/14/18 07:00 Expected date of discharge: 08/16/18 Attending physician: Alek Morfin MD Consults: 08/14/18 10:02 Consult Physician Routine Consulting Provider: Anatoly Clinton Consult Reason/Comments: GI bleed Do you want consulting provider notified?: Yes 08/15/18 14:30 Consult Physician Routine Consulting Provider: Rommel Jarrett Consult Reason/Comments: GI bleed on coumadin for afib Do you want consulting provider notified?: Yes Primary care physician: Van Syed - Discharge Diagnosis(es) (1) Lower GI bleed Current Visit: Yes Status: Acute (2) Diverticular hemorrhage Current Visit: Yes Status: Acute (3) Diverticulitis large intestine w/o perforation or abscess w/bleeding Current Visit: Yes Status: Acute (4) Diastolic CHF Current Visit: Yes Status: Acute (5) Paroxysmal A-fib Current Visit: Yes Status: Acute (6) Chronic kidney disease, stage IV (severe) Current Visit: Yes Status: Acute Hospital Course: Patient is an 88-year-old female with a past medical history of diastolic congestive heart failure with ejection fraction 55-60%, GERD, chronic kidney disease stage III, dyslipidemia, atrial fibrillation on chronic Coumadin, and dementia who presented to the emergency department with severe abdominal pain. Patient was seen and examined in the ER. On arrival she was found have dark blood in her diaper. Her fecal occult blood was positive. She was found to be anemic with hemoglobin of 9.4. She underwent a CT of the aorta which showed no evidence of dissection, she was also found to have pulmonary edema, cardiomegaly, pleural effusions, and groundglass lung opacities. There was also diverticulosis noted with some areas of pericolonic inflammation possibly representing diverticulitis, colitis, or ischemic colitis. KUB-nonobstructing bowel gas pattern. Chest x-dbp-vraivfsth edema. Her INR was slightly subtherapeutic at 1.7, creatinine 1.29 (about baseline), an elevated lactic acid at 2.9. She was started on IV fluids and admitted due to concern for lower GI bleed secondary to acute diverticulitis versus ischemic colitis, her hemoglobin stayed relatively stable and got as low as 10.7 but was 11.7 by the time she was discharged. She did not require any blood transfusions. She was started on empiric IV antibiotics with Flagyl and Rocephin for leukocytosis trended down and she remained afebrile. Due to her profound weakness and concern for being a fall risk and admission with GI bleed her Coumadin was stopped. Her INR range was 1.7 to 2 and did not require any reversal with vitamin K. She was noted to be in mild acute exacerbation of her diastolic CHF and was started on IV Lasix and was diuresed well and transitioned back to her home regimen of 40 mg PO BID. she was subsequently discharged tomorrow would in stable condition and instructed to follow up with her PCP. Focused exam Cardiovascular: Regular rate and rhythm, no murmurs or gallops, edema +1 GI : Soft nontender nondistended normoactive bowel sounds all quadrants Patient Condition at Discharge: Good Plan - Discharge Summary Discharge Rx Participant: Yes New Discharge Prescriptions: New metroNIDAZOLE [Flagyl] 500 mg PO AC-TID #21 tab Levofloxacin [Levaquin] 750 mg PO DAILY 7 Days #7 tab Continue Atorvastatin [Lipitor] 20 mg PO HS DULoxetine HCL [Cymbalta] 30 mg PO DAILY Cholecalciferol [Vitamin D3 (25 Mcg = 1000 Iu)] 1,000 unit PO DAILY ALPRAZolam [Xanax] 0.25 mg PO BID PRN PRN Reason: Anxiety Flecainide [Tambocor] 50 mg PO Q12HR tab Potassium Chloride ER [K-Dur 10] 10 meq PO DAILY #10 tab Furosemide [Lasix] 40 mg PO BID@0900,1600 tab Spironolactone [Aldactone] 25 mg PO DAILY Metoprolol Tartrate [Lopressor] 25 mg PO BID Losartan Potassium [Cozaar] 25 mg PO DAILY HYDROcodone/APAP 5-325MG [[place] 5-325] 1 tab PO TID PRN PRN Reason: Pain Collagenase [Santyl] 1 applic TOPICAL DAILY Discontinued Warfarin [Coumadin] 2 mg PO WE Warfarin [Coumadin] 1 mg PO SUMOTUTHFRSA Discharge Medication List Atorvastatin [Lipitor] 20 mg PO HS 06/11/16 [History] DULoxetine HCL [Cymbalta] 30 mg PO DAILY 09/01/16 [History] Cholecalciferol [Vitamin D3 (25 Mcg = 1000 Iu)] 1,000 unit PO DAILY 08/23/17 [History] ALPRAZolam [Xanax] 0.25 mg PO BID PRN 07/01/18 [History] Flecainide [Tambocor] 50 mg PO Q12HR tab 07/04/18 [Rx] Furosemide [Lasix] 40 mg PO BID@0900,1600 tab 07/16/18 [Rx] Potassium Chloride ER [K-Dur 10] 10 meq PO DAILY #10 tab 07/16/18 [Rx] Collagenase [Santyl] 1 applic TOPICAL DAILY 08/14/18 [History] HYDROcodone/APAP 5-325MG [[place] 5-325] 1 tab PO TID PRN 08/14/18 [History] Losartan Potassium [Cozaar] 25 mg PO DAILY 08/14/18 [History] Metoprolol Tartrate [Lopressor] 25 mg PO BID 08/14/18 [History] Spironolactone [Aldactone] 25 mg PO DAILY 08/14/18 [History] Levofloxacin [Levaquin] 750 mg PO DAILY 7 Days #7 tab 08/16/18 [Rx] metroNIDAZOLE [Flagyl] 500 mg PO AC-TID #21 tab 08/16/18 [Rx] Follow up Appointment(s)/Referral(s): Van Syed MD [Primary Care Provider] - 1 Week Activity/Diet/Wound Care/Special Instructions: Romie FELIPE vs GRACIELA Morel
--- NOTE | 2018-08-16 14:55 | P.CRDCN ---
History of Present Illness Consult date: 08/16/18 Reason for Consult (text): Atrial fibrillation with Coumadin / GI bleed. Chief complaint: Atrial fibrillation with Coumadin / GI bleed History of present illness: HISTORY OF PRESENT ILLNESS AND PLAN: This is a 88-year-old female with history of advanced dementia, GERD, CKD III, dyslipidemia, chronic persistent atrial fibrillation on Coumadin, hypertension, CAD s/p PCI to LAD (2004) and diastolic heart failure. Patient follows with Dr. Balbuena in the office. Patient presents in the emergency department with c ompaints of severe abdominal pain. When examined in the emergency room patient was found to have dark blood in her diaper and fecal occult was positive. Patient is currently resting in bed with no acute distress and eating breakfast. Patient has no recollection of the prior events which brought her into the hospital. Patient was anemic upon arrival to ER with hemoglobin at 9.4. Computed tomography scan of aorta showed no dissection. It has known persistent atrial fibrillation anticoagulated with Coumadin. Patient also has permanent pacemaker. No current complaints of chest pain, chest pressure, shortness of breath or palpitations. Troponin negative 1. Patient is hypotensive. U/A ne gative. Lactic acid 2.3. Most recent ejection fraction 07/01/2018, EF 55-60%. patient lives in assisted-living. SIGNIFICANT PAST MEDICAL HISTORY: advanced dementia, GERD, CKD III, dyslipidemia, chronic persistent atrial fibrillation on Coumadin, hypertension, CAD s/p PCI to LAD (2004) and diastolic heart failure. PAST SURGICAL HISTORY: See list. EKG shows paced, heart rate 65 bpm. Troponins negative x 1. SIGNIFICANT LABORATORY VALUES: lactic acid 2.3. U/A negative. WBC 16. HGB , 1 0.7 HCT 34. POTASSIUM 4.4, SODIUM 140, CL 105. BUN 42, CR 1.50. Chest x-ray shows CHF, possible pneumonia. CT of abdomen negative for dissection, bilateral pleural effusions. Most recent echo dated = 07/01/2018 indicates EF 55 to 60%, positive LVH, positive dyskinesia, LA dilated. Moderate MR. Mild to moderate MS. Moderate TR. Moderate pulmonary hypertension. REVIEW OF SYSTEMS: CONSTITUTIONAL: Denies fever. Denies chills. EYES: Denies blurred vision. Denies blurred vision or vision changes. Denies eye pain. EARS, NOSE, MOUTH & THROAT: Denies headache. Denies sore throat. Denies ear pain Denies hemoptysis. CARDIOVASCULAR: Denies chest pain. Denies shortness of breath. Denies orthopnea. Denies PND. Denies palpitations. RESPIRATORY: Denies cough. Denies shortness of breath. GASTROINTESTINAL: Denies abdominal pain or distention. Denies diarrhea. Denies constipation. Denies nausea. Denies vomiting. MUSCULOSKELETAL: Denies myalgias. INTEGUMENTARY: Denies pruitis. Denies rash. ENDOCRINE: Denies fatigue. Denies weight change. Denies polydipsia. Denies polyurina Denies heat/cold intolerance. GENITOURINARY: Denies burning, hematuria or urgency with micturation. HEMATOLOGIC: Denies history of anemia. Denies bleeding. NEUROLOGIC: Denies numbness. Denies tingling. Denies weakness. PSYCHIATRIC: Denies anxiety. Denies depression. PHYSICAL EXAM: VITAL SIGNS: 70-90 systolic. Currently afebrile. Paced on telemetry. GENERAL: Well developed, in no acute distress. HEENT: Head is atraumatic, normocephalic. Pupils are equal, round. Extra ocular movements intact. Mucous membranes moist. Neck supple. No JVD. No carotid bruit. No thyromegaly. LUNGS: Auscultation reveals fine crackles to bases bilaterally. No chest wall tenderness on palpation or with deep breathing. HEART: Regular rate and rhythm, no rubs or gallops. S1 and S2 heard. No murmur. ABDOMEN: Abdominal exam, WNL. Bowel sounds x4 quads. Soft, non-tender, without masses, organomegaly, or abdominal aorta enlargement. EXTREMITIES/VASCULAR: Extremities have easily palpable radial, femoral, dorsalis pedis and posterior tibial pulses. No cyanosis, calf tenderness. 2+ BLE edema, sensitive to touch. NEUROLOGIC: Patient is awake, alert and oriented x1. No focal neurologic abnormalities. FINAL IMPRESSION: 1. Persistent atrial fibrillation anticoagulated with Coumadin. 2. Permanent pacemaker. 3. CAD s/p PCI to LAD 2004. 4. Acute on chronic diastolic CHF. 5. Acute GI bleed. 6. Advanced dementia PLAN: No acute cardiac process. Acute on chronic CHF. Continue with 40 mg PO twice daily. BNP in AM ordered. STOP COUMADIN due to fall risk, risks vs benefits discussed for anticoagulation with Afib. Continue IV antibiotics. C ontinue current medical/medication regime. Please call with concerns or questions. Pt to follow up roula Garsia at discharge to discuss re- starting coumadin. Thank you kindly for this consult. Nurse Practitioner note has been reviewed by the Physician. Signing provider agrees with the documented findings, assessment and plan of care. Past Medical History Past Medical History: Coronary Artery Disease (CAD), Heart Failure, GERD/Reflux, Hyperlipidemia, Hypertension Additional Past Medical History / Comment(s): ulcers, diverticulitis, CKD III, A. fib, Pulm HTN, dementia History of Any Multi-Drug Resistant Organisms: None Reported Past Surgical History: Heart Catheterization With Stent, Pacemaker Additional Past Surgical History / Comment(s): sx for ruptered ulcer in 2012, pacer maker placement in May 2016 and changed generator on 09-04-16. Past Anesthesia/Blood Transfusion Reactions: No Reported Reaction Date of Last Stent Placement:: 1991 (?) Type of Cardiac Device: Permanent Pacemaker Device Placement Date:: Past Psychological History: Anxiety Smoking Status: Current every day smoker Past Alcohol Use History: Occasional Past Drug Use History: None Reported - Past Family History Father History Unknown: Yes Family Medical History: Unable to Obtain Mother History Unknown: Yes Family Medical History: Unable to Obtain Medications and Allergies Home Medications Medication Instructions Recorded Confirmed Type Atorvastatin [Lipitor] 20 mg PO HS 06/11/16 08/14/18 History DULoxetine HCL [Cymbalta] 30 mg PO DAILY 09/01/16 08/14/18 History Cholecalciferol [Vitamin D3 (25 1,000 unit PO DAILY 08/23/17 08/14/18 History Mcg = 1000 Iu)] ALPRAZolam [Xanax] 0.25 mg PO BID PRN 07/01/18 08/14/18 History Flecainide [Tambocor] 50 mg PO Q12HR tab 07/04/18 08/14/18 Rx Furosemide [Lasix] 40 mg PO BID@0900,1600 tab 07/16/18 08/14/18 Rx Potassium Chloride ER [K-Dur 10] 10 meq PO DAILY #10 tab 07/16/18 08/14/18 Rx Collagenase [Santyl] 1 applic TOPICAL DAILY 08/14/18 08/14/18 History HYDROcodone/APAP 5-325MG [[place] 1 tab PO TID PRN 08/14/18 08/14/18 History 5-325] Losartan Potassium [Cozaar] 25 mg PO DAILY 08/14/18 08/14/18 History Metoprolol Tartrate [Lopressor] 25 mg PO BID 08/14/18 08/14/18 History Spironolactone [Aldactone] 25 mg PO DAILY 08/14/18 08/14/18 History Levofloxacin [Levaquin] 750 mg PO DAILY 7 Days #7 tab 08/16/18 Rx metroNIDAZOLE [Flagyl] 500 mg PO AC-TID #21 tab 08/16/18 Rx Allergies Allergy/AdvReac Type Severity Reaction Status Date / Time Penicillins Allergy Rash/Hives Verified 07/13/18 07:19 Physical Exam Vitals: Vital Signs Temp Pulse Resp BP BP Pulse Ox 08/16/18 08:00 97.6 F 70 14 79/51 96 08/16/18 03:39 70 08/16/18 03:38 70 18 90/54 96 08/15/18 23:30 70 08/15/18 23:29 70 20 87/52 76/50 93 L 08/15/18 20:00 97.6 F 72 20 90/55 98 08/15/18 16:00 74 16 08/15/18 15:17 97.6 F 98 16 81/44 08/15/18 12:00 97.7 F 71 16 84/59 96 Intake and Output 08/15/18 08/16/18 08/16/18 22:59 06:59 14:59 Intake Total 120 240 Output Total 0 0 Balance 120 240 Intake: Oral 120 240 Output: Stool 0 0 Other: Voiding Method Bedside Commode Bedside Commode Bedside Commode Incontinent Incontinent Incontinent # Voids 1 1 # Bowel Movements 1 1 Weight 72.8 kg Results 08/16/18 06:10 08/15/18 06:51 CBC 08/15/18 08/16/18 08/16/18 Range/Units 17:21 00:52 06:10 WBC 17.5 H 14.6 H 13.9 H (3.8-10.6) k/uL RBC 3.41 L 3.48 L 3.63 L (3.80-5.40) m/uL Hgb 11.1 L 11.2 L 11.7 (11.4-16.0) gm/dL Hct 34.7 35.8 36.5 (34.0-46.0) % Plt Count 247 232 212 (150-450) k/uL Current Medications Generic Name Dose Route Start Last Admin Trade Name Freq PRN Reason Stop Dose Admin Acetaminophen 650 mg 08/14/18 09:57 Tylenol Tab PO Q6HR PRN Mild Pain or Fever > 100.5 Alprazolam 0.25 mg 08/14/18 10:02 Xanax PO BID PRN Anxiety Atorvastatin Calcium 20 mg 08/14/18 21:00 08/15/18 21:03 Lipitor PO 20 mg HS DANISHA Administration Cholecalciferol 1,000 unit 08/15/18 09:00 08/16/18 09:02 Vitamin D3 (25 Mcg = 1000 Iu) PO 1,000 unit DAILY DANISHA Administration Duloxetine HCl 30 mg 08/15/18 09:00 08/16/18 09:02 Cymbalta PO 30 mg DAILY DANISHA Administration Flecainide Acetate 50 mg 08/14/18 10:15 08/16/18 09:03 Tambocor PO 50 mg Q12HR DANISHA Administration Furosemide 40 mg 08/14/18 10:15 08/16/18 09:02 Lasix IV 40 mg DAILY DANISHA Administration Ceftriaxone Sodium 1 gm/ 50 mls @ 100 mls/hr 08/14/18 15:15 08/16/18 09:00 Sodium Chloride IVPB 100 mls/hr Q24HR DANISHA Administration Losartan Potassium 25 mg 08/14/18 10:15 08/16/18 09:45 Cozaar PO Not Given DAILY DANISHA Metoprolol Tartrate 25 mg 08/14/18 10:15 08/16/18 09:03 Lopressor PO 25 mg BID DANISHA Administration Metronidazole 500 mg 08/14/18 21:00 08/16/18 09:02 Flagyl PO 500 mg BID DANISHA Administration Morphine Sulfate 1 mg 08/14/18 09:57 Morphine Sulfate (Inj) IV Q6HR PRN Severe Pain Naloxone HCl 0.2 mg 08/14/18 09:57 Narcan IV Q2M PRN Opioid Reversal Collagenase 250 Unit 1 each 08/15/18 09:00 08/16/18 09:12 /Gm Ointment 30 Gm TOPICAL Not Given Tube DAILY DANISHA Pantoprazole Sodium 40 mg 08/14/18 10:15 08/16/18 09:02 Protonix IVP 40 mg DAILY DANISHA Administration Spironolactone 25 mg 08/14/18 10:15 08/16/18 09:46 Aldactone PO Not Given DAILY DANISHA Intake and Output 08/15/18 08/16/18 08/16/18 22:59 06:59 14:59 Intake Total 120 240 Output Total 0 0 Balance 120 240 Intake: Oral 120 240 Output: Stool 0 0 Other: Voiding Method Bedside Commode Bedside Commode Bedside Commode Incontinent Incontinent Incontinent # Voids 1 1 # Bowel Movements 1 1 Weight 72.8 kg Patient Weight 08/17/18 06:59 Weight 72.8 kg 08/16/18 06:10 08/15/18 06:51 EKG Interpretations (text) PACED.
[2018-08-16] MEDS ORDERED: FUROSEMIDE 40 MG TAB PO SCH (16:00)
== END 2018-08-16 15:47 | DRG 377 ==
LOC: EC 01:54 → 3SCARD 07:00
PROVIDERS: ADMIT Internal Medicine; ATTEND Internal Medicine
DX: K57.33 Diverticulitis of large intestine without perforation or abscess with bleeding (principal); I50.33 Acute on chronic diastolic (congestive) heart failure; G92 Toxic encephalopathy; D62 Acute posthemorrhagic anemia; I13.0 Hypertensive heart and chronic kidney disease with heart failure and stage 1 through stage 4 chronic kidney disease, or unspecified chronic kidney disease; N18.4 Chronic kidney disease, stage 4 (severe); E78.5 Hyperlipidemia, unspecified; K21.9 Gastro-esophageal reflux disease without esophagitis; I48.0 Paroxysmal atrial fibrillation; I27.20 Pulmonary hypertension, unspecified; F03.90 Unspecified dementia, unspecified severity, without behavioral disturbance, psychotic disturbance, mood disturbance, and anxiety; F17.200 Nicotine dependence, unspecified, uncomplicated; F41.9 Anxiety disorder, unspecified; I25.10 Atherosclerotic heart disease of native coronary artery without angina pectoris; I34.0 Nonrheumatic mitral (valve) insufficiency; T45.515A Adverse effect of anticoagulants, initial encounter; R79.1 Abnormal coagulation profile; Z79.01 Long term (current) use of anticoagulants; Z95.5 Presence of coronary angioplasty implant and graft; Z95.0 Presence of cardiac pacemaker; Z79.899 Other long term (current) drug therapy
CPT/HCPCS: 36415; 70450; 71045; 71046; 71275; 74018; 74174; 80053; 81003; 82272; 82550; 82553; 82728; 83540; 83550; 83605; 83735; 84100; 84484; 85025; 85027; 85610; 85730; 86850; 86900; 86901; 96361; 96374; 96375; 99285

== ENCOUNTER 2018-08-17 17:55 | Inpatient (IN) | payer MEDICARE, BC ==
[2018-08-17] MEDS ORDERED: SODIUM CHLORIDE 0.9% 500 ML 500 ML IV STA (18:00)
[2018-08-17 18:57] LABS: Anisocytosis Slight; Basophils % (A) 0 %; Eosinophils # (A) 0.3 k/uL (0-0.7); Eosinophils % (A) 3 %; HCT 36.9 % (34.0-46.0); HGB 11.8 gm/dL (11.4-16.0); Hypochromasia Moderate; Lymphocytes % (A) 11 %; MCH 32.3 pg (25.0-35.0); MCHC 32.1 g/dL (31.0-37.0); MCV 100.5 fL (80.0-100.0); Macrocytosis Moderate; Mean Platelet Volume 8.2; Monocytes # (A) 0.5 k/uL (0-1.0); Monocytes % (A) 5 %; Neutrophils # (A) 7.3 k/uL (1.3-7.7); Neutrophils % (A) 79 %; Platelet Count 209 k/uL (150-450); Poikilocytosis Slight; RBC 3.67 m/uL (3.80-5.40); RDW 18.9 % (11.5-15.5); WBC 9.2 k/uL (3.8-10.6)
--- NOTE | 2018-08-17 19:01 | ED ---
General Adult HPI - General Stated complaint: Hypotension Time Seen by Provider: 08/17/18 18:00 Source: patient, EMS, RN notes reviewed, old records reviewed Mode of arrival: EMS Limitations: no limitations - History of Present Illness Initial comments: 88-year-old female with recent hospital admission for GI bleed presents from the retirement with hypotension. Patient was taken off her Coumadin. She denies any recurrent melena or rectal bleeding. She denies nausea but states she has had some diarrhea. She denies chest pain or dyspnea. Denies cough or fever. Denies dysuria or hematuria. She was found at the retirement to have a systolic blood pressure 70. She does complain of some lightheadedness. Otherwise she has no complaints. - Related Data Home Medications Medication Instructions Recorded Confirmed Atorvastatin [Lipitor] 20 mg PO HS 06/11/16 08/17/18 DULoxetine HCL [Cymbalta] 30 mg PO DAILY 09/01/16 08/17/18 Cholecalciferol [Vitamin D3 (25 1,000 unit PO DAILY 08/23/17 08/17/18 Mcg = 1000 Iu)] ALPRAZolam [Xanax] 0.25 mg PO BID PRN 07/01/18 08/17/18 HYDROcodone/APAP 5-325MG [[place] 1 tab PO TID PRN 08/14/18 08/17/18 5-325] Losartan Potassium [Cozaar] 25 mg PO DAILY 08/14/18 08/17/18 Metoprolol Tartrate [Lopressor] 25 mg PO BID 08/14/18 08/17/18 Spironolactone [Aldactone] 25 mg PO DAILY 08/14/18 08/17/18 Furosemide [Lasix] 40 mg PO BID 08/17/18 08/17/18 Levofloxacin [Levaquin] 750 mg PO HS 08/17/18 08/17/18 Previous Rx's Medication Instructions Recorded Flecainide [Tambocor] 50 mg PO Q12HR tab 07/04/18 Potassium Chloride ER [K-Dur 10] 10 meq PO DAILY #10 tab 07/16/18 metroNIDAZOLE [Flagyl] 500 mg PO AC-TID #21 tab 08/16/18 Allergies Allergy/AdvReac Type Severity Reaction Status Date / Time Penicillins Allergy Rash/Hives Verified 08/17/18 18:08 Review of Systems ROS Statement: Those systems with pertinent positive or pertinent negative responses have been documented in the HPI. ROS Other: All systems not noted in ROS Statement are negative. Past Medical History Past Medical History: Coronary Artery Disease (CAD), Heart Failure, GERD/Reflux, Hyperlipidemia, Hypertension Additional Past Medical History / Comment(s): ulcers, diverticulitis, CKD III, A. fib, Pulm HTN, dementia History of Any Multi-Drug Resistant Organisms: None Reported Past Surgical History: Heart Catheterization With Stent, Pacemaker Additional Past Surgical History / Comment(s): sx for ruptered ulcer in 2012, p acer maker placement in May 2016 and changed generator on 09-04-16. Past Anesthesia/Blood Transfusion Reactions: No Reported Reaction Date of Last Stent Placement:: 1991 (?) Type of Cardiac Device: Permanent Pacemaker Device Placement Date:: Past Psychological History: Anxiety Smoking Status: Former smoker Past Alcohol Use History: Occasional Past Drug Use History: None Reported - Past Family History Father History Unknown: Yes Family Medical History: Unable to Obtain Mother History Unknown: Yes Family Medical History: Unable to Obtain General Exam Limitations: no limitations General appearance: alert, in no apparent distress Head exam: Present: atraumatic, normocephalic Eye exam: Present: normal appearance, PERRL ENT exam: Present: mucous membranes dry Neck exam: Present: normal inspection. Absent: tenderness, meningismus Respiratory exam: Present: normal lung sounds bilaterally. Absent: respiratory distress, wheezes Cardiovascular Exam: Present: regular rate, normal rhythm GI/Abdominal exam: Present: soft. Absent: distended, tenderness, guarding Extremities exam: Present: normal capillary refill, pedal edema Neurological exam: Present: alert, oriented X3, CN II-XII intact. Absent: motor sensory deficit Psychiatric exam: Present: normal affect, normal mood Skin exam: Present: warm, dry, intact. Absent: cyanosis, diaphoretic Course Vital Signs 08/17/18 08/17/18 08/17/18 18:02 18:10 18:14 Temperature 97.1 F L Pulse Rate 70 70 Respiratory 21 20 Rate Blood Pressure 83/52 83/52 O2 Sat by Pulse 92 L 99 98 Oximetry 08/17/18 08/17/18 08/17/18 18:20 18:30 18:40 Temperature Pulse Rate 70 70 70 Respiratory 16 27 H 19 Rate Blood Pressure 83/41 83/41 83/51 O2 Sat by Pulse 96 92 L 100 Oximetry 08/17/18 08/17/18 08/17/18 18:50 19:00 19:10 Temperature Pulse Rate 70 70 Respiratory 18 8 L Rate Blood Pressure 85/55 92/47 87/58 O2 Sat by Pulse 81 L 100 Oximetry 08/17/18 08/17/18 08/17/18 19:20 20:00 21:00 Temperature Pulse Rate 70 70 70 Respiratory 14 15 20 Rate Blood Pressure 86/53 89/50 81/46 O2 Sat by Pulse 87 L 86 L Oximetry 08/17/18 08/17/18 08/17/18 21:48 22:00 22:30 Temperature Pulse Rate 70 70 70 Respiratory 20 18 16 Rate Blood Pressure 102/48 102/48 95/48 O2 Sat by Pulse 90 L 74 L 92 L Oximetry 08/17/18 08/18/18 08/18/18 23:00 00:30 01:00 Temperature Pulse Rate 70 70 70 Respiratory 16 16 15 Rate Blood Pressure 103/53 94/66 90/51 O2 Sat by Pulse 98 Oximetry 08/18/18 08/18/18 08/18/18 02:00 02:30 03:00 Temperature Pulse Rate 70 70 70 Respiratory 18 17 12 Rate Blood Pressure 95/43 84/55 94/58 O2 Sat by Pulse 100 98 99 Oximetry 08/18/18 08/18/18 08/18/18 03:30 04:30 05:30 Temperature Pulse Rate 70 70 70 Respiratory 14 18 14 Rate Blood Pressure 93/60 87/54 101/68 O2 Sat by Pulse 100 95 94 L Oximetry 08/18/18 08/18/18 08/18/18 06:00 07:00 07:52 Temperature Pulse Rate 70 70 70 Respiratory 14 15 16 Rate Blood Pressure 86/62 99/54 93/63 O2 Sat by Pulse 97 99 98 Oximetry - Reevaluation(s) Reevaluation #1: 08/17/18 19:23 Patient's care is signed out at shift change to Dr. Falcon awaiting laboratory testing, x-ray, reevaluation. 08/22/18 17:45 EKG Findings - EKG Comments: EKG Findings:: EKG: Ventricular paced rhythm artifact the lateral precordium, rate of 70, QRS duration 188, QTC 578. Medical Decision Making - Lab Data Result diagrams: 08/21/18 05:35 08/22/18 06:17 Lab Results 08/17/18 08/17/18 08/17/18 Range/Units 18:44 18:44 18:44 WBC 9.2 (3.8-10.6) k/uL RBC 3.67 L (3.80-5.40) m/uL Hgb 11.8 (11.4-16.0) gm/dL Hct 36.9 (34.0-46.0) % MCV 100.5 H (80.0-100.0) fL MCH 32.3 (25.0-35.0) pg MCHC 32.1 (31.0-37.0) g/dL RDW 18.9 H (11.5-15.5) % Plt Count 209 (150-450) k/uL Neutrophils % 79 % Lymphocytes % 11 % Monocytes % 5 % Eosinophils % 3 % Basophils % 0 % Neutrophils # 7.3 (1.3-7.7) k/uL Lymphocytes # 1.0 (1.0-4.8) k/uL Monocytes # 0.5 (0-1.0) k/uL Eosinophils # 0.3 (0-0.7) k/uL Basophils # 0.0 (0-0.2) k/uL Hypochromasia Moderate Poikilocytosis Slight Anisocytosis Slight Macrocytosis Moderate PT (9.0-12.0) sec INR (<1.2) APTT (22.0-30.0) sec Sodium 136 L (137-145) mmol/L Potassium 3.6 (3.5-5.1) mmol/L Chloride 100 (98-107) mmol/L Carbon Dioxide 28 (22-30) mmol/L Anion Gap 8 mmol/L BUN 40 H (7-17) mg/dL Creatinine 1.01 (0.52-1.04) mg/dL Est GFR (CKD-EPI)AfAm 57 (>60 ml/min/1.73 sqM) Est GFR (CKD-EPI)NonAf 50 (>60 ml/min/1.73 sqM) Glucose 81 (74-99) mg/dL Plasma Lactic Acid [place] 1.6 (0.7-2.0) mmol/L Calcium 7.6 L (8.4-10.2) mg/dL Phosphorus 3.2 (2.5-4.5) mg/dL Total Bilirubin 0.7 (0.2-1.3) mg/dL AST 23 (14-36) U/L ALT 27 (9-52) U/L Alkaline Phosphatase 67 (38-126) U/L NT-Pro-B Natriuret Pep pg/mL Total Protein 5.2 L (6.3-8.2) g/dL Albumin 2.6 L (3.5-5.0) g/dL Urine Color Urine Appearance (Clear) Urine pH (5.0-8.0) Ur Specific [place] (1.001-1.035) Urine Protein (Negative) Urine Glucose (UA) (Negative) Urine Ketones (Negative) Urine Blood (Negative) Urine Nitrite (Negative) Urine Bilirubin (Negative) Urine Urobilinogen (<2.0) mg/dL Ur Leukocyte Esterase (Negative) Urine RBC (0-5) /hpf Urine WBC (0-5) /hpf Ur Squamous Epith Cells (0-4) /hpf Urine Bacteria (None) /hpf Urine Mucus (None) /hpf 08/17/18 08/17/18 08/18/18 Range/Units 18:44 20:36 01:00 WBC (3.8-10.6) k/uL RBC (3.80-5.40) m/uL Hgb (11.4-16.0) gm/dL Hct (34.0-46.0) % MCV (80.0-100.0) fL MCH (25.0-35.0) pg MCHC (31.0-37.0) g/dL RDW (11.5-15.5) % Plt Count (150-450) k/uL Neutrophils % % Lymphocytes % % Monocytes % % Eosinophils % % Basophils % % Neutrophils # (1.3-7.7) k/uL Lymphocytes # (1.0-4.8) k/uL Monocytes # (0-1.0) k/uL Eosinophils # (0-0.7) k/uL Basophils # (0-0.2) k/uL Hypochromasia Poikilocytosis Anisocytosis Macrocytosis PT 14.1 H (9.0-12.0) sec INR 1.4 H (<1.2) APTT 30.3 H (22.0-30.0) sec Sodium (137-145) mmol/L Potassium (3.5-5.1) mmol/L Chloride (98-107) mmol/L Carbon Dioxide (22-30) mmol/L Anion Gap mmol/L BUN (7-17) mg/dL Creatinine (0.52-1.04) mg/dL Est GFR (CKD-EPI)AfAm (>60 ml/min/1.73 sqM) Est GFR (CKD-EPI)NonAf (>60 ml/min/1.73 sqM) Glucose (74-99) mg/dL Plasma Lactic Acid [place] (0.7-2.0) mmol/L Calcium (8.4-10.2) mg/dL Phosphorus (2.5-4.5) mg/dL Total Bilirubin (0.2-1.3) mg/dL AST (14-36) U/L ALT (9-52) U/L Alkaline Phosphatase (38-126) U/L NT-Pro-B Natriuret Pep 6810 pg/mL Total Protein (6.3-8.2) g/dL Albumin (3.5-5.0) g/dL Urine Color Yellow Urine Appearance Clear (Clear) Urine pH 5.5 (5.0-8.0) Ur Specific [place] 1.018 (1.001-1.035) Urine Protein Negative (Negative) Urine Glucose (UA) Negative (Negative) Urine Ketones Negative (Negative) Urine Blood Negative (Negative) Urine Nitrite Negative (Negative) Urine Bilirubin Negative (Negative) Urine Urobilinogen <2.0 (<2.0) mg/dL Ur Leukocyte Esterase Small H (Negative) Urine RBC 2 (0-5) /hpf Urine WBC 5 (0-5) /hpf Ur Squamous Epith Cells 7 H (0-4) /hpf Urine Bacteria Rare H (None) /hpf Urine Mucus Rare H (None) /hpf Disposition Clinical Impression: Weakness, Dehydration, Hypotension Disposition: ADMITTED IP TO THIS [facility] Condition: Stable Is patient prescribed a controlled substance at d/c from ED?: No
[2018-08-17 19:07] LABS: Albumin 2.6 g/dL (3.5-5.0); Calcium 7.6 mg/dL (8.4-10.2); Phosphorus 3.2 mg/dL (2.5-4.5); Potassium 3.6 mmol/L (3.5-5.1); Total Bilirubin 0.7 mg/dL (0.2-1.3); Total Protein 5.2 g/dL (6.3-8.2)
--- NOTE | 2018-08-17 19:17 | XR ---
EXAMINATION TYPE: XR chest 2V DATE OF EXAM: 08/17/2018 COMPARISON: 08/15/2018 HISTORY: Weakness. History of congestive heart failure. TECHNIQUE: Frontal and lateral views of the chest are obtained. FINDINGS: There is a chronic fracture deformity of the left proximal humerus. Cardiomediastinal flui d is enlarged. There are small to moderate bilateral pleural effusions as seen on the prior with asso ciated bibasilar airspace disease. Minimal pulmonary vascular congestion is seen throughout. Dual jose d left-sided cardiac device is noted. Mild multilevel degenerative changes of the spine. IMPRESSION: Similar-appearing small moderate bilateral pleural effusions in combination with cardiom egaly suggest underlying congestive heart failure and associated compressive bibasilar atelectasis.
[2018-08-17 21:22] LABS: INR 1.4 (<1.2); Partial Thromboplastin Time 30.3 sec (22.0-30.0); Prothrombin Time 14.1 sec (9.0-12.0)
[2018-08-18 01:31] LABS: Appearance,Urine Clear (Clear); Bacteria,Urine Rare /hpf; Bilirubin,Urine Negative (Negative); Blood,Urine Negative (Negative); Color,Urine Yellow; Glucose,Urine (UA) Negative (Negative); Ketones,Urine Negative (Negative); Leukocyte Esterase,Urine Small (Negative); Mucus,Urine Rare /hpf; Nitrite,Urine Negative (Negative); PH, Urine 5.5 (5.0-8.0); Protein,Urine Negative (Negative); RBC,Urine 2 /hpf (0-5); Specific Gravity,Urine 1.018 (1.001-1.035); Squamous Epithelial Cell,Urine 7 /hpf (0-4); Urobilinogen,Urine <2.0 mg/dL (<2.0); WBC,Urine 5 /hpf (0-5)
[2018-08-18] MEDS ORDERED: NALOXONE 0.4 MG/ML 1 ML VIAL IV PRN (02:50)
[2018-08-18] MEDS ORDERED: ACETAMINOPHEN TAB 325 MG TAB PO PRN (02:50)
[2018-08-18] MEDS ORDERED: SODIUM CHLORIDE 0.9% 1,000 ML IV SCH (03:00)
--- NOTE | 2018-08-18 03:29 | P.HPIM ---
History of Present Illness H&P Date: 08/18/18 The patient is an 88-year-old female with a PMH of dementia, diastolic CHF, persistent Afib (previously on Coumadin, DCed on last admission), CAD s/p PCI 2004, CKD, HTN, and HLD presented to the ED from [facility] for hypotension. The patient was recent admitted for GI bleeding and was discharged on 08/16/18, during which time the Coumadin was held. The patient was also believed to have been in mild CHF exacerbation and received inpatient IV lasix which was transitioned to patient's home oral doses on discharge. She was seen in the ED and denied any active complaints. History supplemented by the EMR in light of patient's dementia. She however denied any active complaints aside from chronic LE edema. She denied hematochezia, melena, chest pain, SOB, fever, or chills. Denied dysuria, abdominal pain, nausea, or vomiting. Denied coughing or sick contacts. She underwent an extensive evaluation in the ED w/ CXR showing cardiomegaly with minimal pulmonary vascular congestion. Laboratory evaluation revealed a BNP of 6810, WBC 9.2, Hgb 11.8, BUN 40, and Cr 1.01 She was noted to have a BP of 83/52 on admission w/ pulse 70, and SpO2 of 98% on 3L NC. She is being admitted to the medicine service for further management of hypotension. Review of Systems Pertinent positives and negatives as discussed in HPI, a complete review of systems was performed and all other systems are negative. Past Medical History Past Medical History: Coronary Artery Disease (CAD), Heart Failure, GERD/Reflux, Hyperlipidemia, Hypertension Additional Past Medical History / Comment(s): ulcers, diverticulitis, CKD III, A. fib, Pulm HTN, dementia History of Any Multi-Drug Resistant Organisms: None Reported Past Surgical History: Heart Catheterization With Stent, Pacemaker Additional Past Surgical History / Comment(s): sx for ruptered ulcer in 2012, pacer maker placement in May 2016 and changed generator on 09-04-16. Past Anesthesia/Blood Transfusion Reactions: No Reported Reaction Date of Last Stent Placement:: 1991 (?) Type of Cardiac Device: Permanent Pacemaker Device Placement Date:: Past Psychological History: Anxiety Smoking Status: Former smoker Past Alcohol Use History: Occasional Past Drug Use History: None Reported - Past Family History Father History Unknown: Yes Family Medical History: Unable to Obtain Mother History Unknown: Yes Family Medical History: Unable to Obtain Medications and Allergies Home Medications Medication Instructions Recorded Confirmed Type Atorvastatin [Lipitor] 20 mg PO HS 06/11/16 08/17/18 History DULoxetine HCL [Cymbalta] 30 mg PO DAILY 09/01/16 08/17/18 History Cholecalciferol [Vitamin D3 (25 1,000 unit PO DAILY 08/23/17 08/17/18 History Mcg = 1000 Iu)] ALPRAZolam [Xanax] 0.25 mg PO BID PRN 07/01/18 08/17/18 History Flecainide [Tambocor] 50 mg PO Q12HR tab 07/04/18 08/17/18 Rx Potassium Chloride ER [K-Dur 10] 10 meq PO DAILY #10 tab 07/16/18 08/17/18 Rx HYDROcodone/APAP 5-325MG [[place] 1 tab PO TID PRN 08/14/18 08/17/18 History 5-325] Losartan Potassium [Cozaar] 25 mg PO DAILY 08/14/18 08/17/18 History Metoprolol Tartrate [Lopressor] 25 mg PO BID 08/14/18 08/17/18 History Spironolactone [Aldactone] 25 mg PO DAILY 08/14/18 08/17/18 History metroNIDAZOLE [Flagyl] 500 mg PO AC-TID #21 tab 08/16/18 08/17/18 Rx Furosemide [Lasix] 40 mg PO BID 08/17/18 08/17/18 History Levofloxacin [Levaquin] 750 mg PO HS 08/17/18 08/17/18 History Allergies Allergy/AdvReac Type Severity Reaction Status Date / Time Penicillins Allergy Rash/Hives Verified 08/17/18 18:08 Physical Exam Vitals: Vital Signs Temp Pulse Resp BP Pulse Ox 08/18/18 02:00 70 18 95/43 100 08/18/18 01:00 70 15 90/51 98 08/18/18 00:30 70 16 94/66 08/17/18 23:00 70 16 103/53 08/17/18 22:30 70 16 95/48 92 L 08/17/18 22:00 70 18 102/48 74 L 08/17/18 21:48 70 20 102/48 90 L 08/17/18 21:00 70 20 81/46 86 L 08/17/18 20:00 70 15 89/50 08/17/18 19:20 70 14 86/53 87 L 08/17/18 19:10 87/58 08/17/18 19:00 70 8 L 92/47 100 08/17/18 18:50 70 18 85/55 81 L 08/17/18 18:40 70 19 83/51 100 08/17/18 18:30 70 27 H 83/41 92 L 08/17/18 18:20 70 16 83/41 96 08/17/18 18:14 97.1 F L 70 20 83/52 98 08/17/18 18:10 70 21 83/52 99 08/17/18 18:02 92 L Intake and Output 08/17/18 08/17/18 08/18/18 14:59 22:59 06:59 Other: Weight 72.575 kg General: non toxic, no distress, appears at stated age, normal weight Derm: no unusual rashes/lesions no unusual ecchymoses, warm, dry Head: atraumatic, normocephalic, symmetric Eyes: EOMI, no lid lag, anicteric sclera, pupils equal round reactive to light ENT: Nose and ears atraumatic, no thrush, no pharyngeal erythema Neck: No thyromegaly, no cervical lymphadenopathy, trachea midline, supple Mouth: no lip lesion, mucus membranes moist Cardiovascular: S1S2 irregularly irregular, no murmur, positive posterior tibial pulse bilateral, 2+ bilateral lower extremity pitting edema, capillary refill less than 2 seconds Lungs: Bibasilar rales, no coarse breath sounds or rhonchi appreciated, no accessory muscle use Abdominal: soft, nontender to palpation, no guarding, no appreciable organom egaly, normal bowel sounds Ext: no gross muscle atrophy, muscle strength 4 out of 5 in all 4 extremities grossly, no contractures, Neuro: CN II-XI grossly intact, light touch intact all 4 extremities, finger to nose within normal limits, Psych: Alert, oriented to person, place, time, appropriate affect Results CBC & Chem 7: 08/17/18 18:44 08/17/18 18:44 Labs: Abnormal Lab Results - Last 24 Hours (Table) 08/17/18 08/17/18 08/17/18 Range/Units 18:44 18:44 20:36 RBC 3.67 L (3.80-5.40) m/uL MCV 100.5 H (80.0-100.0) fL RDW 18.9 H (11.5-15.5) % PT 14.1 H (9.0-12.0) sec INR 1.4 H (<1.2) APTT 30.3 H (22.0-30.0) sec Sodium 136 L (137-145) mmol/L BUN 40 H (7-17) mg/dL Calcium 7.6 L (8.4-10.2) mg/dL Total Protein 5.2 L (6.3-8.2) g/dL Albumin 2.6 L (3.5-5.0) g/dL Ur Leukocyte Esterase (Negative) Ur Squamous Epith Cells (0-4) /hpf Urine Bacteria (None) /hpf Urine Mucus (None) /hpf 08/18/18 Range/Units 01:00 RBC (3.80-5.40) m/uL MCV (80.0-100.0) fL RDW (11.5-15.5) % PT (9.0-12.0) sec INR (<1.2) APTT (22.0-30.0) sec Sodium (137-145) mmol/L BUN (7-17) mg/dL Calcium (8.4-10.2) mg/dL Total Protein (6.3-8.2) g/dL Albumin (3.5-5.0) g/dL Ur Leukocyte Esterase Small H (Negative) Ur Squamous Epith Cells 7 H (0-4) /hpf Urine Bacteria Rare H (None) /hpf Urine Mucus Rare H (None) /hpf Assessment and Plan Plan: Hypotension, in setting of mild acute diastolic CHF exacerbation -BUN elevated to 40 -Does not meet SIRS criteria -No apparent source of infection identified -Will c/w home dose of oral lasix -Follow up cultures. C/wMetronidazole started empirically on recent admission fo r leukocytosis. -Hold anti-hypertensives -Cardiac monitoring -Fluid restriction Persistent Atrial fibrillation -Coumadin DCed due to recent GI bleeding -Cardiac monitoring Chronic conditions: HTN, HLD, CKD, CAD, Dementia -C/w home meds -Hold antihypertensives DVT prophylaxis -IPCDs
[2018-08-18] MEDS: FLECAINIDE 50 MG TAB PO SCH ×2 (08:43→20:32)
[2018-08-18] MEDS: POTASSIUM CHLORIDE ER 10 MEQ TAB.ER.PRT PO SCH (08:43)
[2018-08-18] MEDS: FUROSEMIDE 40 MG TAB PO SCH ×2 (08:43→20:32)
[2018-08-18] MEDS: CHOLECALCIFEROL 1,000 UNIT TAB PO SCH (08:43)
[2018-08-18] MEDS: metroNIDAZOLE 500 MG TAB PO SCH ×3 (08:43→17:42)
[2018-08-18] MEDS: DULoxetine HCL 30 MG CAPSULE.DR PO SCH (08:43)
[2018-08-18] MEDS ORDERED: FAMOTIDINE 20 MG TAB PO SCH (09:00)
--- NOTE | 2018-08-18 10:06 | P.PN ---
Progress Note - Text Progress Note Date: 08/18/18 Briefly this is a 88-year-old female with a past smoker history of diastolic CHF persistent A. fib previously on Coumadin that was recently admitted and discharged for a lower GI bleed attributed to diverticular disease and acute diverticulitis that was discharged on Levaquin and Flagyl that was readmitted earlier this morning for hypotension. Her antihypertensive regimen is been held on exam the patient has 1.5+ bilateral lower extremity pitting edema which is largely unchanged from when she was discharged, Plan to continue her Lasix, resume her levofloxacin despite prolonged QT on a previous EKG was actually longer at 600
[2018-08-18] MEDS: LEVOFLOXACIN 500 MG TAB PO SCH (12:41)
[2018-08-18] MEDS: ONDANSETRON 4 MG/2 ML VIAL IVP PRN (18:50)
[2018-08-18] MEDS: HYDROcodone/APAP 5-325MG 1 EACH TAB PO PRN (20:31)
[2018-08-18] MEDS: ATORVASTATIN 20 MG TAB PO SCH (20:32)
[2018-08-18] MEDS ORDERED: LEVOFLOXACIN 750 MG TAB PO SCH (21:00)
[2018-08-18] MEDS ORDERED: METOCLOPRAMIDE 10 MG TAB PO STA (21:06)
[2018-08-18] MEDS: ALPRAZolam 0.25 MG TAB PO PRN (22:02)
[2018-08-19] MEDS: metroNIDAZOLE 500 MG TAB PO SCH ×3 (06:34→17:25)
[2018-08-19] MEDS: FAMOTIDINE 20 MG TAB PO SCH (08:13)
[2018-08-19] MEDS: POTASSIUM CHLORIDE ER 10 MEQ TAB.ER.PRT PO SCH (08:13)
[2018-08-19] MEDS: CHOLECALCIFEROL 1,000 UNIT TAB PO SCH (08:13)
[2018-08-19] MEDS: DULoxetine HCL 30 MG CAPSULE.DR PO SCH (08:13)
[2018-08-19] MEDS: LEVOFLOXACIN 500 MG TAB PO SCH (08:13)
[2018-08-19] MEDS: FUROSEMIDE 40 MG TAB PO SCH ×2 (08:13→20:55)
[2018-08-19] MEDS: FLECAINIDE 50 MG TAB PO SCH ×2 (08:13→20:55)
[2018-08-19 09:27] LABS: Calcium 8.2 mg/dL (8.4-10.2)
[2018-08-19 09:42] LABS: Anisocytosis Slight; Basophils % (A) 0 %; Eosinophils # (A) 0.2 k/uL (0-0.7); Eosinophils % (A) 2 %; HCT 38.7 % (34.0-46.0); Hypochromasia Moderate; Lymphocytes % (A) 12 %; MCH 30.8 pg (25.0-35.0); MCV 99.4 fL (80.0-100.0); Macrocytosis Slight; Monocytes # (A) 0.6 k/uL (0-1.0); Monocytes % (A) 6 %; Neutrophils % (A) 78 %; Platelet Count 216 k/uL (150-450); Poikilocytosis Slight; RDW 18.6 % (11.5-15.5); WBC 8.9 k/uL (3.8-10.6)
[2018-08-19 10:34] LABS: Large Platelets Present
--- NOTE | 2018-08-19 12:41 | P.PN ---
Subjective Progress Note Date: 08/19/18 Principal diagnosis: Hypotension Patient was seen and examined. No acute events overnight. Patient reports significant improvement in her abdominal pain since admission. She continues to complain of diarrhea, semisolid bowel movement this morning. She denies any chest pain, shortness of breath or palpitations. No nausea or vomiting. No fever or chills. Objective - Vital Signs Vital signs: Vital Signs Temp 97.6 F 08/19/18 08:00 Pulse 70 08/19/18 08:00 Resp 20 08/19/18 08:00 BP 115/67 08/19/18 08:00 Pulse Ox 95 08/19/18 08:00 Intake & Output 08/18/18 08/19/18 08/19/18 18:59 06:59 18:59 Intake Total 600 240 Balance 600 240 Weight 68 kg Intake: Oral 600 240 Other: Voiding Method Bedside Commode # Voids 0 1 2 # Bowel Movements 2 1 - Exam General: [non toxic], [no distress], [appears at stated age] Derm: [warm], [dry] Head: [atraumatic], [normocephalic], [symmetric] Eyes: [EOMI], [no lid lag], [anicteric sclera] Mouth: [no lip lesion], [mucus membranes moist] Cardiovascular: [S1S2 reg], [irregularly irregular], [positive DP pulse bilateral], Lungs: [CTA bilateral], [no rhonchi, no rales] , [no accessory muscle use] Abdominal: [soft], [ nontender to palpation], [no guarding], [no appreciable organomegaly] Ext: [no gross muscle atrophy], [2+ lower extremity edema], [no contractures] Neuro: [no focal neuro deficits] Psych: [Alert], [oriented], [appropriate affect] - Labs CBC & Chem 7: 08/19/18 07:18 08/19/18 07:18 Labs: Abnormal Lab Results - Last 24 Hours (Table) 08/19/18 08/19/18 Range/Units 07:18 07:18 RDW 18.6 H (11.5-15.5) % Sodium 136 L (137-145) mmol/L BUN 31 H (7-17) mg/dL Glucose 104 H (74-99) mg/dL Calcium 8.2 L (8.4-10.2) mg/dL Microbiology - Last 24 Hours (Table) 08/17/18 18:44 Blood Culture - Preliminary Blood No Growth after 24 hours 08/18/18 01:00 Urine Culture - Preliminary Urine,Voided Assessment and Plan Assessment: Assessment and Plan Hypotension, resolved Diarrhea with abdominal pain Acute on chronic diastolic CHF exacerbation Elevated BUN Chronic conditions: Hypertension, Hyperlipidemia, CAD, atrial fibrillation SBP as low as 70s at rehab, SBP as low as 81 here. Possibly related to dehydration. Patient does not meet criteria for SIRS or sepsis with no source of infection identified. She has been afebrile with no leukocytosis during this admission. Lactic acid negative. Urine culture negative. Blood culture negative at 24H. Plans: Follow blood and urine cultures. Cardiology consulted for adjustment of BP medications. CT of the aorta with findings of pericolonic inflammation possibly representing diverticulitis, colitis or ischemic colitis. Plans: Continue levofloxacin and Flagyl to complete treatment. Pain management with Tylenol. Zofran as needed for nausea or vomiting. As seen on chest x-ray. BNP 6810. Plans: Continue Lasix 40 mg by mouth twice a day. We'll need to restart spironolactone, metoprolol and losartan as per cardiology recommendations. Follow cardiology consultation. BUN 40 on admission to 31 today. Likely secondary to dehydration. Plans: Encourage hydration by mouth. Daily BMP. Patient admitted for hypotension. BP has improved. We will reconsult cardiology for recommendation of her antihypertensive medications. Low concerns for sepsis. Continue antibiotics for concerns of diverticulitis. Patient is pending clinical improvement. DC today or tomorrow.
[2018-08-19] MEDS: ATORVASTATIN 20 MG TAB PO SCH (20:55)
[2018-08-19] MEDS: ALPRAZolam 0.25 MG TAB PO PRN (22:44)
[2018-08-20] MEDS: metroNIDAZOLE 500 MG TAB PO SCH ×3 (06:24→16:45)
--- NOTE | 2018-08-20 08:44 | XR ---
EXAMINATION TYPE: XR chest 2V DATE OF EXAM: 08/20/2018 COMPARISON: Prior chest x-ray 08/17/2018 HISTORY: Congestive heart failure TECHNIQUE: Frontal and lateral views of the chest are obtained. FINDINGS: Bibasilar increased density persists. Heart is enlarged but partially obscured. No pneumot horax. Intracardiac defibrillator leads are stable. Interstitium is increased. No pneumothorax. IMPRESSION: Findings compatible with congestive heart failure with pleural effusions.
[2018-08-20] MEDS: LEVOFLOXACIN 500 MG TAB PO SCH (09:32)
[2018-08-20] MEDS: FUROSEMIDE 40 MG TAB PO SCH (09:32)
[2018-08-20] MEDS: DULoxetine HCL 30 MG CAPSULE.DR PO SCH (09:32)
[2018-08-20] MEDS: CHOLECALCIFEROL 1,000 UNIT TAB PO SCH (09:32)
[2018-08-20] MEDS: FLECAINIDE 50 MG TAB PO SCH ×2 (09:32→19:52)
[2018-08-20] MEDS: POTASSIUM CHLORIDE ER 10 MEQ TAB.ER.PRT PO SCH (09:32)
[2018-08-20] MEDS: FAMOTIDINE 20 MG TAB PO SCH (09:33)
[2018-08-20] MEDS ORDERED: LEVOFLOXACIN 250 MG TAB PO SCH (10:00)
--- NOTE | 2018-08-20 11:33 | P.PN ---
Subjective Progress Note Date: 08/20/18 Principal diagnosis: CHF exacerbation Patient was seen and examined. No acute events patient reports to semisolid bowel movements overnight. She denies any chest pain, shortness of breath or palpitations. She does complain of some lower extremity swelling. Objective - Vital Signs Vital signs: Vital Signs Temp 97.8 F 08/20/18 03:15 Pulse 66 08/20/18 03:15 Resp 18 08/20/18 03:15 BP 109/68 08/20/18 03:15 Pulse Ox 81 L 08/20/18 07:40 Intake & Output 08/19/18 08/20/18 08/20/18 18:59 06:59 18:59 Intake Total 720 240 Balance 720 240 Weight 74.5 kg Intake: Oral 720 240 Other: Voiding Method Bedside Commode # Voids 2 1 - Exam General: [non toxic], [no distress], [appears at stated age] Derm: [warm], [dry] Head: [atraumatic], [normocephalic], [symmetric] Eyes: [EOMI], [no lid lag], [anicteric sclera] Mouth: [no lip lesion], [mucus membranes moist] Cardiovascular: [S1S2 reg], [irregularly irregular], [positive DP pulse bilateral], Lungs: [Decreased breath sounds bilateral], [by basilar rales] , [no accessory muscle use] Abdominal: [soft], [ nontender to palpation], [no guarding], [no appreciable organomegaly] Ext: [no gross muscle atrophy], [2+ lower extremity edema], [no contractures] Neuro: [no focal neuro deficits] Psych: [Alert], [oriented], [appropriate affect] - Labs CBC & Chem 7: 08/19/18 07:18 08/19/18 07:18 Labs: Microbiology - Last 24 Hours (Table) 08/18/18 01:00 Urine Culture - Final Urine,Voided Enterococcus faecium VRE 08/17/18 18:44 Blood Culture - Preliminary Blood No Growth after 48 hours Assessment and Plan Assessment: Assessment and Plan Hypotension, resolved Diarrhea with abdominal pain Acute on chronic diastolic CHF exacerbation Elevated BUN Chronic conditions: Hypertension, Hyperlipidemia, CAD, atrial fibrillation SBP as low as 70s at rehab, SBP as low as 81 here. Possibly related to dehydration. Patient does not meet criteria for SIRS or sepsis with no source of infection identified. She has been afebrile with no leukocytosis during this admission. Lactic acid negative. Urine culture negative. Blood culture negative at 48 H. Plans: Follow blood. Cardiology consulted for adjustment of BP medi cations. CT of the aorta with findings of pericolonic inflammation possibly representing diverticulitis, colitis or ischemic colitis. Plans: Continue levofloxacin and Flagyl to complete treatment. Pain management with Tylenol. Zofran as needed for nausea or vomiting. As seen on chest x-ray. BNP 6810. Plans: Started on Lasix 40 mg IV twice a day by cardiology. We'll need to restart spironolactone, metoprolol and losartan as per cardiology recommendations. Follow cardiology consultation. Follow 6 minute walk test. Telemetry monitoring. BUN 40 on admission to 31. Likely secondary to dehydration. Plans: Encourage hydration by mouth. Daily BMP. Patient admitted for hypotension. BP has improved. We will reconsult cardiology for recommendation of her antihypertensive medications. Low concerns for sepsis. Continue antibiotics for concerns of diverticulitis. Patient is pending clinical improvement. DC pending cardiology recommendations.
--- NOTE | 2018-08-20 13:24 | P.CRDCN ---
History of Present Illness Consult date: 08/20/18 Reason for Consult (text): hypotension/diastolic heart failure Chief complaint: low blood pressure diastolic heart failure History of present illness: HISTORY OF PRESENT ILLNESS AND PLAN: This is a [88]-year-old [female] with history of advanced dementia, GERD, CKD3, dyslipidemia, chronic persistent atrial fibrillation (no anticoagulation GIB/fall risk hx), pulmonary hypertension, CAD status post PCI to LAD in 2004 and diastolic heart failure. Follows with Dr. Balbuena in office. Patient presents in the emergency department with complaints of [low blood pressure, 70's systolic at [facility]]. Recently discharged for diastolic CHF from [facility] on 08/16/2018 to [facility]. Patient currently taken off Coumadin for GI bleed/fall risk/dementia. Patient currently sitting in chair in no acute dis tress. No current complaints of chest pain, chest pressure, shortness of breath or palpitations. Patient does have complaints of lower extremity edema which is chronic in nature. Patient poor historian. Currently paced on monitors, VSS. Patient currently on flecainide 50 mg every 12 hours. And Lasix by mouth 40 mg twice daily. Most recent echo 07/01/2018 shows preserved LV function at 55-60%. SIGNIFICANT PAST MEDICAL HISTORY: [Advanced dementia, GERD, CKD3, dyslipidemia, pulmonary hypertension, chronic persistent atrial fibrillation (no anticoagulation fall risk), CAD status post PCI to LAD in 2004 and diastolic heart failure.] PAST SURGICAL HISTORY: See list. EKG shows [paced], heart rate [66] bpm. Troponins negative x [none this visit]. SIGNIFICANT LABORATORY VALUES: [CBC/BMP/urinary analysis all WNL.]. Chest x-ray [pulmonary edema and pleural effusions bilaterally.]. Most recent echo dated 07/01/2018 indicates [EF 55-60%, mild LVH. Dyskinesia. LA severely dilated. Severe MR. Mild to moderate MS. Moderate TR. Moderate pulmonary hypertension]. REVIEW OF SYSTEMS: CONSTITUTIONAL: [Denies fever. Denies chills.] EYES: Denies blurred vision. [Denies blurred vision or vision changes. Denies eye pain.] EARS, NOSE, MOUTH & THROAT: [Denies headache. Denies sore throat. Denies ear pain Denies hemoptysis.] CARDIOVASCULAR: [Denies chest pain. Denies shortness of breath. Denies orthopnea. Denies PND. Denies palpitations.] RESPIRATORY: [Denies cough. Denies shortness of breath. ] GASTROINTESTINAL: [Denies abdominal pain or distention. Denies diarrhea. Denies constipation. Denies nausea. Denies vomiting.] MUSCULOSKELETAL: [Denies myalgias.] INTEGUMENTARY: [Denies pruitis. Denies rash.] ENDOCRINE: [Denies fatigue. Denies weight change. Denies polydipsia. Denies polyurina Denies heat/cold intolerance.] GENITOURINARY:[ Denies burning, hematuria or urgency with micturation.] HEMATOLOGIC: [Denies history of anemia. Denies bleeding.] Extremities: c/o lower extremity edema NEUROLOGIC: [Denies numbness. Denies tingling. Denies weakness.] PSYCHIATRIC: [Denies anxiety. Denies depression.] PHYSICAL EXAM: VITAL SIGNS: WNL GENERAL: Well developed, in no acute distress. HEENT: Head is atraumatic, normocephalic. Pupils are equal, round. Extra ocular movements intact. Mucous membranes moist. Neck supple. No JVD. No carotid bruit. No thyromegaly. LUNGS: Bilateral fine crackles to bases bilaterally. No wheezes, rales or rhonchi. No chest wall tenderness on palpation or with deep breathing. HEART: Regular rate and rhythm, no rubs or gallops. S1 and S2 heard. I/ murmur. ABDOMEN: Abdominal exam, WNL. Bowel sounds x4 quads. Soft, non-tender, without masses, organomegaly, or abdominal aorta enlargement. EXTREMITIES/VASCULAR: Extremities have easily palpable radial, femoral, dorsalis pedis and posterior tibial pulses. No cyanosis, calf tenderness. 2-3+ BLE edema. NEUROLOGIC: Patient is awake, alert and oriented x3. No focal neurologic abnormalities. FINAL IMPRESSION: 1. [diastolic heart failure]. 2. [history of atrial fibrillation - no anticoagulation GI bleed/fall]. 3. [low protien/albumin levels]. 4. [CAD status post PCI to LAD 2004]. 5. [dementia]. PLAN: [Stop losartan. Start IV Lasix 40 mg IV every 12 hours. Continue flecainide 50 mg every 12 hours. Monitor electrolytes and blood pressure. Cardiology to follow along. Possible discharge tomorrow.] Nurse Practitioner note has been reviewed by the Physician. Signing provider agrees with the documented findings, assessment and plan of care. Past Medical History Past Medical History: Coronary Artery Disease (CAD), Heart Failure, GERD/Reflux, Hyperlipidemia, Hypertension Additional Past Medical History / Comment(s): ulcers, diverticulitis, CKD III, A. fib, Pulm HTN, dementia History of Any Multi-Drug Resistant Organisms: None Reported Past Surgical History: Heart Catheterization With Stent, Pacemaker Additional Past Surgical History / Comment(s): sx for ruptered ulcer in 2012, pacer maker placement in May 2016 and changed generator on 09-04-16. Past Anesthesia/Blood Transfusion Reactions: No Reported Reaction Date of Last Stent Placement:: 1991 (?) Type of Cardiac Device: Permanent Pacemaker Device Placement Date:: Past Psychological History: Anxiety Additional Psychological History / Comment(s): Pt resides at [facility] Smoking Status: Former smoker Past Alcohol Use History: Occasional Additional Past Alcohol Use History / Comment(s): Pt started smoking in 1952. Past Drug Use History: None Reported - Past Family History Father History Unknown: Yes Family Medical History: Unable to Obtain Mother History Unknown: Yes Family Medical History: Unable to Obtain Medications and Allergies Home Medications Medication Instructions Recorded Confirmed Type Atorvastatin [Lipitor] 20 mg PO HS 06/11/16 08/17/18 History DULoxetine HCL [Cymbalta] 30 mg PO DAILY 09/01/16 08/17/18 History Cholecalciferol [Vitamin D3 (25 1,000 unit PO DAILY 08/23/17 08/17/18 History Mcg = 1000 Iu)] ALPRAZolam [Xanax] 0.25 mg PO BID PRN 07/01/18 08/17/18 History Flecainide [Tambocor] 50 mg PO Q12HR tab 07/04/18 08/17/18 Rx Potassium Chloride ER [K-Dur 10] 10 meq PO DAILY #10 tab 07/16/18 08/17/18 Rx HYDROcodone/APAP 5-325MG [[place] 1 tab PO TID PRN 08/14/18 08/17/18 History 5-325] Losartan Potassium [Cozaar] 25 mg PO DAILY 08/14/18 08/17/18 History Metoprolol Tartrate [Lopressor] 25 mg PO BID 08/14/18 08/17/18 History Spironolactone [Aldactone] 25 mg PO DAILY 08/14/18 08/17/18 History metroNIDAZOLE [Flagyl] 500 mg PO AC-TID #21 tab 08/16/18 08/17/18 Rx Furosemide [Lasix] 40 mg PO BID 08/17/18 08/17/18 History Levofloxacin [Levaquin] 750 mg PO HS 08/17/18 08/17/18 History Allergies Allergy/AdvReac Type Severity Reaction Status Date / Time Penicillins Allergy Rash/Hives Verified 08/17/18 18:08 Physical Exam Vitals: Vital Signs Temp Pulse Resp BP Pulse Ox Pulse Ox 08/20/18 08:30 97.5 F L 70 20 116/56 99 08/20/18 07:40 81 L 08/20/18 03:15 97.8 F 66 18 109/68 93 L 08/19/18 23:37 70 16 117/77 93 L 08/19/18 20:50 97.9 F 72 18 98/60 95 08/19/18 15:39 96.0 F L 72 18 109/58 96 Intake and Output 08/19/18 08/20/18 08/20/18 22:59 06:59 14:59 Intake Total 480 240 Balance 480 240 Intake: Oral 480 240 Other: # Voids 1 1 Weight 74.5 kg Results 08/19/18 07:18 08/19/18 07:18 Current Medications Generic Name Dose Route Start Last Admin Trade Name Freq PRN Reason Stop Dose Admin Acetaminophen 650 mg 08/18/18 02:50 Tylenol Tab PO Q6HR PRN Mild Pain or Fever > 100.5 Hydrocodone Bitart/Acetaminophen 1 each 08/18/18 03:23 08/18/18 20:31 [place] 5-325 PO 1 each TID PRN Administration Pain Alprazolam 0.25 mg 08/18/18 03:23 08/19/18 22:44 Xanax PO 0.25 mg BID PRN Administration Anxiety Atorvastatin Calcium 20 mg 08/18/18 21:00 08/19/18 20:55 Lipitor PO 20 mg HS DANISHA Administration Cholecalciferol 1,000 unit 08/18/18 09:00 08/20/18 09:32 Vitamin D3 (25 Mcg = 1000 Iu) PO 1,000 unit DAILY DANISHA Administration Duloxetine HCl 30 mg 08/18/18 09:00 08/20/18 09:32 Cymbalta PO 30 mg DAILY DANISHA Administration Famotidine 20 mg 08/19/18 09:00 08/20/18 09:33 Pepcid PO 20 mg DAILY DANISHA Administration Flecainide Acetate 50 mg 08/18/18 09:00 08/20/18 09:32 Tambocor PO 50 mg Q12HR DANISHA Administration Furosemide 40 mg 08/20/18 21:00 Lasix IV Q12HR DANISHA Levofloxacin 500 mg 08/18/18 10:15 08/20/18 09:32 Levaquin PO 500 mg Q24H DANISHA Administration Metronidazole 500 mg 08/18/18 07:30 08/20/18 09:33 Flagyl PO 500 mg AC-TID DANISHA Administration Naloxone HCl 0.2 mg 08/18/18 02:50 Narcan IV Q2M PRN Opioid Reversal Ondansetron HCl 4 mg 08/18/18 18:36 08/18/18 18:50 Zofran IVP 4 mg Q6HR PRN Administration Nausea And Vomiting Potassium Chloride 10 meq 08/18/18 09:00 08/20/18 09:32 K-Dur 10 PO 10 meq DAILY DANISHA Administration Intake and Output 08/19/18 08/20/18 08/20/18 22:59 06:59 14:59 Intake Total 480 240 Balance 480 240 Intake: Oral 480 240 Other: # Voids 1 1 Weight 74.5 kg 08/19/18 07:18 08/19/18 07:18
[2018-08-20] MEDS: ATORVASTATIN 20 MG TAB PO SCH (19:53)
[2018-08-20] MEDS: HYDROcodone/APAP 5-325MG 1 EACH TAB PO PRN (20:20)
[2018-08-20] MEDS: FUROSEMIDE 10 MG/ML 4 ML VIAL IV SCH (20:20)
[2018-08-21] MEDS: HYDROcodone/APAP 5-325MG 1 EACH TAB PO PRN ×2 (04:23→19:52)
[2018-08-21 05:56] LABS: Anisocytosis Slight; HCT 35.8 % (34.0-46.0); HGB 11.2 gm/dL (11.4-16.0); Hypochromasia Moderate; MCHC 31.3 g/dL (31.0-37.0); MCV 98.9 fL (80.0-100.0); Macrocytosis Slight; Mean Platelet Volume 8.4; Platelet Count 223 k/uL (150-450); Poikilocytosis Slight; RBC 3.62 m/uL (3.80-5.40); RDW 18.9 % (11.5-15.5); WBC 7.6 k/uL (3.8-10.6)
[2018-08-21] MEDS: metroNIDAZOLE 500 MG TAB PO SCH ×2 (06:17→09:43)
[2018-08-21 06:18] LABS: Calcium 8.3 mg/dL (8.4-10.2); Potassium 3.9 mmol/L (3.5-5.1)
[2018-08-21] MEDS: DULoxetine HCL 30 MG CAPSULE.DR PO SCH (09:43)
[2018-08-21] MEDS: POTASSIUM CHLORIDE ER 10 MEQ TAB.ER.PRT PO SCH (09:43)
[2018-08-21] MEDS: CHOLECALCIFEROL 1,000 UNIT TAB PO SCH (09:43)
[2018-08-21] MEDS: FUROSEMIDE 10 MG/ML 4 ML VIAL IV SCH ×2 (09:43→19:44)
[2018-08-21] MEDS: FAMOTIDINE 20 MG TAB PO SCH (09:43)
[2018-08-21] MEDS: FLECAINIDE 50 MG TAB PO SCH ×2 (09:43→19:44)
[2018-08-21] MEDS ORDERED: LEVOFLOXACIN 250 MG TAB PO SCH (10:00)
--- NOTE | 2018-08-21 10:59 | PN ---
PROGRESS NOTE Mrs. Mendiola is an 88-year-old female who presented with symptoms of progressive dyspnea and worsening peripheral edema. Her breathing is stable at this point. She denies any cough, but she is complaining of discomfort in the lower extremities. She has a known history of coronary artery disease, status post stenting of the LAD in 2004 as well as prior history of diastolic dysfunction heart failure. She has a history of paroxysmal atrial fibrillation, has not been anticoagulated because of falls. She was evaluated by Dr. Cami Leon yesterday. History of pacemaker implantation. She continues to be at this time on Lipitor 20 mg daily, flecainide 50 mg twice a day, Lasix 40 mg IV q.12 hours. PHYSICAL EXAMINATION: Blood pressure 129/60 with a heart rate in the 60s. LUNGS: Clear. HEART: Regular rate and rhythm, S1, S2. No S3. No rub appreciated with a systolic ejection murmur. ABDOMEN: Soft, nontender. EXTREMITIES: 2+ edema bilaterally. LAB DATA: Revealed a BUN and creatinine 25 and 0.82, potassium 3.9, sodium 134, hemoglobin of 11.2. Her NT proBNP is 5610. IMPRESSION: 1. Symptoms of progressive dyspnea and peripheral edema on the basis of preserved systolic function heart failure. 2. History of coronary artery disease, stable. 3. Paroxysmal atrial fibrillation remains in sinus mechanism. 4. Prior history of dementia. RECOMMENDATION: From the cardiac standpoint, I will continue on IV diuretics for another 24 hours, follow her renal function. Increase her level of activity gradually and depending on her progress in the next 24 hours, further recommendation will be made. MMODL / IJN: [id number] /
[2018-08-21 11:23] VITALS: BMI 30.5
--- NOTE | 2018-08-21 12:27 | P.PN ---
Subjective Progress Note Date: 08/21/18 Principal diagnosis: CHF exacerbation Patient was seen and examined. No acute events overnight. Patient reports slight improvement in her lower extremity swelling. She denies any chest pain, shortness of breath or palpitations. No nausea or vomiting. No fever or chills. Patient reports some pain in her bilateral lower extremities. Objective - Vital Signs Vital signs: Vital Signs Temp 98 F 08/21/18 03:05 Pulse 61 08/21/18 08:00 Resp 20 08/21/18 08:00 BP 129/61 08/21/18 08:00 Pulse Ox 99 08/21/18 08:00 Intake & Output 08/20/18 08/21/18 08/21/18 18:59 06:59 18:59 Intake Total 478 240 Output Total 150 400 Balance 478 -150 -160 Weight 73.4 kg 73.4 kg Intake: Oral 478 240 Output: Urine 150 400 Other: # Voids 1 1 1 - Exam General: [non toxic], [no distress], [appears at stated age] Derm: [warm], [dry] Head: [atraumatic], [normocephalic], [symmetric] Eyes: [EOMI], [no lid lag], [anicteric sclera] Mouth: [no lip lesion], [mucus membranes moist] Cardiovascular: [S1S2 reg], [irregularly irregular], [positive DP pulse bilateral], Lungs: [Decreased breath sounds bilateral], [by basilar rales] , [no accessory muscle use] Abdominal: [soft], [ nontender to palpation], [no guarding], [no appreciable organomegaly] Ext: [no gross muscle atrophy], [2+ lower extremity edema], [no contractures] Neuro: [no focal neuro deficits] Psych: [Alert], [oriented], [appropriate affect] - Labs CBC & Chem 7: 08/21/18 05:35 08/21/18 05:35 Labs: Abnormal Lab Results - Last 24 Hours (Table) 08/21/18 08/21/18 Range/Units 05:35 05:35 RBC 3.62 L (3.80-5.40) m/uL Hgb 11.2 L (11.4-16.0) gm/dL RDW 18.9 H (11.5-15.5) % Sodium 134 L (137-145) mmol/L Chloride 97 L (98-107) mmol/L Carbon Dioxide 31 H (22-30) mmol/L BUN 25 H (7-17) mg/dL Glucose 119 H (74-99) mg/dL Calcium 8.3 L (8.4-10.2) mg/dL Microbiology - Last 24 Hours (Table) 08/17/18 18:44 Blood Culture - Preliminary Blood No Growth after 72 hours 08/18/18 01:00 Urine Culture - Final Urine,Voided Enterococcus faecium VRE Assessment and Plan Assessment: Assessment and Plan Hypotension, resolved Asymptomatic bacteriuria Diarrhea with abdominal pain Acute on chronic diastolic CHF exacerbation Elevated BUN Chronic conditions: Hypertension, Hyperlipidemia, CAD, atrial fibrillation SBP as low as 70s at rehab, SBP as low as 81 here. Possibly related to dehydration. Patient does not meet criteria for SIRS or sepsis with no source of infection identified. She has been afebrile with no leukocytosis during this admission. Lactic acid negative. Urine culture negative. Blood culture negative at 72 H. Plans: Follow blood cultures. Cardiology consulted for adjustment of BP medications. Urine culture growing out VRE enterococcus. Patient is asymptomatic. Plans: Start doxycycline for 3 days, will also cover concerns for cellulitis. CT of the aorta with findings of pericolonic inflammation possibly representing diverticulitis, colitis or ischemic colitis. Plans: Patient is completed 7 days of Flagyl and levofloxacin. Pain management with Tylenol. Zofran as needed for nausea or vomiting. As seen on chest x-ray. BNP 6810. Plans: Started on Lasix 40 mg IV twice a day by cardiology. Restart spironolactone, metoprolol and losartan. Follow cardiology consultation. Follow 6 minute walk test. Telemetry monitoring. BUN 40 on admission to 31-25. Likely secondary to dehydration. Plans: Encourage hydration by mouth. Daily BMP. Patient admitted for hypotension. BP has improved, antihypertensives restarted. Patient is completed course of antibiotics for diverticulitis. Started on doxycycline for concerns of cellulitis and asymptomatic VRE enterococcus. As per cardiology, IV diuresis for 1 more day, possible DC in 1-2 days.
[2018-08-21] MEDS: METOPROLOL TARTRATE 25 MG TAB PO SCH (19:44)
[2018-08-21] MEDS: DOXYCYCLINE 100 MG CAP PO SCH (19:44)
[2018-08-21] MEDS: ATORVASTATIN 20 MG TAB PO SCH (19:44)
[2018-08-22] MEDS: ONDANSETRON 4 MG/2 ML VIAL IVP PRN ×2 (02:14→16:23)
[2018-08-22 06:59] LABS: Calcium 8.5 mg/dL (8.4-10.2); Potassium 4.6 mmol/L (3.5-5.1)
[2018-08-22] MEDS: ASPIRIN 81 MG PO SCH (08:32)
[2018-08-22] MEDS: CHOLECALCIFEROL 1,000 UNIT TAB PO SCH (08:32)
[2018-08-22] MEDS: METOPROLOL TARTRATE 25 MG TAB PO SCH ×2 (08:32→20:27)
[2018-08-22] MEDS: FAMOTIDINE 20 MG TAB PO SCH (08:32)
[2018-08-22] MEDS: POTASSIUM CHLORIDE ER 10 MEQ TAB.ER.PRT PO SCH (08:32)
[2018-08-22] MEDS: SPIRONOLACTONE 25 MG TAB PO SCH (08:32)
[2018-08-22] MEDS: DULoxetine HCL 30 MG CAPSULE.DR PO SCH (08:32)
[2018-08-22] MEDS: FLECAINIDE 50 MG TAB PO SCH ×2 (08:32→20:27)
[2018-08-22] MEDS: FUROSEMIDE 10 MG/ML 4 ML VIAL IV SCH (08:33)
[2018-08-22] MEDS: DOXYCYCLINE 100 MG CAP PO SCH ×2 (08:36→20:27)
--- NOTE | 2018-08-22 10:46 | PN ---
PROGRESS NOTE Mrs. Mendiola is an 88-year-old female who was admitted with symptoms of progressive dyspnea and worsening peripheral edema. She has a known history of coronary artery disease and history of diastolic dysfunction heart failure. She is feeling better today. She continues to be dyspneic. She has a history of permanent pacemaker implantation. Her blood pressure is on the lower side. She has no chest pain. No dizziness. No palpitation. She denies any syncope. She continues to be at this time on: Aspirin 81 mg daily, Lipitor 20 mg daily, flecainide 50 mg twice a day, furosemide 40 mg IV q.12 hours, metoprolol tartrate 25 mg twice a day and losartan 25 mg daily, Aldactone 25 mg daily, potassium 10 mEq daily. PHYSICAL EXAMINATION: Blood pressure running in the high 90s to low 100 with a heart rate in 70s. Lungs no wheezes. HEART: Regular rate and rhythm S1, S2. No S3. No rub appreciated with a systolic murmur. ABDOMEN: Soft, nontender. Extremities: 1 to 2+ edema bilaterally. LAB DATA: Lab data revealed a potassium of 4.6, BUN and creatinine 29 and 0.95. IMPRESSION: 1. Symptoms of congestive heart failure with diastolic dysfunction, improving. 2. History of coronary artery disease stable. 3. Status post permanent pacemaker implantation. 4. Sick sinus syndrome. 5. History of dementia. RECOMMENDATIONS: We will continue present medical therapy. I will switch her to oral diuretic. Increase her activity gradually and depending on her progress further recommendations will be made. MMODL / CHELEN: [id number] /
--- NOTE | 2018-08-22 11:19 | P.PN ---
Subjective Progress Note Date: 08/22/18 Principal diagnosis: CHF exacerbation patient was seen and examined. No acute events overnight. Patient reports no changes in her condition since yesterday. She denies any chest pain, shortness of breath or palpitations. No nausea or vomiting. No fever or chills. Objective - Vital Signs Vital signs: Vital Signs Temp 97.8 F 08/22/18 08:00 Pulse 70 08/22/18 08:00 Resp 20 08/22/18 08:00 BP 95/62 08/22/18 08:00 Pulse Ox 99 08/22/18 08:00 Intake & Output 08/21/18 08/22/18 08/22/18 18:59 06:59 18:59 Intake Total 360 240 Output Total 600 Balance -240 240 Weight 73.4 kg 73.1 kg Intake: Oral 360 240 Output: Urine 600 Other: Voiding Method Bedside Commode # Voids 0 2 1 # Bowel Movements 1 2 - Exam General: [non toxic], [no distress], [appears at stated age] Derm: [warm], [dry] Head: [atraumatic], [normocephalic], [symmetric] Eyes: [EOMI], [no lid lag], [anicteric sclera] Mouth: [no lip lesion], [mucus membranes moist] Cardiovascular: [S1S2 reg], [irregularly irregular], [positive DP pulse bilateral], Lungs: [Decreased breath sounds bilateral], [by basilar rales] , [no accessory muscle use] Abdominal: [soft], [ nontender to palpation], [no guarding], [no appreciable organomegaly] Ext: [no gross muscle atrophy], [1+ lower extremity edema], [no contractures] Neuro: [no focal neuro deficits] Psych: [Alert], [oriented], [appropriate affect] - Labs CBC & Chem 7: 08/21/18 05:35 08/22/18 06:17 Labs: Abnormal Lab Results - Last 24 Hours (Table) 08/22/18 Range/Units 06:17 Sodium 134 L (137-145) mmol/L Chloride 95 L (98-107) mmol/L Carbon Dioxide 35 H (22-30) mmol/L BUN 29 H (7-17) mg/dL Glucose 108 H (74-99) mg/dL Microbiology - Last 24 Hours (Table) 08/17/18 18:44 Blood Culture - Preliminary Blood No Growth after 96 hours Assessment and Plan Assessment: Assessment and Plan Hypotension, resolved Asymptomatic bacteriuria Diarrhea with abdominal pain Acute on chronic diastolic CHF exacerbation Elevated BUN Chronic conditions: Hypertension, Hyperlipidemia, CAD, atrial fibrillation SBP as low as 70s at rehab, SBP as low as 81 here. Possibly related to dehydration. Patient does not meet criteria for SIRS or sepsis with no source of infection identified. She has been afebrile with no leukocytosis during this admission. Lactic acid negative. Urine culture negative. Blood culture negative at 96 H. Plans: Follow blood cultures. Cardiology consulted for adjustment of BP medications. Urine culture growing out VRE enterococcus. Patient is asymptomatic. Plans: Start doxycycline for 3 days, will also cover concerns for cellulitis. CT of the aorta with findings of pericolonic inflammation possibly representing diverticulitis, colitis or ischemic colitis. Plans: Patient is completed 7 days of Flagyl and levofloxacin. Pain management with Tylenol. Zofran as needed for nausea or vomiting. As seen on chest x-ray. BNP 6810. Plans: Lasix transitioned from IV to oral. Continue spironolactone, metoprolol and losartan while watching BP. Follow cardiology consultation. Follow 6 minute walk test. Telemetry monitoring. Follow up CXR in the morning. BUN 40 on admission to 31-25-29. Likely secondary to dehydration. Plans: Encourage hydration by mouth. Daily BMP. Patient admitted for hypotension. BP has improved, antihypertensives restarted. Patient is completed course of antibiotics for diverticulitis. Started on doxycycline for concerns of cellulitis and asymptomatic VRE enterococcus. As per cardiology, watch overnight, repeat CXR tomorrow morning, possible DC in 1-2 days.
[2018-08-22] MEDS: LOSARTAN 25 MG TAB PO SCH (11:46)
[2018-08-22 12:39] VITALS: RESP 18
[2018-08-22] MEDS: FUROSEMIDE 20 MG TAB PO SCH (16:23)
[2018-08-22] MEDS: ATORVASTATIN 20 MG TAB PO SCH (20:27)
[2018-08-22] MEDS: HYDROcodone/APAP 5-325MG 1 EACH TAB PO PRN (20:27)
[2018-08-23 08:39] LABS: Calcium 8.8 mg/dL (8.4-10.2)
--- NOTE | 2018-08-23 08:54 | XR ---
EXAMINATION TYPE: XR chest 2V DATE OF EXAM: 08/23/2018 COMPARISON: 08/20/2018 HISTORY: Shortness of breath FINDINGS: There are bilateral pleural effusions with cardiomegaly and bibasilar infiltrate. There is a diffuse interstitial pattern. Arthropathy shoulders. Cardiac device stable. Biapical pleural thickening. IMPRESSION: 1. Correlate for CHF with bilateral pleural effusions. Stable. Underlying pneumonia not excluded.
[2018-08-23] MEDS: LOSARTAN 25 MG TAB PO SCH (09:45)
[2018-08-23] MEDS: POTASSIUM CHLORIDE ER 10 MEQ TAB.ER.PRT PO SCH (09:45)
[2018-08-23] MEDS: CHOLECALCIFEROL 1,000 UNIT TAB PO SCH (09:52)
[2018-08-23] MEDS: DOXYCYCLINE 100 MG CAP PO SCH (09:52)
[2018-08-23] MEDS: ASPIRIN 81 MG PO SCH (09:52)
[2018-08-23] MEDS: DULoxetine HCL 30 MG CAPSULE.DR PO SCH (09:53)
[2018-08-23] MEDS: FLECAINIDE 50 MG TAB PO SCH (09:53)
[2018-08-23] MEDS: FAMOTIDINE 20 MG TAB PO SCH (09:53)
[2018-08-23] MEDS: FUROSEMIDE 20 MG TAB PO SCH (09:53)
[2018-08-23] MEDS: SPIRONOLACTONE 25 MG TAB PO SCH (09:53)
[2018-08-23] MEDS: METOPROLOL TARTRATE 25 MG TAB PO SCH (09:53)
--- NOTE | 2018-08-23 12:08 | P.DS ---
Providers Date of admission: 08/18/18 02:50 Expected date of discharge: 08/23/18 Attending physician: Earline Valdez MD Consults: 08/19/18 11:07 Consult Physician Stat Consulting Provider: Carin Johnston Consult Reason/Comments: CHF exacerbation, hypotension Do you want consulting provider notified?: Yes Primary care physician: Van Syed [facility] Course: The patient is an 88-year-old female with a PMH of dementia, diastolic CHF, persistent Afib (previously on Coumadin, DCed on last admission), CAD s/p PCI 2004, CKD, HTN, and HLD presented to the ED from [facility] for hypotension. The patient was recent admitted for GI bleeding and was discharged on 08/16/18, during which time the Coumadin was held. The patient was also believed to have been in mild CHF exacerbation and received inpatient IV lasix which was transitioned to patient's home oral doses on discharge. She was seen in the ED and denied any active complaints. History supplemented by the EMR in light of patient's dementia. She however denied any active complaints aside from chronic LE edema. She denied hematochezia, melena, chest pain, SOB, fever, or chills. Denied dysuria, abdominal pain, nausea, or vomiting. Denied coughing or sick contacts. She underwent an extensive evaluation in the ED w/ CXR showing cardiomegaly with minimal pulmonary vascular congestion. Laboratory evaluation revealed a BNP of 6810, WBC 9.2, Hgb 11.8, BUN 40, and Cr 1.01 She was noted to have a BP of 83/52 on admission w/ pulse 70, and SpO2 of 98% on 3L NC. She is being admitted to the medicine service for further management of hypotension. Patient was noted to have an SPEP as low as 70s at rehab and it was as low as 81 here. This is likely related to dehydration. Patient did not meet criteria for seizures or sepsis. She was afebrile with no leukocytosis throughout her admission. Lactic acid was negative. Blood culture was negative at 96 hours. Her antihypertensive medications were initially held but was reintroduced in a stepwise progression. Patient's urine culture grew out VRE enterococcus. Patient was asymptomatic. She was started on doxycycline for 3 days. Patient was noted to have diarrhea throughout her admission. CT of the aorta showed findings of pericolonic inflammation possibly representing diverticulitis, colitis or ischemic colitis. Patient was initially started on Flagyl and levofloxacin during her previous admission, and she completed a seven-day course of finished during this hospitalization. Her pain was managed with Tylenol. She was given Zofran as stated for nausea or vomiting. Patient was also admitted for CHF exacerbation. Chest x-ray showed findings of CHF with pleural effusion. BNP was 6810. Patient was initially on IV Lasix which was transitioned to oral at the time of discharge. Cardiology was consulted and followed the patient. Patient was seen and examined. No acute events overnight. Patient reports breathing back to baseline, slightly better than yesterday. She reports improved lower extremity swelling. Patient denies any chest pain, shortness of breath or palpitations. No nausea or vomiting. No fever or chills. General: [non toxic], [no distress], [appears at stated age] Derm: [warm], [dry] Head: [atraumatic], [normocephalic], [symmetric] Eyes: [EOMI], [no lid lag], [anicteric sclera] Mouth: [no lip lesion], [mucus membranes moist] Cardiovascular: [S1S2 reg], [irregularly irregular], [positive DP pulse bilateral], Lungs: [Decreased breath sounds bilateral], [by basilar rales] , [no accessory muscle use] Abdominal: [soft], [ nontender to palpation], [no guarding], [no appreciable organomegaly] Ext: [no gross muscle atrophy], [1+ lower extremity edema], [no contractures] Neuro: [no focal neuro deficits] Psych: [Alert], [oriented], [appropriate affect] Assessment and Plan Hypotension, resolved Asymptomatic bacteriuria Diarrhea with abdominal pain Acute on chronic diastolic CHF exacerbation Elevated BUN Chronic conditions: Hypertension, Hyperlipidemia, CAD, atrial fibrillation SBP as low as 70s at rehab, SBP as low as 81 here. Possibly related to dehydration. Patient does not meet criteria for SIRS or sepsis with no source of infection identified. She has been afebrile with no leukocytosis during this admission. Lactic acid negative. Urine culture negative. Blood culture negative at 120 H. Plans: Follow blood cultures. Cardiology consulted for adjustment of BP medications. Urine culture growing out VRE enterococcus. Patient is asymptomatic. Plans: Start doxycycline for 3 days, will also cover concerns for cellulitis. CT of the aorta with findings of pericolonic inflammation possibly representing diverticulitis, colitis or ischemic colitis. Plans: Patient is completed 7 days of Flagyl and levofloxacin. Pain management with Tylenol. Zofran as needed for nausea or vomiting. As seen on chest x-ray. BNP 6810. Plans: Lasix transitioned from IV to oral. Continue spironolactone, metoprolol and losartan while watching BP. Follow cardiology consultation. Discussed with Dr. Johnston, recommends Metolazone 2.5 mg PO Q3D. Telemetry monitoring. BUN 40 on admission to . Likely secondary to dehydration. Plans: Encourage hydration by mouth. Daily BMP. Patient admitted for hypotension. BP has improved, antihypertensives restarted. Patient is completed course of antibiotics for diverticulitis. Started on doxycycline for concerns of cellulitis and asymptomatic VRE enterococcus. As per cardiology, Lasix IV transitioned to oral. Will DC today. Pertinent Studies: chest x ray Patient Condition at Discharge: Stable Plan - Discharge Summary Discharge Rx Participant: No New Discharge Prescriptions: New Aspirin 81 mg PO DAILY #30 chew Furosemide [Lasix] 60 mg PO BID@0900,1600 #60 tab Famotidine [Pepcid] 20 mg PO DAILY #0 tab Doxycycline [Vibramycin] 100 mg PO BID #2 cap Metolazone [Zaroxolyn] 2.5 mg PO DIRECTED #10 tablet Continue Atorvastatin [Lipitor] 20 mg PO HS DULoxetine HCL [Cymbalta] 30 mg PO DAILY Cholecalciferol [Vitamin D3 (25 Mcg = 1000 Iu)] 1,000 unit PO DAILY Flecainide [Tambocor] 50 mg PO Q12HR tab Potassium Chloride ER [K-Dur 10] 10 meq PO DAILY #10 tab Spironolactone [Aldactone] 25 mg PO DAILY Metoprolol Tartrate [Lopressor] 25 mg PO BID Losartan Potassium [Cozaar] 25 mg PO DAILY HYDROcodone/APAP 5-325MG [[place] 5-325] 1 tab PO TID PRN #9 tab PRN Reason: Pain ALPRAZolam [Xanax] 0.25 mg PO BID PRN #6 tab PRN Reason: Anxiety Discontinued metroNIDAZOLE [Flagyl] 500 mg PO AC-TID #21 tab Levofloxacin [Levaquin] 750 mg PO HS Furosemide [Lasix] 40 mg PO BID Discharge Medication List Atorvastatin [Lipitor] 20 mg PO HS 06/11/16 [History] DULoxetine HCL [Cymbalta] 30 mg PO DAILY 09/01/16 [History] Cholecalciferol [Vitamin D3 (25 Mcg = 1000 Iu)] 1,000 unit PO DAILY 08/23/17 [History] Flecainide [Tambocor] 50 mg PO Q12HR tab 07/04/18 [Rx] Potassium Chloride ER [K-Dur 10] 10 meq PO DAILY #10 tab 07/16/18 [Rx] Losartan Potassium [Cozaar] 25 mg PO DAILY 08/14/18 [History] Metoprolol Tartrate [Lopressor] 25 mg PO BID 08/14/18 [History] Spironolactone [Aldactone] 25 mg PO DAILY 08/14/18 [History] ALPRAZolam [Xanax] 0.25 mg PO BID PRN #6 tab 08/23/18 [Rx] Aspirin 81 mg PO DAILY #30 chew 08/23/18 [Rx] Doxycycline [Vibramycin] 100 mg PO BID #2 cap 08/23/18 [Rx] Famotidine [Pepcid] 20 mg PO DAILY #0 tab 08/23/18 [Rx] Furosemide [Lasix] 60 mg PO BID@0900,1600 #60 tab 08/23/18 [Rx] HYDROcodone/APAP 5-325MG [[place] 5-325] 1 tab PO TID PRN #9 tab 08/23/18 [Rx] Metolazone [Zaroxolyn] 2.5 mg PO DIRECTED #10 tablet 08/23/18 [Rx] Follow up Appointment(s)/Referral(s): Van Syed MD [Primary Care Provider] - 1-2 days Carin Johnston MD [STAFF PHYSICIAN] - 1 Week Patient Instructions/Handouts: Urinary Tract Infection in Women (DC), Hypotension (DC) Activity/Diet/Wound Care/Special Instructions: PH Medi return Discharge Disposition: TRANSFER TO SNF/ECF
--- NOTE | 2018-08-23 12:20 | P.PN ---
Subjective Progress Note Date: 08/23/18 This is an 88-year-old female patient who was admitted with symptoms of progressive dyspnea and worsening peripheral edema. She has a known history of CAD, permanent pacemaker implantation and diastolic heart failure. She is feeling better today. Her breathing has improved. Although there is obvious si gns of improvement in edema patient feels that it has not improved much. She's had no couplets of chest pain, dizziness, palpitations or syncope. She is currently on aspirin 81 mg by mouth daily, Lipitor 20 mg by mouth daily at bedtime, flecainide 50 mg by mouth every 12 hours, Lasix 60 mg by mouth twice a day, losartan 25 mg by mouth daily, metoprolol titrate 25 mg by mouth twice a day, potassium and Aldactone 25 mg by mouth daily. Laboratory values today show potassium of 5.0, BUN of 39 and creatinine of 1.1. Objective - Vital Signs Vital signs: Vital Signs Temp 97.4 F L 08/23/18 08:00 Pulse 70 08/23/18 08:00 Resp 18 08/23/18 08:00 BP 95/57 08/23/18 08:00 Pulse Ox 97 08/23/18 08:00 Intake & Output 08/22/18 08/23/18 08/23/18 18:59 06:59 18:59 Intake Total 360 120 Output Total 600 300 Balance -240 -180 Weight 81 kg Intake: Oral 360 120 Output: Urine 600 300 Other: Voiding Method Bedside Commode Bedside Commode # Voids 1 # Bowel Movements 1 1 - Exam PHYSICAL EXAMINATION: HEENT: Head is atraumatic, normocephalic. Pupils equal, round. Neck is supple. There is no elevated jugular venous pressure. HEART EXAMINATION: Heart sounds regular, S1 and S2 with a systolic murmur. CHEST EXAMINATION: Lungs are clear to auscultation and precussion. No chest wall tenderness is noted on palpation or with deep breathing. ABDOMEN: Soft, nontender. Bowel sounds are heard. No organomegaly noted. EXTREMITIES: 2+ peripheral pulses with no evidence of +1-2 peripheral edema, improved from yesterday and no calf tenderness noted. NEUROLOGIC patient is awake, alert and oriented x3. . - Labs CBC & Chem 7: 08/21/18 05:35 08/23/18 07:46 Labs: Abnormal Lab Results - Last 24 Hours (Table) 08/23/18 Range/Units 07:46 Sodium 135 L (137-145) mmol/L Chloride 93 L (98-107) mmol/L Carbon Dioxide 35 H (22-30) mmol/L BUN 39 H (7-17) mg/dL Creatinine 1.10 H (0.52-1.04) mg/dL Glucose 126 H (74-99) mg/dL Microbiology - Last 24 Hours (Table) 08/17/18 18:44 Blood Culture - Preliminary Blood No Growth after 120 hours Assessment and Plan Assessment: #1 acute and chronic diastolic congestive heart failure, improving #2 history of CAD, stable #3 history of permanent pacemaker implantation #4 sick sinus syndrome #5 dementia Plan: Her from cardiology perspective, medications were reviewed and we will continue the same. From our perspective patient may be discharged home today we will re commend addition of metolazone 2.5 mg every third day at home. She will follow- up in the office as an outpatient. [employer] note has been reviewed, I agree with a documented findings and plan of care. Patient was seen and examined.
[2018-08-23 13:37] VITALS: BP 97/67; PULSE 67; TEMP 97.7
== END 2018-08-23 16:05 | DRG 640 ==
LOC: EC 17:55 → 3SCARD 08-18 02:50
PROVIDERS: ADMIT Internal Medicine; ATTEND Internal Medicine
DX: E86.0 Dehydration (principal); I50.33 Acute on chronic diastolic (congestive) heart failure; I13.0 Hypertensive heart and chronic kidney disease with heart failure and stage 1 through stage 4 chronic kidney disease, or unspecified chronic kidney disease; I48.1 Persistent atrial fibrillation; K57.92 Diverticulitis of intestine, part unspecified, without perforation or abscess without bleeding; K55.9 Vascular disorder of intestine, unspecified; L03.90 Cellulitis, unspecified; N39.0 Urinary tract infection, site not specified; E78.5 Hyperlipidemia, unspecified; F03.90 Unspecified dementia, unspecified severity, without behavioral disturbance, psychotic disturbance, mood disturbance, and anxiety; F41.9 Anxiety disorder, unspecified; I25.10 Atherosclerotic heart disease of native coronary artery without angina pectoris; I27.20 Pulmonary hypertension, unspecified; Z95.0 Presence of cardiac pacemaker; K21.9 Gastro-esophageal reflux disease without esophagitis; N18.3 Chronic kidney disease, stage 3 (moderate); Z79.82 Long term (current) use of aspirin; Z79.899 Other long term (current) drug therapy; Z87.891 Personal history of nicotine dependence; Z91.81 History of falling; Z95.5 Presence of coronary angioplasty implant and graft; Z87.19 Personal history of other diseases of the digestive system; Z88.0 Allergy status to penicillin; I08.1 Rheumatic disorders of both mitral and tricuspid valves; Z79.2 Long term (current) use of antibiotics; B95.2 Enterococcus as the cause of diseases classified elsewhere; Z16.21 Resistance to vancomycin; I95.9 Hypotension, unspecified
CPT/HCPCS: 36415; 71046; 80048; 80053; 81001; 83605; 83880; 84100; 85025; 85027; 85610; 85730; 87040; 87077; 87086; 87186; 93005; 96360; 96361; 99285

== ENCOUNTER 2018-08-24 20:17 | Emergency (ER) | payer MEDICARE, BC ==
[2018-08-24 20:27] VITALS: TEMP 97.9
[2018-08-24 20:51] LABS: Anisocytosis Slight; HCT 34.9 % (34.0-46.0); HGB 11.2 gm/dL (11.4-16.0); Hypochromasia Slight; MCH 30.7 pg (25.0-35.0); MCV 96.1 fL (80.0-100.0); Macrocytosis Slight; Mean Platelet Volume 7.7; Platelet Count 282 k/uL (150-450); Poikilocytosis Slight; RBC 3.63 m/uL (3.80-5.40); RDW 18.3 % (11.5-15.5); WBC 10.7 k/uL (3.8-10.6)
[2018-08-24 21:03] LABS: Albumin 2.6 g/dL (3.5-5.0); Calcium 8.2 mg/dL (8.4-10.2); Large Platelets Present; Lymphocytes # (M) 0.64 k/uL (1.0-4.8); Monocytes # (M) 0.64 k/uL (0-1.0); Neutrophils # (M) 9.42 k/uL (1.3-7.7); Neutrophils % (M) 88 %; Nucleated Red Blood Cells 0 /100 WBC (0-0); Potassium 4.8 mmol/L (3.5-5.1); Total Bilirubin 0.8 mg/dL (0.2-1.3); Total Cells Counted 100; Total Protein 5.2 g/dL (6.3-8.2)
--- NOTE | 2018-08-24 21:08 | XR ---
EXAMINATION TYPE: XR chest 2V DATE OF EXAM: 08/24/2018 COMPARISON: NONE HISTORY: Diarrhea. Hypotension. TECHNIQUE: Frontal and lateral views of the chest are obtained. FINDINGS: Heart is enlarged. There is pulmonary vascular congestion and pulmonary edema. There is bl unting of the costophrenic angles. There is a left axillary pacemaker. IMPRESSION: Congestive heart failure with pleural effusions. No change compared to yesterday.
--- NOTE | 2018-08-24 21:38 | ED ---
General Adult HPI - General Chief complaint: Recheck/Abnormal Lab/Rx Stated complaint: hypotension Time Seen by Provider: 08/24/18 20:33 Source: patient, EMS, RN notes reviewed, old records reviewed Mode of arrival: EMS Limitations: no limitations - History of Present Illness Initial comments: 88-year-old [facility]. Patient was admitted to this institution within the past one week. She is diagnosed with UTI and ultimately discharged. She had diarrhea during her admission she states that she did have some diarrhea earlier in the week but this is improving. She denies fever chills. Denies any pain complaints. No cough. No fever or chills. - Related Data Home Medications Medication Instructions Recorded Confirmed Atorvastatin [Lipitor] 20 mg PO HS 06/11/16 08/24/18 DULoxetine HCL [Cymbalta] 30 mg PO DAILY 09/01/16 08/24/18 Cholecalciferol [Vitamin D3 (25 1,000 unit PO DAILY 08/23/17 08/24/18 Mcg = 1000 Iu)] Losartan Potassium [Cozaar] 25 mg PO DAILY 08/14/18 08/24/18 Metoprolol Tartrate [Lopressor] 25 mg PO BID 08/14/18 08/24/18 Spironolactone [Aldactone] 25 mg PO DAILY 08/14/18 08/24/18 Aspirin 81 mg PO DAILY 08/24/18 08/24/18 HYDROcodone/APAP 5-325MG [[place] 1 tab PO Q8H PRN 08/24/18 08/24/18 5-325] Metolazone [Zaroxolyn] 2.5 mg PO Q72H 08/24/18 08/24/18 Previous Rx's Medication Instructions Recorded Flecainide [Tambocor] 50 mg PO Q12HR tab 07/04/18 Potassium Chloride ER [K-Dur 10] 10 meq PO DAILY #10 tab 07/16/18 ALPRAZolam [Xanax] 0.25 mg PO BID PRN #6 tab 08/23/18 Doxycycline [Vibramycin] 100 mg PO BID #2 cap 08/23/18 Famotidine [Pepcid] 20 mg PO DAILY #0 tab 08/23/18 Furosemide [Lasix] 60 mg PO BID@0900,1600 #60 tab 08/23/18 Allergies Allergy/AdvReac Type Severity Reaction Status Date / Time Penicillins Allergy Rash/Hives Verified 08/24/18 20:35 Review of Systems ROS Statement: Those systems with pertinent positive or pertinent negative responses have been documented in the HPI. ROS Other: All systems not noted in ROS Statement are negative. Past Medical History Past Medical History: Coronary Artery Disease (CAD), Heart Failure, GERD/Reflux, Hyperlipidemia, Hypertension Additional Past Medical History / Comment(s): ulcers, diverticulitis, CKD III, A. fib, Pulm HTN, dementia History of Any Multi-Drug Resistant Organisms: VRE Date of last positivie culture/infection: 08/24/17 MDRO Source:: Urine Past Surgical History: Heart Catheterization With Stent, Pacemaker Additional Past Surgical History / Comment(s): sx for ruptered ulcer in 2012, pacer maker placement in May 2016 and changed generator on 09-04-16. Past Anesthesia/Blood Transfusion Reactions: No Reported Reaction Date of Last Stent Placement:: 1991 (?) Type of Cardiac Device: Permanent Pacemaker Device Placement Date:: Past Psychological History: Anxiety Smoking Status: Former smoker Past Alcohol Use History: Occasional Past Drug Use History: None Reported - Past Family History Father History Unknown: Yes Family Medical History: Unable to Obtain Mother History Unknown: Yes Family Medical History: Unable to Obtain General Exam Limitations: no limitations General appearance: alert, in no apparent distress Head exam: Present: atraumatic, normocephalic Eye exam: Present: normal appearance, PERRL ENT exam: Present: normal exam Neck exam: Present: normal inspection. Absent: tenderness, meningismus Respiratory exam: Present: normal lung sounds bilaterally. Absent: respiratory distress, wheezes Cardiovascular Exam: Present: regular rate, normal rhythm GI/Abdominal exam: Present: soft. Absent: distended, tenderness Extremities exam: Present: normal capillary refill, pedal edema Neurological exam: Present: alert. Absent: motor sensory deficit Psychiatric exam: Present: normal affect, normal mood Skin exam: Present: warm, dry, intact Course Vital Signs 08/24/18 08/24/18 08/24/18 20:19 20:21 20:30 Temperature 97.9 F Pulse Rate 69 70 Respiratory 18 17 Rate Blood Pressure 94/46 94/46 O2 Sat by Pulse 95 80 L 83 L Oximetry 08/24/18 08/24/1808/24/19 20:40 20:50 21:20 Temperature Pulse Rate 70 69 Respiratory 16 16 Rate Blood Pressure 96/60 88/39 88/39 O2 Sat by Pulse 97 94 L Oximetry 08/24/18 08/24/18 21:30 22:01 Temperature Pulse Rate 89 Respiratory 18 Rate Blood Pressure 88/39 100/54 O2 Sat by Pulse 98 Oximetry EKG Findings - EKG Comments: EKG Findings:: EKG: Paced rhythm rate of 70 QRS duration 188 QTC 561 Medical Decision Making - Medical Decision Making 88-year-old [facility]. Patient does have chronically low blood pressure this was reviewed on the medical record. She has history of CHF. She has no specific complaints. She was given fluid by EMS with improvement in blood pressure. She has mild leukocytosis 10.7, hemoglobin is 11.2 which is stable. Mild electrolyte derangement, sodium 131. Creatinine 1.2 which is baseline. She has a urinalysis with 38 white cells c urrently on doxycycline for VRE infection. She is asymptomatic. She should continue the doxycycline as prescribed. Repeat blood cultures and urine cultures are pending. Patient does not want to be admitted she [facility]. She can be monitored at the [facility] for fluctuation in blood pressure. - Lab Data Result diagrams: 08/24/18 20:31 08/24/18 20:31 Lab Results 08/24/18 08/24/18 08/24/18 Range/Units 20:31 20:31 21:00 WBC 10.7 H (3.8-10.6) k/uL RBC 3.63 L (3.80-5.40) m/uL Hgb 11.2 L (11.4-16.0) gm/dL Hct 34.9 (34.0-46.0) % MCV 96.1 (80.0-100.0) fL MCH 30.7 (25.0-35.0) pg MCHC 32.0 (31.0-37.0) g/dL RDW 18.3 H (11.5-15.5) % Plt Count 282 (150-450) k/uL Neutrophils % (Manual) 88 % Lymphocytes % (Manual) 6 % Monocytes % (Manual) 6 % Neutrophils # (Manual) 9.42 H (1.3-7.7) k/uL Lymphocytes # (Manual) 0.64 L (1.0-4.8) k/uL Monocytes # (Manual) 0.64 (0-1.0) k/uL Nucleated RBCs 0 (0-0) /100 WBC Manual Slide Review Performed Large Platelets Present Hypochromasia Slight Poikilocytosis Slight Anisocytosis Slight Macrocytosis Slight Sodium 131 L (137-145) mmol/L Potassium 4.8 (3.5-5.1) mmol/L Chloride 93 L (98-107) mmol/L Carbon Dioxide 32 H (22-30) mmol/L Anion Gap 6 mmol/L BUN 51 H (7-17) mg/dL Creatinine 1.22 H (0.52-1.04) mg/dL Est GFR (CKD-EPI)AfAm 45 (>60 ml/min/1.73 sqM) Est GFR (CKD-EPI)NonAf 39 (>60 ml/min/1.73 sqM) Glucose 118 H (74-99) mg/dL Calcium 8.2 L (8.4-10.2) mg/dL Total Bilirubin 0.8 (0.2-1.3) mg/dL AST 26 (14-36) U/L ALT 23 (9-52) U/L Alkaline Phosphatase 64 (38-126) U/L Total Protein 5.2 L (6.3-8.2) g/dL Albumin 2.6 L (3.5-5.0) g/dL Urine Color Yellow Urine Appearance Clear (Clear) Urine pH 5.0 (5.0-8.0) Ur Specific [place] 1.017 (1.001-1.035) Urine Protein Trace H (Negative) Urine Glucose (UA) Negative (Negative) Urine Ketones Negative (Negative) Urine Blood Negative (Negative) Urine Nitrite Negative (Negative) Urine Bilirubin Negative (Negative) Urine Urobilinogen <2.0 (<2.0) mg/dL Ur Leukocyte Esterase Moderate H (Negative) Urine RBC 2 (0-5) /hpf Urine WBC 38 H (0-5) /hpf Ur Squamous Epith Cells 4 (0-4) /hpf Hyaline Casts 12 H (0-2) /lpf Urine Mucus Rare H (None) /hpf Disposition Clinical Impression: Hypotension, UTI (urinary tract infection) Disposition: HOME SELF-CARE Condition: Fair Instructions (If sedation given, give patient instructions): Urinary Tract Infection in Women (ED) Additional Instructions: Please continue doxycycline as prescribed. Please monitor blood pressure. Ret urn with worsening or changing symptoms. Is patient prescribed a controlled substance at d/c from ED?: No Referrals: Van Syed MD [Primary Care Provider] - 1-2 days Time of Disposition: 22:09
[2018-08-24 21:43] LABS: Appearance,Urine Clear (Clear); Bilirubin,Urine Negative (Negative); Blood,Urine Negative (Negative); Color,Urine Yellow; Glucose,Urine (UA) Negative (Negative); Hyaline Casts,Urine 12 /lpf (0-2); Ketones,Urine Negative (Negative); Leukocyte Esterase,Urine Moderate (Negative); Mucus,Urine Rare /hpf; Nitrite,Urine Negative (Negative); Protein,Urine Trace (Negative); RBC,Urine 2 /hpf (0-5); Specific Gravity,Urine 1.017 (1.001-1.035); Squamous Epithelial Cell,Urine 4 /hpf (0-4); Urobilinogen,Urine <2.0 mg/dL (<2.0); WBC,Urine 38 /hpf (0-5)
[2018-08-24 22:03] VITALS: BP 100/54; PULSE 89; RESP 18
== END 2018-08-24 22:58 | disposition home or self-care (01) ==
LOC: EC 20:17
DX: I95.9 Hypotension, unspecified (principal); N39.0 Urinary tract infection, site not specified; I25.10 Atherosclerotic heart disease of native coronary artery without angina pectoris; I13.0 Hypertensive heart and chronic kidney disease with heart failure and stage 1 through stage 4 chronic kidney disease, or unspecified chronic kidney disease; I50.9 Heart failure, unspecified; N18.3 Chronic kidney disease, stage 3 (moderate); F03.90 Unspecified dementia, unspecified severity, without behavioral disturbance, psychotic disturbance, mood disturbance, and anxiety; K21.9 Gastro-esophageal reflux disease without esophagitis; E78.5 Hyperlipidemia, unspecified; I48.91 Unspecified atrial fibrillation; F41.9 Anxiety disorder, unspecified; Z87.891 Personal history of nicotine dependence; Z79.82 Long term (current) use of aspirin; Z79.899 Other long term (current) drug therapy; Z88.0 Allergy status to penicillin; Z95.5 Presence of coronary angioplasty implant and graft; Z95.0 Presence of cardiac pacemaker
CPT/HCPCS: 36415; 71046; 80053; 81001; 85025; 87040; 87077; 87086; 87186; 93005; 99285